=== PATIENT | male | born 1955 | race Two or more races ===

== ENCOUNTER 2020-04-09 21:04 | Emergency (ER) | payer MEDICARE, MEDICAID, SELFPAY ==
--- NOTE | 2020-04-09 | ECG_ITS ---
Test Reason : CHEST PAIN Blood Pressure : / mmHG Vent. Rate : 077 BPM Atrial Rate : 096 BPM P-R Int : 000 ms QRS Dur : 086 ms QT Int : 388 ms P-R-T Axes : 000 015 -10 degrees QTc Int : 439 ms Atrial fibrillation with occasional ventricular-paced complexes Abnormal ECG When compared with ECG of 27-NOV-2019 01:11, Vent. rate has decreased BY 4 BPM Referred By: Generic ED Physician Electronically Signed By:ANN DAUGHERTY MD
[2020-04-09 22:01] VITALS: BP 134/67; PULSE 80; RESP 24; TEMP 37.2; O2SAT 99; BMI 31.8
--- NOTE | 2020-04-09 22:09 | ED_ITS ---
HPI - Dizziness General Chief Complaint: Dizziness Stated Complaint: MULTIPLE COMPLAINTS Time Seen by Provider: 04/09/20 22:53 Source: patient Mode of arrival: ambulatory Limitations: no limitations History of Present Illness HPI Narrative: 64-year-old male presents after experiencing dizziness and palpitations earlier today. States that when he felt dizzy he took his cardiac medications, had some palpitations, and then the symptoms resolved. He states that he has chronic pain, does not have pain at this time, but feels like he needs pain management to prevent further pain. 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 he described to have Chronic chest, abdominal, and leg pain but not at this moment. Related Data Previous Rx's Medication Instructions Recorded atenolol 100 mg tablet 100 mg PO DAILY #30 tab 04/01/20 Allergies Allergy/AdvReac Type Severity Reaction Status Date / Time No Known Allergies Allergy Unverified 03/03/20 16:27 [No Known Allergies*] Review of Systems Review of Systems: Constitutional: No Weight loss, No Fever, No Chills, No Night Sweats, No Fatigue, No Malaise ENT/Mouth: No Hearing loss, No Ear Pain, No Nasal Congestion, No Sinus Pain, No Hoarseness, No sore throat, No Rhinorrhea, No Swallowing Difficulty Eyes: No Eye Pain, No Swelling, No Redness, No Foreign Body, No Discharge, No Vision Changes Cardiovascular: No Chest Pain, No SOB, No Dyspnea on Exertion, No Orthopnea, No Edema, No Palpitations Respiratory: No Cough, No Sputum, No Wheezing, No Smoke Exposure, No Dyspnea Gastrointestinal: No Nausea, No Vomiting, No Diarrhea, No Constipation, No abdominal Pain, No Hematochezia, No Melena Genitourinary: no irregular bleeding, No Dysuria, No Urinary Frequency, No Hematuria, No Urinary Incontinence, No Urgency, No Flank Pain, No Urinary Flow Changes, No Hesitancy Musculoskeletal: No joint pain, No Myalgias, No Joint Swelling Skin: No Skin Lesions, No rash Neuro: No Weakness, No Numbness, No Paresthesias, No Loss of Consciousness, No Dizziness, No Headache Psych: No Anxiety/Panic, No Depression, No SI/HI/AH/VH, No Social Issues Heme/Lymph: No Bruising, No Bleeding,No Lymphadenopathy Endocrine: No Polyuria, No Polydipsia, No Temperature Intolerance PMFSH Past Medical History Attestation statement: The following information was validated with the patient. Medical History Atrial fibrillation Social History Social History Alcohol intake: current Alcohol intake frequency: 0-2 drinks per day Smoking Status: Never smoker Use of substances other than those prescribed or required for medical reasons: No Advance Directives: No Advance Directives Information Provided: Yes Physical Exam Vital Signs: Vital Signs: Vital Signs Temp Pulse Resp BP Pulse Ox 04/10/20 00:18 60 16 161/89 H 100 04/09/20 22:01 98.9 F 80 24 H 134/67 99 Body Mass Index 31.8 Appearance: Alert. Oriented X3. No acute distress. Head: Normal external exam. Normocephalic. Atraumatic. No Benentt signs noted. No raccoon eyes noted Eyes: PERRLA. EOMI. Conjunctiva and sclera normal. Eyelids normal. ENT: TM's Normal. Pharynx normal. Uvula midline. Moist mucous membranes. No trismus noted. No drooling noted. No muffled voice noted. Neck: Normal inspection. Neck supple. No adenopathy. Thyroid Normal. No meningeal signs. No neck mass noted. CVS: Normal heart rate and rhythm. Heart sound normal. No murmurs noted. Pulses equal to all extremities. Respiratory: No respiratory distress. Painless inspiration. Breath sounds normal. No wheezes/rales/rhonchi noted. Chest nontender. No accessory muscle usage noted or decreased air movement noted. Abdomen: Soft and nontender. Bowel sounds normal in all 4 quadrants. No distention noted. No organomegaly noted. No visible injury noted. Back: No CVA tenderness. Full range of motion noted. Skin: Skin warm and dry. Normal skin color. Normal skin turgor. No rashes/lesions/lacerations noted. Extremities: No lower extremity edema. Extremities exhibit normal range of motion. Extremities nontender. Neuro: cranial nerves 2-12 intact, no focal neural deficits, strength 5/5 to all extremities, No motor deficit. No sensory deficit. Reflexes normal. Course Course Course Narrative: Plan is to rule out ACS, infection, electrolyte abnormalities. During interview patient stated that he does not have dizziness at this moment, that the dizziness went away after he took his cardiac med ications, is requesting something for pain although he does not have any pain now he says that he is going to have pain in the future and needs to be treated. Patient disappointed that he would not be receiving any medications for pain at this time. EKG shows AFib, 77 beats per minute, he is advised to continue to take his cardiac meds as ordered. Troponins are negative, CBC and Chem 7 are normal. Urinalysis is normal, shows hematuria which has been a chronic problem. patient discharged home in stable condition. Patient verbalized understanding of and agrees to plan of care. He is dissatisfied because we will not be prescribing pain medications for him. route service representative utilized for all correspondence. Google translate utilized for discharge instructions. patient dissatisfied that we will not be prescribing pain management. Another discussion utilizing telephone detective narcotics and vice regarding plan and appropriate use of emergency department. 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 This happened at 10:20 a.m. 11/04/2019 at 00:29 a.m. MDM - Dizziness Differential Diagnosis Differential diagnosis: Likely adverse reaction to drug, benign paroxysmal positional vertigo and orthostatic hypotension Medical Records Attestation: I reviewed the patient's medical records. Lab Data Attestation: I reviewed the patient's lab results. Result diagrams: 04/09/20 22:31 04/09/20 22:31 Labs: Lab Results 04/09/20 04/09/20 04/09/20 Range/Units 22:31 22:31 22:31 WBC 9.5 (4.8-10.8) X10*3/uL RBC 4.82 (4.60-5.80) X10*6/uL Hgb 13.9 L (14.0-18.0) g/dl Hct 42.2 (42-52) % MCV 87.6 (80-98) fL MCH 28.8 (27.0-33.0) pg MCHC 32.9 (31.0-36.0) g/dl RDW 12.8 (11.0-16.0) % Plt Count 288 (160-400) X10*3/uL MPV 10.0 (9.4-12.4) fL Immature Gran % (Auto) 0.2 (0.0-0.4) % Neut % (Auto) 53.5 (45-73) % Lymph % (Auto) 35.4 (20-40) % Cherry % (Auto) 9.4 (2-11) % Eos % (Auto) 1.0 (0-4) % Baso % (Auto) 0.5 (0-2) % Lymph # (Auto) 3.4 (1.2-4.9) X10*3/uL Cherry # (Auto) 0.9 (0.1-1.2) X10*3/uL Eos # (Auto) 0.1 (0.0-0.4) X10*3/uL Baso # (Auto) 0.1 (0.0-0.2) X10*3/uL Abs Immat Gran (auto) 0.02 (0.00-0.03) X10*3/uL Absolute Neuts (auto) 5.1 (2.0-8.3) X10*3/uL Absolute Nucleated RBC 0.000 (0.0-0.012) X10*3/uL Nucleated RBC % (auto) 0.0 (0.0-0.2) /100WBC Sodium 140 (135-145) mmol/L Potassium 4.6 (3.3-5.1) mmol/l Chloride 103 (96-108) mmol/L Carbon Dioxide 29 (22-29) mmol/L Anion Gap 13 (12-20) BUN 15 (9-16) mg/dL Creatinine 0.93 (0.5-1.4) mg/dL Estim Creat Clear Calc 76.8 Estimated GFR > 60 Random Glucose 84 (60-115) mg/dL Calcium 8.8 (8.4-10.2) mg/dL Magnesium 2.0 (1.6-2.6) mg/dL Troponin I High Sens 4.9 (<3.5-35.0) ng/L Urine Color Urine Appearance Urine pH (5.0-8.0) Ur Specific [place] (1.005-1.025) Urine Protein (NEG-TRACE) MG/DL Urine Glucose (UA) (NEG) MG/DL Urine Ketones (NEG) MG/DL Urine Blood (NEG) Urine Nitrite (NEG) Ur Leukocyte Esterase (NEG) Urine RBC (0) /HPF Urine WBC (0-4) /HPF Ur Squamous Epith Cells /LPF Urine Bacteria /LPF Urine Opiates Screen (Not Detect) Ur Barbiturates Screen (Not Detect) Ur Phencyclidine Scrn (Not Detect) Ur Amphetamines Screen (Not Detect) U Benzodiazepines Scrn (Not Detect) Urine Cocaine Screen (Not Detect) U Marijuana (THC) Screen (Not Detect) Ethyl Alcohol mg/dL 04/09/20 04/09/20 04/09/20 Range/Units 22:31 23:13 23:13 WBC (4.8-10.8) X10*3/uL RBC (4.60-5.80) X10*6/uL Hgb (14.0-18.0) g/dl Hct (42-52) % MCV (80-98) fL MCH (27.0-33.0) pg MCHC (31.0-36.0) g/dl RDW (11.0-16.0) % Plt Count (160-400) X10*3/uL MPV (9.4-12.4) fL Immature Gran % (Auto) (0.0-0.4) % Neut % (Auto) (45-73) % Lymph % (Auto) (20-40) % Cherry % (Auto) (2-11) % Eos % (Auto) (0-4) % Baso % (Auto) (0-2) % Lymph # (Auto) (1.2-4.9) X10*3/uL Cherry # (Auto) (0.1-1.2) X10*3/uL Eos # (Auto) (0.0-0.4) X10*3/uL Baso # (Auto) (0.0-0.2) X10*3/uL Abs Immat Gran (auto) (0.00-0.03) X10*3/uL Absolute Neuts (auto) (2.0-8.3) X10*3/uL Absolute Nucleated RBC (0.0-0.012) X10*3/uL Nucleated RBC % (auto) (0.0-0.2) /100WBC Sodium (135-145) mmol/L Potassium (3.3-5.1) mmol/l Chloride (96-108) mmol/L Carbon Dioxide (22-29) mmol/L Anion Gap (12-20) BUN (9-16) mg/dL Creatinine (0.5-1.4) mg/dL Estim Creat Clear Calc Estimated GFR Random Glucose (60-115) mg/dL Calcium (8.4-10.2) mg/dL Magnesium (1.6-2.6) mg/dL Troponin I High Sens (<3.5-35.0) ng/L Urine Color YELLOW Urine Appearance CLEAR Urine pH 6.0 (5.0-8.0) Ur Specific [place] 1.025 (1.005-1.025) Urine Protein NEG (NEG-TRACE) MG/DL Urine Glucose (UA) NEG (NEG) MG/DL Urine Ketones NEG (NEG) MG/DL Urine Blood TRACE (NEG) Urine Nitrite NEG (NEG) Ur Leukocyte Esterase NEG (NEG) Urine RBC 0-2 (0) /HPF Urine WBC 0-2 (0-4) /HPF Ur Squamous Epith Cells 1+ /LPF Urine Bacteria TRACE /LPF Urine Opiates Screen Not Detected (Not Detect) Ur Barbiturates Screen Not Detected (Not Detect) Ur Phencyclidine Scrn Not Detected (Not Detect) Ur Amphetamines Screen Not Detected (Not Detect) U Benzodiazepines Scrn Not Detected (Not Detect) Urine Cocaine Screen Not Detected (Not Detect) U Marijuana (THC) Screen Not Detected (Not Detect) Ethyl Alcohol < 10 mg/dL ECG Data Attestation: I personally reviewed and interpreted this ECG as follows: ECG interpretation date: 04/09/20 ECG interpretation time: 21:34 Prior ECG tracings: available for review Interpretation: Vent. rate 77 BPM GA interval * ms QRS duration 86 ms QT/QTc 388/439 ms P-R-T axes * 15 -10 Atrial fibrillation with occasional ventricular-paced complexes Abnormal ECG When compared with ECG of 27-NOV-2019 01:11, Vent. rate has decreased BY 4 BPM Discharge Plan Discharge Clinical Impression: Dizziness Atrial fibrillation Qualifiers: Atrial fibrillation type: longstanding persistent Qualified Code(s): I48.11 - Longstanding persistent atrial fibrillation Patient Disposition: Home, Self-Care Instructions: A-fib (Atrial Fibrillation) (ED), Dizziness (ED) Additional Instructions: se le evalu? si se hab?an mareado. Castañeda electrocardiograma muestra AFib a ellen velocidad de 77, lo cual es normal para usted. Por favor, contin?e tomando nava medicamentos y el seguimiento con cardiolog?a seg?n lo programado. Nava valores de laboratorio estaban dentro de los l?mites normales. Por favor, marshal un seguimiento con castañeda proveedor de atenci?n primaria para m?s ejercicio Episodios de mareos. Tony por elegir celena departamento de emergencias para la evaluaci?n. Por favor, marshal un seguimiento con el m?dico de atenci?n primaria seg?n sea necesario. Regrese al servicio de urgencias para cualquier s?ntoma nuevo, preocupante o que empeore. you were evaluated for dizziness. Your EKG shows AFib at a rate of 77, which is normal for you. Please continue to take your medications and follow-up with cardiology as scheduled. Your lab values were within normal limits. Please follow-up with your primary care provider to further workup Episodes of dizziness. Thank you for choosing this emergency department for evaluation. Please follow-up with primary care physician as needed. Return to the emergency department for any new, concerning, or worsening symptoms. Prescriptions: No Action atenolol 100 mg tablet 100 mg PO DAILY Qty: 30 RF: 5 Referrals: Everardo Rosado MD [Physician] - 2 days ( please call and make an appointment)
[2020-04-09 22:34] LABS: MANUAL DIFF FLAG NO
[2020-04-09 22:35] LABS: Basophils Absolute Auto 0.1 X10*3/uL (0.0-0.2); Basophils Percent Auto 0.5 % (0-2); Eosinophils Absolute Auto 0.1 X10*3/uL (0.0-0.4); Hematocrit 42.2 % (42-52); Hemoglobin 13.9 g/dl (14.0-18.0); Imm Gran Abs Auto 0.02 X10*3/uL (0.00-0.03); Imm Gran Pct Auto 0.2 % (0.0-0.4); Lymphocytes Absolute Auto 3.4 X10*3/uL (1.2-4.9); Lymphocytes Percent Auto 35.4 % (20-40); Mean Corpuscular HGB Conc 32.9 g/dl (31.0-36.0); Mean Corpuscular Hemoglobin 28.8 pg (27.0-33.0); Mean Corpuscular Volume 87.6 fL (80-98); Monocytes Absolute Auto 0.9 X10*3/uL (0.1-1.2); Monocytes Percent Auto 9.4 % (2-11); Neutrophils Absolute Auto 5.1 X10*3/uL (2.0-8.3); Neutrophils Percent Auto 53.5 % (45-73); Platelet Count 288 X10*3/uL (160-400); Red Blood Count 4.82 X10*6/uL (4.60-5.80); Red Cell Distribution Width 12.8 % (11.0-16.0); White Blood Count 9.5 X10*3/uL (4.8-10.8)
--- NOTE | 2020-04-09 22:43 | PC.NURSE ---
COMPLETED IN WAITING ROOM
[2020-04-09 23:02] LABS: Ethanol < 10 mg/dL
[2020-04-09 23:05] LABS: Anion Gap 13 (12-20); Blood Urea Nitrogen 15 mg/dL (9-16); Calcium 8.8 mg/dL (8.4-10.2); Carbon Dioxide 29 mmol/L (22-29); Chloride 103 mmol/L (96-108); Creatinine Clr Calc Pharmacy 76.8; Estimated Glomerular Filt Rate > 60; Glucose Random 84 mg/dL (60-115); Potassium 4.6 mmol/l (3.3-5.1); Sodium 140 mmol/L (135-145)
[2020-04-09 23:12] LABS: Troponin-I High Sensitivity 4.9 ng/L (<3.5-35.0)
[2020-04-09 23:22] LABS: Glucose Urine UA NEG (NEG); Leukocyte Esterase Urine NEG (NEG); Nitrite Urine NEG (NEG); Specific Gravity - Urine 1.025 (1.005-1.025); Urine Blood TRACE (NEG); Urine Ketones NEG (NEG); Urine Protein NEG (NEG-TRACE)
[2020-04-09 23:26] LABS: Appearance Urine CLEAR; Color Urine YELLOW
[2020-04-09 23:31] LABS: Bacteria Urine TRACE /LPF; RBC Urine 0-2 /HPF (0); Squamous Epithelial Cell Urine 1+ /LPF; WBC Urine 0-2 /HPF (0-4)
[2020-04-10 00:08] LABS: Amphetamine Screen Urine Not Detected (Not Detect); Barbiturates, Urine Not Detected (Not Detect); Benzodiazepines Screen Urine Not Detected (Not Detect); Cannabinoid Screen Urine Not Detected (Not Detect); Cocaine Screen Urine Not Detected (Not Detect); Opiate Screen Urine Not Detected (Not Detect); Phencyclidine Screen Urine Not Detected (Not Detect)
[2020-04-10 00:18] VITALS: BP 161/89; PULSE 60; RESP 16; O2SAT 100
--- NOTE | 2020-04-10 00:23 | PC.NURSE ---
PATIENT REPORTING THE PAIN IN HIS ABD STARTS AT NIGHT. USING PHONE COUNTY PROGRAM TECHNICIAN.
== END 2020-04-10 01:01 | disposition home or self-care (01) ==
PROVIDERS: Nurse Practitioner Family; Emergency Provider Emergency Medicine; PCP Internal Medicine
DX: I48.11 Longstanding persistent atrial fibrillation (principal); R42 Dizziness and giddiness; R00.2 Palpitations; Z79.899 Other long term (current) drug therapy
CPT/HCPCS: 36415; 80048; 80307; 80320; 81001; 83735; 84484; 85025; 93005; 99283; 99284

== ENCOUNTER 2020-04-18 11:02 | Outpatient (REF) | payer MEDICARE, MEDICAID, SELFPAY ==
--- NOTE | 2020-04-18 11:24 | XR_ITS ---
EXAMINATION: XR SHOULDER, LEFT CLINICAL INFORMATION: Pain COMPARISON: Previous x-ray October 2014 TECHNIQUE: Two views of the left shoulder. FINDINGS: The bones and soft tissues are normal. No fracture. Glenohumeral and acromioclavicular alignment is anatomic with normal joint space. No abnormal soft tissue calcifications. There is a left subclavian dual chamber pacemaker. XR/XR shoulder LT min 2V IMPRESSION: Normal left shoulder. Left subclavian dual chamber pacemaker.
[2020-04-18 12:40] LABS: Alanine Aminotransferase 16 U/L (0-40); Albumin Level 4.1 g/dL (3.5-5.0); Alkaline Phosphatase 86 U/L (39-117); Aspartate Amino Transferase 23 U/L (5-37); Bilirubin Direct 0.8 mg/dL (0.0-0.5); Bilirubin Total 2.1 mg/dL (0.0-1.0); C Reactive Protein 0.76 mg/dL (< or = 0.50); Lipase 37 U/L (8-78); Total Protein 7.9 g/dL (6.5-8.0)
== END 2020-04-18 11:03 | disposition home or self-care (01) ==
LOC: HO.LAB 11:02
PROVIDERS: PCP Internal Medicine; Visit Provider Internal Medicine
DX: M25.512 Pain in left shoulder (principal); I10 Essential (primary) hypertension; R10.9 Unspecified abdominal pain; G47.62 Sleep related leg cramps
CPT/HCPCS: 73030; 80076; 83690; 86140

== ENCOUNTER → 2020-04-20 09:09 | Outpatient (BNVA) | payer MEDICARE, MEDICAID, SELFPAY | PROVIDERS: PCP Internal Medicine; Visit Provider Internal Medicine | DX: I48.20 Chronic atrial fibrillation, unspecified (principal); Z51.81 Encounter for therapeutic drug level monitoring; Z79.01 Long term (current) use of anticoagulants | CPT/HCPCS: 85610; 99212 ==

== ENCOUNTER 2020-04-25 20:46 | Emergency (ER) | payer MEDICARE, MEDICAID, SELFPAY ==
[2020-04-25 20:47] VITALS: BP 155/88; PULSE 76; RESP 16; TEMP 36.6; O2SAT 96; BMI 31.8
--- NOTE | 2020-04-25 21:09 | PC.NURSE ---
at bedside for primary eval.
--- NOTE | 2020-04-25 21:12 | ED_ITS ---
HPI - Dizziness General Chief Complaint: Dizziness Stated Complaint: Headache Time Seen by Provider: 04/25/20 21:02 Source: patient Mode of arrival: ambulatory Limitations: no limitations History of Present Illness HPI Narrative: patient comes to emergency room complaining of dizziness and a bump on his head. Patient states he has not fallen, today in the afternoon he notes that he has a small bump on the scalp. . Patient states the dizziness is chronic, he is unable to describe felt dizziness feels for him, he states that he does not feel right but it has been chronic for him. He has been seen multiple times for the same reason according to the patient. Patient has history of atrial fibrillation, But states that he has not had any palpitations chest pain or shortness of breath. Patient states he is helpful to walk without falling, Feeling lightheaded, or losing balance MD elicited complaint: dizziness Related Data Previous Rx's Medication Instructions Recorded atenolol 100 mg tablet 100 mg PO DAILY #30 tab 04/01/20 warfarin 5 mg tablet 5 mg PO DAILY #90 tab 04/20/20 Allergies Allergy/AdvReac Type Severity Reaction Status Date / Time No Known Allergies Allergy Verified 04/20/20 09:53 [No Known Allergies*] Review of Systems Review of Systems: Constitutional : No Weight loss, No Fever, No Chills, No Night Sweats, No Fatigue, No Malaise ENT/Mouth : No Hearing loss, No Ear Pain, No Nasal Congestion, No Sinus Pain, No Hoarseness, No sore throat, No Rhinorrhea, No Swallowing Difficulty Eyes: No Eye Pain, No Swelling, No Redness, No Foreign Body, No Discharge, No V ision Changes Cardiovascular : No Chest Pain, No SOB, No Dyspnea on Exertion, No Orthopnea, No Edema, No Palpitations Respiratory : No Cough, No Sputum, No Wheezing, No Smoke Exposure, No Dyspnea Gastrointestinal : No Nausea, No Vomiting, No Diarrhea, No Constipation, No abdominal Pain, No Hematochezia, No Melena Genitourinary : no irregular bleeding, No Dysuria, No Urinary Frequency, No Hematuria, No Urinary Incontinence, No Urgency, No Flank Pain, No Urinary Flow Changes, No Hesitancy Musculoskeletal : No joint pain, No Myalgias, No Joint Swelling Skin : 1 cm bump in his scalp, not painful Neuro : No Weakness, No Numbness, No Paresthesias, No Loss of Consciousness, complaining of dizziness, no headache Psych : No Anxiety/Panic, No Depression, No SI/HI/AH/VH, No Social Issues, Heme/Lymph: No Bruising, No Bleeding,No Lymphadenopathy Endocrine : No Polyuria, No Polydipsia, No Temperature Intolerance [facility] Past Medical History Medical History Atrial fibrillation Social History Social History Alcohol intake: current Alcohol intake frequency: 0-2 drinks per day Smoking Status: Never smoker Advance Directives: No Physical Exam Vital Signs: Vital Signs: Last Vital Signs Temp 97.8 F 04/25/20 20:47 Pulse 76 04/25/20 20:47 Resp 16 04/25/20 20:47 BP 155/88 H 04/25/20 20:47 Pulse Ox 96 04/25/20 20:47 Body Mass Index 31.8 Appearance: Alert. Oriented X3. No acute distress. Eyes: Pupils equal, round and reactive to light. ENT: Pharynx normal. Neck: Normal inspection. Neck supple. No lymph nodes noted. No crepitus CVS: Normal heart rate and rhythm. Pulses normal. Normal S1 and S2 Respiratory: No respiratory distress. Breath sounds normal. No Wheezing. No rales Abdomen: Soft and nontender. No rigidity. No distention. good BS x4 Skin: Skin warm and dry. Normal skin color. 1 cm x 1 cm circular palpable p laque on his head, Barely noticeable, mildly tender to touch, movable, no abrasions or lacerations, no ecchymosis, no signs of cellulitis Extremities: No lower extremity edema. No lower extremity edema. No Lacerations. No Rash Neuro: Oriented X 3. No motor deficit. No sensory deficit. Moving all extermities. No slurred speech. Course Course Course Narrative: I discussed with the patient his labs, INR 2.1, EKG showing AFib with rate control. Patient requesting pain medication for the bumps on his head. I discussed with the patient that he can take Tylenol and ice the affected area.. MDM - Dizziness Lab Data Result diagrams: 04/25/20 21:32 04/25/20 21:32 Labs: Lab Results 04/25/20 04/25/20 04/25/20 Range/Units 21:32 21:32 21:32 WBC 9.2 (4.8-10.8) X10*3/uL RBC 4.93 (4.60-5.80) X10*6/uL Hgb 13.9 L (14.0-18.0) g/dl Hct 42.8 (42-52) % MCV 86.8 (80-98) fL MCH 28.2 (27.0-33.0) pg MCHC 32.5 (31.0-36.0) g/dl RDW 12.7 (11.0-16.0) % Plt Count 285 (160-400) X10*3/uL MPV 10.2 (9.4-12.4) fL Immature Gran % (Auto) 0.2 (0.0-0.4) % Neut % (Auto) 54.6 (45-73) % Lymph % (Auto) 36.5 (20-40) % O'Brien % (Auto) 7.2 (2-11) % Eos % (Auto) 1.0 (0-4) % Baso % (Auto) 0.5 (0-2) % Lymph # (Auto) 3.3 (1.2-4.9) X10*3/uL O'Brien # (Auto) 0.7 (0.1-1.2) X10*3/uL Eos # (Auto) 0.1 (0.0-0.4) X10*3/uL Baso # (Auto) 0.1 (0.0-0.2) X10*3/uL Abs Immat Gran (auto) 0.02 (0.00-0.03) X10*3/uL Absolute Neuts (auto) 5.0 (2.0-8.3) X10*3/uL Absolute Nucleated RBC 0.000 (0.0-0.012) X10*3/uL Nucleated RBC % (auto) 0.0 (0.0-0.2) /100WBC PT 24.8 H (10.8-13.0) SEC INR 2.1 H (0.9-1.1) Sodium 139 (135-145) mmol/L Potassium 3.8 (3.3-5.1) mmol/l Chloride 103 (96-108) mmol/L Carbon Dioxide 28 (22-29) mmol/L Anion Gap 12 (12-20) BUN 17 H (9-16) mg/dL Creatinine 0.95 (0.5-1.4) mg/dL Estim Creat Clear Calc 75.1 Estimated GFR > 60 Random Glucose 111 (60-115) mg/dL Calcium 8.4 (8.4-10.2) mg/dL Troponin I High Sens (<3.5-35.0) ng/L 04/25/20 Range/Units 21:32 WBC (4.8-10.8) X10*3/uL RBC (4.60-5.80) X10*6/uL Hgb (14.0-18.0) g/dl Hct (42-52) % MCV (80-98) fL MCH (27.0-33.0) pg MCHC (31.0-36.0) g/dl RDW (11.0-16.0) % Plt Count (160-400) X10*3/uL MPV (9.4-12.4) fL Immature Gran % (Auto) (0.0-0.4) % Neut % (Auto) (45-73) % Lymph % (Auto) (20-40) % O'Brien % (Auto) (2-11) % Eos % (Auto) (0-4) % Baso % (Auto) (0-2) % Lymph # (Auto) (1.2-4.9) X10*3/uL O'Brien # (Auto) (0.1-1.2) X10*3/uL Eos # (Auto) (0.0-0.4) X10*3/uL Baso # (Auto) (0.0-0.2) X10*3/uL Abs Immat Gran (auto) (0.00-0.03) X10*3/uL Absolute Neuts (auto) (2.0-8.3) X10*3/uL Absolute Nucleated RBC (0.0-0.012) X10*3/uL Nucleated RBC % (auto) (0.0-0.2) /100WBC PT (10.8-13.0) SEC INR (0.9-1.1) Sodium (135-145) mmol/L Potassium (3.3-5.1) mmol/l Chloride (96-108) mmol/L Carbon Dioxide (22-29) mmol/L Anion Gap (12-20) BUN (9-16) mg/dL Creatinine (0.5-1.4) mg/dL Estim Creat Clear Calc Estimated GFR Random Glucose (60-115) mg/dL Calcium (8.4-10.2) mg/dL Troponin I High Sens 7.2 (<3.5-35.0) ng/L ECG Data Attestation: I personally reviewed and interpreted this ECG as follows: ( atrial fibrillation, heart rate 94, irregular, no ST segment depressions or elevations, no T-wave inversions, occasional PVCs) Discharge Plan Discharge Clinical Impression: Dizziness, Lump of scalp Patient Disposition: Home, Self-Care Instructions: Dizziness (ED) Prescriptions: No Action atenolol 100 mg tablet 100 mg PO DAILY Qty: 30 RF: 5 warfarin 5 mg tablet 5 mg PO DAILY Qty: 90 RF: 0
--- NOTE | 2020-04-25 21:20 | ECG_ITS ---
Test Reason : CP Blood Pressure : / mmHG Vent. Rate : 094 BPM Atrial Rate : 105 BPM P-R Int : 000 ms QRS Dur : 084 ms QT Int : 380 ms P-R-T Axes : 000 011 -23 degrees QTc Int : 475 ms Atrial fibrillation with premature ventricular or aberrantly conducted complexes Nonspecific ST and T wave abnormality Prolonged QT Abnormal ECG When compared with ECG of 09-APR-2020 21:34, Electronic ventricular pacemaker is no longer evident Referred By: Vashti Thapa Electronically Signed By:ANN DAUGHERTY MD
--- NOTE | 2020-04-25 21:25 | PC.NURSE ---
emergency veterinary technician at bedside to obtain EKG.
--- NOTE | 2020-04-25 21:33 | PC.NURSE ---
Labs obtained and sent by this RN.
[2020-04-25 21:37] LABS: MANUAL DIFF FLAG NO
[2020-04-25 21:39] LABS: Basophils Absolute Auto 0.1 X10*3/uL (0.0-0.2); Basophils Percent Auto 0.5 % (0-2); Eosinophils Absolute Auto 0.1 X10*3/uL (0.0-0.4); Hematocrit 42.8 % (42-52); Hemoglobin 13.9 g/dl (14.0-18.0); Imm Gran Abs Auto 0.02 X10*3/uL (0.00-0.03); Imm Gran Pct Auto 0.2 % (0.0-0.4); Lymphocytes Absolute Auto 3.3 X10*3/uL (1.2-4.9); Lymphocytes Percent Auto 36.5 % (20-40); Mean Corpuscular HGB Conc 32.5 g/dl (31.0-36.0); Mean Corpuscular Hemoglobin 28.2 pg (27.0-33.0); Mean Corpuscular Volume 86.8 fL (80-98); Mean Platelet Volume 10.2 fL (9.4-12.4); Monocytes Absolute Auto 0.7 X10*3/uL (0.1-1.2); Monocytes Percent Auto 7.2 % (2-11); Neutrophils Percent Auto 54.6 % (45-73); Platelet Count 285 X10*3/uL (160-400); Red Blood Count 4.93 X10*6/uL (4.60-5.80); Red Cell Distribution Width 12.7 % (11.0-16.0); White Blood Count 9.2 X10*3/uL (4.8-10.8)
[2020-04-25 21:58] LABS: INTERNATIONAL NORM RATIO 2.1 (0.9-1.1); Prothrombin Time 24.8 SEC (10.8-13.0)
[2020-04-25 22:00] LABS: Anion Gap 12 (12-20); Blood Urea Nitrogen 17 mg/dL (9-16); Calcium 8.4 mg/dL (8.4-10.2); Carbon Dioxide 28 mmol/L (22-29); Chloride 103 mmol/L (96-108); Creatinine Clr Calc Pharmacy 75.1; Estimated Glomerular Filt Rate > 60; Glucose Random 111 mg/dL (60-115); Potassium 3.8 mmol/l (3.3-5.1); Sodium 139 mmol/L (135-145)
[2020-04-25 22:06] LABS: Troponin-I High Sensitivity 7.2 ng/L (<3.5-35.0)
== END 2020-04-25 22:50 | disposition home or self-care (01) ==
PROVIDERS: Emergency Provider Emergency Medicine; PCP Internal Medicine
DX: R22.0 Localized swelling, mass and lump, head (principal); R42 Dizziness and giddiness; Z79.899 Other long term (current) drug therapy
CPT/HCPCS: 36415; 80048; 84484; 85025; 85610; 93005; 99283

== ENCOUNTER → 2020-04-27 09:25 | Outpatient (BNVA) | payer MEDICARE, MEDICAID, SELFPAY | PROVIDERS: PCP Internal Medicine; Visit Provider Internal Medicine | DX: I48.20 Chronic atrial fibrillation, unspecified (principal); Z51.81 Encounter for therapeutic drug level monitoring; Z79.01 Long term (current) use of anticoagulants | CPT/HCPCS: 85610; 99211 ==

== ENCOUNTER → 2020-05-11 11:29 | Outpatient (BNVA) | payer MEDICARE, MEDICAID, SELFPAY | PROVIDERS: PCP Internal Medicine; Visit Provider Internal Medicine | DX: I48.20 Chronic atrial fibrillation, unspecified (principal); Z51.81 Encounter for therapeutic drug level monitoring; Z79.01 Long term (current) use of anticoagulants | CPT/HCPCS: 85610; 99211 ==

== ENCOUNTER → 2020-05-18 09:50 | Outpatient (BNVA) | payer MEDICARE, MEDICAID, SELFPAY | PROVIDERS: PCP Internal Medicine; Visit Provider Internal Medicine | DX: I48.20 Chronic atrial fibrillation, unspecified (principal); Z51.81 Encounter for therapeutic drug level monitoring; Z79.01 Long term (current) use of anticoagulants | CPT/HCPCS: 85610; 99211 ==

== ENCOUNTER → 2020-06-01 11:14 | Outpatient (BNVA) | payer MEDICARE, MEDICAID, SELFPAY | PROVIDERS: PCP Internal Medicine; Visit Provider Internal Medicine | DX: I48.20 Chronic atrial fibrillation, unspecified (principal); Z51.81 Encounter for therapeutic drug level monitoring; Z79.01 Long term (current) use of anticoagulants | CPT/HCPCS: 85610; 99211 ==

== ENCOUNTER → 2020-06-21 10:51 | Outpatient (BNVA) | payer MEDICARE, MEDICAID, SELFPAY | PROVIDERS: PCP Internal Medicine; Visit Provider Internal Medicine | DX: E66.9 Obesity, unspecified (principal); G47.33 Obstructive sleep apnea (adult) (pediatric); Z99.89 Dependence on other enabling machines and devices | CPT/HCPCS: 99212 ==

== ENCOUNTER → 2020-06-22 10:43 | Outpatient (BNVA) | payer MEDICARE, MEDICAID, SELFPAY | PROVIDERS: PCP Internal Medicine; Visit Provider Internal Medicine | DX: I48.20 Chronic atrial fibrillation, unspecified (principal); Z51.81 Encounter for therapeutic drug level monitoring; Z79.01 Long term (current) use of anticoagulants | CPT/HCPCS: 85610; 99211 ==

== ENCOUNTER 2020-06-27 10:54 | Outpatient (RCR) | payer MEDICARE, MEDICAID, SELFPAY | END 2021-02-21 08:39 | disposition home or self-care (01) | LOC: HO.PT 10:54 | PROVIDERS: Visit Provider Internal Medicine | DX: M54.5 Low back pain (principal); M25.50 Pain in unspecified joint ==

== ENCOUNTER → 2020-06-28 12:54 | Outpatient (BNVA) | payer MEDICARE, MEDICAID, SELFPAY | PROVIDERS: PCP Internal Medicine; Referring Provider Internal Medicine; Visit Provider Internal Medicine | DX: Z45.018 Encounter for adjustment and management of other part of cardiac pacemaker (principal); I48.19 Other persistent atrial fibrillation; I50.32 Chronic diastolic (congestive) heart failure; G47.33 Obstructive sleep apnea (adult) (pediatric); Z99.89 Dependence on other enabling machines and devices; Z79.01 Long term (current) use of anticoagulants | CPT/HCPCS: 93005; 99212 ==

== ENCOUNTER 2020-07-05 11:41 | Outpatient (REF) | payer MEDICARE, MEDICAID, SELFPAY ==
[2020-07-05 14:18] LABS: MANUAL DIFF FLAG NO
[2020-07-05 14:26] LABS: Basophils Percent Auto 0.4 % (0-2); Eosinophils Absolute Auto 0.1 X10*3/uL (0.0-0.4); Eosinophils Percent Auto 0.5 % (0-4); Hematocrit 42.9 % (42-52); Imm Gran Abs Auto 0.03 X10*3/uL (0.00-0.03); Imm Gran Pct Auto 0.3 % (0.0-0.4); Lymphocytes Absolute Auto 3.5 X10*3/uL (1.2-4.9); Lymphocytes Percent Auto 37.2 % (20-40); Mean Corpuscular HGB Conc 32.6 g/dl (31.0-36.0); Mean Corpuscular Hemoglobin 28.2 pg (27.0-33.0); Mean Corpuscular Volume 86.5 fL (80-98); Mean Platelet Volume 10.7 fL (9.4-12.4); Monocytes Absolute Auto 0.6 X10*3/uL (0.1-1.2); Monocytes Percent Auto 6.7 % (2-11); Neutrophils Absolute Auto 5.1 X10*3/uL (2.0-8.3); Neutrophils Percent Auto 54.9 % (45-73); Platelet Count 338 X10*3/uL (160-400); Red Blood Count 4.96 X10*6/uL (4.60-5.80); Red Cell Distribution Width 12.8 % (11.0-16.0); White Blood Count 9.3 X10*3/uL (4.8-10.8)
[2020-07-05 14:29] LABS: Glucose Urine UA NEG (NEG); Leukocyte Esterase Urine NEG (NEG); Nitrite Urine NEG (NEG); Specific Gravity - Urine 1.015 (1.005-1.025); Urine Blood TRACE (NEG); Urine Ketones NEG (NEG); Urine Protein NEG (NEG-TRACE)
[2020-07-05 14:32] LABS: Appearance Urine CLEAR; Color Urine YELLOW
[2020-07-05 14:50] LABS: INTERNATIONAL NORM RATIO 2.7 (0.9-1.1)
[2020-07-05 14:59] LABS: Alanine Aminotransferase 21 U/L (0-40); Alkaline Phosphatase 92 U/L (39-117); Anion Gap 14 (12-20); Aspartate Amino Transferase 22 U/L (5-37); Bilirubin Total 1.8 mg/dL (0.0-1.0); Blood Urea Nitrogen 11 mg/dL (9-16); C Reactive Protein 0.88 mg/dL (< or = 0.50); Calcium 8.9 mg/dL (8.4-10.2); Carbon Dioxide 28 mmol/L (22-29); Chloride 102 mmol/L (96-108); Estimated Glomerular Filt Rate > 60; Glucose Random 82 mg/dL (60-115); Potassium 4.2 mmol/l (3.3-5.1); Sodium 140 mmol/L (135-145); Total Protein 7.9 g/dL (6.5-8.0)
[2020-07-05 15:08] LABS: RBC Urine 0-2 /HPF (0); WBC Urine 0 /HPF (0-4)
== END 2020-07-05 11:42 | disposition home or self-care (01) ==
LOC: HO.10HDL 11:41
PROVIDERS: Visit Provider Internal Medicine
DX: R10.30 Lower abdominal pain, unspecified (principal); I48.91 Unspecified atrial fibrillation; I10 Essential (primary) hypertension; R30.0 Dysuria
CPT/HCPCS: 36415; 80053; 81001; 85025; 85610; 86140; 87086

== ENCOUNTER 2020-07-20 10:00 | Outpatient (RCR) | payer MEDICARE, MEDICAID, SELFPAY ==
--- NOTE | 2020-07-01 13:59 | MHC.PT.EP ---
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 He would benefit from a stretching and strengthening program to promote postural symmetry as well as an orthotic to correct leg length discrepancy. pt presents to physical therapy with pain, decreased range of motion, decreased strength, impaired functional mobility, impaired postural awareness, and gait deviations. pt is a fair candidate for skilled PT due to age, potential remediation of impairments, typical disease/condition progression and prognosis, comorbidities, and motivation. pt would benefit from tailored strengthening and stretching exercise program, functional training, gait training, postural re-training, neuromuscular re-education, modalities as needed for pain, equipment safety demonstration. Frequency and Duration: The patient will be seen 2x/wk for 5 wks Short Term Goals: pt will improve L hamstring length by 15 degrees to remediate gait impairments on even ground. pt will trial heel lift to accommodate leg length discrepancy to determine potential referral for podiatry. Receiving Specialist Goals: pt will report <1/10 low back pain w/ standing for >30 min to promote return to supervisor microbiology technologists. Treatment Plan: Modalities to reduce pain, spasms and effusion. Manual therapy to restore motion and function. Therapeutic exercise to improve strength and flexibility. Neuromuscular re-education for posture and balance. Therapeutic activities to return to functional activities of daily living. Electronically signed by: Nikky Doe PT, DPT Please sign and return to therapist. Thank you for your referral.
--- NOTE | 2020-07-20 11:22 | MHC.PT.DC ---
[facility] [place] [facility] [place] [facility] [place] [facility] [address] Finesse Lyons [address] [phone] F: [phone] F: [phone] F: [phone] F: [phone] Physical Therapy Discharge Report Diagnosis: low back pain Date of Surgery: N/A Date of Evaluation: 07/01/20 Date of Discharge: 07/20/20 Treatments to Date: 6 Cancellations to Date: 1 No Shows to Date: 0 Discharge Status: Patient Elected to Stop Recommend MD Follow-up Discharge Summary: Spoke with the patient regarding how his pain has seemed to increase, particularly he has been complaining of flank/stomach pain as well as chest pain. He does not wish to continue with PT. He has lost interest in PT and feels it is not helping him. He requires frequent cueing to slow down pace and to perform exercises with control. He often just lets his legs fall to the side or straighten out without control and tries to get through each ex as fast as he can despite cueing. He has been working on core and pelvic stability exercises and thoracolumbar active range of motion and stretching. He would benefit from a follow-up with his primary care to address his stomach and chest pain as it appears to be getting worse. The patient is discharged from this physical therapy plan of care at this time. Electronically signed by: Nikky Doe PT, DPT Please sign and return to therapist. Thank you for your referral.
== END 2020-07-20 11:24 | disposition other institution (70) ==
LOC: HO.PT 10:00
PROVIDERS: PCP Internal Medicine; Visit Provider Internal Medicine
DX: M54.5 Low back pain (principal)
CPT/HCPCS: 85610; 97110; 97162; 99211

== ENCOUNTER 2020-08-04 10:04 | Outpatient (REF) | payer MEDICARE, MEDICAID, SELFPAY ==
--- NOTE | ~2020-08-04 | XR_ITS ---
EXAMINATION: XR LUMBOSACRAL SPINE CLINICAL INFORMATION: M54.31 - Sciatica, right side COMPARISON: Radiographs lumbar spine 03/18/2017 TECHNIQUE: Three views of the lumbosacral spine. FINDINGS: There is normal lumbar segmentation with 5 nonrib-bearing lumbar vertebrae of normal height and normal lumbar lordosis. Vertebral bodies show no vertebral compression or interval spondylolisthesis, disc narrowing, or destructive process. There is some borderline anterior vertebral spurring L3 and L5. Interval bridging anterior osteophyte at L5-S1 is present without associated disc narrowing. The SI joints and visualized sacrum are unremarkable. XR/XR lumbar spine 2-3V IMPRESSION: 1. Bridging anterior osteophyte L5-S1. No disc narrowing. 2. Visualized SI joints unremarkable.
== END 2020-08-04 10:05 | disposition home or self-care (01) ==
LOC: HO.XRAY 10:04
PROVIDERS: PCP Internal Medicine; Referring Provider Internal Medicine; Visit Provider Internal Medicine
DX: M54.31 Sciatica, right side (principal); M54.32 Sciatica, left side; I48.20 Chronic atrial fibrillation, unspecified; Z51.81 Encounter for therapeutic drug level monitoring; Z79.01 Long term (current) use of anticoagulants
CPT/HCPCS: 72100; 85610; 99211

== ENCOUNTER 2020-08-08 10:42 | Outpatient (REF) | payer MEDICARE, MEDICAID, SELFPAY ==
[2020-08-08 11:27] LABS: MANUAL DIFF FLAG NO
[2020-08-08 11:33] LABS: Basophils Percent Auto 0.4 % (0-2); Eosinophils Absolute Auto 0.1 X10*3/uL (0.0-0.4); Eosinophils Percent Auto 0.7 % (0-4); Hematocrit 42.6 % (42-52); Imm Gran Abs Auto 0.02 X10*3/uL (0.00-0.03); Imm Gran Pct Auto 0.2 % (0.0-0.4); Lymphocytes Absolute Auto 3.3 X10*3/uL (1.2-4.9); Lymphocytes Percent Auto 40.4 % (20-40); Mean Corpuscular HGB Conc 32.9 g/dl (31.0-36.0); Mean Corpuscular Hemoglobin 28.4 pg (27.0-33.0); Mean Corpuscular Volume 86.4 fL (80-98); Mean Platelet Volume 10.4 fL (9.4-12.4); Monocytes Absolute Auto 0.6 X10*3/uL (0.1-1.2); Monocytes Percent Auto 7.4 % (2-11); Neutrophils Absolute Auto 4.1 X10*3/uL (2.0-8.3); Neutrophils Percent Auto 50.9 % (45-73); Platelet Count 314 X10*3/uL (160-400); Red Blood Count 4.93 X10*6/uL (4.60-5.80); Red Cell Distribution Width 12.6 % (11.0-16.0); White Blood Count 8.1 X10*3/uL (4.8-10.8)
[2020-08-08 12:23] LABS: B Type Natriuretic Peptide 125 pg/mL (<100)
[2020-08-08 12:29] LABS: Alanine Aminotransferase 20 U/L (0-40); Albumin Level 4.1 g/dL (3.5-5.0); Alkaline Phosphatase 98 U/L (39-117); Anion Gap 14 (12-20); Aspartate Amino Transferase 26 U/L (5-37); Bilirubin Total 1.7 mg/dL (0.0-1.0); Blood Urea Nitrogen 11 mg/dL (9-16); Calcium 8.9 mg/dL (8.4-10.2); Carbon Dioxide 29 mmol/L (22-29); Chloride 100 mmol/L (96-108); Cholesterol 159 mg/dL; Estimated Glomerular Filt Rate > 60; Glucose Fasting 95 mg/dL (60-99); HDL Cholesterol 56 mg/dL; LDL Cholesterol Calculated 87 mg/dl; Potassium 4.3 mmol/L (3.3-5.1); Sodium 139 mmol/L (135-145); Triglycerides 80 mg/dL
[2020-08-08 14:58] LABS: Digoxin < 0.3 ng/mL (0.8-2.0)
== END 2020-08-08 10:43 | disposition home or self-care (01) ==
LOC: HO.LAB 10:42
PROVIDERS: PCP Internal Medicine; Visit Provider Internal Medicine
DX: I50.32 Chronic diastolic (congestive) heart failure (principal); E78.5 Hyperlipidemia, unspecified; I48.19 Other persistent atrial fibrillation
CPT/HCPCS: 36415; 80053; 80061; 80162; 83880; 85025

== ENCOUNTER → 2020-09-02 10:08 | Outpatient (BNVA) | payer MEDICARE, MEDICAID, SELFPAY | PROVIDERS: PCP Internal Medicine; Visit Provider Internal Medicine | DX: I48.20 Chronic atrial fibrillation, unspecified (principal); Z51.81 Encounter for therapeutic drug level monitoring; Z79.01 Long term (current) use of anticoagulants | CPT/HCPCS: 85610; 99211 ==

== ENCOUNTER → 2020-09-30 10:28 | Outpatient (BNVA) | payer MEDICARE, MEDICAID, SELFPAY | PROVIDERS: Visit Provider Internal Medicine | DX: I48.20 Chronic atrial fibrillation, unspecified (principal); Z79.01 Long term (current) use of anticoagulants; Z51.81 Encounter for therapeutic drug level monitoring | CPT/HCPCS: 85610; 99211 ==

== ENCOUNTER → 2020-10-11 13:05 | Outpatient (BNVA) | payer MEDICARE, MEDICAID, SELFPAY | PROVIDERS: PCP Internal Medicine; Visit Provider Internal Medicine | DX: I48.20 Chronic atrial fibrillation, unspecified (principal); Z51.81 Encounter for therapeutic drug level monitoring; Z79.01 Long term (current) use of anticoagulants | CPT/HCPCS: 85610; 99211 ==

== ENCOUNTER → 2020-10-27 10:18 | Outpatient (BNVA) | payer MEDICARE, MEDICAID, SELFPAY | PROVIDERS: PCP Internal Medicine; Visit Provider Internal Medicine | DX: I48.20 Chronic atrial fibrillation, unspecified (principal); Z51.81 Encounter for therapeutic drug level monitoring; Z79.01 Long term (current) use of anticoagulants | CPT/HCPCS: 85610; 99211 ==

== ENCOUNTER → 2020-10-31 09:34 | Outpatient (BNVA) | payer MEDICARE, MEDICAID, SELFPAY | PROVIDERS: PCP Internal Medicine; Visit Provider Internal Medicine | DX: I48.20 Chronic atrial fibrillation, unspecified (principal); Z51.81 Encounter for therapeutic drug level monitoring; Z79.01 Long term (current) use of anticoagulants | CPT/HCPCS: 85610; 99211 ==

== ENCOUNTER 2020-11-10 09:24 | Outpatient (REF) | payer MEDICARE, MEDICAID, SELFPAY ==
--- NOTE | ~2020-11-10 | XR_ITS ---
EXAMINATION: XR HAND, RIGHT CLINICAL INFORMATION: Pain COMPARISON: None TECHNIQUE: PA, lateral, and oblique views of the right hand. FINDINGS: The bones and soft tissues are normal. No fracture. Alignment is anatomic. Mild interphalangeal joint space narrowing. Mild degenerative change at the first carpometacarpal joint.. No erosions or soft tissue calcifications. XR/XR hand RT min 3V IMPRESSION: Mild degenerative change in the interphalangeal joints.
--- NOTE | ~2020-11-10 | XR_ITS ---
EXAMINATION: XR HAND, LEFT CLINICAL INFORMATION: Pain COMPARISON: None TECHNIQUE: PA, lateral, and oblique views of the left hand. FINDINGS: The bones and soft tissues are normal. No fracture. Alignment is anatomic. Mild cartilage space narrowing throughout the interphalangeal joints and at the first carpal metacarpal joint.. No erosions or soft tissue calcifications. XR/XR hand LT min 3V IMPRESSION: Mild degenerative changes in the interphalangeal joints. No erosions.
--- NOTE | ~2020-11-10 | XR_ITS ---
EXAMINATION: XR CERVICAL SPINE CLINICAL INFORMATION: Pain COMPARISON: 09/13/2017 TECHNIQUE: 3 views of the cervical spine were obtained. FINDINGS: There are no prevertebral soft tissue or bony abnormalities demonstrated. No compression fractures or subluxations are identified. Alignment is maintained at the atlanto-axial articulation. Some disc space narrowing at C5-C6 and C6-C7 with bony spurring. The prevertebral soft tissues are normal. XR/XR cervical spine 2V IMPRESSION: Mild degenerative changes in the lower cervical spine.
[2020-11-10 11:44] LABS: MANUAL DIFF FLAG NO
[2020-11-10 11:52] LABS: Basophils Percent Auto 0.3 % (0-2); Eosinophils Absolute Auto 0.1 X10*3/uL (0.0-0.4); Eosinophils Percent Auto 0.9 % (0-4); Hematocrit 43.8 % (42-52); Hemoglobin 14.3 g/dl (14.0-18.0); Imm Gran Abs Auto 0.01 X10*3/uL (0.00-0.03); Imm Gran Pct Auto 0.1 % (0.0-0.4); Lymphocytes Absolute Auto 3.3 X10*3/uL (1.2-4.9); Mean Corpuscular HGB Conc 32.6 g/dl (31.0-36.0); Mean Corpuscular Hemoglobin 28.5 pg (27.0-33.0); Mean Corpuscular Volume 87.3 fL (80-98); Mean Platelet Volume 10.7 fL (9.4-12.4); Monocytes Absolute Auto 0.5 X10*3/uL (0.1-1.2); Monocytes Percent Auto 5.8 % (2-11); Neutrophils Absolute Auto 4.8 X10*3/uL (2.0-8.3); Neutrophils Percent Auto 54.9 % (45-73); Platelet Count 268 X10*3/uL (160-400); Red Blood Count 5.02 X10*6/uL (4.60-5.80); Red Cell Distribution Width 12.8 % (11.0-16.0); White Blood Count 8.8 X10*3/uL (4.8-10.8)
[2020-11-10 12:19] LABS: Alanine Aminotransferase 22 U/L (0-40); Albumin Level 4.2 g/dL (3.5-5.0); Alkaline Phosphatase 104 U/L (39-117); Anion Gap 12 (12-20); Aspartate Amino Transferase 25 U/L (5-37); Bilirubin Total 1.9 mg/dL (0.0-1.0); Blood Urea Nitrogen 13 mg/dL (9-16); C Reactive Protein 0.47 mg/dL (< or = 0.50); Calcium 9.2 mg/dL (8.4-10.2); Carbon Dioxide 27 mmol/L (22-29); Chloride 104 mmol/L (96-108); Cholesterol 156 mg/dL; Estimated Glomerular Filt Rate > 60; Glucose Fasting 94 mg/dL (60-99); HDL Cholesterol 55 mg/dL; LDL Cholesterol Calculated 81 mg/dl; Potassium 4.1 mmol/L (3.3-5.1); Rheumatoid Factor < 15.0 IU/mL (<15.0); Sodium 139 mmol/L (135-145); Triglycerides 101 mg/dL
[2020-11-10 12:23] LABS: Thyroid Stimulating Hormone 0.77 uIU/mL (0.32-4.0)
[2020-11-10 13:09] LABS: Erythrocyte Sedimentation Rate 7 MM/HR (0-15)
[2020-11-14 23:37] LABS: Cyclic Citrullinated Peptide <16 UNITS
[2020-11-15 06:22] LABS: Vitamin D 25-OH, D2 <4 ng/mL; Vitamin D 25-OH, D3 19 ng/mL; Vitamin D 25-OH, Total 19 ng/mL (30-100)
== END 2020-11-10 09:25 | disposition home or self-care (01) ==
LOC: HO.XRAY 09:24
PROVIDERS: PCP Internal Medicine; Visit Provider Student in an Organized Health Care Education/Training Program
DX: E78.5 Hyperlipidemia, unspecified (principal); M65.331 Trigger finger, right middle finger; M25.50 Pain in unspecified joint; D64.9 Anemia, unspecified; I48.19 Other persistent atrial fibrillation; Z79.899 Other long term (current) drug therapy; E55.9 Vitamin D deficiency, unspecified
CPT/HCPCS: 36415; 72040; 73130; 80053; 80061; 82306; 84443; 85025; 85652; 86140; 86200; 86431; 99202

== ENCOUNTER 2020-11-21 09:28 | Outpatient (RCR) | payer MEDICARE, MEDICAID, SELFPAY | END 2021-01-20 10:04 | disposition other institution (70) | LOC: HO.OT 09:28 | PROVIDERS: PCP Internal Medicine; Visit Provider Student in an Organized Health Care Education/Training Program | DX: M25.50 Pain in unspecified joint (principal) | CPT/HCPCS: 29130; 97166; 97760 ==

== ENCOUNTER → 2020-11-23 09:27 | Outpatient (BNVA) | payer MEDICARE, MEDICAID, SELFPAY | PROVIDERS: PCP Internal Medicine; Visit Provider Internal Medicine | DX: I48.20 Chronic atrial fibrillation, unspecified (principal); Z51.81 Encounter for therapeutic drug level monitoring; Z79.01 Long term (current) use of anticoagulants | CPT/HCPCS: 85610; 99211 ==

== ENCOUNTER 2020-12-06 10:58 | Emergency (ER) | payer MEDICARE, MEDICAID, SELFPAY ==
--- NOTE | ~2020-12-06 | CT_ITS ---
EXAMINATION: CT HEAD WITHOUT CONTRAST CLINICAL INFORMATION: Headache on Coumadin. Rule out bleed. COMPARISON: Previous head CT most recent August 2019 TECHNIQUE: Contiguous axial imaging was performed from the skull base to vertex without intravenous administration of contrast. This CT examination was performed using dose optimization techniques as appropriate, variously including the following: *Automated exposure control *Adjustment of mA and/or kV according to patient size (this includes techniques or standardized protocols for targeted exams where dose is matched to indication/reason for exam; i.e. extremities or head) *Use of iterative reconstruction technique DLP: 730 mGy-cm FINDINGS: There is no evidence of an extra-axial collection. There is no evidence of intra-axial or extra-axial hemorrhage. The ventricles and extra-axial CSF spaces are appropriate. There is nonspecific periventricular white matter disease. There is right frontal lobe encephalomalacia or old infarct that appears unchanged. No mass, mass effect or acute infarct is seen. Review of bone windows is normal. Visualized paranasal sinuses, mastoid air cells and middle ears are clear. CT/CT head/brain wo con IMPRESSION: No acute findings. 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
[2020-12-06 11:13] VITALS: BP 144/79; PULSE 78; RESP 16; TEMP 36.8; O2SAT 97; BMI 34.3
--- NOTE | 2020-12-06 12:09 | ED.HA ---
HPI - Headache General Chief Complaint: Headache Stated Complaint: neck & head pain Time Seen by Provider: 12/06/20 12:09 History of Present Illness HPI Narrative: Patient who takes Coumadin for atrial fibrillation complains of several weeks of right-sided headache which began gradually and has persisted, coming and going there is no photophobia no nausea no vomiting no fainting no balance issues no numbness or weakness no vision changes, he has had no injury no recent fever or illness he also complains of some mild pain or tightness in the muscles on the upper right side of his neck, there is no radiating pain no injury to the neck Related Data Home Medications Medication Instructions Recorded Confirmed lisinopril 40 mg tablet 40 mg PO DAILY tab 06/28/20 10/31/20 pantoprazole 40 mg tablet,delayed 40 mg PO DAILY tab 06/28/20 10/31/20 release CPAP #1 ea 08/04/20 10/31/20 pravastatin 20 mg tablet mg PO 08/04/20 10/31/20 atenolol 100 mg tablet mg PO 10/27/20 10/31/20 ibuprofen 800 mg tablet mg PO 10/27/20 10/31/20 ropinirole 2 mg tablet mg PO 10/27/20 10/31/20 Previous Rx's Medication Instructions Recorded warfarin 5 mg tablet 5 mg PO DAILY #90 tab 04/20/20 diltiazem HCl 360 mg 360 mg PO DAILY #30 cap 06/28/20 capsule,extended release 24 hr digoxin 125 mcg (0.125 mg) tablet 125 mcg PO DAILY #90 tab 08/25/20 furosemide 40 mg tablet 40 mg PO DAILY #90 tab 09/12/20 tramadol 50 mg tablet 50 mg PO DAILY PRN 30 Days #30 tab 11/01/20 acetaminophen 1,000 mg PO QID PRN #20 tab 12/06/20 Allergies Allergy/AdvReac Type Severity Reaction Status Date / Time No Known Allergies Allergy Verified 11/23/20 09:28 [No Known Allergies*] Review of Systems Review of Systems: Positive for headache Negatives are no fever no chills no dizziness no weakness no fainting no feeling faint no vision change no ear pain no neck pain no chest pain no shortness of breath no abdominal pain no nausea vomiting or diarrhea no skin rash no numbness weakness or tingling Yes all other systems are reviewed and are negative [facility] Past Medical History [facility] Narrative: Patient uses Coumadin for his atrial fibrillation Source: nursing notes reviewed Medical History Atrial fibrillation Bilateral sciatica Chronic heart failure with preserved ejection fraction (HFpEF) Obesity (BMI 30.0-34.9) MELANIE on CPAP Persistent atrial fibrillation Polyarthralgia Trigger finger Surgical History History of cholecystectomy History of ear surgery Family History Family History Father Myocardial infarction CVD (cardiovascular disease) Mother No problems noted. Sister Stomach cancer Son No problems noted. Son No problems noted. Daughter No problems noted. Daughter No problems noted. Brother No problems noted. Brother No problems noted. Social History Social History Household Members: Children Housing: House Alcohol intake: current Alcohol intake frequency: a few times a week Alcohol type: beer Patient Tobacco Use Status: Never used Tobacco Advance Directives: No Advance Directives Information Provided: No Physical Exam Vital Signs: Vital Signs: Last Vital Signs Temp 98.0 F 12/06/20 12:19 Pulse 67 12/06/20 12:19 Resp 18 12/06/20 12:19 BP 125/77 12/06/20 12:19 Pulse Ox 98 12/06/20 12:19 Body Mass Index 34.3 General appearance is no acute distress Head is normocephalic atraumatic The ears no hemotympanum, canals are patent and tympanic membranes are normal Eyes pupils equal round reactive to light, extraocular motions intact The neck is supple, there is some mild tenderness to the right lateral upper neck muscles, no midline tenderness he has some discomfort tilting his head to the right side of the neck The chest is clear to auscultation bilateral Heart no murmur Abdomen soft nontender Extremities full range of motion x4 Neuro communication both expression and understanding are normal, gait and balance are normal, motor is 5/5 x4, no facial asymmetry, sensation is intact and symmetrical bilateral Course Course Course Narrative: Head CT did not reveal any acute pathology, patient had no injury no fever no stroke symptoms and is discharged to follow with primary doctor MDM - Headache Lab Data Labs: Lab Results 12/06/20 Range/Units 12:53 PT 22.2 H D (10.8-13.0) SEC INR 1.9 H (0.9-1.1) Discharge Plan Discharge Clinical Impression: Headache Patient Disposition: Home, Self-Care Additional Instructions: Head CT did not reveal any bleed or tumor No emergent condition today Follow with primary doctor Return any time any worse condition or any concerns Prescriptions: New acetaminophen 500 mg tablet 1,000 mg PO QID PRN (Reason: pain) Qty: 20 RF: 0 No Action digoxin 125 mcg (0.125 mg) tablet 125 mcg PO DAILY Qty: 90 RF: 1 furosemide 40 mg tablet 40 mg PO DAILY Qty: 90 RF: 1 tramadol 50 mg tablet 50 mg PO DAILY PRN (Reason: pain) 30 Days Qty: 30 RF: 0 pravastatin 20 mg tablet PO RF: 0 (DME) CPAP Device See Rx Instructions .ROUTE .MEDSUPPLY Qty: 1 RF: 0 warfarin 5 mg tablet 5 mg PO DAILY Qty: 90 RF: 0 ibuprofen 800 mg tablet PO RF: 0 ropinirole 2 mg tablet PO RF: 0 atenolol 100 mg tablet PO RF: 0 lisinopril 40 mg tablet 40 mg PO DAILY RF: 0 pantoprazole 40 mg tablet,delayed release (DR/EC) 40 mg PO DAILY RF: 0 diltiazem HCl 360 mg capsule,extended release 24hr 360 mg PO DAILY Qty: 30 RF: 5
[2020-12-06 12:19] VITALS: BP 125/77; PULSE 67; RESP 18; TEMP 36.7; O2SAT 98
[2020-12-06 13:06] LABS: INTERNATIONAL NORM RATIO 1.9 (0.9-1.1); Prothrombin Time 22.2 SEC (10.8-13.0)
== END 2020-12-06 13:39 | disposition home or self-care (01) ==
PROVIDERS: Physician Assistant Medical; Emergency Provider Emergency Medicine Emergency Medical Services; PCP Internal Medicine
DX: R51.9 Headache, unspecified (principal); I48.19 Other persistent atrial fibrillation; Z79.01 Long term (current) use of anticoagulants
CPT/HCPCS: 36415; 70450; 85610; 99284

== ENCOUNTER 2020-12-08 09:03 | Outpatient (REF) | payer MEDICARE, MEDICAID, SELFPAY | END 2020-12-08 09:04 | disposition home or self-care (01) | LOC: HO.LAB 09:03 | PROVIDERS: PCP Internal Medicine; Visit Provider Internal Medicine | DX: Z20.822 Contact with and (suspected) exposure to COVID-19 (principal); I48.20 Chronic atrial fibrillation, unspecified; Z51.81 Encounter for therapeutic drug level monitoring; Z79.01 Long term (current) use of anticoagulants | CPT/HCPCS: 85610; 99212; C9803; U0003; U0005 ==

== ENCOUNTER 2020-12-08 09:53 | Emergency (ER) | payer MEDICARE, MEDICAID, SELFPAY ==
--- NOTE | ~2020-12-08 | CT_ITS ---
EXAMINATION: CT HEAD WITHOUT CONTRAST CLINICAL INFORMATION: Headache with nausea and vomiting getting worse COMPARISON: August 21, 2019 TECHNIQUE: Contiguous axial imaging was performed from the skull base to vertex without intravenous administration of contrast. This CT examination was performed using dose optimization techniques as appropriate, variously including the following: *Automated exposure control *Adjustment of mA and/or kV according to patient size (this includes techniques or standardized protocols for targeted exams where dose is matched to indication/reason for exam; i.e. extremities or head) *Use of iterative reconstruction technique DLP: 695 mGy-cm FINDINGS: There is no evidence of acute intracranial hemorrhage or territorial infarction. No abnormal mass effect or midline shift is seen. Huynh to white matter differentiation is well preserved. No extra-axial fluid collections are identified. There is periventricular white matter low density present consistent with microangiopathy. There is a stable region of right frontal encephalomalacia. There is a stable region of diminished density within the deep white matter of the left frontal lobe anterior to the lateral ventricle. The ventricles are normal in size. The osseous structures and soft tissues are normal. The mastoid air cells and visualized portions of the paranasal sinuses are well aerated. CT/CT head/brain wo con IMPRESSION: No acute intracranial pathology. Findings consistent with microangiopathy. Stable region of right frontal encephalomalacia as well as left frontal white matter low density which may be related to previous infarct.
[2020-12-08 10:06] VITALS: BP 142/76; PULSE 70; RESP 17; TEMP 37; O2SAT 99; BMI 31.3
--- NOTE | 2020-12-08 11:36 | ECG_ITS ---
Test Reason : HEADACHE Blood Pressure : / mmHG Vent. Rate : 065 BPM Atrial Rate : 050 BPM P-R Int : 000 ms QRS Dur : 088 ms QT Int : 438 ms P-R-T Axes : 000 007 -13 degrees QTc Int : 455 ms Atrial fibrillation with frequent ventricular-paced complexes Abnormal ECG When compared with ECG of 25-APR-2020 21:20, Electronic ventricular pacemaker has replaced Atrial fibrillation Referred By: Radha Domínguez Electronically Signed By:Potrillo Slater
[2020-12-08 11:43] VITALS: BP 139/80; PULSE 66; RESP 16; O2SAT 98
[2020-12-08 12:02] VITALS: BP 132/76; PULSE 68; RESP 16; O2SAT 98
[2020-12-08] MEDS: ondansetron HCL 4 MG/2 ML VIAL IVPUSH (12:07)
[2020-12-08] MEDS: 0.9 % Sodium Chloride 1,000 ML 999 ML IVCONT (12:09)
[2020-12-08 12:19] LABS: Glucose Urine UA NEG (NEG); Leukocyte Esterase Urine NEG (NEG); Nitrite Urine NEG (NEG); PH 5.5 (5.0-8.0); Specific Gravity - Urine 1.025 (1.005-1.025); Urine Blood 1+ (NEG); Urine Ketones NEG (NEG); Urine Protein NEG (NEG-TRACE)
[2020-12-08 12:20] LABS: MANUAL DIFF FLAG NO
[2020-12-08 12:21] LABS: Basophils Percent Auto 0.3 % (0-2); Eosinophils Percent Auto 0.3 % (0-4); Hematocrit 46.7 % (42-52); Hemoglobin 15.4 g/dl (14.0-18.0); Imm Gran Abs Auto 0.03 X10*3/uL (0.00-0.03); Imm Gran Pct Auto 0.3 % (0.0-0.4); Lymphocytes Absolute Auto 3.4 X10*3/uL (1.2-4.9); Lymphocytes Percent Auto 29.7 % (20-40); Mean Corpuscular Hemoglobin 28.9 pg (27.0-33.0); Mean Corpuscular Volume 87.6 fL (80-98); Mean Platelet Volume 10.2 fL (9.4-12.4); Monocytes Absolute Auto 0.6 X10*3/uL (0.1-1.2); Monocytes Percent Auto 5.3 % (2-11); Neutrophils Absolute Auto 7.4 X10*3/uL (2.0-8.3); Neutrophils Percent Auto 64.1 % (45-73); Platelet Count 315 X10*3/uL (160-400); Red Blood Count 5.33 X10*6/uL (4.60-5.80); White Blood Count 11.6 X10*3/uL (4.8-10.8)
[2020-12-08 12:25] LABS: Appearance Urine HAZY; Color Urine YELLOW
[2020-12-08 12:28] LABS: Squamous Epithelial Cell Urine TRACE /LPF; WBC Urine 0 /HPF (0-4)
[2020-12-08 12:55] LABS: B Type Natriuretic Peptide 228 pg/mL (<100)
[2020-12-08 12:56] LABS: Alanine Aminotransferase 18 U/L (0-40); Albumin Level 4.4 g/dL (3.5-5.0); Alkaline Phosphatase 103 U/L (39-117); Anion Gap 15 (12-20); Aspartate Amino Transferase 28 U/L (5-37); Bilirubin Total 2.4 mg/dL (0.0-1.0); Blood Urea Nitrogen 14 mg/dL (9-16); Calcium 9.6 mg/dL (8.4-10.2); Carbon Dioxide 28 mmol/L (22-29); Chloride 102 mmol/L (96-108); Creatinine Clr Calc Pharmacy 77.7; Estimated Glomerular Filt Rate > 60; Glucose Random 85 mg/dL (60-115); Potassium 4.3 mmol/L (3.3-5.1); Sodium 141 mmol/L (135-145); Total Protein 8.7 g/dL (6.5-8.0)
--- NOTE | 2020-12-08 14:19 | ED_ITS ---
HPI - Headache General Chief Complaint: General Medical Stated Complaint: headache, cough, nasuea, vomitting Time Seen by Provider: 12/08/20 10:59 Source: patient Mode of arrival: ambulatory Limitations: no limitations History of Present Illness HPI Narrative: 65 year old male with a past medical history of atrial f ibrillation currently on Coumadin, congestive heart failure presenting to the ED after he was [facility] draw. While [facility] was [facility] patient was complaining of a headache for the past 3 days with associated nausea/vomiting and nasal congestion. When at the [facility] they obtain a COVID swab and his PT INR and sent him here for further evaluation treatment. Patient reports he has had a right-sided headache that is pressure in sensation for the past 3 days with associated nausea/vomiting. He reports he has been unable to keep anything down since yesterday. He also reports nasal congestion. Denies any dizziness, neck pain/stiffness, chest pain, shortness of breath, abdominal pain, diarrhea or constipation, black or bloody stools, black or bloody emesis, dysuria, hematuria or any other symptoms complaints or concerns at this time. Denies recent travel or sick contacts. MD elicited complaint: headache Onset (ago): day(s) (Three days) Onset description: gradually Location: right Severity: moderate Quality & Timing: aching, constant, pressure and progressively worsening Exacerbating factors: none Relieving factors: nothing Context: other (Cannot recall) Associated symptoms: nausea, vomiting and other (Nasal congestion) Treatments prior to arrival: none Related Data Home Medications Medication Instructions Recorded Confirmed lisinopril 40 mg tablet 40 mg PO DAILY tab 06/28/20 10/31/20 pantoprazole 40 mg tablet,delayed 40 mg PO DAILY tab 06/28/20 10/31/20 release CPAP #1 ea 08/04/20 10/31/20 pravastatin 20 mg tablet mg PO 08/04/20 10/31/20 atenolol 100 mg tablet mg PO 10/27/20 10/31/20 ibuprofen 800 mg tablet mg PO 10/27/20 10/31/20 ropinirole 2 mg tablet mg PO 10/27/20 10/31/20 Previous Rx's Medication Instructions Recorded warfarin 5 mg tablet 5 mg PO DAILY #90 tab 04/20/20 diltiazem HCl 360 mg 360 mg PO DAILY #30 cap 06/28/20 capsule,extended release 24 hr digoxin 125 mcg (0.125 mg) tablet 125 mcg PO DAILY #90 tab 08/25/20 furosemide 40 mg tablet 40 mg PO DAILY #90 tab 09/12/20 tramadol 50 mg tablet 50 mg PO DAILY PRN 30 Days #30 tab 11/01/20 acetaminophen 1,000 mg PO QID PRN #20 tab 12/06/20 tramadol 50 mg PO Q8H PRN #10 tab 12/06/20 acetaminophen-codeine 1 tab PO Q8H PRN #10 tab 12/08/20 azithromycin See Rx Instructions .ROUTE 12/08/20 .COMPLEX #6 tab ondansetron HCl [Zofran] 4 mg PO Q8H PRN #14 tab 12/08/20 Allergies Allergy/AdvReac Type Severity Reaction Status Date / Time No Known Allergies Allergy Verified 12/08/20 10:06 [No Known Allergies*] Review of Systems Review of Systems: Constitutional : No changes in activity, No lethargy, No recent prior head injury, No agitation, No increased fussiness ENT/Mouth : Positive Runny nose/nasal congestion, No Ear Pain Eyes: No Eye Pain, No Swelling, No Redness, No Foreign Body, No Vision Changes Cardiovascular : No Chest Pain, No SOB Respiratory : No Cough Gastrointestinal : Positive nausea/vomiting, No abdominal Pain Genitourinary : No Dysuria, No Urinary Frequency, No Urinary Incontinence, No Urgency, No Flank Pain Musculoskeletal : No joint pain, No neck stiffness, No back pain/injury Skin : No lacerations Neuro : No unsteady gait, No Paresthesias, No Loss of Consciousness, No altered mental status, No dizziness, + Headache Denies past medical history of HIV, recent trauma, coagulopathy, recent spinal/ epidural procedure, new medication, URI symptoms, close contacts with similar symptoms, tick bite, or known CO2 exposure. Yes all other systems are reviewed and are negative [facility] Past Medical History Attestation statement: The following information was validated with the patient. Medical History Atrial fibrillation Bilateral sciatica Chronic heart failure with preserved ejection fraction (HFpEF) Obesity (BMI 30.0-34.9) MELANIE on CPAP Persistent atrial fibrillation Polyarthralgia Trigger finger Surgical History History of cholecystectomy History of ear surgery Family History Family History Father Myocardial infarction CVD (cardiovascular disease) Mother No problems noted. Sister Stomach cancer Son No problems noted. Son No problems noted. Daughter No problems noted. Daughter No problems noted. Brother No problems noted. Brother No problems noted. Social History Social History Household Members: Children Housing: House Alcohol intake: never Patient Tobacco Use Status: Never used Tobacco Use of substances other than those prescribed or required for medical reasons: No Advance Directives: No Advance Directives Information Provided: No Physical Exam Vital Signs: Vital Signs: Last Vital Signs Temp 98.6 F 12/08/20 10:06 Pulse 68 12/08/20 12:02 Resp 16 12/08/20 12:02 BP 132/76 12/08/20 12:02 Pulse Ox 98 12/08/20 12:02 Body Mass Index 31.3 Vital signs have been reviewed as normal and appeared to be correct. Blood pressure normal. Heart rate normal. Respiration rate normal. Temperature normal. Oxygen saturation normal. Appearance: Alert. Oriented X3. No acute distress. Head: Normal external exam. Normocephalic. Atraumatic. Able to rotate head bilaterally. Eyes: PERRLA. EOMI. No nystagmus noted. Conjunctiva and sclera normal. Eyelids normal. Corneal reflex normal. ENT: EAC normal. TM's Normal. Hearing normal. Pharynx normal. Uvula midline. tongue midline. Moist mucous membranes. No trismus noted. No drooling noted. No muffled voice noted. Neck: Normal inspection. Neck supple. FROM. No adenopathy. Thyroid Normal. No meningeal signs. No neck mass noted. CVS: Normal heart rate and rhythm. Heart sound normal. No murmurs noted. Pulses normal throughout. Respiratory: No respiratory distress. Painless inspiration. Breath sounds normal. No wheezes/rales/rhonchi noted. Chest nontender. No accessory muscle usage noted or decreased air movement noted. Back: Full range of motion noted. Skin: Skin warm and dry. Normal skin color. Normal skin turgor. No rashe s/lesions/lacerations noted. Extremities: Extremities exhibit normal range of motion. Extremities nontender. Able to shrug shoulders bilaterally and keep up against resistance. Neuro: Oriented X 3. No motor deficit. No sensory deficit. Reflexes normal. Moving all extremities. No focal motor deficits. Cranial nerves II-XI intact bilaterally. Facial strength normal. Normal cognition. Speech normal. Gait normal. Strength 5/5 throughout. No pronator drift. No tremor noted. No fasciculations noted. Muscle tone normal throughout. No asterixis noted. Qubfuq-ow-kozh test normal. Heel to ferrer test normal. Tandem gait normal. Does not sway with eyes open. Romberg test negative. Rapid alternating movement upper extremity normal. Rapid alternating movement lower extremity normal. Hand drop from overhead-Mrs. face. No rigidity noted. NIHSS score 0. Course Course Course Narrative: - Patient afebrile, resting comfortably in no distress. Non- toxic appearing. Patient denies any recent trauma/injury to head. Neurological exam shows no deficits. BP WNL. Denies any changes in vision. Patient ambulates without difficulty. Given the history, and physical - most likely diagnosis: Migraine GALINDO. Although due to patient reporting that this is longer than her usual headaches will obtain CT scan of brain to evaluate for any acute processes. Will treat pain, and nausea. Will d/c with migraine medicaiton and advised to follow - up with PCP. Patient demonstrated good understanding of signs and symptoms to return to ED for further testing should sx worsen. gradual onset GALINDO with nausea. SAH: unlikely given gradual onset and similar to previous episodes Intracranial bleed: unlikely given neg trauma although is on anticoagulation therefore CT scan of brain indicated Meningitis: unlikely given pt afebrile, neg stiff neck, no immune compromise. Exam without signs of meningismus Temporal arteritis: Unlikely given Neg jaw claudication, no temporal tenderness or nodularity on exam. Cerebral venous thrombosis: unlikely given no h/o hypercoaguable state, no chronic head/neck infection. Reevaluation(s) Reevaluation #1: - patient 1 elevated white blood cell count at 11,000. PT INR was done outpatient and it is 21.0/1.7. Patient's total bilirubin is 2.4 although this is chronic. BNP 228. Otherwise all other labs are within normal limits. UA within normal limits no evidence of UTI. COVID swab still pending and was outpatient. - CT scan of brain revealed chronic changes no acute processes were noted. - patient was offered oxycodone for his headache although he refused reported that it makes him throw up therefore I offered him nausea medication although he also refused that. Then I offered plain Tylenol along with tramadol and multiple other medications and patient was just refusing all other meds. Then I finally offered Tylenol with codeine and patient was agreeable to this. Therefore will DC home with Tylenol with codeine patient is tolerating p.o. and instructions to return if any new or worsening symptoms. Patient understands agrees with this plan. Time: 14:28 MDM - Headache Medical Records Attestation: I reviewed the patient's medical records. Lab Data Attestation: I reviewed the patient's lab results. Result diagrams: 12/08/20 12:00 12/08/20 12:00 Labs: Lab Results 12/08/20 12/08/20 12/08/20 Range/Units 12:00 12:00 12:00 WBC 11.6 H (4.8-10.8) X10*3/uL RBC 5.33 (4.60-5.80) X10*6/uL Hgb 15.4 (14.0-18.0) g/dl Hct 46.7 (42-52) % MCV 87.6 (80-98) fL MCH 28.9 (27.0-33.0) pg MCHC 33.0 (31.0-36.0) g/dl RDW 13.0 (11.0-16.0) % Plt Count 315 (160-400) X10*3/uL MPV 10.2 (9.4-12.4) fL Immature Gran % (Auto) 0.3 (0.0-0.4) % Neut % (Auto) 64.1 (45-73) % Lymph % (Auto) 29.7 (20-40) % [place] % (Auto) 5.3 (2-11) % Eos % (Auto) 0.3 (0-4) % Baso % (Auto) 0.3 (0-2) % Lymph # (Auto) 3.4 (1.2-4.9) X10*3/uL [place] # (Auto) 0.6 (0.1-1.2) X10*3/uL Eos # (Auto) 0.0 (0.0-0.4) X10*3/uL Baso # (Auto) 0.0 (0.0-0.2) X10*3/uL Abs Immat Gran (auto) 0.03 (0.00-0.03) X10*3/uL Absolute Neuts (auto) 7.4 (2.0-8.3) X10*3/uL Absolute Nucleated RBC 0.000 (0.0-0.012) X10*3/uL Nucleated RBC % (auto) 0.0 (0.0-0.2) /100WBC Hold Purple Top SEE NOTE Sodium 141 (135-145) mmol/L Potassium 4.3 (3.3-5.1) mmol/L Chloride 102 (96-108) mmol/L Carbon Dioxide 28 (22-29) mmol/L Anion Gap 15 (12-20) BUN 14 (9-16) mg/dL Creatinine 0.90 (0.5-1.4) mg/dL Estim Creat Clear Calc 77.7 Estimated GFR > 60 Random Glucose 85 (60-115) mg/dL Calcium 9.6 (8.4-10.2) mg/dL Magnesium 2.0 (1.6-2.6) mg/dL Total Bilirubin 2.4 H (0.0-1.0) mg/dL AST 28 (5-37) U/L ALT 18 (0-40) U/L Alkaline Phosphatase 103 (39-117) U/L B-Natriuretic Peptide (<100) pg/mL Total Protein 8.7 H (6.5-8.0) g/dL Albumin 4.4 (3.5-5.0) g/dL Urine Color Urine Appearance Urine pH (5.0-8.0) Ur Specific Ramer (1.005-1.025) Urine Protein (NEG-TRACE) MG/DL Urine Glucose (UA) (NEG) MG/DL Urine Ketones (NEG) MG/DL Urine Blood (NEG) Urine Nitrite (NEG) Ur Leukocyte Esterase (NEG) Urine RBC (0) /HPF Urine WBC (0-4) /HPF Ur Squamous Epith Cells /LPF Urine Bacteria /LPF 12/08/20 12/08/20 12/08/20 Range/Units 12:00 12:00 12:00 WBC (4.8-10.8) X10*3/uL RBC (4.60-5.80) X10*6/uL Hgb (14.0-18.0) g/dl Hct (42-52) % MCV (80-98) fL MCH (27.0-33.0) pg MCHC (31.0-36.0) g/dl RDW (11.0-16.0) % Plt Count (160-400) X10*3/uL MPV (9.4-12.4) fL Immature Gran % (Auto) (0.0-0.4) % Neut % (Auto) (45-73) % Lymph % (Auto) (20-40) % [place] % (Auto) (2-11) % Eos % (Auto) (0-4) % Baso % (Auto) (0-2) % Lymph # (Auto) (1.2-4.9) X10*3/uL [place] # (Auto) (0.1-1.2) X10*3/uL Eos # (Auto) (0.0-0.4) X10*3/uL Baso # (Auto) (0.0-0.2) X10*3/uL Abs Immat Gran (auto) (0.00-0.03) X10*3/uL Absolute Neuts (auto) (2.0-8.3) X10*3/uL Absolute Nucleated RBC (0.0-0.012) X10*3/uL Nucleated RBC % (auto) (0.0-0.2) /100WBC Hold Purple Top Sodium Cancelled (135-145) mmol/L Potassium Cancelled (3.3-5.1) mmol/L Chloride Cancelled (96-108) mmol/L Carbon Dioxide Cancelled (22-29) mmol/L Anion Gap Cancelled (12-20) BUN Cancelled (9-16) mg/dL Creatinine Cancelled (0.5-1.4) mg/dL Estim Creat Clear Calc Cancelled Estimated GFR Cancelled Random Glucose Cancelled (60-115) mg/dL Calcium Cancelled (8.4-10.2) mg/dL Magnesium (1.6-2.6) mg/dL Total Bilirubin Cancelled (0.0-1.0) mg/dL AST Cancelled (5-37) U/L ALT Cancelled (0-40) U/L Alkaline Phosphatase Cancelled (39-117) U/L B-Natriuretic Peptide 228 H (<100) pg/mL Total Protein Cancelled (6.5-8.0) g/dL Albumin Cancelled (3.5-5.0) g/dL Urine Color YELLOW Urine Appearance HAZY Urine pH 5.5 (5.0-8.0) Ur Specific Ramer 1.025 (1.005-1.025) Urine Protein NEG (NEG-TRACE) MG/DL Urine Glucose (UA) NEG (NEG) MG/DL Urine Ketones NEG (NEG) MG/DL Urine Blood 1+ H (NEG) Urine Nitrite NEG (NEG) Ur Leukocyte Esterase NEG (NEG) Urine RBC 5-9 H (0) /HPF Urine WBC 0 (0-4) /HPF Ur Squamous Epith Cells TRACE /LPF Urine Bacteria NONE /LPF Imaging Data CT scan - head: Attestation: I personally reviewed and interpreted this imaging study as follows: Radiologist's impression: FINDINGS: There is no evidence of acute intracranial hemorrhage or territorial infarction. No abnormal mass effect or midline shift is seen. Huynh to white matter differentiation is well preserved. No extra-axial fluid collections are identified. There is periventricular white matter low density present consistent with microangiopathy. There is a stable region of right frontal encephalomalacia. There is a stable region of diminished density within the deep white matter of the left frontal lobe anterior to the lateral ventricle. The ventricles are normal in size. The osseous structures and soft tissues are normal. The mastoid air cells and visualized portions of the paranasal sinuses are well aerated. CT/CT head/brain wo con IMPRESSION: No acute intracranial pathology. Findings consistent with microangiopathy. Stable region of right frontal encephalomalacia as well as left frontal white matter low density which may be related to previous infarct. Discharge Plan Discharge Clinical Impression: Headache, Acute viral syndrome, Nausea & vomiting Patient Disposition: Home, Self-Care Instructions: Acute Headache (ED), Viral Syndrome (ED) Prescriptions: New azithromycin 250 mg tablet See Rx Instructions .ROUTE .COMPLEX Qty: 6 RF: 0 ondansetron HCl [Zofran] 4 mg tablet 4 mg PO Q8H PRN (Reason: nausea and vomiting) Qty: 14 RF: 0 acetaminophen-codeine 300-30 mg tablet 1 tab PO Q8H PRN (Reason: pain) Qty: 10 RF: 0 No Action digoxin 125 mcg (0.125 mg) tablet 125 mcg PO DAILY Qty: 90 RF: 1 furosemide 40 mg tablet 40 mg PO DAILY Qty: 90 RF: 1 tramadol 50 mg tablet 50 mg PO DAILY PRN (Reason: pain) 30 Days Qty: 30 RF: 0 acetaminophen 500 mg tablet 1,000 mg PO QID PRN (Reason: pain) Qty: 20 RF: 0 tramadol 50 mg tablet 50 mg PO Q8H PRN (Reason: pain) Qty: 10 RF: 0 pravastatin 20 mg tablet PO RF: 0 (DME) CPAP Device See Rx Instructions .ROUTE .MEDSUPPLY Qty: 1 RF: 0 warfarin 5 mg tablet 5 mg PO DAILY Qty: 90 RF: 0 ibuprofen 800 mg tablet PO RF: 0 ropinirole 2 mg tablet PO RF: 0 atenolol 100 mg tablet PO RF: 0 lisinopril 40 mg tablet 40 mg PO DAILY RF: 0 pantoprazole 40 mg tablet,delayed release (DR/EC) 40 mg PO DAILY RF: 0 diltiazem HCl 360 mg capsule,extended release 24hr 360 mg PO DAILY Qty: 30 RF: 5 Referrals: Lydia Silver MD [Primary Care Provider] - 2 days Print Language: Panamanian
[2020-12-08 15:49] VITALS: BP 132/76; PULSE 68; RESP 16; O2SAT 98
--- NOTE | 2020-12-08 15:50 | PC.NURSE ---
pt given pain medication, asking if medication would cause nausea. Pt has been educated about possible side effects of medication and took the medication for pain. IV removed, pt readied for discharge.
== END 2020-12-08 15:52 | disposition home or self-care (01) ==
PROVIDERS: Physician Assistant Medical; Emergency Provider Emergency Medicine; PCP Internal Medicine
DX: R51.9 Headache, unspecified (principal); B34.9 Viral infection, unspecified; R11.2 Nausea with vomiting, unspecified; I50.32 Chronic diastolic (congestive) heart failure; I48.19 Other persistent atrial fibrillation; Z79.01 Long term (current) use of anticoagulants; Z79.899 Other long term (current) drug therapy
CPT/HCPCS: 36415; 70450; 80053; 81001; 83735; 83880; 85025; 93005; 96361; 96374; 99284; 99285; J2405

== ENCOUNTER → 2020-12-15 09:12 | Outpatient (BNVA) | payer MEDICARE, MEDICAID, SELFPAY | PROVIDERS: PCP Internal Medicine; Visit Provider Internal Medicine | DX: I48.20 Chronic atrial fibrillation, unspecified (principal); Z51.81 Encounter for therapeutic drug level monitoring; Z79.01 Long term (current) use of anticoagulants | CPT/HCPCS: 85610; 99211 ==

== ENCOUNTER → 2021-01-05 09:32 | Outpatient (BNVA) | payer MEDICARE, MEDICAID, SELFPAY | PROVIDERS: PCP Internal Medicine; Visit Provider Internal Medicine | DX: I48.20 Chronic atrial fibrillation, unspecified (principal); Z51.81 Encounter for therapeutic drug level monitoring; Z79.01 Long term (current) use of anticoagulants | CPT/HCPCS: 85610; 99211 ==

== ENCOUNTER 2021-01-17 13:32 | Outpatient (REF) | payer MEDICARE, MEDICAID, SELFPAY ==
--- NOTE | ~2021-01-17 | XR_ITS ---
EXAMINATION: XR CHEST CLINICAL INFORMATION: Chest pain, unspecified. COMPARISON: Chest radiographs 11/27/2019, 11/10/2019 TECHNIQUE: Two views of the chest were obtained. FINDINGS: There is a bipolar pacemaker with atrial and ventricular leads. The heart is normal in size. The vascularity is normal. There is no pneumothorax or pleural reaction or effusion. Subtle ground-glass opacity is suggested right infrahilar region on frontal view. No opacity appreciated on lateral view. There is no lobar or segmental airspace consolidation. The vascularity is normal. The hilar and mediastinal contours are unremarkable. XR/XR chest 2V IMPRESSION: Suspect subtle ground-glass opacity right infrahilar region on frontal view. Lungs otherwise clear. No effusion.
== END 2021-01-17 13:33 | disposition home or self-care (01) ==
LOC: HO.XRAY 13:32
PROVIDERS: PCP Internal Medicine; Visit Provider Internal Medicine
DX: R07.9 Chest pain, unspecified (principal); G47.33 Obstructive sleep apnea (adult) (pediatric); Z99.89 Dependence on other enabling machines and devices; Z79.899 Other long term (current) drug therapy
CPT/HCPCS: 71046; 99212

== ENCOUNTER → 2021-01-19 09:49 | Outpatient (BNVA) | payer MEDICARE, MEDICAID, SELFPAY | PROVIDERS: PCP Internal Medicine; Visit Provider Internal Medicine | DX: I48.20 Chronic atrial fibrillation, unspecified (principal); Z51.81 Encounter for therapeutic drug level monitoring; Z79.01 Long term (current) use of anticoagulants | CPT/HCPCS: 85610; 99211 ==

== ENCOUNTER → 2021-02-02 09:43 | Outpatient (BNVA) | payer MEDICARE, MEDICAID, SELFPAY | PROVIDERS: PCP Internal Medicine; Visit Provider Internal Medicine | DX: I48.20 Chronic atrial fibrillation, unspecified (principal); Z51.81 Encounter for therapeutic drug level monitoring; Z79.01 Long term (current) use of anticoagulants | CPT/HCPCS: 85610; 99211 ==

== ENCOUNTER 2021-02-24 10:01 | Outpatient (REF) | payer MEDICARE, MEDICAID, SELFPAY ==
--- NOTE | ~2021-02-24 | XR_ITS ---
EXAMINATION: XR SHOULDER, RIGHT CLINICAL INFORMATION: Pain in right shoulder COMPARISON: None TECHNIQUE: AP external rotation, Grashey, scapular Y, and axillary views of the right shoulder. FINDINGS: The bones and soft tissues are normal. No fracture. Glenohumeral and acromioclavicular alignment is anatomic with normal joint space. No abnormal soft tissue calcifications. XR/XR shoulder RT min 2V IMPRESSION: No acute osseous abnormality of the right shoulder.
== END 2021-02-24 10:02 | disposition home or self-care (01) ==
LOC: HO.XRAY 10:01
PROVIDERS: PCP Internal Medicine; Visit Provider Nurse Practitioner Family
DX: M25.511 Pain in right shoulder (principal)
CPT/HCPCS: 73030

== ENCOUNTER 2021-03-07 13:19 | Outpatient (REF) | payer MEDICARE, MEDICAID, SELFPAY ==
[2021-03-14 14:14] LABS: Desmethyltramadol, Ur NEGATIVE; Tramadol, Ur NEGATIVE
== END 2021-03-07 13:20 | disposition home or self-care (01) ==
LOC: HO.LNP 13:19
PROVIDERS: Internal Medicine; Visit Provider Nurse Practitioner Family
DX: M54.31 Sciatica, right side (principal); M54.32 Sciatica, left side; I48.0 Paroxysmal atrial fibrillation; M79.89 Other specified soft tissue disorders; E78.5 Hyperlipidemia, unspecified; E55.9 Vitamin D deficiency, unspecified; Z51.81 Encounter for therapeutic drug level monitoring; Z79.01 Long term (current) use of anticoagulants
CPT/HCPCS: 80364; 80365; 80373; 85610; 99211

== ENCOUNTER → 2021-03-08 13:29 | Outpatient (BNVA) | payer MEDICARE, MEDICAID, SELFPAY | PROVIDERS: Visit Provider Nurse Practitioner Family | DX: M25.50 Pain in unspecified joint (principal); M25.561 Pain in right knee | CPT/HCPCS: 99212 ==

== ENCOUNTER 2021-03-22 09:56 | Outpatient (RCR) | payer MEDICARE, MEDICAID, SELFPAY ==
--- NOTE | 2021-03-29 14:51 | MHC.PT.DC ---
[facility] [place] Office [place] Office [place] Office [address] Finesse Lyons 140 [facility] [phone] F: [phone] F: [phone] F: [phone] F: [phone] Physical Therapy Discharge Report Diagnosis: B/L sciatica pain Date of Surgery: N/A Date of Evaluation: 03/22/21 Date of Discharge: 03/29/21 Treatments to Date: 0 Cancellations to Date: 0 No Shows to Date: 0 Discharge Status: Recommend MD Follow-up Discharge Summary: This is the second time the patient has been referred to physical therapy when he truly needs a referral to a chart calculator. Here at [facility] we are unable to fabricate custom shoes or orthotics to give to patients. The patient has no interest in attending physical therapy at this time. He attended physical therapy earlier in the year with no improvement of his back pain. He gait pattern is significant for lateral leaning secondary to leg length discrepancy. His gait will only improve with a prescribed shoe that is able to accommodate for his leg length discrepancy. Electronically signed by: Nikky Doe PT, DPT Please sign and return to therapist. Thank you for your referral.
--- NOTE | 2021-03-29 14:51 | MHC.PT.DC ---
[facility] [place] Office [place] Office [place] Office [address] Finesse Lyons 140 [facility] [phone] F: [phone] F: [phone] F: [phone] F: [phone] Physical Therapy Discharge Report Diagnosis: B/L sciatica pain Date of Surgery: N/A Date of Evaluation: 03/22/21 Date of Discharge: 03/29/21 Treatments to Date: 0 Cancellations to Date: 0 No Shows to Date: 0 Discharge Status: Recommend MD Follow-up Discharge Summary: This is the second time the patient has been referred to physical therapy when he truly needs a referral to a concrete gun operator. Here at [facility] we are unable to fabricate custom shoes or orthotics to give to patients. The patient has no interest in attending physical therapy at this time. He attended physical therapy earlier in the year with no improvement of his back pain. He gait pattern is significant for lateral leaning secondary to leg length discrepancy. His gait will only improve with a prescribed shoe that is able to accommodate for his leg length discrepancy. Electronically signed by: Nikky Doe PT, DPT Please sign and return to therapist. Thank you for your referral.
== END 2021-03-29 14:52 | disposition home or self-care (01) ==
LOC: HO.PT 09:56
PROVIDERS: PCP Internal Medicine; Visit Provider Nurse Practitioner Family
DX: M54.31 Sciatica, right side (principal); M54.32 Sciatica, left side
CPT/HCPCS: 97161

== ENCOUNTER → 2021-03-22 10:35 | Outpatient (BNVA) | payer MEDICARE, MEDICAID, SELFPAY | PROVIDERS: PCP Internal Medicine; Visit Provider Internal Medicine | DX: I48.20 Chronic atrial fibrillation, unspecified (principal); Z51.81 Encounter for therapeutic drug level monitoring; Z79.01 Long term (current) use of anticoagulants | CPT/HCPCS: 85610; 99211 ==

== ENCOUNTER → 2021-04-12 12:39 | Outpatient (BNVA) | payer MEDICARE, MEDICAID, SELFPAY | PROVIDERS: PCP Internal Medicine; Referring Provider Internal Medicine; Visit Provider Nurse Practitioner Family | DX: Z45.018 Encounter for adjustment and management of other part of cardiac pacemaker (principal); I48.19 Other persistent atrial fibrillation; I50.32 Chronic diastolic (congestive) heart failure | CPT/HCPCS: 99212 ==

== ENCOUNTER → 2021-05-24 09:25 | Outpatient (REF) | payer MEDICARE, MEDICAID, SELFPAY ==
--- NOTE | 2021-05-24 09:30 | CA_ITS ---
Transthoracic Echocardiogram Patient (Last, First, Middle): Dwain Limon, Gender: Male Date of : 1955 Age: 66 Procedure Date: 05/24/2021 Procedure Type: Transthoracic Echocardiogram Location: OP Height: 160.02 cm Weight: 81.65 kg BSA: 1.85 m2 Heart Rate: bpm BP: 116 / 60 mmHg Fiber Picker: KARENA Referring MD: Savanah Lee COOKY MACHINE OPERATOR-[employer] Human Resources Professional: Anjum Morejon MD Symptoms: I50.32 - Chronic diastolic (congestive) heart failure Study Quality: Fair ECG Rhythm: Atrial Fibrillation Conclusions: - 1. Normal LV systolic function 2. Mildly dilated left atrium 3. Normal cardiac valvular Doppler 4. Normal RV systolic pressure 5. No gross pericardial effusion Findings Left Ventricle Normal left ventricular size, thickness, and systolic function. The visually estimated ejection fraction is between 55-60%. Diastolic function is indeterminate on the basis of available data. Wall Motion Rest Echo Findings The basal inferior segment is akinetic. All other scored wall segments showed normal motion. Right Ventricle Normal right ventricular cavity size and systolic function. There is a pacemaker wire seen in the right ventricle. Atria The left atrium is mildly dilated. There is no evidence of interatrial shunt. The right atrium is normal in size. Aortic Valve Normal aortic valve structure and function. There is no aortic valve stenosis. There is no aortic valve regurgitation. Mitral Valve Normal mitral valve structure and function. There is trace mitral valve regurgitation. There is no mitral valve stenosis. Pulmonic Valve The pulmonic valve was not well visualized. Tricuspid Valve Likely normal tricuspid valve structure and function. Great Vessels All visible segments of the aorta are normal in size. The pulmonary artery was not well visualized. Venous The inferior vena cava is normal in size and collapses greater than 50% with inspiration. Pericardium/Pleural There is no evidence of pericardial effusion. Prior Study Comparison Changes noted compared to prior study. Left atrium is mildly enlarged Measurements 2D Linear Measurements IVSd: 1.08 0.6-0.9/0.6-1.0 cm LVIDd: 4.04 3.9-5.3/4.2-5.9 cm LVIDd Index: 2.18 2.4-3.2/2.2-3.1 cm/m2 LVIDs: 2.79 2.0-3.6 cm LVPWd: 1.02 0.7-1.1 cm Ao Root: 3.00 2.1-3.5 cm LA Diam: 3.70 2.7-3.8/3.0-4.0 cm LAIDs Index: 2.00 1.5-2.3 cm/m2 LV Mass: 172.16 67-162/88-224 g LV Mass Index: 93.06 43-95/49-115 g/m2 LVOT Diam: 2.20 3.0+(-)1.3 cm 2D Systolic Function EF 4C: 56.60 >55% EF 2C: 51.20 >55% EF BiP: 55.40 >55% Mitral Valve MV Pk E: 0.88 MV Decel Time: 192.00 E'Lateral: 13.30 E'Medial: 9.90 E/E' Med: 8.90 E/E' Lat: 6.60 PHT: 56.00 MVA PHT: 3.93 Decel [place]: 4.57 Aortic Valve AoV Pk Berny: 1.38 AoV Mn Berny: 0.90 AoV VTI: 0.30 AoV Pk Grad: 8.00 Aov Mn Grad: 4.00 KINGA Cont.VTI: 2.81 LVOT LVOT Pk Berny: 0.99 LVOT Mn Berny: 0.68 LVOT VTI: 0.22 LVOT Pk Grad: 4.00 LVOT Mn Grad: 2.00 LVOT Diam: 2.20 LVOT Area: 3.80 Diastolic Function MV Pk E: 0.88 E'Medial: 9.90 E/E' Med: 8.90 E' Laterial: 13.30 E/E' Lat: 6.60 Tricuspid Valve TR Pk Berny: 2.38 TR Pk Grad: 23.00 RA Press: 3.00 RVSP: 26.00 Great Vessels Aorta Ao Root-2D: 3.00 2.0-3.7 cm Ao Asc: 3.10 2.1-3.4 cm Pulmonary Valve PV Pk Berny: 0.94 Peak PV Grad: 4.00 Updated in Other Vendor System with Status of Final Anjum Morejon MD electronically signed on 05/24/2021 2:23:43 PM with status of Final
== END ==
LOC: HO.CARD 09:25
PROVIDERS: PCP Internal Medicine; Visit Provider Nurse Practitioner Family
DX: I50.32 Chronic diastolic (congestive) heart failure (principal); I48.20 Chronic atrial fibrillation, unspecified; Z51.81 Encounter for therapeutic drug level monitoring; Z79.01 Long term (current) use of anticoagulants
CPT/HCPCS: 85610; 93306; 99211

== ENCOUNTER → 2021-06-06 13:27 | Outpatient (BNVA) | payer MEDICARE, MEDICAID, SELFPAY | PROVIDERS: PCP Internal Medicine; Referring Provider Internal Medicine; Visit Provider Nurse Practitioner Family | DX: I48.19 Other persistent atrial fibrillation (principal); I50.32 Chronic diastolic (congestive) heart failure; Z95.0 Presence of cardiac pacemaker | CPT/HCPCS: 93005; 99212 ==

== ENCOUNTER → 2021-06-07 10:44 | Outpatient (BNVA) | payer MEDICARE, MEDICAID, SELFPAY | PROVIDERS: PCP Internal Medicine; Visit Provider Internal Medicine | DX: I48.20 Chronic atrial fibrillation, unspecified (principal); Z51.81 Encounter for therapeutic drug level monitoring; Z79.01 Long term (current) use of anticoagulants | CPT/HCPCS: 85610; 99211 ==

== ENCOUNTER → 2021-06-14 09:09 | Outpatient (REF) | payer MEDICARE, MEDICAID, SELFPAY ==
--- NOTE | ~2021-06-14 | NM_ITS ---
Myocardial perfusion study Indication: Abnormal echo to evaluate for myocardial ischemia Technique: The patient was brought in for a Lexiscan perfusion study on 06/14/2021. Patient performed low-level exercise and was injected 0.4 mg of Lexiscan intravenously. Within a minute of injection, 30 mCi of sestamibi was given intravenously. Images were obtained using the SPECT gamma camera interlaced with the gating device. Images were obtained in supine position. Resting perfusion study was performed on 06/15/2021. Patient was administered 30 mCi of sestamibi intravenously at rest. Images were then obtained in supine position. Images obtained with and without CT attenuation. Total DLP 109 mGy-cm. Images were processed with the software and compared side to side in short axis, horizontal long axis and vertical long axis views. Findings: The stress perfusion study showed non attenuated images show normal uptake of radiotracer in all segments of LV myocardium. Attenuation corrected images show normal uptake of radiotracer in all segments of LV myocardium with minimally reduced uptake in the apex. The gated study shows normal LV systolic function with calculated LVEF of 70%. LV cavity is normal in size. The gated study shows normal systolic wall thickening and contraction of segments. Resting study shows no change in perfusion pattern compared to stress perfusion study. Gating at rest reveals normal systolic wall motion with ejection fraction at greater than 70 %. The findings are consistent with normal myocardial perfusion. NM/NM dwayne perf SPECT rest & str Impression: 1. Myocardial perfusion imaging study shows normal myocardial perfusion 2. Gated LVEF is 70% 3. Transient ischemic dilatation not present EKG is nondiagnostic for ischemia
--- NOTE | 2021-06-14 09:12 | CA_ITS ---
Acquisition Time: 2021-06-14 09:15:59 Total Exercise Time: 00:02:00 Test Indications: Abnormal ECG Medications: BACLOFEN DIGOXIN DILTIAZEM FUROSEMIDE LISINOPRIL METOPROLOL PANTOPRAZOLE PRAVASTATIN WARFARIN TRAMADOL Protocol: LEXISCAN Max HR: 110 BPM 70% of Pred: 155 BPM Max BP: 140/070 mmHG Max Work Load: 1.0 METS Pharmacological stress test with Lexiscan injection, while sitting and kicking his right leg, without anginal symptoms, without arrythmia, with normotensive response to injection, with nondiagnostic EKG for ischemia. Nuclear images pending. Test reviewed with Dr Slater. Referred By: Savanah Lee Overread By: SAVANAH LEE
== END ==
LOC: HO.CARD 09:09
PROVIDERS: Visit Provider Nurse Practitioner Family
DX: R93.1 Abnormal findings on diagnostic imaging of heart and coronary circulation (principal)
CPT/HCPCS: 78452; 93017; A9500; J0280; J2785

== ENCOUNTER → 2021-06-28 10:29 | Outpatient (BNVA) | payer MEDICARE, MEDICAID, SELFPAY | PROVIDERS: PCP Internal Medicine; Visit Provider Internal Medicine | DX: I48.20 Chronic atrial fibrillation, unspecified (principal); Z51.81 Encounter for therapeutic drug level monitoring; Z79.01 Long term (current) use of anticoagulants | CPT/HCPCS: 85610; 99211 ==

== ENCOUNTER → 2021-07-11 10:07 | Outpatient (BNVA) | payer MEDICARE, MEDICAID, SELFPAY | PROVIDERS: PCP Internal Medicine; Visit Provider Internal Medicine | DX: E66.9 Obesity, unspecified (principal); G47.33 Obstructive sleep apnea (adult) (pediatric); I48.20 Chronic atrial fibrillation, unspecified; I50.32 Chronic diastolic (congestive) heart failure; Z95.0 Presence of cardiac pacemaker; Z79.899 Other long term (current) drug therapy; Z51.81 Encounter for therapeutic drug level monitoring; Z79.01 Long term (current) use of anticoagulants | CPT/HCPCS: 85610; 99211; 99212 ==

== ENCOUNTER → 2021-07-27 13:11 | Outpatient (BNVA) | payer MEDICARE, MEDICAID, SELFPAY | PROVIDERS: PCP Internal Medicine; Visit Provider Internal Medicine | DX: G47.33 Obstructive sleep apnea (adult) (pediatric) (principal); Z99.89 Dependence on other enabling machines and devices | CPT/HCPCS: 99212 ==

== ENCOUNTER → 2021-08-15 08:47 | Outpatient (BNVA) | payer MEDICARE, MEDICAID, SELFPAY | PROVIDERS: PCP Internal Medicine; Visit Provider Internal Medicine | DX: I48.20 Chronic atrial fibrillation, unspecified (principal); Z51.81 Encounter for therapeutic drug level monitoring; Z79.01 Long term (current) use of anticoagulants | CPT/HCPCS: 85610; 99211 ==

== ENCOUNTER → 2021-08-22 08:23 | Outpatient (BNVA) | payer MEDICARE, MEDICAID, SELFPAY | PROVIDERS: PCP Internal Medicine; Visit Provider Internal Medicine | DX: I48.20 Chronic atrial fibrillation, unspecified (principal); Z51.81 Encounter for therapeutic drug level monitoring; Z79.01 Long term (current) use of anticoagulants | CPT/HCPCS: 85610; 99211 ==

== ENCOUNTER → 2021-09-05 09:10 | Outpatient (BNVA) | payer MEDICARE, MEDICAID, SELFPAY | PROVIDERS: PCP Internal Medicine; Visit Provider Internal Medicine | DX: I48.20 Chronic atrial fibrillation, unspecified (principal); Z51.81 Encounter for therapeutic drug level monitoring; Z79.01 Long term (current) use of anticoagulants | CPT/HCPCS: 85610; 99211 ==

== ENCOUNTER → 2021-09-06 12:04 | Outpatient (BNVA) | payer MEDICARE, MEDICAID, SELFPAY | PROVIDERS: PCP Internal Medicine; Visit Provider Nurse Practitioner Family | DX: M25.50 Pain in unspecified joint (principal); R10.9 Unspecified abdominal pain | CPT/HCPCS: 99212 ==

== ENCOUNTER → 2021-09-15 09:14 | Outpatient (BNVA) | payer MEDICARE, MEDICAID, SELFPAY | PROVIDERS: PCP Internal Medicine; Visit Provider Internal Medicine | DX: I48.20 Chronic atrial fibrillation, unspecified (principal); Z51.81 Encounter for therapeutic drug level monitoring; Z79.01 Long term (current) use of anticoagulants | CPT/HCPCS: 85610; 99211 ==

== ENCOUNTER → 2021-09-29 09:17 | Outpatient (BNVA) | payer MEDICARE, MEDICAID, SELFPAY | PROVIDERS: PCP Internal Medicine; Visit Provider Internal Medicine | DX: I48.20 Chronic atrial fibrillation, unspecified (principal); Z79.01 Long term (current) use of anticoagulants; Z51.81 Encounter for therapeutic drug level monitoring | CPT/HCPCS: 85610; 99211 ==

== ENCOUNTER → 2021-11-20 10:14 | Outpatient (BNVA) | payer MEDICARE, MEDICAID, SELFPAY | PROVIDERS: PCP Internal Medicine; Visit Provider Internal Medicine | DX: I48.20 Chronic atrial fibrillation, unspecified (principal); Z79.01 Long term (current) use of anticoagulants; Z51.81 Encounter for therapeutic drug level monitoring | CPT/HCPCS: 85610; 99211 ==

== ENCOUNTER → 2021-12-04 09:01 | Outpatient (BNVA) | payer MEDICARE, MEDICAID, SELFPAY | PROVIDERS: PCP Internal Medicine; Visit Provider Internal Medicine | DX: I48.20 Chronic atrial fibrillation, unspecified (principal); Z79.01 Long term (current) use of anticoagulants; Z51.81 Encounter for therapeutic drug level monitoring | CPT/HCPCS: 85610; 99211 ==

== ENCOUNTER → 2021-12-25 09:28 | Outpatient (BNVA) | payer MEDICARE, MEDICAID, SELFPAY | PROVIDERS: PCP Internal Medicine; Visit Provider Internal Medicine | DX: I48.20 Chronic atrial fibrillation, unspecified (principal); Z51.81 Encounter for therapeutic drug level monitoring; Z79.01 Long term (current) use of anticoagulants | CPT/HCPCS: 85610; 99211 ==

== ENCOUNTER 2022-01-03 08:28 | Outpatient (REF) | payer MEDICARE, MEDICAID, SELFPAY ==
--- NOTE | ~2022-01-03 | XR_ITS ---
EXAMINATION: XR HIP, LEFT CLINICAL INFORMATION: Pain COMPARISON: None TECHNIQUE: Two views of the left hip. One view of the pelvis. FINDINGS: No acute fracture or dislocation. Mild degenerative changes of the hips with marginal acetabular osteophytes. Hip joint spaces are maintained. Soft tissues are unremarkable. XR/XR hip LT w PEL1V IMPRESSION: Mild degenerative changes of the hips.
== END 2022-01-03 08:29 | disposition home or self-care (01) ==
LOC: HO.HOSX 08:28
PROVIDERS: Visit Provider Physician Assistant
DX: M25.552 Pain in left hip (principal); M21.70 Unequal limb length (acquired), unspecified site
CPT/HCPCS: 73502; 99202

== ENCOUNTER → 2022-03-02 13:18 | Outpatient (BNVA) | payer MEDICARE, MEDICAID, SELFPAY | PROVIDERS: PCP Internal Medicine; Visit Provider Nurse Practitioner Family | DX: M25.50 Pain in unspecified joint (principal); M21.70 Unequal limb length (acquired), unspecified site | CPT/HCPCS: 99212 ==

== ENCOUNTER → 2022-03-19 13:56 | Outpatient (BNVA) | payer MEDICARE, MEDICAID, SELFPAY | PROVIDERS: PCP Internal Medicine; Visit Provider Internal Medicine | DX: I48.19 Other persistent atrial fibrillation (principal); I50.32 Chronic diastolic (congestive) heart failure; G47.33 Obstructive sleep apnea (adult) (pediatric); Z79.01 Long term (current) use of anticoagulants; Z79.899 Other long term (current) drug therapy; Z99.89 Dependence on other enabling machines and devices | CPT/HCPCS: 99212 ==

== ENCOUNTER 2022-03-23 09:45 | Outpatient (REF) | payer MEDICARE, MEDICAID, SELFPAY ==
[2022-03-23 10:03] LABS: MANUAL DIFF FLAG NO
[2022-03-23 10:35] LABS: Basophils Percent Auto 0.5 % (0-2); Eosinophils Absolute Auto 0.1 X10*3/uL (0.0-0.4); Eosinophils Percent Auto 0.9 % (0-4); Hematocrit 43.2 % (42.0-52.0); Hemoglobin 14.1 g/dl (14.0-18.0); Imm Gran Abs Auto 0.02 X10*3/uL (0.00-0.03); Imm Gran Pct Auto 0.2 % (0.0-0.4); Lymphocytes Absolute Auto 3.6 X10*3/uL (1.2-4.9); Lymphocytes Percent Auto 40.5 % (20-40); Mean Corpuscular HGB Conc 32.6 g/dl (31.0-36.0); Mean Corpuscular Hemoglobin 28.7 pg (27.0-33.0); Mean Platelet Volume 10.1 fL (9.4-12.4); Monocytes Absolute Auto 0.6 X10*3/uL (0.1-1.2); Monocytes Percent Auto 6.5 % (2-11); Neutrophils Absolute Auto 4.6 x10*3/uL (2.0-8.3); Neutrophils Percent Auto 51.4 % (45-73); Platelet Count 349 X10*3/uL (160-400); Red Blood Count 4.91 X10*6/uL (4.60-5.80); Red Cell Distribution Width 12.8 % (11.0-16.0); White Blood Count 8.9 X10*3/uL (4.8-10.8)
[2022-03-23 11:02] LABS: Alanine Aminotransferase 25 U/L (0-40); Albumin Level 4.2 g/dL (3.5-5.0); Alkaline Phosphatase 103 U/L (39-117); Anion Gap 14 (12-20); Aspartate Amino Transferase 28 U/L (5-37); Blood Urea Nitrogen 16 mg/dL (9-16); Calcium 9.2 mg/dL (8.4-10.2); Carbon Dioxide 28 mmol/L (22-29); Chloride 103 mmol/L (96-108); Cholesterol 152 mg/dL; Estimated Glomerular Filt Rate > 60; Glucose Fasting 111 mg/dL (60-99); HDL Cholesterol 49 mg/dL; LDL Cholesterol Calculated 88 mg/dl; Potassium 4.6 mmol/L (3.3-5.1); Sodium 140 mmol/L (135-145); Total Protein 8.3 g/dL (6.5-8.0); Triglycerides 78 mg/dL
[2022-03-23 11:12] LABS: Digoxin 0.4 ng/mL (0.8-2.0)
[2022-03-26 11:46] LABS: NT-proBNP 267 pg/mL
== END 2022-03-23 09:46 | disposition home or self-care (01) ==
LOC: HO.LAB 09:45
PROVIDERS: Absent Provider Internal Medicine; PCP Internal Medicine; Visit Provider Internal Medicine
DX: I50.32 Chronic diastolic (congestive) heart failure (principal); E78.5 Hyperlipidemia, unspecified; I48.20 Chronic atrial fibrillation, unspecified; Z51.81 Encounter for therapeutic drug level monitoring; Z79.01 Long term (current) use of anticoagulants
CPT/HCPCS: 36415; 80053; 80061; 80162; 83880; 85025; 85610; 99211

== ENCOUNTER → 2022-06-06 09:18 | Outpatient (BNVA) | payer MEDICARE, MEDICAID, SELFPAY | PROVIDERS: PCP Internal Medicine; Visit Provider Internal Medicine | DX: I48.20 Chronic atrial fibrillation, unspecified (principal); Z79.01 Long term (current) use of anticoagulants; Z51.81 Encounter for therapeutic drug level monitoring | CPT/HCPCS: 85610; 99211 ==

== ENCOUNTER → 2022-06-26 13:07 | Outpatient (BNVA) | payer MEDICARE, MEDICAID, SELFPAY | PROVIDERS: PCP Internal Medicine; Referring Provider Internal Medicine; Visit Provider Nurse Practitioner Family | DX: I48.19 Other persistent atrial fibrillation (principal); I50.32 Chronic diastolic (congestive) heart failure; G47.33 Obstructive sleep apnea (adult) (pediatric); R07.9 Chest pain, unspecified; L98.9 Disorder of the skin and subcutaneous tissue, unspecified; M79.606 Pain in leg, unspecified; Z99.89 Dependence on other enabling machines and devices; Z95.0 Presence of cardiac pacemaker; I48.20 Chronic atrial fibrillation, unspecified; Z79.01 Long term (current) use of anticoagulants; Z51.81 Encounter for therapeutic drug level monitoring | CPT/HCPCS: 85610; 99211; 99212 ==

== ENCOUNTER → 2022-07-03 09:29 | Outpatient (REF) | payer MEDICARE, MEDICAID, SELFPAY ==
--- NOTE | 2022-07-03 09:41 | CA_ITS ---
Transthoracic Echocardiogram Patient (Last, First, Middle): Dwain Limon, Gender: Male Date of : 1955 Age: 67 Procedure Date: 07/03/2022 Procedure Type: Transthoracic Echocardiogram Location: OP Height: 160.02 cm Weight: 81.65 kg BSA: 1.85 m2 Heart Rate: bpm BP: 120 / 70 mmHg Qa Lead: TO Referring MD: Savanah Lee NP-Kelly Driver Trainer: Anjum Morejon MD Symptoms: R06.00 - Dyspnea, unspecified Study Quality: Fair ECG Rhythm: Ventriculary paced rhythm Conclusions: - 1. Normal LV systolic function with normal diastolic filling pattern 2. Normal cardiac valvular Doppler 3. Normal RV systolic pressure 4. No gross pericardial effusion Findings Left Ventricle Normal left ventricular size, thickness, and systolic function. The visually estimated ejection fraction is between 60-65%. There is paradoxical septal motion consistent with a right ventricular pacemaker. Spectral Doppler is indicative of a normal filling pattern. Right Ventricle Mildly increased right ventricular cavity size. There is normal right ventricular systolic function. There is a pacemaker wire seen in the right ventricle. Atria The left atrium is normal in size. Interatrial shunt cannot be excluded. The right atrium is normal in size. A pacemaker wire is identified in the right atrium. Aortic Valve Normal aortic valve structure and function. There is no aortic valve stenosis. There is no aortic valve regurgitation. Mitral Valve Normal mitral valve structure and function. There is trace mitral valve regurgitation. There is no mitral valve stenosis. Pulmonic Valve The pulmonic valve was not well visualized. Tricuspid Valve Likely normal tricuspid valve structure and function. There is trace tricuspid valve regurgitation. The right ventricular systolic pressure is normal. The right ventricular systolic pressure is 32 mmHg. Normal right atrial pressure. There is no evidence of pulmonary hypertension. Great Vessels All visible segments of the aorta are normal in size. The pulmonary artery was not well visualized. Venous The inferior vena cava is normal in size and collapses greater than 50% with inspiration. Pericardium/Pleural There is no evidence of pericardial effusion. Prior Study Comparison No significant change compared to prior study dated: 05/24/2021. Measurements 2D Linear Measurements IVSd: 1.14 0.6-0.9/0.6-1.0 cm LVIDd: 4.28 3.9-5.3/4.2-5.9 cm LVIDd Index: 2.31 2.4-3.2/2.2-3.1 cm/m2 LVIDs: 2.62 2.0-3.6 cm LVPWd: 0.88 0.7-1.1 cm LA Diam: 3.50 2.7-3.8/3.0-4.0 cm LAIDs Index: 1.89 1.5-2.3 cm/m2 LV Mass: 178.63 67-162/88-224 g LV Mass Index: 96.56 43-95/49-115 g/m2 LVOT Diam: 2.00 3.0+(-)1.3 cm 2D Systolic Function EF 4C: 63.30 >55% EF 2C: 58.20 >55% EF BiP: 61.30 >55% Mitral Valve E'Lateral: 9.57 E'Medial: 8.05 Aortic Valve AoV Pk Berny: 1.22 AoV Mn Berny: 0.89 AoV VTI: 0.27 AoV Pk Grad: 6.00 Aov Mn Grad: 3.00 KIGNA Cont.VTI: 2.36 LVOT LVOT Pk Berny: 0.89 LVOT Mn Berny: 0.60 LVOT VTI: 0.20 LVOT Pk Grad: 3.00 LVOT Mn Grad: 2.00 LVOT Diam: 2.00 LVOT Area: 3.14 Diastolic Function E'Medial: 8.05 E' Laterial: 9.57 Right Ventricle TAPSE (mm): 24.00 TVS' Berny: 12.40 Tricuspid Valve TR Pk Berny: 2.45 TR Pk Grad: 24.00 RA Press: 8.00 RVSP: 32.00 Great Vessels Aorta Sinus of Valsalva: 3.31 2.0-3.[address] [place]: 2.98 1.7-3.4 cm Ao Asc: 3.20 2.1-3.4 cm Updated in Other Vendor System with Status of Final Anjum Morejon MD electronically signed on 07/03/2022 4:40:39 PM with status of Final
== END ==
LOC: HO.CARD 09:29
PROVIDERS: PCP Internal Medicine; Visit Provider Internal Medicine Cardiovascular Disease
DX: I50.32 Chronic diastolic (congestive) heart failure (principal); I48.19 Other persistent atrial fibrillation; R06.00 Dyspnea, unspecified
CPT/HCPCS: 93306

== ENCOUNTER → 2022-07-06 10:19 | Outpatient (BNVA) | payer MEDICARE, MEDICAID, SELFPAY | PROVIDERS: PCP Internal Medicine; Visit Provider Internal Medicine | DX: I48.20 Chronic atrial fibrillation, unspecified (principal); Z79.01 Long term (current) use of anticoagulants; Z51.81 Encounter for therapeutic drug level monitoring | CPT/HCPCS: 85610; 99211 ==

== ENCOUNTER → 2022-07-10 12:57 | Outpatient (BNVA) | payer MEDICARE, MEDICAID, SELFPAY | PROVIDERS: PCP Internal Medicine; Visit Provider Internal Medicine | DX: I48.20 Chronic atrial fibrillation, unspecified (principal); Z79.01 Long term (current) use of anticoagulants; Z51.81 Encounter for therapeutic drug level monitoring | CPT/HCPCS: 85610; 99211 ==

== ENCOUNTER 2022-07-24 12:27 | Outpatient (REF) | payer MEDICARE, MEDICAID, SELFPAY ==
--- NOTE | ~2022-07-24 | US_ITS ---
EXAMINATION: US LOWER EXTREMITY VENOUS (REFLUX EXAM), BILATERAL CLINICAL INDICATION: Chronic venous insufficiency with lower extremity varicose veins. History of bilateral radiofrequency ablation COMPARISON: 10/27/2019 TECHNIQUE: Color flow triplex imaging and compression Doppler was performed to evaluate both the deep and the superficial systems bilaterally. To evaluate the superficial system, the examination was performed in the upright position. Color-flow Doppler ultrasound and compression ultrasound were utilized. In addition, maneuvers were utilized to demonstrate reflux. FINDINGS: 1. DEEP VENOUS ULTRASOUND OF THE RIGHT LOWER EXTREMITY: Common Femoral Vein: Compressible, normal respiratory variation and augmented flow. Femoral Vein: Compressible, normal color flow and augmentation. Popliteal Vein: Compressible, normal augmentation. Deep Reflux: There is no evidence of reflux in the deep system in either the common femoral vein or the popliteal vein. There is no evidence of a Han's cyst. 2. SUPERFICIAL ULTRASOUND WITH DOPPLER OF RIGHT LOWER EXTREMITY: GREAT SAPHENOUS VEIN: Saphenofemoral Junction: 0.6 cm; Reflux: 0 ms Proximal Thigh: 0.4 cm; Reflux: 0 ms Mid Thigh: Not visualized Above Knee: Not visualized At Knee: Not visualized Below Knee: Not visualized Mid Calf: Not visualized Ankle: Not visualized DUPLICATED MEDIAL GREAT SAPHENOUS VEIN: Diameter: None Imaged Reflux: NA DUPLICATED LATERAL GREAT SAPHENOUS VEIN: Diameter: 0.2 cm Reflux: None SMALL SAPHENOUS VEIN: Proximal: Not visualized Mid: Not visualized Distal: 0.2 cm; Reflux: 0 ms VEIN OF GIACOMINI: None Imaged. PERFORATORS: Location: Proximal and mid calf Size: 0.2 to 0.3 cm Reflux: 1784 ms VARICOSITIES: Location: Mid thigh extending to the distal calf Size: 0.4 cm Reflux: 2404 ms 3. DEEP VENOUS ULTRASOUND OF THE LEFT LOWER EXTREMITY: Common Femoral Vein: Compressible, normal respiratory variation and augmented flow. Femoral Vein: Compressible, normal color flow and augmentation. Popliteal Vein: Compressible, normal augmentation. Deep Reflux: There is no evidence of reflux in the deep system in either the common femoral vein or the popliteal vein. There is no evidence of a Han's cyst. 4. SUPERFICIAL ULTRASOUND WITH DOPPLER OF LEFT LOWER EXTREMITY: GREAT SAPHENOUS VEIN: Saphenofemoral Junction: 0.5 cm; Reflux: 0 ms Proximal Thigh: 0.4 cm; Reflux: 0 ms Mid Thigh: Not visualized Above Knee: Not visualized At Knee: Not visualized Below Knee: Not visualized Mid Calf: Not visualized Ankle: Not visualized DUPLICATED MEDIAL GREAT SAPHENOUS VEIN: Diameter: None Imaged Reflux: NA DUPLICATED LATERAL GREAT SAPHENOUS VEIN: Diameter: 0.2 cm Reflux: None SMALL SAPHENOUS VEIN: Proximal: 0.3 cm; Reflux: 0 ms Distal: 0.2 cm; Reflux: 0 ms VEIN OF GIACOMINI: None Imaged. PERFORATORS: Location: None significant Size: NA Reflux: NA VARICOSITIES: Location: Distal thigh extending into the distal calf Size: 0.3 cm Reflux: Ranging from 1684 ms to 3064 ms US/US venous duplex LE BI IMPRESSION: Right: Great saphenous vein and small saphenous vein are not visualized consistent with prior ablation. Residual or recurrent varicose vein is is seen from the thigh to the calf as described above Left: Great saphenous vein is not visualized consistent with prior ablation. No significant reflux in the small saphenous vein. Residual or recurrent varicose vein is seen from the thigh to the calf as described above
== END 2022-07-24 12:28 | disposition home or self-care (01) ==
LOC: HO.US 12:27
PROVIDERS: Visit Provider Nurse Practitioner Family
DX: I83.93 Asymptomatic varicose veins of bilateral lower extremities (principal); L98.9 Disorder of the skin and subcutaneous tissue, unspecified; M79.606 Pain in leg, unspecified; M79.89 Other specified soft tissue disorders
CPT/HCPCS: 93970

== ENCOUNTER → 2022-07-31 09:20 | Outpatient (BNVA) | payer MEDICARE, MEDICAID, SELFPAY | PROVIDERS: PCP Internal Medicine; Visit Provider Internal Medicine | DX: G47.33 Obstructive sleep apnea (adult) (pediatric) (principal); R07.9 Chest pain, unspecified; Z99.89 Dependence on other enabling machines and devices; I48.20 Chronic atrial fibrillation, unspecified; Z51.81 Encounter for therapeutic drug level monitoring; Z79.01 Long term (current) use of anticoagulants | CPT/HCPCS: 85610; 99211; 99212 ==

== ENCOUNTER → 2022-08-08 09:05 | Outpatient (BNVA) | payer MEDICARE, MEDICAID, SELFPAY | PROVIDERS: PCP Internal Medicine; Visit Provider Internal Medicine | DX: I48.20 Chronic atrial fibrillation, unspecified (principal); Z79.01 Long term (current) use of anticoagulants; Z51.81 Encounter for therapeutic drug level monitoring | CPT/HCPCS: 85610; 99211 ==

== ENCOUNTER → 2022-08-22 09:59 | Outpatient (BNVA) | payer MEDICARE, MEDICAID, SELFPAY | PROVIDERS: PCP Internal Medicine; Visit Provider Internal Medicine | DX: I48.20 Chronic atrial fibrillation, unspecified (principal); Z79.01 Long term (current) use of anticoagulants; Z51.81 Encounter for therapeutic drug level monitoring | CPT/HCPCS: 85610; 99211 ==

== ENCOUNTER → 2022-08-23 11:07 | Outpatient (BNVA) | payer MEDICARE, MEDICAID, SELFPAY | PROVIDERS: PCP Internal Medicine; Visit Provider Surgery Vascular Surgery | DX: I73.9 Peripheral vascular disease, unspecified (principal); M79.606 Pain in leg, unspecified | CPT/HCPCS: 99202 ==

== ENCOUNTER → 2022-09-13 09:50 | Outpatient (BNVA) | payer MEDICARE, MEDICAID, SELFPAY | PROVIDERS: PCP Internal Medicine; Visit Provider Internal Medicine | DX: I48.20 Chronic atrial fibrillation, unspecified (principal); Z79.01 Long term (current) use of anticoagulants; Z51.81 Encounter for therapeutic drug level monitoring | CPT/HCPCS: 85610; 99211 ==

== ENCOUNTER → 2022-09-17 12:45 | Outpatient (BNVA) | payer MEDICARE, MEDICAID, SELFPAY | PROVIDERS: PCP Internal Medicine; Referring Provider Internal Medicine; Visit Provider Internal Medicine | DX: Z45.018 Encounter for adjustment and management of other part of cardiac pacemaker (principal); I48.19 Other persistent atrial fibrillation; I50.32 Chronic diastolic (congestive) heart failure; G47.33 Obstructive sleep apnea (adult) (pediatric); Z99.89 Dependence on other enabling machines and devices | CPT/HCPCS: 93005; 93280; 99212 ==

== ENCOUNTER → 2022-10-04 08:47 | Outpatient (BNVA) | payer MEDICARE, MEDICAID, SELFPAY | PROVIDERS: PCP Internal Medicine; Visit Provider Internal Medicine | DX: I48.20 Chronic atrial fibrillation, unspecified (principal); Z79.01 Long term (current) use of anticoagulants; Z51.81 Encounter for therapeutic drug level monitoring | CPT/HCPCS: 85610; 99211 ==

== ENCOUNTER 2022-10-08 10:21 | Emergency (ER) | payer MEDICARE, MEDICAID, SELFPAY ==
--- NOTE | ~2022-10-08 | XR_ITS ---
EXAMINATION: XR ABDOMEN KUB CLINICAL INDICATION: Difficult bowel movement. COMPARISON: None available. TECHNIQUE: AP view of the abdomen. FINDINGS: Surgical clips right upper quadrant of abdomen. The bowel gas pattern is normal with no evidence of ileus or obstruction. Small moderate volume of scattered stool throughout the colon. No unusual soft tissue calcifications are noted. The bones are unremarkable. XR/XR KUB IMPRESSION: Nonobstructive bowel pattern. Small to moderate volume of stool in colon.
[2022-10-08 10:26] VITALS: BP 141/67; PULSE 75; RESP 18; TEMP 36.1; O2SAT 100; BMI 31.8
[2022-10-08 11:33] LABS: MANUAL DIFF FLAG NO
[2022-10-08 11:41] LABS: Basophils Percent Auto 0.4 % (0-2); Eosinophils Absolute Auto 0.1 X10*3/uL (0.0-0.4); Eosinophils Percent Auto 0.9 % (0-4); Hematocrit 43.8 % (42.0-52.0); Hemoglobin 14.5 g/dl (14.0-18.0); Imm Gran Abs Auto 0.02 X10*3/uL (0.00-0.03); Imm Gran Pct Auto 0.2 % (0.0-0.4); Lymphocytes Absolute Auto 3.3 X10*3/uL (1.2-4.9); Lymphocytes Percent Auto 35.2 % (20-40); Mean Corpuscular HGB Conc 33.1 g/dl (31.0-36.0); Mean Corpuscular Volume 87.6 fL (80.0-98.0); Mean Platelet Volume 10.1 fL (9.4-12.4); Monocytes Absolute Auto 0.7 X10*3/uL (0.1-1.2); Neutrophils Absolute Auto 5.2 x10*3/uL (2.0-8.3); Neutrophils Percent Auto 56.3 % (45-73); Platelet Count 298 X10*3/uL (160-400); White Blood Count 9.3 X10*3/uL (4.8-10.8)
[2022-10-08 12:30] LABS: Alanine Aminotransferase 20 U/L (0-40); Albumin Level 4.2 g/dL (3.5-5.0); Alkaline Phosphatase 104 U/L (39-117); Anion Gap 12 (12-20); Aspartate Amino Transferase 23 U/L (5-37); Bilirubin Direct 0.4 mg/dL (0.0-0.5); Bilirubin Total 1.4 mg/dL (0.0-1.0); Blood Urea Nitrogen 16 mg/dL (9-16); Calcium 9.3 mg/dL (8.4-10.2); Carbon Dioxide 31 mmol/L (22-29); Chloride 105 mmol/L (96-108); Creatinine Clr Calc Pharmacy 67.9; Estimated Glomerular Filt Rate > 60; Glucose Random 96 mg/dL (60-115); Lipase 27 U/L (8-78); Potassium 4.6 mmol/L (3.3-5.1); Sodium 143 mmol/L (135-145); Total Protein 8.3 g/dL (6.5-8.0)
--- NOTE | 2022-10-08 14:36 | ECG_ITS ---
Test Reason : ATRIAL FIBRILATION Blood Pressure : / mmHG Vent. Rate : 059 BPM Atrial Rate : 000 BPM P-R Int : 000 ms QRS Dur : 078 ms QT Int : 428 ms P-R-T Axes : 000 018 -03 degrees QTc Int : 423 ms Atrial fibrillation with slow ventricular response with PVCs and ventricular paced beats Abnormal ECG When compared with ECG of 08-DEC-2020 12:30, No significant changes seen Referred By: Nena Salgado Electronically Signed By:Portillo Slater
[2022-10-08 14:38] VITALS: BP 126/74; PULSE 58; RESP 16; TEMP 36.5; O2SAT 99
--- NOTE | 2022-10-08 15:43 | ED.ABDPAIN ---
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 He otherwise denies any urinary complaints. At this time he denies any shortness of breath or chest pain/palpitations. Patient is status post cholecystectomy and states he never had problems with constipation till he had his gallbladder removed. Related Data Home Medications Medication Instructions Recorded Confirmed CPAP #1 ea 08/04/20 09/17/22 pravastatin 20 mg tablet 20 mg PO 04/12/21 09/17/22 ropinirole 2 mg tablet 2 mg PO BEDTIME 07/27/21 09/17/22 Previous Rx's Medication Instructions Recorded acetaminophen 500 mg tablet 1,000 mg PO QID PRN pain #20 tabs 12/06/20 Shower Chair #1 ea 03/06/21 miscellaneous medical supply 1 ea miscellaneous DAILY #1 ea 03/06/21 digoxin 125 mcg (0.125 mg) tablet 125 mcg PO DAILY #90 tabs 11/16/21 shoe lift #1 ea 03/30/22 diltiazem HCl 360 mg 360 mg PO DAILY #90 caps 04/16/22 capsule,extended release 24 hr metoprolol succinate 50 mg 75 mg PO DAILY 90 days #135 tabs 06/27/22 tablet,extended release 24 hr furosemide 40 mg tablet 40 mg PO DAILY #90 tabs 09/25/22 lisinopril 40 mg tablet 40 mg PO DAILY 90 days #90 tabs 09/25/22 pantoprazole 40 mg tablet,delayed 40 mg PO DAILY 90 days #90 tabs 09/25/22 release tramadol 50 mg tablet 50 mg PO Q8H PRN pain 30 days #90 09/25/22 tabs warfarin 5 mg tablet 5 mg PO DAILY #90 tabs 10/04/22 Allergies Allergy/AdvReac Type Severity Reaction Status Date / Time No Known Allergies Allergy Verified 10/08/22 10:28 [No Known Allergies*] Review of Systems Review of Systems Pertinent positives and negatives as stated in HPI FOR[facility] Past Medical History Source: nursing notes reviewed Medical History Abnormal finding of foot Bilateral sciatica Chest pain Chronic heart failure with preserved ejection fraction (HFpEF) Leg length discrepancy Obesity (BMI 30.0-34.9) MELANIE on CPAP MELANIE on CPAP Pacemaker Persistent atrial fibrillation Polyarthralgia Right shoulder pain Trigger finger Surgical History History of cholecystectomy History of ear surgery Family History Family History Father Myocardial infarction CVD (cardiovascular disease) Mother No problems noted. Sister Stomach cancer Son No problems noted. Son No problems noted. Daughter No problems noted. Daughter No problems noted. Brother No problems noted. Brother No problems noted. Social History Social History Household Members: Children Housing: House Alcohol intake: current Alcohol intake frequency: holidays/special occasions only Alcohol type: beer Patient Tobacco Use Status: Never used Tobacco Smoked in Last 30 Days: No e-Cigarette/Vaping Use: Never Used Second Hand Smoke Exposure: No Use of substances other than those prescribed or required for medical reasons: No Advance Directives: No Advance Directives Information Provided: Yes service: No Current occupational status: disabled Cognitive needs: Yes Hearing needs: No Vision needs: Yes Physical Exam ED Vital Signs: Vital Signs - 24 hr 10/08/22 10:26 10/08/22 14:38 10/08/22 16:05 Temperature 97.0 F 97.7 F 98.0 F Pulse Rate 75 58 60 Respiratory Rate 18 16 14 Blood Pressure 141/67 H 126/74 132/77 Pulse Oximetry 100 99 99 Oxygen Delivery Method Room Air Room Air Room Air 10/08/22 17:45 Temperature 97.5 F Pulse Rate 61 Respiratory Rate 14 Blood Pressure 146/73 H Pulse Oximetry 98 Oxygen Delivery Method Room Air BMI result Body Mass Index 31.8 VITAL SIGNS: Reviewed. GENERAL: Well developed, well nourished, in no acute distress. HEAD: Normocephalic/atraumatic EYES: PERRLA, EOMI EARS: Ext canals without abnormality NOSE: Nares patent bilateral OROPHARYNX: no oral lesions noted, posterior pharynx clear NECK: Supple, no adenopathy LUNGS: Normal breath sounds. No adventitious sounds or accessory muscle use. SpO2<99> CARDIOVASCULAR: Regular rate and rhythm without noted murmurs, no JVD or lower extremity edema. ABDOMEN: Soft, mildly tender diffuse without rebound, non-distended with bowel sounds. MUSCULOSKELETAL: No tenderness, deformities, or effusions noted on gross inspection. EXTREMITIES: No cyanosis, clubbing or edema. SKIN: Inspection of the skin reveals no rashes NEUROLOGIC: Alert and oriented x 4. Strength and sensation to light touch were grossly intact x 4. Medical Decision Making Medical Decision Making MDM Narrative: 67-year-old male with history and clinical presentation suggestive of possible constipation, there is no evidence to suggest SBO, diverticulitis and patient denies any unexplained weight loss as he is continued to eat and drink without difficulty. Patient denies any traumatic injuries and has been seen for this discomfort by his primary care doctor I reviewed all investigations and that taken in the context of patient's history and clinical presentation no significant findings to better explain patient's presentation other than likely a combination of known chronic back discomfort with some associated musculoskeletal pain. I have no clinical suspicion for intra-abdominal obstruction, infection, renal colic,. Patient is otherwise advised to follow-up with his primary care provider for for re-evaluation further outpatient management Differential Diagnosis Please see the discussion above Lab Data Please see the discussion above 10/08/22 11:07 10/08/22 11:07 Labs: Lab Results 10/08/22 10/08/22 10/08/22 Range/Units 11:07 11:07 17:01 WBC 9.3 (4.8-10.8) X10*3/uL RBC 5.00 (4.60-5.80) X10*6/uL Hgb 14.5 (14.0-18.0) g/dl Hct 43.8 (42.0-52.0) % MCV 87.6 (80.0-98.0) fL MCH 29.0 (27.0-33.0) pg MCHC 33.1 (31.0-36.0) g/dl RDW 13.0 (11.0-16.0) % Plt Count 298 (160-400) X10*3/uL MPV 10.1 (9.4-12.4) fL Immature Gran % (Auto) 0.2 (0.0-0.4) % Neut % (Auto) 56.3 (45-73) % Lymph % (Auto) 35.2 (20-40) % [place] % (Auto) 7.0 (2-11) % Eos % (Auto) 0.9 (0-4) % Baso % (Auto) 0.4 (0-2) % Lymph # (Auto) 3.3 (1.2-4.9) X10*3/uL [place] # (Auto) 0.7 (0.1-1.2) X10*3/uL Eos # (Auto) 0.1 (0.0-0.4) X10*3/uL Baso # (Auto) 0.0 (0.0-0.2) X10*3/uL Abs Immat Gran (auto) 0.02 (0.00-0.03) X10*3/uL Absolute Neuts (auto) 5.2 (2.0-8.3) x10*3/uL Absolute Nucleated RBC 0.000 (0.0-0.012) X10*3/uL Nucleated RBC % (auto) 0.0 (0.0-0.2) /100WBC Sodium 143 (135-145) mmol/L Potassium 4.6 (3.3-5.1) mmol/L Chloride 105 (96-108) mmol/L Carbon Dioxide 31 H (22-29) mmol/L Anion Gap 12 (12-20) BUN 16 (9-16) mg/dL Creatinine 1.01 (0.5-1.4) mg/dL Estim Creat Clear Calc 67.9 Estimated GFR > 60 Random Glucose 96 (60-115) mg/dL Calcium 9.3 (8.4-10.2) mg/dL Total Bilirubin 1.4 H (0.0-1.0) mg/dL Direct Bilirubin 0.4 (0.0-0.5) mg/dL AST 23 (5-37) U/L ALT 20 (0-40) U/L Alkaline Phosphatase 104 (39-117) U/L Troponin I High Sens < 2.7 (<3.5-35.0) ng/L B-Natriuretic Peptide (<100) pg/mL Total Protein 8.3 H (6.5-8.0) g/dL Albumin 4.2 (3.5-5.0) g/dL Lipase 27 (8-78) U/L Urine Color Urine Appearance Urine pH (5.0-9.0) Ur Specific [place] (1.005-1.025) Urine Protein (Neg-Trace) mg/dL Urine Glucose (UA) (Negative) mg/dL Urine Ketones (Negative) mg/dL Urine Blood (Negative) Urine Nitrite (Negative) Ur Leukocyte Esterase (Negative) 10/08/22 10/08/22 Range/Units 17:01 17:01 WBC (4.8-10.8) X10*3/uL RBC (4.60-5.80) X10*6/uL Hgb (14.0-18.0) g/dl Hct (42.0-52.0) % MCV (80.0-98.0) fL MCH (27.0-33.0) pg MCHC (31.0-36.0) g/dl RDW (11.0-16.0) % Plt Count (160-400) X10*3/uL MPV (9.4-12.4) fL Immature Gran % (Auto) (0.0-0.4) % Neut % (Auto) (45-73) % Lymph % (Auto) (20-40) % [place] % (Auto) (2-11) % Eos % (Auto) (0-4) % Baso % (Auto) (0-2) % Lymph # (Auto) (1.2-4.9) X10*3/uL [place] # (Auto) (0.1-1.2) X10*3/uL Eos # (Auto) (0.0-0.4) X10*3/uL Baso # (Auto) (0.0-0.2) X10*3/uL Abs Immat Gran (auto) (0.00-0.03) X10*3/uL Absolute Neuts (auto) (2.0-8.3) x10*3/uL Absolute Nucleated RBC (0.0-0.012) X10*3/uL Nucleated RBC % (auto) (0.0-0.2) /100WBC Sodium (135-145) mmol/L Potassium (3.3-5.1) mmol/L Chloride (96-108) mmol/L Carbon Dioxide (22-29) mmol/L Anion Gap (12-20) BUN (9-16) mg/dL Creatinine (0.5-1.4) mg/dL Estim Creat Clear Calc Estimated GFR Random Glucose (60-115) mg/dL Calcium (8.4-10.2) mg/dL Total Bilirubin (0.0-1.0) mg/dL Direct Bilirubin (0.0-0.5) mg/dL AST (5-37) U/L ALT (0-40) U/L Alkaline Phosphatase (39-117) U/L Troponin I High Sens (<3.5-35.0) ng/L B-Natriuretic Peptide 231 H (<100) pg/mL Total Protein (6.5-8.0) g/dL Albumin (3.5-5.0) g/dL Lipase (8-78) U/L Urine Color Yellow Urine Appearance Clear Urine pH 7.0 (5.0-9.0) Ur Specific [place] 1.015 (1.005-1.025) Urine Protein Negative (Neg-Trace) mg/dL Urine Glucose (UA) Negative (Negative) mg/dL Urine Ketones Negative (Negative) mg/dL Urine Blood Negative (Negative) Urine Nitrite Negative (Negative) Ur Leukocyte Esterase Negative (Negative) Independent Interpretation I performed an independent interpretation of an: EKG Interpretation: In fibrillation, HR-59, no STEMI, QRS/QTC are within limits. Radiology Impression Radiologist Impression: My interpretation is in agreement with radiology's impression of the imaging studies. External Record Review External record reviewed: Outpatient record and Prior outpatient labs Chronic Conditions Patient?s care impacted by: Hypertension Discharge Plan Discharge Clinical Impression: Arthritis, Chronic back pain Patient Disposition: Home, Self-Care Instructions: Osteoarthritis (ED), Back Pain (ED) Additional Instructions: 1. Reanudar todos los medicamentos caseros seg?n lo prescrito. Recomiende MiraLax de venta gabriela para las preocupaciones relacionadas con el estre?imiento. 2. Recomiende Tylenol de venta gabriela seg?n sea necesario para controlar el dolor y puede agregar un parche de lidoca?na para un alivio adicional de los s?ntomas. 3. Jean un seguimiento con okeefe proveedor de atenci?n primaria para ellen reevaluaci?n y un manejo ambulatorio adicional. Regrese a la magen de emergencias si los s?ntomas empeoran. 1. Resume all home medications as prescribed. Recommend [id number] MiraLax for concerns regarding constipation. 2. Recommend [id number] Tylenol as needed for pain control and you may add a lidocaine patch for additional symptom relief. 3. Please follow-up with your primary care provider for re-evaluation and further outpatient management. Return to the ER for any worsening symptoms. Prescriptions: No Action miscellaneous medical supply Misc 1 ea miscellaneous DAILY Qty: 1 0RF Rx Instructions: Raised Toilet seat (DME) Shower Chair Misc See Rx Instructions .Route Qty: 1 0RF Rx Instructions: As directed digoxin 125 mcg (0.125 mg) tablet 125 mcg PO DAILY Qty: 90 3RF (DME) shoe lift See Rx Instructions .Route .MEDSUPPLY Qty: 1 0RF Rx Instructions: Lt 1/2 inch heel lift diltiazem HCl 360 mg capsule,extended release 24hr 360 mg PO DAILY Qty: 90 3RF tramadol 50 mg tablet 50 mg PO Q8H PRN (Reason: pain) 30 Days Qty: 90 0RF furosemide 40 mg tablet 40 mg PO DAILY Qty: 90 3RF lisinopril 40 mg tablet 40 mg PO DAILY 90 Days Qty: 90 1RF pantoprazole 40 mg tablet,delayed release (DR/EC) 40 mg PO DAILY 90 Days Qty: 90 1RF warfarin 5 mg tablet 5 mg PO DAILY Qty: 90 0RF Protocol: Dose Management Condition: Saturday (Week One) Dose/Route: 0 mg Instruction: 0 tablets Condition: Saturday Dose/Route: 0 mg Instruction: 0 tablets Condition: Saturday Dose/Route: 0 mg Instruction: 0 tablets Condition: Saturday Dose/Route: 0 mg Instruction: 0 tablets Condition: Dose/Route: 7.5 mg Instruction: 1.5 x 5 mg tablets Condition: Saturday Dose/Route: 7.5 mg Instruction: 1.5 x 5 mg tablets Condition: Saturday Dose/Route: 2.5 mg Instruction: 0.5 x 5 mg tablets Condition: Saturday (Week Two) Dose/Route: 5 mg Instruction: 1 x 5 mg tablet Condition: Saturday Dose/Route: 5 mg Instruction: 1 x 5 mg tablet Condition: Saturday Dose/Route: 2.5 mg Instruction: 0.5 x 5 mg tablets Condition: Saturday Dose/Route: 5 mg Instruction: 1 x 5 mg tablet Condition: Dose/Route: 2.5 mg Instruction: 0.5 x 5 mg tablets Condition: Saturday Dose/Route: 5 mg Instruction: 1 x 5 mg tablet Condition: Saturday Dose/Route: 2.5 mg Instruction: 0.5 x 5 mg tablets Protocol Text: Adjustment Start Date: 10/04/22 INR Value: 1.1 INR Date: 10/04/22 Recheck Date: 10/09/22 Additional Instructions: TAKE 7.5MG TODAY AND TOMM THEN CONT REG DOSING no greens for 2-3 days, eat reds to raise inr Rx Instructions: 5MG X 4, 2.5MG X3 acetaminophen 500 mg tablet 1,000 mg PO QID PRN (Reason: pain) Qty: 20 0RF (DME) CPAP Device See Rx Instructions .ROUTE .MEDSUPPLY Qty: 1 Rx Instructions: As directed pravastatin 20 mg tablet 20 mg PO ropinirole 2 mg tablet 2 mg PO BEDTIME metoprolol succinate 50 mg tablet extended release 24 hr 75 mg PO DAILY 90 Days Qty: 135 1RF Rx Instructions: Heart rate control Take 1.5 tablets daily Referrals: Lydia Silver MD [Primary Care Provider] - Print Language: Polish
[2022-10-08 16:05] VITALS: BP 132/77; PULSE 60; RESP 14; TEMP 36.7; O2SAT 99
[2022-10-08 17:10] LABS: Appearance Urine Clear; Color Urine Yellow; Glucose Urine UA Negative (Negative); Leukocyte Esterase Urine Negative (Negative); Nitrite Urine Negative (Negative); Specific Gravity - Urine 1.015 (1.005-1.025); Urine Blood Negative (Negative); Urine Ketones Negative (Negative); Urine Protein Negative (Neg-Trace)
[2022-10-08 17:39] LABS: Troponin-I High Sensitivity < 2.7 ng/L (<3.5-35.0)
[2022-10-08 17:43] LABS: B Type Natriuretic Peptide 231 pg/mL (<100)
[2022-10-08 17:45] VITALS: BP 146/73; PULSE 61; RESP 14; TEMP 36.4; O2SAT 98
[2022-10-08 18:05] VITALS: BP 137/70; PULSE 61; RESP 16; TEMP 36.6; O2SAT 98
[2022-10-08] MEDS: Acetaminophen 325 MG TABLET 975 MG PO (18:08)
[2022-10-08] MEDS: Furosemide 20 MG TABLET PO (18:09)
[2022-10-08] MEDS: Lidocaine 4 % Patch ADH..PATCH 1 PATCH TRANSDERMA (18:10)
== END 2022-10-08 18:26 | disposition home or self-care (01) ==
PROVIDERS: Emergency Provider Student in an Organized Health Care Education/Training Program; PCP Internal Medicine
DX: G89.29 Other chronic pain (principal); M54.9 Dorsalgia, unspecified; M47.9 Spondylosis, unspecified
CPT/HCPCS: 36415; 74018; 80048; 80076; 81003; 83690; 83880; 84484; 85025; 93005; 99283; 99285

== ENCOUNTER → 2022-10-09 10:10 | Outpatient (BNVA) | payer MEDICARE, MEDICAID, SELFPAY | PROVIDERS: PCP Internal Medicine; Visit Provider Internal Medicine | DX: I48.20 Chronic atrial fibrillation, unspecified (principal); Z79.01 Long term (current) use of anticoagulants; Z51.81 Encounter for therapeutic drug level monitoring | CPT/HCPCS: 85610; 99211 ==

== ENCOUNTER → 2022-10-15 10:15 | Outpatient (BNVA) | payer MEDICARE, MEDICAID, SELFPAY | PROVIDERS: PCP Internal Medicine; Visit Provider Internal Medicine | DX: I48.20 Chronic atrial fibrillation, unspecified (principal); Z79.01 Long term (current) use of anticoagulants; Z51.81 Encounter for therapeutic drug level monitoring | CPT/HCPCS: 85610; 99211 ==

== ENCOUNTER → 2022-10-22 10:21 | Outpatient (BNVA) | payer MEDICARE, MEDICAID, SELFPAY | PROVIDERS: PCP Internal Medicine; Visit Provider Internal Medicine | DX: I48.20 Chronic atrial fibrillation, unspecified (principal); Z79.01 Long term (current) use of anticoagulants; Z51.81 Encounter for therapeutic drug level monitoring | CPT/HCPCS: 85610; 99211 ==

== ENCOUNTER → 2022-11-01 10:50 | Outpatient (BNVA) | payer MEDICARE, MEDICAID, SELFPAY | PROVIDERS: PCP Internal Medicine; Visit Provider Internal Medicine | DX: I48.20 Chronic atrial fibrillation, unspecified (principal); Z79.01 Long term (current) use of anticoagulants; Z51.81 Encounter for therapeutic drug level monitoring | CPT/HCPCS: 85610; 99211 ==

== ENCOUNTER → 2022-11-15 10:30 | Outpatient (BNVA) | payer MEDICARE, MEDICAID, SELFPAY | PROVIDERS: PCP Internal Medicine; Visit Provider Internal Medicine | DX: I48.20 Chronic atrial fibrillation, unspecified (principal); Z79.01 Long term (current) use of anticoagulants; Z51.81 Encounter for therapeutic drug level monitoring | CPT/HCPCS: 85610; 99211 ==

== ENCOUNTER 2022-11-24 14:58 | Emergency (ER) | payer MEDICARE, MEDICAID, SELFPAY ==
--- NOTE | ~2022-11-24 | XR_ITS ---
EXAMINATION: XR FOOT, RIGHT CLINICAL INFORMATION: Right foot pain and swelling and laceration of the second, third and fourth digits. COMPARISON: None available. TECHNIQUE: AP, lateral, and oblique views of the right foot. FINDINGS: There is no acute fracture or dislocation. The joint spaces are unremarkable. The tarsal bones are normally aligned. Incidental type I accessory navicular bone. Very small plantar calcaneal spur. The soft tissues are unremarkable. No radiopaque foreign body. XR/XR foot RT min 3V IMPRESSION: No acute abnormality or significant degenerative changes. No radiopaque foreign body. Very small plantar calcaneal spur.
--- NOTE | 2022-11-24 15:37 | ED.LOWEXIN ---
HPI - Extremity Injury (Lower) General Chief Complaint: Extremity Injury, Lower Stated Complaint: r foot inj Time Seen by Provider: 11/24/22 15:50 Source: patient Mode of arrival: wheelchair Limitations: no limitations History of Present Illness HPI Narrative: 67 yo [place] speaking male with history of MELANIE, PAD, HLD, afib on Coumadin who presents to the ER for evaluation of an injury to his right foot. He states he dropped a drill onto his right foot and he had immediate bleeding come from a laceration on his 3rd toe. He was unable to stop the bleeding so he came to the ER for futher evaluation. No other injuries. He is able to bear weight on the foot but arrives with a towel wrapped around the foot. MD complaint: foot injury Onset (ago): hour(s) Injury: Left: foot and toes Type of Injury: blunt Place: home Severity: mild Severity scale (1-10): 2 Relieving factors: immobilization Exacerbating factors: movement and palpation Context: direct blow Associated symptoms: ambulatory and other (bleeding) Other symptoms: none Treatments prior to arrival: bandage Related Data Home Medications Medication Instructions Recorded Confirmed CPAP #1 ea 08/04/20 11/01/22 pravastatin 20 mg tablet 20 mg PO 04/12/21 11/01/22 ropinirole 2 mg tablet 2 mg PO BEDTIME 07/27/21 11/01/22 Previous Rx's Medication Instructions Recorded acetaminophen 500 mg tablet 1,000 mg PO QID PRN pain #20 tabs 12/06/20 Shower Chair #1 ea 03/06/21 miscellaneous medical supply 1 ea miscellaneous DAILY #1 ea 03/06/21 digoxin 125 mcg (0.125 mg) tablet 125 mcg PO DAILY #90 tabs 11/16/21 shoe lift #1 ea 03/30/22 diltiazem HCl 360 mg 360 mg PO DAILY #90 caps 04/16/22 capsule,extended release 24 hr metoprolol succinate 50 mg 75 mg PO DAILY 90 days #135 tabs 06/27/22 tablet,extended release 24 hr furosemide 40 mg tablet 40 mg PO DAILY #90 tabs 09/25/22 lisinopril 40 mg tablet 40 mg PO DAILY 90 days #90 tabs 09/25/22 pantoprazole 40 mg tablet,delayed 40 mg PO DAILY 90 days #90 tabs 09/25/22 release tramadol 50 mg tablet 50 mg PO Q8H PRN pain 30 days #90 09/25/22 tabs warfarin 5 mg tablet 5 mg PO DAILY #90 tabs 10/04/22 Allergies Allergy/AdvReac Type Severity Reaction Status Date / Time No Known Allergies Allergy Verified 11/01/22 10:50 [No Known Allergies*] Review of Systems Review of Systems: Yes all other systems are reviewed and are negative [facility] Past Medical History Medical History Abnormal finding of foot Bilateral sciatica Chest pain Chronic heart failure with preserved ejection fraction (HFpEF) Leg length discrepancy Obesity (BMI 30.0-34.9) MELANIE on CPAP MELANIE on CPAP Pacemaker Persistent atrial fibrillation Polyarthralgia Right shoulder pain Trigger finger Surgical History History of cholecystectomy History of ear surgery Family History Family History Father Myocardial infarction CVD (cardiovascular disease) Mother No problems noted. Sister Stomach cancer Son No problems noted. Son No problems noted. Daughter No problems noted. Daughter No problems noted. Brother No problems noted. Brother No problems noted. Social History Social History Household Members: Children Housing: House Alcohol intake: current Alcohol intake frequency: holidays/special occasions only Alcohol type: beer Patient Tobacco Use Status: Never used Tobacco e-Cigarette/Vaping Use: Never Used Second Hand Smoke Exposure: No service: No Current occupational status: disabled Cognitive needs: Yes Hearing needs: No Vision needs: Yes Physical Exam Vital Signs: Vital Signs: Last Vital Signs Temp 98.3 F 11/24/22 15:38 Pulse 70 11/24/22 15:38 Resp 18 11/24/22 15:38 BP 123/70 11/24/22 15:38 Pulse Ox 100 11/24/22 15:38 O2 Del Method Room Air 11/24/22 15:38 BMI result Body Mass Index 31.9 Appearance: Alert. Oriented X3. No acute distress. HEENT: normal inspection CVS: Normal heart rate and rhythm. Pulses normal. Respiratory: No respiratory distress. Skin: Skin warm and dry. Normal skin color. Normal skin turgor. No rashes. Extremities: right foot with dried blood on toes 2-4 and the medial aspect of the foot, small <0.5cm irregular superficial laceration over the joint of the 3rd digit, no active bleeding. nontender metatarsals. Neuro: Oriented X 3. grossly normal Medical Decision Making Medical Decision Making MDM Narrative: 67 yo [place] speaking male with history of MELANIE, PAD, HLD, afib on Coumadin who presents to the ER for evaluation of an injury to his right foot after dropping a drill on it earlier today leading to a laceration and bleeding. No bleeding on arrival to the ER, he has a superficial lac to the 3rd toe. XR negative. skin glue and steristrips were used to keep the wound closed. not diabetic. stable for d/c home. wound care discussed Differential Diagnosis Differential Diagnoses: The differential diagnosis associated with the presentation includes bleeding varicose vein, superficial laceration, abrasion, broken toe, broken foot Independent Interpretation I performed an independent interpretation of an: Plain X-Ray Interpretation: no apparent toe or foot fractures, agree w/ radiology read Radiology Impression Discussion of test interpretation with radiology: I have reviewed the radiologist's reading. Radiologist Impression: XR/XR foot RT min 3V IMPRESSION: No acute abnormality or significant degenerative changes. No radiopaque foreign body. ? Very small plantar calcaneal spur. External Record Review External record reviewed: Outpatient record, Prior outpatient labs and Prior outpatient radiology Tests considered The following testing was considered but not selected: INR considered but bleeding controlled. Procedures Laceration Laceration 1: Site: lower extremity Side (If applicable): right Size (cm): 0.5 Description: irregular Depth: simple, single layer Pre-repair: irrigated extensively Skin layer closed with: other (exofin skin glue and 2 steri-strips) Critical Care Time Critical Care Time Critical Care Time: No Discharge Plan Discharge Clinical Impression: Laceration of toe Patient Disposition: Home, Self-Care Instructions: Laceration (DC) Additional Instructions: Your x-ray today was normal. Skin glue and steri-strips were used to close the wound. Do not get wet for 24 hours. After this you can briefly get wet then pat dry. The glue and steri strips should come off on their own, usually in a 1 week. Do not peel them off If bleeding recurs, apply direct pressure for 10-15 minutes. Tu radiograf?a de hoy fue normal. Se utiliz? pegamento para la piel y steri-strips para cerrar la herida. No mojarse le 24 horas. Despu?s de esto, puede mojarse brevemente y luego secarse. El pegamento y las tiras est?cindi deber?an desprenderse por s? solas, generalmente en 1 semana. no los despegues Si vuelve a sangrar, aplique presi?n directa le 10-15 minutos. Prescriptions: No Action miscellaneous medical supply Misc 1 ea miscellaneous DAILY Qty: 1 0RF Rx Instructions: Raised Toilet seat (DME) Shower Chair Misc See Rx Instructions .Route Qty: 1 0RF Rx Instructions: As directed digoxin 125 mcg (0.125 mg) tablet 125 mcg PO DAILY Qty: 90 3RF (DME) shoe lift See Rx Instructions .Route .MEDSUPPLY Qty: 1 0RF Rx Instructions: Lt 1/2 inch heel lift diltiazem HCl 360 mg capsule,extended release 24hr 360 mg PO DAILY Qty: 90 3RF tramadol 50 mg tablet 50 mg PO Q8H PRN (Reason: pain) 30 Days Qty: 90 0RF furosemide 40 mg tablet 40 mg PO DAILY Qty: 90 3RF lisinopril 40 mg tablet 40 mg PO DAILY 90 Days Qty: 90 1RF pantoprazole 40 mg tablet,delayed release (DR/EC) 40 mg PO DAILY 90 Days Qty: 90 1RF warfarin 5 mg tablet 5 mg PO DAILY Qty: 90 0RF Protocol: Dose Management Condition: Saturday (Week One) Dose/Route: 5 mg Instruction: 1 x 5 mg tablet Condition: Saturday Dose/Route: 5 mg Instruction: 1 x 5 mg tablet Condition: Saturday Dose/Route: 2.5 mg Instruction: 0.5 x 5 mg tablets Condition: Saturday Dose/Route: 5 mg Instruction: 1 x 5 mg tablet Condition: Dose/Route: 2.5 mg Instruction: 0.5 x 5 mg tablets Condition: Saturday Dose/Route: 5 mg Instruction: 1 x 5 mg tablet Condition: Saturday Dose/Route: 2.5 mg Instruction: 0.5 x 5 mg tablets Condition: Saturday (Week Two) Dose/Route: 5 mg Instruction: 1 x 5 mg tablet Condition: Saturday Dose/Route: 5 mg Instruction: 1 x 5 mg tablet Condition: Saturday Dose/Route: 2.5 mg Instruction: 0.5 x 5 mg tablets Condition: Saturday Dose/Route: 5 mg Instruction: 1 x 5 mg tablet Condition: Dose/Route: 2.5 mg Instruction: 0.5 x 5 mg tablets Condition: Saturday Dose/Route: 5 mg Instruction: 1 x 5 mg tablet Condition: Saturday Dose/Route: 2.5 mg Instruction: 0.5 x 5 mg tablets Protocol Text: Adjustment Start Date: 11/15/22 INR Value: 2.2 INR Date: 11/15/22 Recheck Date: 12/06/22 Additional Instructions: EAT A MIX OF FRUITS AND VEGETABLES Rx Instructions: 5MG X 4, 2.5MG X3 acetaminophen 500 mg tablet 1,000 mg PO QID PRN (Reason: pain) Qty: 20 0RF (DME) CPAP Device See Rx Instructions .ROUTE .MEDSUPPLY Qty: 1 Rx Instructions: As directed pravastatin 20 mg tablet 20 mg PO ropinirole 2 mg tablet 2 mg PO BEDTIME metoprolol succinate 50 mg tablet extended release 24 hr 75 mg PO DAILY 90 Days Qty: 135 1RF Rx Instructions: Heart rate control Take 1.5 tablets daily
[2022-11-24 15:38] VITALS: BP 123/70; PULSE 70; RESP 18; TEMP 36.8; O2SAT 100; BMI 31.9
== END 2022-11-24 16:10 | disposition home or self-care (01) ==
LOC: HO.ED 16:08
PROVIDERS: Emergency Provider Emergency Medicine; PCP Internal Medicine
DX: S91.114A Laceration without foreign body of right lesser toe(s) without damage to nail, initial encounter (principal); W20.8XXA Other cause of strike by thrown, projected or falling object, initial encounter; E78.5 Hyperlipidemia, unspecified; I48.19 Other persistent atrial fibrillation; Z95.0 Presence of cardiac pacemaker; Z79.01 Long term (current) use of anticoagulants; Z79.899 Other long term (current) drug therapy; Y93.9 Activity, unspecified; Y92.019 Unspecified place in single-family (private) house as the place of occurrence of the external cause; Y99.9 Unspecified external cause status
CPT/HCPCS: 12001; 73630; 99282; 99283

== ENCOUNTER → 2022-12-06 10:08 | Outpatient (BNVA) | payer MEDICARE, MEDICAID, SELFPAY | PROVIDERS: PCP Internal Medicine; Visit Provider Internal Medicine | DX: I48.20 Chronic atrial fibrillation, unspecified (principal); Z79.01 Long term (current) use of anticoagulants; Z51.81 Encounter for therapeutic drug level monitoring | CPT/HCPCS: 85610; 99211 ==

== ENCOUNTER 2022-12-25 10:18 | Outpatient (REF) | payer MEDICARE, MEDICAID, SELFPAY ==
[2022-12-25 10:47] LABS: MANUAL DIFF FLAG NO
[2022-12-25 12:30] LABS: Basophils Absolute Auto 0.1 X10*3/uL (0.0-0.2); Basophils Percent Auto 0.6 % (0-2); Eosinophils Absolute Auto 0.2 X10*3/uL (0.0-0.4); Eosinophils Percent Auto 1.7 % (0-4); Hematocrit 40.6 % (42.0-52.0); Hemoglobin 13.3 g/dl (14.0-18.0); Imm Gran Abs Auto 0.03 X10*3/uL (0.00-0.03); Imm Gran Pct Auto 0.3 % (0.0-0.4); Lymphocytes Absolute Auto 3.4 X10*3/uL (1.2-4.9); Lymphocytes Percent Auto 38.8 % (20-40); Mean Corpuscular HGB Conc 32.8 g/dl (31.0-36.0); Mean Corpuscular Hemoglobin 28.6 pg (27.0-33.0); Mean Corpuscular Volume 87.3 fL (80.0-98.0); Mean Platelet Volume 10.6 fL (9.4-12.4); Monocytes Absolute Auto 0.6 X10*3/uL (0.1-1.2); Monocytes Percent Auto 6.6 % (2-11); Neutrophils Absolute Auto 4.5 x10*3/uL (2.0-8.3); Platelet Count 297 X10*3/uL (160-400); Red Blood Count 4.65 X10*6/uL (4.60-5.80); Red Cell Distribution Width 12.6 % (11.0-16.0); White Blood Count 8.7 X10*3/uL (4.8-10.8)
[2022-12-25 13:06] LABS: Alanine Aminotransferase 19 U/L (0-40); Albumin Level 3.8 g/dL (3.5-5.0); Alkaline Phosphatase 93 U/L (39-117); Anion Gap 14 (12-20); Aspartate Amino Transferase 25 U/L (5-37); Bilirubin Total 1.5 mg/dL (0.0-1.0); Blood Urea Nitrogen 12 mg/dL (9-16); Calcium 9.4 mg/dL (8.4-10.2); Carbon Dioxide 26 mmol/L (22-29); Chloride 104 mmol/L (96-108); Cholesterol 173 mg/dL; Estimated Glomerular Filt Rate > 60; Glucose Fasting 99 mg/dL (60-99); HDL Cholesterol 47 mg/dL; LDL Cholesterol Calculated 107 mg/dl; Potassium 3.5 mmol/L (3.3-5.1); Sodium 140 mmol/L (135-145); Total Protein 7.7 g/dL (6.5-8.0); Triglycerides 97 mg/dL
[2022-12-25 13:23] LABS: Vitamin D 25-OH Total 23.2 ng/mL (>30)
[2022-12-30 15:44] LABS: NT-proBNP 603 pg/mL (<125)
== END 2022-12-25 10:19 | disposition home or self-care (01) ==
LOC: HO.LAB 10:18
PROVIDERS: PCP Internal Medicine; Visit Provider Internal Medicine
DX: E55.9 Vitamin D deficiency, unspecified (principal); D64.9 Anemia, unspecified; K21.9 Gastro-esophageal reflux disease without esophagitis; E78.5 Hyperlipidemia, unspecified; I50.32 Chronic diastolic (congestive) heart failure
CPT/HCPCS: 36415; 80053; 80061; 82306; 83880; 85025

== ENCOUNTER 2022-12-31 10:57 | Outpatient (AMB) | payer MEDICARE, MEDICAID, SELFPAY ==
[2022-12-31 11:02] LABS: Prothrombin Time Whole Bld POC 35.9 sec (11.1-13.5)
--- NOTE | 2022-12-31 11:05 | MHC.OFFVISCO ---
Intake Intake Visit Reasons: Anticoagulation Allergies No Known Allergies [No Known Allergies*] Allergy (Verified 12/31/22 10:57) Medication List - Last Reconciled 12/31/22 by Angela Hernadez RN acetaminophen 1,000 mg (2 x 500 mg) PO QID PRN acetaminophen ER (Tylenol 8 Hour) 650 mg PO Q8H PRN CPAP As directed digoxin 125 mcg PO DAILY diltiazem HCl 360 mg PO DAILY furosemide 40 mg PO DAILY lisinopril 40 mg PO DAILY 90 days metoprolol succinate ER 75 mg (1.5 x 50 mg) PO DAILY 90 days miscellaneous medical supply 1 ea miscellaneous DAILY pantoprazole 40 mg PO DAILY 90 days pravastatin 20 mg PO ropinirole 2 mg PO BEDTIME [shoe lift Lt 1/2 inch heel lift] Shower Chair As directed tramadol 50 mg PO Q8H PRN 30 days warfarin 5 mg See Protocol PO DAILY Nursing Note INR: 3.0- in therapeutic range Medications and supplements reviewed No changes in health, diet, medications, or supplements, Denies any signs and symptoms of bleeding or bruising or clotting. 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
== END 2022-12-31 11:07 | disposition home or self-care (01) ==
LOC: HO.ACS 10:57
PROVIDERS: PCP Internal Medicine; Visit Provider Internal Medicine
DX: Z79.01 Long term (current) use of anticoagulants (principal)

== ENCOUNTER → 2022-12-31 10:57 | Outpatient (BNVA) | payer MEDICARE, MEDICAID, SELFPAY | PROVIDERS: PCP Internal Medicine; Visit Provider Internal Medicine | DX: I48.20 Chronic atrial fibrillation, unspecified (principal); Z79.01 Long term (current) use of anticoagulants; Z51.81 Encounter for therapeutic drug level monitoring | CPT/HCPCS: 85610; 99211 ==

== ENCOUNTER → 2023-01-05 23:59 | Outpatient (BNV) | payer MEDICARE, MEDICAID, SELFPAY ==
--- NOTE | 2023-01-17 21:20 | A.OFFVIS_ITS ---
Intake Intake Visit Reasons: Remote Device Check- [place] Allergies No Known Allergies [No Known Allergies*] Allergy (Verified 01/09/23 11:29) [facility] Medical History (Updated 01/09/23 @ 12:30 by Reji Meyers MD) Abnormal finding of foot Bilateral sciatica Chest pain Chronic heart failure with preserved ejection fraction (HFpEF) Leg length discrepancy Obesity (BMI 30-39.9) Obesity (BMI 30.0-34.9) MELANIE on CPAP Pacemaker Persistent atrial fibrillation Polyarthralgia Pure hypercholesterolemia Right shoulder pain Trigger finger Vitamin D deficiency Surgical History History of cholecystectomy History of ear surgery Family History Father Myocardial infarction CVD (cardiovascular disease) Mother No problems noted. Sister Stomach cancer Son No problems noted. Son No problems noted. Daughter No problems noted. Daughter No problems noted. Brother No problems noted. Brother No problems noted. Social History Household Members: Children Housing: House Alcohol intake: current Alcohol intake frequency: holidays/special occasions only Alcohol type: beer Patient Tobacco Use Status: Never used Tobacco e-Cigarette/Vaping Use: Never Used Second Hand Smoke Exposure: No service: No Current occupational status: disabled Cognitive needs: Yes Hearing needs: No Vision needs: Yes Office Procedures Cardiac Device Check Cardiac Device Check Details: Date of service- 01/05/2023 ; Battery life >6 years; normal lead parameters; [employer] 34%; some atrial fibrillation with rapid rates, but not prologned. Overall normal function. [id number] Cardiac Device Interrogation, pacemaker Procedure code (CPT) selection complete Assessment & Plan Assessment & Plan (1) Chronic heart failure with preserved ejection fraction (HFpEF): Code(s): I50.32 - Chronic diastolic (congestive) heart failure Coding Level of Care Code Procedure Only Diagnoses Chronic heart failure with preserved ejection fraction (HFpEF) I50.32 CPT Codes Cardiac Device Check - Cardiac Device 12: [id number] Cardiac Device Interrogation, pacemaker ([id number])
== END ==
PROVIDERS: PCP Internal Medicine; Visit Provider Internal Medicine
DX: I48.19 Other persistent atrial fibrillation (principal); Z95.0 Presence of cardiac pacemaker
CPT/HCPCS: 93294

== ENCOUNTER 2023-01-09 10:15 | Outpatient (AMB) | payer MEDICARE, MEDICAID, SELFPAY ==
--- NOTE | 2023-01-09 10:26 | MHC.PC.OV ---
Vital Signs 01/09/23 10:27 Height 5 ft 3 in Weight 185 lb BMI 32.8 BP 136/72 Blood Pressure Location Lt brachial Position Sitting Pulse 77 Pulse Source Pulse Oximeter Pulse Oximetry (%) 97 Oxygen Delivery Method Room Air Intake Visit Reasons: Est care, Annual PE Allergies No Known Allergies [No Known Allergies*] Allergy (Verified 06/12/23 16:05) Medication List - Last Reconciled 01/09/23 by Reji Meyers MD acetaminophen 1,000 mg (2 x 500 mg) PO QID PRN acetaminophen ER (Tylenol 8 Hour) 650 mg PO Q8H PRN cholecalciferol (vitamin D3) 50 mcg PO DAILY 90 days CPAP As directed digoxin 125 mcg PO DAILY diltiazem HCl 360 mg PO DAILY furosemide 40 mg PO DAILY lisinopril 40 mg PO DAILY 90 days metoprolol succinate ER 75 mg (1.5 x 50 mg) PO DAILY 90 days miscellaneous medical supply 1 ea miscellaneous DAILY pantoprazole 40 mg PO DAILY 90 days pravastatin 20 mg PO ropinirole 2 mg PO BEDTIME [shoe lift Lt 1/2 inch heel lift] Shower Chair As directed tramadol 50 mg PO Q8H PRN 30 days warfarin 5 mg See Protocol PO DAILY Tobacco use date assessed: 08/08/22 Fall risk assessment: No Falls in past year Last assessed Fall Risk: 01/09/23 Dental Screening Dental Screen Date: 01/09/23 Did you have a dental visit in the last 12 months?: Yes Did you have a dental problem in the last 6 months where you did not have access to dental care?: No Was dental information given to patient?: Patient has dentist HPI Est care, Annual PE HPI Details Patient comes in today for his annual physical examination States that he often wakes up in the morning with abdominal pain, which would be relieved when he eats and drinks something Relates (+) constipation often - has to take Miralax and stool softeners frequently States that he feels okay otherwise He denies any headaches or dizziness Denies any chest pains, no SOB No nausea/vomiting noted, even when his abdominal pains act up Denies any acute urinary symptoms Needs a couple of his Rx refilled Has his follow up labs done a couple of weeks ago - to discuss his results He was referred by Dr. Darden for a screening colonoscopy last year but he was either never scheduled or he did not keep his appt and has never had colonoscopy done in the past [facility] Medical History Restless leg syndrome Chronic constipation Chronic GERD History of pacemaker Obesity (BMI 30-39.9) Vitamin D deficiency Pure hypercholesterolemia Leg length discrepancy Pacemaker Abnormal finding of foot Right shoulder pain MELANIE on CPAP Chest pain Trigger finger Bilateral sciatica Polyarthralgia Chronic heart failure with preserved ejection fraction (HFpEF) Persistent atrial fibrillation Obesity (BMI 30.0-34.9) Surgical History Hx of colonoscopy History of ear surgery History of cholecystectomy Family History Father Myocardial infarction CVD (cardiovascular disease) Mother No problems noted. Sister Stomach cancer Son No problems noted. Son No problems noted. Daughter No problems noted. Daughter No problems noted. Brother No problems noted. Brother No problems noted. Social History Household Members: Children Housing: House Alcohol intake: current Alcohol intake frequency: holidays/special occasions only Alcohol type: beer Patient Tobacco Use Status: Never used Tobacco Smoked in Last 30 Days: No e-Cigarette/Vaping Use: Never Used Second Hand Smoke Exposure: No Use of substances other than those prescribed or required for medical reasons: No Advance Directives: No Advance Directives Information Provided: No service: No Current occupational status: disabled Cognitive needs: Yes (cane) Hearing needs: No Vision needs: Yes (glasses) Questionnaire PHQ-9 Over the last 2 weeks, how often have you been bothered by any of the following problems? 1. Little interest or pleasure in doing things: not at all 2. Feeling down, depressed, or hopeless: several days 3. Trouble falling or staying asleep, or sleeping too much: not at all 4. Feeling tired or having little energy: not at all 5. Poor appetite or overeating: not at all 6. Feeling bad about yourself - or that you are a failure or have let yourself or your family down: not at all 7. Trouble concentrating on things, such as reading the newspaper or watching television: not at all 8. Moving or speaking so slowly that other people could have noticed. Or the opposite - being so fidgety or restless that you have been moving around a lot more than usual: not at all 9. Thoughts that you would be better off or of hurting yourself in some way: not at all Total score: 1 Depression Screening Interpretation: Negative 16644 - PHQ-9 Billing: Yes Source: Developed by Drs. Srinivasa Arauz, Denis Glynn and colleagues, with an educational lorenza from [employer]. Thrive Questionnaire Date Thrive assessed: 08/08/22 AUDIT C Alcohol Use Questionnaire (AUDIT-C) 1. How often do you have a drink containing alcohol?: Monthly or less 2. How many drinks containing alcohol do you have on a typical day when you are drinking?: 1 or 2 3. How often do you have six or more drinks on one occasion?: Never Total Score: 1 Score Reviewed/Action Taken: Yes THERESA-7 AMB Questionnaire THERESA-7 Date THERESA - 7 assessed: 08/08/22 Source: Developed by Drs. Srinivasa Arauz, Sol Duron, Denis Hernandez and colleagues, with an educational lorenza from [employer]. Review of Systems Const Denies chills, Reports fatigue, Denies fever(s), Denies headache(s), Denies malaise and Denies weakness Eyes Denies blurry vision, Denies change in vision, Denies irritation and Denies itchy eyes ENT Denies dysphagia, Denies dizziness, Denies otalgia, Denies headache(s), Denies nasal congestion, Denies neck pain, Denies odynophagia and Denies sore throat Card Denies chest pain, Denies rapid heart rate, Denies irregular heart rhythm, Denies palpitations and Denies dyspnea Resp Denies chest congestion, Denies cough, Denies dyspnea and Denies wheezing GI Reports abdominal pain (recurrent), Denies bloating, Reports constipation (frequent), Denies dysphagia, Denies heartburn, Denies diarrhea, Denies nausea, Denies odynophagia and Denies vomiting Denies hematuria, Denies difficulty urinating, Denies dysuria, Denies urinary frequency and Denies urinary urgency Musc Reports back pain (over the lower back - chronic), Denies arthralgias, Denies joint swelling, Denies muscle weakness and Denies neck pain Skin/Breast Denies change in pigmentation, Denies lesions, Denies rash and Denies unusual bruising Neuro Denies dizziness, Denies headache(s), Denies paresthesias and Denies weakness Endo Reports fatigue and Denies palpitations Aller/Immun Denies itchy eyes and Denies wheezing Physical exam (Primary Care) Vital Signs: Last Vital Signs Pulse 77 01/09/23 10:27 BP 136/72 01/09/23 10:27 Pulse Ox 97 01/09/23 10:27 Oxygen Delivery Method Room Air 01/09/23 10:27 BMI result Body Mass Index 32.8 Tobacco/Smoking Status: Tobacco use Status Tobacco use date assessed 08/08/22 01/09/23 10:30 Patient Tobacco Use Status Never used Tobacco 01/09/23 10:30 e-Cigarette/Vaping Use Never Used 01/09/23 10:30 PHQ-9: PHQ-9 Score PHQ-9: Total score 1 01/09/23 11:25 Depression Screening Interpretation: Negative Thrive Assessment: Date of Thrive Assessment Date Thrive assessed 08/08/22 01/09/23 10:30 Const General: no acute distress, alert and awake Orientation/consciousness: patient oriented x3 HENMT Head: Yes normocephalic and Yes atraumatic Ears: external ears normal, TM's normal bilaterally and EAC's normal General nose exam: No nasal discharge present Face and sinus: Yes normal facial exam and Yes sinuses nontender Teeth and gingiva: dentition normal Throat: Yes posterior oropharynx normal and Yes tonsils normal (no TP congestion) Eyes Eyelids: Yes eyelids normal Conjunctivae: conjunctivae normal Pupils: Equal, round and reactive pupils present EOM: EOMs intact bilaterally Neck Neck: Yes no lymphadenopathy and Yes supple Thyroid: Thyroid normal Resp Auscultation: clear to auscultation bilaterally, no rales and no wheezes Cardio Rate: regular rate Rhythm: abnormal rhythm irregularly irregular Heart sounds: no murmurs GI Palpation (GI): Soft to palpation, Tenderness to palpation present (GI) (mild) in the epigastrum, no guarding, not rigid, No hepatosplenomegaly present and No Rebound tenderness present Auscultation: normal bowel sounds General: Yes no CVA tenderness Back/Spine/Pelvis Back: no CVA tenderness Cervical Spine: Cervical spine tenderness (mild) Thoracic/Lumbar Spine: straight leg raise negative bilaterally and lumbar spinal tenderness (mild) at L4 and at L5 Skin Lesions: no lesions Rashes: no rashes Neuro General: patient oriented x3, moves all extremities, no focal motor deficits and CN's II-XI intact bilaterally Cranial nerves: Yes Equal, round and reactive pupils present Cognition (Neuro): normal cognition Gait exam (Neuro): Normal gait present (although he has a tendency to lean towards his left side when walking) Extrem General: Yes no clubbing, cyanosis or edema Left lower extremity: foot ((+) some atrophy noted) Results Reviewed Results Reviewed: Laboratory Tests 12/25/22 12/25/22 12/25/22 10:45 10:45 10:45 WBC 8.7 Hgb 13.3 L Hct 40.6 L Plt Count 297 Sodium 140 Potassium 3.5 D Creatinine 0.86 Estimated GFR > 60 Fasting Glucose 99 Calcium 9.4 Total Bilirubin 1.5 H AST 25 ALT 19 NT-Pro-B Natriuret Pep 603 H Triglycerides 97 Cholesterol 173 LDL Cholesterol, Calc 107 HDL Cholesterol 47 25-OH Vitamin D Total 23.2 Assessment and Plan Assessment & Plan (1) Annual physical exam: Code(s): Z00.00 - Encounter for general adult medical examination without abnormal findings Plan: Results of his labs done a couple of weeks ago reviewed and discussed with patient He has never had a screening colonoscopy done in the past (2) Abdominal pain: Code(s): R10.9 - Unspecified abdominal pain Qualifiers: Abdominal location: unspecified location Qualified Code(s): R10.9 - Unspecified abdominal pain Plan: (+) Hx of chronic GERD for which he takes Pantoprazole 40 mg QD Relates that he often wakes up in the morning with abdominal (appears to be mostly epigastric) pain which would be relieved when he eats and drinks something Also reports that he does not normally move his bowels regularly so constipation may also be a contributing factor to his recurrent abdominal symptoms Will send him for abdominal US for now for further evaluation and will also refer him to GI for further evaluation and management and consideration for EGD (3) Chronic heart failure with preserved ejection fraction (HFpEF): Code(s): I50.32 - Chronic diastolic (congestive) heart failure Plan: Most recent echocardiogram done on 07/03/2022 revealed normal LV systolic function with normal diastolic filling pattern, normal cardiac valvular doppler, normal RV systolic pressure and no gross pericardial effusion. There is paradoxical septal motion that is consistent with the presence of a right ventricular pacemaker Reinforced fluid restriction - his BNP was elevated on his labs done a couple of weeks ago Continue Furosemide 40 mg QD and Lisinopril 40 mg QD Follow up with cardiology as scheduled (4) Persistent atrial fibrillation: Code(s): I48.19 - Other persistent atrial fibrillation Plan: Is currently rate-controlled on Metoprolol ER 50 mg 1.5 tablets QD, Diltiazem 360 mg QD and Digoxin 125 mcg QD Patient has failed rhythm control with various antiarrhythmics in the past, including Sotalol, Multaq and Amiodarone Has also been referred for EP studies for possible ablation but for unclear reasons, he was never seen or evaluated and cardiology has decided to continue with rate control as patient appears to be doing well on this so far Continue Coumadin 5 mg QD for thromboembolism prophylaxis; patient follows up with the Coumadin clinic for PT/INR monitoring and dose adjustment as needed Follow up with cardiology as scheduled (5) Pure hypercholesterolemia: Code(s): E78.00 - Pure hypercholesterolemia, unspecified Plan: Reinforced low cholesterol diet Continue Pravastatin 20 mg QD Will recheck his labs and fasting lipids in 3 months for follow up (6) MELANIE on CPAP: Comment: THIS PATIENT HAS KNOWN DIAGNOSIS OF OBSTRUCTIVE SLEEP APNEA, BEING TREATED WITH CPAP AND HE REMAINS VERY COMPLIANT. NO ISSUES RELATED TO THE MASK OR CPAP DEVICE. Code(s): G47.33 - Obstructive sleep apnea (adult) (pediatric); Z99.89 - Dependence on other enabling machines and devices Plan: Patient appears to be compliant with the use of his CPAP device every night when sleeping and states that he is doing well on this Follow up with Dr. Swift as scheduled (7) Low back pain: Code(s): M54.50 - Low back pain, unspecified Qualifiers: Back pain laterality: midline Chronicity: chronic Sciatica presence: unspecified whether sciatica present Qualified Code(s): M54.50 - Low back pain, unspecified; G89.29 - Other chronic pain Plan: Reinforced activity and weight-lifting restrictions Lumbar spine x-rays done a couple of years ago in 07/2020 revealed (+) bridging anterior osteophytes at L5-S1 with no dics narrowing; the rest of his lumbar spine appear normal and SI joints were also unremarkable Patient is aware that his frequent low back pain and right leg pain are mostly due to the discrepancy in the length of his legs (left leg is shorter) - ? patient had polio as a child and has chronic atrophy of his left leg and limited range of motion in the left foot He was evaluated by Orthopedics in December 2021 for the left leg discrepancy and was recommended to use a shoe lift to compensate for this Continue Tylenol 650 mg Q 8 hours PRN and Tramadol 50 mg TID PRN - Rx refilled per request (8) Leg length discrepancy: Comment: reportedly had polio as a child and has atrophy of the left leg, with limited range of motion in the left foot Code(s): M21.70 - Unequal limb length (acquired), unspecified site Plan: Patient was evaluated by Orthopedics in December 2021 for the left leg discrepancy and was recommended to use a shoe lift for his left leg to compensate for the difference in length of his lower extremities Follow up with orthopedics as scheduled (9) Vitamin D deficiency: Code(s): E55.9 - Vitamin D deficiency, unspecified Plan: Patient is advised that his Vitamin D level remained low on his recent labs Will start him on Vitamin D3 2000 units QD (10) Polyarthralgia: Code(s): M25.50 - Pain in unspecified joint Plan: Was seen by rheumatology last year (2021) and advised that his multiple joint pains (shoulders, hips, hands) are mostly due to OA Recommended to continue taking Tylenol 650 mg Q 8 hours PRN for pain and to just follow up with rheumatology on an as needed basis (11) Obesity (BMI 30-39.9): Comment: HE IS ONLY MODERATELY ,OBESE WEIGHT HAS REMAINED STABL.E Code(s): E66.9 - Obesity, unspecified Plan: Reniforced diet/lose weight; exercise is likely unrealistic given patient's physical issues although he is encouraged to stay active as much as he can (12) Colon cancer screening: Code(s): Z12.11 - Encounter for screening for malignant neoplasm of colon Plan: He was referred by Dr. Darden for screening colonoscopy last year but he was either never scheduled or he did not keep his appt Advised that with his ongoing stomach issues, he should see GI and have a colonoscopy (and possibly also an EGD) done for further evaluation and that based on current cancer screening recommendations, he is already 20 to 21 yrs behind schedule with his colon cancer screening Referral to GI done Plan Follow up in 3 months Orders: Orders UA CC w/rflx Micro + Cult 3 Months R30.0 - Dysuria Digoxin 3 Months I50.20 - Unspecified systolic (congestive) heart failure Prostate Specific Antigen 3 Months N40.0 - Benign prostatic hyperplasia without lower urinary tract symptoms, Z00.00 - Encounter for general adult medical examination without abnormal findings US abdomen complete 07/23 R10.9 - Unspecified abdominal pain Complete Blood Count Auto Diff 3 Months I10 - Essential (primary) hypertension Comprehensive [place]. Panel Fast 3 Months E78.00 - Pure hypercholesterolemia, unspecified Lipid Panel 3 Months E78.00 - Pure hypercholesterolemia, unspecified TSH reflex Free T4 3 Months E78.00 - Pure hypercholesterolemia, unspecified Vitamin D 25-OH Total 3 Months E55.9 - Vitamin D deficiency, unspecified B Type Natriuretic Peptide 3 Months I50.9 - Heart failure, unspecified Referrals Gastroenterology Referral R10.9 - Unspecified abdominal pain, K21.9 - Gastro-esophageal reflux disease without esophagitis, Z12.11 - Encounter for screening for malignant neoplasm of colon Medications: New cholecalciferol (vitamin D3) 50 mcg PO DAILY 90 caps 3RF 90 days E55.9 - Vitamin D deficiency, unspecified Refilled warfarin 5MG X 4, 2.5MG X3 5 mg See Protocol PO DAILY 90 tabs 0RF tramadol 50 mg PO Q8H PRN 90 tabs 0RF pain 30 days Coding Level of Care Code Est Pt Prev Care >65y(63465) Diagnoses Annual physical exam Z00.00 Abdominal pain, unspecified abdominal location R10.9 Abdominal location: unspecified location Chronic heart failure with preserved ejection fraction (HFpEF) I50.32 Persistent atrial fibrillation I48.19 Pure hypercholesterolemia E78.00 MELANIE on CPAP G47.33; Z99.89 Chronic midline low back pain, unspecified whether sciatica present M54.50; G89.29 Back pain laterality: midline Chronicity: chronic Sciatica presence: unspecified whether sciatica present Leg length discrepancy M21.70 Vitamin D deficiency E55.9 Polyarthralgia M25.50 Obesity (BMI 30-39.9) E66.9 Colon cancer screening Z12.11
[2023-01-09 10:27] VITALS: BP 136/72; PULSE 77; O2SAT 97; BMI 32.8
== END 2023-01-09 11:27 | disposition home or self-care (01) ==
PROVIDERS: PCP Internal Medicine; Visit Provider Internal Medicine
DX: Z00.00 Encounter for general adult medical examination without abnormal findings (principal); R10.9 Unspecified abdominal pain; I50.32 Chronic diastolic (congestive) heart failure; I48.19 Other persistent atrial fibrillation; E78.00 Pure hypercholesterolemia, unspecified; G47.33 Obstructive sleep apnea (adult) (pediatric); Z99.89 Dependence on other enabling machines and devices; M54.50 Low back pain, unspecified; G89.29 Other chronic pain; M21.70 Unequal limb length (acquired), unspecified site; E55.9 Vitamin D deficiency, unspecified
CPT/HCPCS: 99397

== ENCOUNTER 2023-01-25 10:44 | Outpatient (AMB) | payer MEDICARE, MEDICAID, SELFPAY ==
[2023-01-25 11:01] LABS: Prothrombin Time Whole Bld POC 41.2 sec (11.1-13.5); ~PT, ~INR - Anti Coag Clinic 3.4 (0.9-1.1)
--- NOTE | 2023-01-25 11:17 | MHC.OFFVISCO ---
Intake Intake Visit Reasons: Anticoagulation Allergies No Known Allergies [No Known Allergies*] Allergy (Verified 01/09/23 11:29) Medication List - Last Reconciled 01/25/23 by Shanice Skaggs RN acetaminophen 1,000 mg (2 x 500 mg) PO QID PRN acetaminophen ER (Tylenol 8 Hour) 650 mg PO Q8H PRN cholecalciferol (vitamin D3) 50 mcg PO DAILY 90 days CPAP As directed digoxin 125 mcg PO DAILY diltiazem HCl 360 mg PO DAILY furosemide 40 mg PO DAILY lisinopril 40 mg PO DAILY 90 days metoprolol succinate ER 100 mg PO DAILY miscellaneous medical supply 1 ea miscellaneous DAILY pantoprazole 40 mg PO DAILY 90 days pravastatin 20 mg PO ropinirole 2 mg PO BEDTIME [shoe lift Lt 1/2 inch heel lift] Shower Chair As directed tramadol 50 mg PO Q8H PRN 30 days warfarin 5 mg See Protocol PO DAILY Nursing Note [place] interprter with pt visit today - discussed eliquis with him, 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 Bleeding, bruising, clotting discussed Nutritional guidance given - eat greens weekly Dose: already took today's dose/ hold tomorrow 2.5mg because he plans to have a few beers tonight F/U INR: 2 weeks Patient verbalizes understanding of instructions given Anti-Coag Initial Assessment Social Hx Patient Tobacco Use Status: Never used Tobacco alcohol intake: current Alcohol intake frequency: holidays/special occasions only Coding Level of Care Code Est Patient Level 1 Diagnoses Current use of anticoagulant therapy Z79.01 Assessment & Plan Assessment & Plan (1) Current use of anticoagulant therapy: Code(s): Z79.01 - retirement (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
== END 2023-01-25 11:46 | disposition home or self-care (01) ==
LOC: HO.ACS 10:44
PROVIDERS: PCP Internal Medicine; Visit Provider Internal Medicine
DX: Z79.01 Long term (current) use of anticoagulants (principal)

== ENCOUNTER → 2023-01-25 10:44 | Outpatient (BNVA) | payer MEDICARE, MEDICAID, SELFPAY | PROVIDERS: PCP Internal Medicine; Visit Provider Internal Medicine | DX: I48.20 Chronic atrial fibrillation, unspecified (principal); Z79.01 Long term (current) use of anticoagulants; Z51.81 Encounter for therapeutic drug level monitoring | CPT/HCPCS: 85610; 99211 ==

== ENCOUNTER 2023-01-30 10:36 | Outpatient (AMB) | payer MEDICARE, MEDICAID, SELFPAY ==
[2023-01-30 10:41] VITALS: BP 110/64; PULSE 71; O2SAT 98; BMI 32.8
--- NOTE | 2023-01-30 10:41 | A.OFFVIS_ITS ---
Intake Vital Signs 01/30/23 10:41 Height 5 ft 3 in Weight 185 lb BMI 32.8 BP 110/64 Blood Pressure Location Lt brachial Position Sitting Pulse 71 Pulse Source Pulse Oximeter Pulse Oximetry (%) 98 Oxygen Delivery Method Room Air Intake Visit Reasons: Obstructive sleep apnea Intake Note: pt is here for follow up and states he is regular and having pain on the side that is radiating up front, and he is barely sleeping due to this pain, and this has been happening for a while. told it was arthitis but is is travleing into his belly Hand Candle Molder Required: Yes Hand Candle Molder Name: [id number] Allergies No Known Allergies [No Known Allergies*] Allergy (Verified 01/30/23 10:54) Medication List - Last Reconciled 01/30/23 by Kelley Swift MD acetaminophen 1,000 mg (2 x 500 mg) PO QID PRN acetaminophen ER (Tylenol 8 Hour) 650 mg PO Q8H PRN cholecalciferol (vitamin D3) 50 mcg PO DAILY 90 days CPAP As directed digoxin 125 mcg PO DAILY diltiazem HCl 360 mg PO DAILY furosemide 40 mg PO DAILY lisinopril 40 mg PO DAILY 90 days metoprolol succinate ER 100 mg PO DAILY miscellaneous medical supply 1 ea miscellaneous DAILY pantoprazole 40 mg PO DAILY 90 days pravastatin 20 mg PO ropinirole 2 mg PO BEDTIME [shoe lift Lt 1/2 inch heel lift] Shower Chair As directed tramadol 50 mg PO Q8H PRN 30 days warfarin 5 mg See Protocol PO DAILY Do you need a note to return to daycare/school/sports/work: No HPI Obstructive sleep apnea HPI Details 67 years old gentleman, [place]-speaking, comes after 6 months for follow-up for his sleep apnea. He claims that he uses CPAP every night at least for 5-6 hours and sleeps well. He has no issue with the CPAP mask or the CPAP device. Weight has remained unchanged. He denies any shortness of breath wheezing or cough. His main complaint is about the nonspecific abdominal pain, which is chronic and it has been worked up by his primary care physician . [facility] Medical History Abnormal finding of foot Bilateral sciatica Chest pain Chronic heart failure with preserved ejection fraction (HFpEF) Leg length discrepancy Obesity (BMI 30-39.9) Obesity (BMI 30.0-34.9) MELANIE on CPAP Pacemaker Persistent atrial fibrillation Polyarthralgia Pure hypercholesterolemia Right shoulder pain Trigger finger Vitamin D deficiency Surgical History History of cholecystectomy History of ear surgery Family History Father Myocardial infarction CVD (cardiovascular disease) Mother No problems noted. Sister Stomach cancer Son No problems noted. Son No problems noted. Daughter No problems noted. Daughter No problems noted. Brother No problems noted. Brother No problems noted. Social History Household Members: Children Housing: House Alcohol intake: current Alcohol intake frequency: holidays/special occasions only Alcohol type: beer Patient Tobacco Use Status: Never used Tobacco e-Cigarette/Vaping Use: Never Used Second Hand Smoke Exposure: No service: No Current occupational status: disabled Cognitive needs: Yes Hearing needs: No Vision needs: Yes Review of Systems Const All systems reviewed & are unremarkable except as noted in HPI and below Reports snoring Eyes Reports no additional complaints ENT Reports no additional complaints Card Denies chest pain, Reports irregular heart rhythm (ATRIAL FIB) and Denies leg edema Resp Denies cough, Reports snoring, Denies wheezing and Reports other (Nonspecific discomfort/pain over right thoraco lumbar area.) GI Reports heartburn (GERD SYMPTOMS CONTROLLED WITH MEDICINE) Musc Reports back pain and Reports arthralgias Skin/Breast Reports system reviewed and no additional complaints, except as documented Neuro Reports no additional complaints Psych Reports no additional complaints Aller/Immun Denies wheezing Physical Exam Vital Signs: Last Vital Signs Pulse 71 01/30/23 10:41 BP 110/64 01/30/23 10:41 Pulse Ox 98 01/30/23 10:41 Oxygen Delivery Method Room Air 01/30/23 10:41 BMI result Body Mass Index 32.8 Const General: healthy appearing, comfortable, no acute distress, alert and awake Orientation/consciousness: patient oriented x3 HEENT Head: Yes normal to inspection General nose exam: No nasal polyps present and No nasal discharge present Face and sinus: Yes sinuses nontender Mouth: oropharynx normal Throat: Yes posterior oropharynx normal Eyes General: appearance normal, both eyes and all related structures Neck Neck: Yes normal visual inspection, Yes no lymphadenopathy, Yes trachea midline and Yes no JVD Thyroid: Thyroid normal Chest Chest palpation & inspection: normal inspection of the chest, normal palpation of entire chest wall and no tenderness Resp Other: PERCUSSION NOTE RESONANT, BREATH SOUNDS ARE EQUAL ON BOTH SIDES, NO WHEEZES RHONCHI OR CREPITATIONS ARE HEARD Cardio Palpation: normal PMI Rate: regular rate Rhythm: regular rhythm Heart sounds: no gallops and no murmurs GI Palpation (GI): Soft to palpation, nontender, No hepatosplenomegaly present and no masses Auscultation: normal bowel sounds Back/Spine/Pelvis Thoracic/Lumbar Spine: thoracic and lumbar spine normal to inspection and thoraco-lumbar ROM limited Skin General skin exam: no rashes or lesions noted Neuro General: patient oriented x3 and no focal motor deficits Cranial nerves: Yes CN's II-XII intact bilaterally Extrem General: Yes normal to inspection, Yes no clubbing, cyanosis or edema and Yes no calf tenderness Psych Appearance: grossly normal and well kempt Speech and movement: Normal speech and movement present Results Reviewed Results Reviewed: COMPLIANCE REPORT IS REVIEWED AND HE HAS USED 30/30 NIGHTS, 100%, AVERAGE USE PER NIGHT 6 HOURS 42 MINUTES. 95TH PERCENTILE PRESSURE 13.9 CM. THERE IS A MILD. LEAK ISS UE RESIDUAL AHI 3.7 Assessment & Plan Assessment & Plan (1) Obesity (BMI 30-39.9): Comment: HE IS ONLY MODERATELY ,OBESE WEIGHT HAS REMAINED STABL.E Code(s): E66.9 - Obesity, unspecified (2) MELANIE on CPAP: Comment: THIS PATIENT HAS KNOWN DIAGNOSIS OF OBSTRUCTIVE SLEEP APNEA, BEING TREATED WITH CPAP AND HE REMAINS VERY COMPLIANT. NO ISSUES RELATED TO THE MASK OR CPAP DEVICE. Code(s): G47.33 - Obstructive sleep apnea (adult) (pediatric); Z99.89 - Dependence on other enabling machines and devices Coding Level of Care Code Est Pt Level 3 (72406) Diagnoses Obesity (BMI 30-39.9) E66.9 MELANIE on CPAP G47.33; Z99.89
== END 2023-01-30 10:54 | disposition home or self-care (01) ==
PROVIDERS: PCP Internal Medicine; Visit Provider Internal Medicine
DX: E66.9 Obesity, unspecified (principal); G47.33 Obstructive sleep apnea (adult) (pediatric); Z99.89 Dependence on other enabling machines and devices
CPT/HCPCS: 99213

== ENCOUNTER → 2023-01-30 10:36 | Outpatient (BNVA) | payer MEDICARE, MEDICAID, SELFPAY | PROVIDERS: PCP Internal Medicine; Visit Provider Internal Medicine | DX: G47.33 Obstructive sleep apnea (adult) (pediatric) (principal); E66.9 Obesity, unspecified; Z68.32 Body mass index [BMI] 32.0-32.9, adult; Z99.89 Dependence on other enabling machines and devices | CPT/HCPCS: 99212 ==

== ENCOUNTER 2023-02-08 09:58 | Outpatient (AMB) | payer MEDICARE, MEDICAID, SELFPAY ==
[2023-02-08 10:10] LABS: Prothrombin Time Whole Bld POC 26.4 sec (11.1-13.5); ~PT, ~INR - Anti Coag Clinic 2.2 (0.9-1.1)
--- NOTE | 2023-02-08 10:12 | MHC.OFFVISCO ---
Intake Intake Visit Reasons: Anticoagulation Allergies No Known Allergies [No Known Allergies*] Allergy (Verified 02/08/23 10:05) Medication List - Last Reconciled 02/08/23 by Nell Gill RN acetaminophen 1,000 mg (2 x 500 mg) PO QID PRN acetaminophen ER (Tylenol 8 Hour) 650 mg PO Q8H PRN cholecalciferol (vitamin D3) 50 mcg PO DAILY 90 days CPAP As directed digoxin 125 mcg PO DAILY diltiazem HCl 360 mg PO DAILY furosemide 40 mg PO DAILY lisinopril 40 mg PO DAILY 90 days metoprolol succinate ER 100 mg PO DAILY miscellaneous medical supply 1 ea miscellaneous DAILY pantoprazole 40 mg PO DAILY 90 days pravastatin 20 mg PO ropinirole 2 mg PO BEDTIME [shoe lift Lt 1/2 inch heel lift] Shower Chair As directed tramadol 50 mg PO Q8H PRN 30 days warfarin 5 mg See Protocol PO DAILY Nursing Note Amb to [facility] feeling well, accomp by family member Medications and supplements reviewed, last visit info on Eloquis given do doesn't want to pay No changes in health, diet, medications, or supplements Denies any unusual signs and symptoms of bruising, bleeding Denies any new Chest pain, SOB, or clotting INR: 2.2 in therapeutic range Nutritional guidance given: balance greens and reds in diet Dose: continue usual dosing; 2.5mg x 3 days and 5mg x 4 days F/U INR: 2 weeks Patient verbalizes understanding of instructions given with accurate read back/ teach back of dosing Anti-Coag Initial Assessment Social Hx Patient Tobacco Use Status: Never used Tobacco alcohol intake: current Alcohol intake frequency: holidays/special occasions only Coding Level of Care Code Est Patient Level 1 Diagnoses Current use of anticoagulant therapy Z79.01 Time Spent (min) 15 Results AMB INR Fingerstick AMB INR Fingerstick 2.2 Last Edit by Nell Gill RN on 02/08/23 10:11 interface failure Assessment & Plan Assessment & Plan (1) Current use of anticoagulant therapy: Code(s): Z79.01 - 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
== END 2023-02-08 10:17 | disposition home or self-care (01) ==
LOC: HO.ACS 09:58
PROVIDERS: PCP Internal Medicine; Visit Provider Internal Medicine
DX: Z79.01 Long term (current) use of anticoagulants (principal)

== ENCOUNTER → 2023-02-08 09:58 | Outpatient (BNVA) | payer MEDICARE, MEDICAID, SELFPAY | PROVIDERS: PCP Internal Medicine; Visit Provider Internal Medicine | DX: I48.20 Chronic atrial fibrillation, unspecified (principal); Z79.01 Long term (current) use of anticoagulants; Z51.81 Encounter for therapeutic drug level monitoring | CPT/HCPCS: 85610; 99211 ==

== ENCOUNTER 2023-02-25 09:32 | Outpatient (AMB) | payer MEDICARE, MEDICAID, SELFPAY ==
--- NOTE | 2023-02-25 09:52 | MHC.OFFVISCO ---
Intake Intake Visit Reasons: Anticoagulation Allergies No Known Allergies [No Known Allergies*] Allergy (Verified 02/25/23 09:47) Medication List - Last Reconciled 02/25/23 by Shanice Skaggs RN acetaminophen 1,000 mg (2 x 500 mg) PO QID PRN acetaminophen ER (Tylenol 8 Hour) 650 mg PO Q8H PRN cholecalciferol (vitamin D3) 50 mcg PO DAILY 90 days CPAP As directed digoxin 125 mcg PO DAILY diltiazem HCl 360 mg PO DAILY furosemide 40 mg PO DAILY lisinopril 40 mg PO DAILY 90 days metoprolol succinate ER 100 mg PO DAILY miscellaneous medical supply 1 ea miscellaneous DAILY pantoprazole 40 mg PO DAILY 90 days pravastatin 20 mg PO ropinirole 2 mg PO BEDTIME [shoe lift Lt 1/2 inch heel lift] Shower Chair As directed tramadol 50 mg PO Q8H PRN 30 days warfarin 5 mg See Protocol PO DAILY Nursing Note INR 4.5? out of therapeutic range Medications and supplements reviewed Patient status: HAD GI UPSET X 1 DAY, Medications or supplements: STATES NO CHANGE Diet: HAD BASIL RECENTLY, Denies any signs and symptoms of bleeding or clotting or unusual bruising Bleeding, bruising, clotting discussed Nutritional guidance given: GREENS THAT YOU LIKE - kiwi and oranges Dose: HOLD tomorrow dose already took today's dose THEN RESUME 2.5MG X 3 DAYS/ 5MG X 4 DAYS F/U INR Date : 1 WEEK ?? Patient verbalizing understanding of instructions given. 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
[2023-02-25 10:03] LABS: Prothrombin Time Whole Bld POC 53.9 sec (11.1-13.5); ~PT, ~INR - Anti Coag Clinic 4.5 (0.9-1.1)
== END 2023-02-25 10:07 | disposition home or self-care (01) ==
LOC: HO.ACS 09:32
PROVIDERS: PCP Internal Medicine; Visit Provider Internal Medicine
DX: Z79.01 Long term (current) use of anticoagulants (principal)

== ENCOUNTER → 2023-02-25 09:32 | Outpatient (BNVA) | payer MEDICARE, MEDICAID, SELFPAY | PROVIDERS: PCP Internal Medicine; Visit Provider Internal Medicine | DX: I48.20 Chronic atrial fibrillation, unspecified (principal); Z79.01 Long term (current) use of anticoagulants; Z51.81 Encounter for therapeutic drug level monitoring | CPT/HCPCS: 85610; 99211 ==

== ENCOUNTER 2023-03-04 09:29 | Outpatient (AMB) | payer MEDICARE, MEDICAID, SELFPAY ==
[2023-03-04 09:59] LABS: Prothrombin Time Whole Bld POC 23.1 sec (11.1-13.5); ~PT, ~INR - Anti Coag Clinic 1.9 (0.9-1.1)
--- NOTE | 2023-03-04 10:02 | MHC.OFFVISCO ---
Intake Intake Visit Reasons: Anticoagulation Allergies No Known Allergies [No Known Allergies*] Allergy (Verified 03/04/23 09:50) Medication List - Last Reconciled 03/04/23 by Shanice Skaggs RN acetaminophen 1,000 mg (2 x 500 mg) PO QID PRN acetaminophen ER (Tylenol 8 Hour) 650 mg PO Q8H PRN cholecalciferol (vitamin D3) 50 mcg PO DAILY 90 days CPAP As directed digoxin 125 mcg PO DAILY diltiazem HCl 360 mg PO DAILY furosemide 40 mg PO DAILY lisinopril 40 mg PO DAILY 90 days metoprolol succinate ER 100 mg PO DAILY miscellaneous medical supply 1 ea miscellaneous DAILY pantoprazole 40 mg PO DAILY 90 days pravastatin 20 mg PO ropinirole 2 mg PO BEDTIME [shoe lift Lt 1/2 inch heel lift] Shower Chair As directed tramadol 50 mg PO Q8H PRN 30 days warfarin 5 mg See Protocol PO DAILY Nursing Note INR: 1.9 ALMOST in therapeutic range Medications and supplements reviewed No changes in health, diet, medications, or supplements, Denies any signs and symptoms of bleeding or bruising or clotting. Bleeding, bruising, clotting discussed Nutritional guidance given PROTEINA CARNE Y FRIJOLES, FRUITAS Y VEGETALES Dose: 2.5MG X 3 DAYS, 5MG X 4 DAYS F/U INR: 2 WEEKS Patient verbalizes understanding of instructions given Anti-Coag Initial Assessment Social Hx Patient Tobacco Use Status: Never used Tobacco alcohol intake: current Alcohol intake frequency: holidays/special occasions only Coding Level of Care Code Est Patient Level 1 Diagnoses Current use of anticoagulant therapy Z79.01 Results AMB INR Fingerstick AMB INR Fingerstick 1.9 Last Edit by Shanice Skaggs RN on 03/04/23 09:57 MANUAL ENTRY NO INTERFACING Assessment & Plan Assessment & Plan (1) Current use of anticoagulant therapy: Code(s): Z79.01 - longterm (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
== END 2023-03-04 10:04 | disposition home or self-care (01) ==
LOC: HO.ACS 09:29
PROVIDERS: PCP Internal Medicine; Visit Provider Internal Medicine
DX: Z79.01 Long term (current) use of anticoagulants (principal)

== ENCOUNTER → 2023-03-04 09:29 | Outpatient (BNVA) | payer MEDICARE, MEDICAID, SELFPAY | PROVIDERS: PCP Internal Medicine; Visit Provider Internal Medicine | DX: I48.20 Chronic atrial fibrillation, unspecified (principal); Z79.01 Long term (current) use of anticoagulants; Z51.81 Encounter for therapeutic drug level monitoring | CPT/HCPCS: 85610; 99211 ==

== ENCOUNTER 2023-03-06 08:40 | Outpatient (AMB) | payer MEDICARE, MEDICAID, SELFPAY ==
--- NOTE | 2023-03-06 08:42 | A.OFFVIS_ITS ---
Intake Vital Signs 03/06/23 08:43 Height 5 ft 3 in Weight 185 lb 10.067 oz BMI 32.9 BP 141/73 H Blood Pressure Location Lt brachial Position Sitting Pulse 58 Intake Visit Reasons: GERD/colonoscopy screening/abd pain Intake Note: Patient presents to in office visit today as a new patient for colonoscopy screening. CC: Patient reports RUQ abdominal pain, and constipation. Denies other GI concerns today. Research Librarian Required: Yes Research Librarian Name: Zaynab Accompanied by: Self / Same As Patient Allergies No Known Allergies [No Known Allergies*] Allergy (Verified 03/06/23 08:46) HPI GERD/colonoscopy screening/abd pain HPI Details 67 years old male with past medical hist ory of cholesterolemia, peripheral artery disease, pacemaker, MELANIE on CPAP, sciatica, polyarthralgia, Congestive heart failure, AFib is here for initial consultation. Patient was sent by his PCP for colonoscopy and upper endoscopy. Patient had colonoscopy in 2017 that show diverticulosis, hemorrhoids and no polyps. Patient had cholecystectomy in 2017. Denies having any acid reflux. Reports postprandial abdominal bloating and patient reports right upper quadrant discomfort at night time. Patient does not have abdominal discomfort, dyspepsia, dysphagia or odynophagia related to food. Patient does move his bowels, however not every day and he feels like he is constipated. Patient eats mostly [place] food that contains rice and beans, meat no vegetables or fruits. Patient is on fluid restrictions due to Congestive heart failure. Takes Lasix. Patient denies melena, hematochezia, unintentional weight loss or ribbon like stools. [facility] Medical History (Updated 03/06/23 @ 09:[address] [facility]) Chronic GERD Obesity (BMI 30-39.9) Vitamin D deficiency Pure hypercholesterolemia Leg length discrepancy Pacemaker Abnormal finding of foot Right shoulder pain MELANIE on CPAP Chest pain Trigger finger Bilateral sciatica Polyarthralgia Chronic heart failure with preserved ejection fraction (HFpEF) Persistent atrial fibrillation Obesity (BMI 30.0-34.9) Surgical History History of ear surgery History of cholecystectomy Family History Father Myocardial infarction CVD (cardiovascular disease) Mother No problems noted. Sister Stomach cancer Son No problems noted. Son No problems noted. Daughter No problems noted. Daughter No problems noted. Brother No problems noted. Brother No problems noted. Social History Household Members: Children Housing: House Alcohol intake: current Alcohol intake frequency: holidays/special occasions only Alcohol type: beer Patient Tobacco Use Status: Never used Tobacco e-Cigarette/Vaping Use: Never Used Second Hand Smoke Exposure: No service: No Current occupational status: disabled Cognitive needs: Yes Hearing needs: No Vision needs: Yes Review of Systems Const Denies weight gain and Denies weight loss ENT Reports no additional complaints, Denies dysphagia and Denies odynophagia Card Reports no additional complaints Resp Reports no additional complaints GI Reports abdominal pain (RUQ), Denies belching, Denies melena, Reports bloating, Reports constipation, Denies dysphagia, Denies excessive flatus, Denies dyspepsia, Denies heartburn, Denies diarrhea, Denies loose stools, Denies nausea, Denies odynophagia and Denies vomiting Reports no additional complaints Musc Reports no additional complaints Neuro Reports no additional complaints Psych Reports no additional complaints Endo Reports no additional complaints Physical Exam Vital Signs: BMI result Body Mass Index 32.9 Const General: healthy appearing, no acute distress and well developed Nutritional Appearance: obese Orientation/consciousness: patient oriented x3 HEENT Head: Yes normal to inspection, Yes normocephalic and Yes atraumatic Face and sinus: Yes normal facial exam Mouth: Normal oral and palatal mucosa present Throat: Yes posterior oropharynx normal, Yes tonsils normal and Yes uvula midline Eyes General: appearance normal, both eyes and all related structures Neck Neck: Yes normal visual inspection, Yes full ROM and Yes trachea midline Thyroid: Thyroid normal Resp Effort & Inspection: normal respiratory effort, able to speak in complete sentences, no tracheal deviation and symmetric chest movement Auscultation: clear to auscultation bilaterally Cardio Rate: regular rate Heart sounds: S1 normal heart sound present and S2 normal heart sound present GI Inspection: Yes normal to inspection, No distended and Yes obesity Palpation (GI): Soft to palpation, not firm, nontender and No hepatosplenomegaly present Auscultation: normal bowel sounds General: Yes no CVA tenderness Back/Spine/Pelvis Back: no CVA tenderness Skin General skin exam: elasticity normal, turgor normal and dry skin Neuro General: patient oriented x3 Psych Appearance: grossly normal Mental Status: mental status grossly normal Speech and movement: Normal speech and movement present Assessment & Plan Assessment & Plan (1) Postprandial abdominal bloating: Code(s): R14.0 - Abdominal distension (gaseous) Plan: Postprandial abdominal bloating. Discussed with patient all FODMAP diet. Patient will stay away from eating beans. Will eat smaller portions. Patient's pain is in the right upper quadrant, no epigastric pain. (2) RUQ abdominal pain: Code(s): R10.11 - Right upper quadrant pain Plan: Right upper quadrant pain most likely related to constipation. Patient had cholecystectomy in 2017. Pain is not related to food. Usually happens at night time. Patient is not emptying his bowels. He is constipated. Will place him on bowel regimen and hopefully he will feel better. (3) Constipation: Code(s): K59.00 - Constipation, unspecified Qualifiers: Constipation type: slow transit constipation Qualified Code(s): K59.01 - Slow transit constipation Plan: Patient will start MiraLax every morning and Senokot 2 tablets in the evening. If patient continues to have abdominal pain he will call the office. Will order liver profile and lipase. If patient will continue having the pain we will order HIDA scan without contrast to evaluate for CBD obstruction. I will see patient in 5 weeks, sooner on as needed basis. Patient is agreeable to this plan and verbalizes understanding of instructions. He was given the opportunity to ask questions and all questions answered. Orders: Orders Lipase Today R10.9 - Unspecified abdominal pain Liver Panel Today R10.9 - Unspecified abdominal pain Hemoglobin A1c Today E11.9 - Type 2 diabetes mellitus without complications Medications: New polyethylene glycol 3350 (Miralax) 17 grams PO DAILY 510 grams 2RF sennosides (Natural Senna Laxative) 17.2 mg (2 x 8.6 mg) PO BEDTIME 60 tabs 3RF constipation K59.00 - Constipation, unspecified Coding Level of Care Code New Pt Level 3 (38897) Diagnoses Postprandial abdominal bloating R14.0 RUQ abdominal pain R10.11 Slow transit constipation K59.01 Constipation type: slow transit constipation Time Spent (min) 40 Comment 30 minutes spent with patient and additional 10 minutes spent reviewing her records
[2023-03-06 08:43] VITALS: BP 141/73; PULSE 58; BMI 32.9
== END 2023-03-06 09:09 | disposition home or self-care (01) ==
PROVIDERS: PCP Internal Medicine; Visit Provider Nurse Practitioner Family
DX: R14.0 Abdominal distension (gaseous) (principal); R10.11 Right upper quadrant pain; K59.01 Slow transit constipation
CPT/HCPCS: 99203; 99213

== ENCOUNTER 2023-03-06 08:40 | Outpatient (REF) | payer MEDICARE, MEDICAID, SELFPAY ==
[2023-03-06 10:54] LABS: Alanine Aminotransferase 20 U/L (0-40); Albumin Level 3.8 g/dL (3.5-5.0); Alkaline Phosphatase 100 U/L (39-117); Aspartate Amino Transferase 23 U/L (5-37); Bilirubin Direct 0.3 mg/dL (0.0-0.5); Bilirubin Total 0.7 mg/dL (0.0-1.0); Lipase 22 U/L (8-78); Total Protein 7.9 g/dL (6.5-8.0)
[2023-03-06 12:22] LABS: Estimated Average Glucose 105 mg/dL; Hemoglobin A1c % 5.3 % (<6.0)
== END 2023-03-06 08:41 | disposition home or self-care (01) ==
LOC: HO.LAB 08:40
PROVIDERS: PCP Internal Medicine; Visit Provider Nurse Practitioner Family
DX: R14.0 Abdominal distension (gaseous) (principal); R10.11 Right upper quadrant pain; K59.01 Slow transit constipation; E11.9 Type 2 diabetes mellitus without complications
CPT/HCPCS: 36415; 80076; 83036; 83690

== ENCOUNTER 2023-03-20 09:40 | Outpatient (AMB) | payer MEDICARE, MEDICAID, SELFPAY ==
[2023-03-20 09:48] LABS: Prothrombin Time Whole Bld POC 33.3 sec (11.1-13.5); ~PT, ~INR - Anti Coag Clinic 2.8 (0.9-1.1)
--- NOTE | 2023-03-20 09:49 | MHC.OFFVISCO ---
Intake Intake Visit Reasons: Anticoagulation Allergies No Known Allergies [No Known Allergies*] Allergy (Verified 03/20/23 09:42) Medication List - Last Reconciled 03/20/23 by Angela Hernadez RN acetaminophen 1,000 mg (2 x 500 mg) PO QID PRN acetaminophen ER (Tylenol 8 Hour) 650 mg PO Q8H PRN cholecalciferol (vitamin D3) 50 mcg PO DAILY 90 days CPAP As directed digoxin 125 mcg PO DAILY diltiazem HCl 360 mg PO DAILY furosemide 40 mg PO DAILY lisinopril 40 mg PO DAILY 90 days metoprolol succinate ER 100 mg PO DAILY miscellaneous medical supply 1 ea miscellaneous DAILY pantoprazole 40 mg PO DAILY 90 days polyethylene glycol 3350 (Miralax) 17 grams PO DAILY pravastatin 20 mg PO ropinirole 2 mg PO BEDTIME sennosides (Natural Senna Laxative) 17.2 mg (2 x 8.6 mg) PO BEDTIME [shoe lift Lt 1/2 inch heel lift] Shower Chair As directed tramadol 50 mg PO Q8H PRN 30 days warfarin 5 mg See Protocol PO DAILY Nursing Note INR: 2.8- in therapeutic range Medications and supplements reviewed- no changes No changes in health, diet, medications, or supplements, Denies any signs and symptoms of bleeding or bruising or clotting. Bleeding, bruising, clotting discussed Nutritional guidance given Dose: 2.5mg x 3, 5mg x 4 F/U INR: 2 weeks Patient verbalizes understanding of instructions given Anti-Coag Initial Assessment Social Hx Patient Tobacco Use Status: Never used Tobacco alcohol intake: current Alcohol intake frequency: holidays/special occasions only Coding Level of Care Code Est Patient Level 1 Diagnoses Current use of anticoagulant therapy Z79.01 Assessment & Plan Assessment & Plan (1) Current use of anticoagulant therapy: Code(s): Z79.01 - penitentiary (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
== END 2023-03-20 09:56 | disposition home or self-care (01) ==
LOC: HO.ACS 09:40
PROVIDERS: PCP Internal Medicine; Visit Provider Internal Medicine
DX: Z79.01 Long term (current) use of anticoagulants (principal)

== ENCOUNTER → 2023-03-20 09:40 | Outpatient (BNVA) | payer MEDICARE, MEDICAID, SELFPAY | PROVIDERS: PCP Internal Medicine; Visit Provider Internal Medicine | DX: I48.20 Chronic atrial fibrillation, unspecified (principal); Z51.81 Encounter for therapeutic drug level monitoring; Z79.01 Long term (current) use of anticoagulants | CPT/HCPCS: 85610; 99211 ==

== ENCOUNTER 2023-04-03 09:40 | Outpatient (AMB) | payer MEDICARE, MEDICAID, SELFPAY ==
[2023-04-03 09:49] LABS: Prothrombin Time Whole Bld POC 26.2 sec (11.1-13.5); ~PT, ~INR - Anti Coag Clinic 2.2 (0.9-1.1)
--- NOTE | 2023-04-03 09:50 | MHC.OFFVISCO ---
Intake Intake Visit Reasons: Anticoagulation Allergies No Known Allergies [No Known Allergies*] Allergy (Verified 04/03/23 09:43) Medication List - Last Reconciled 04/03/23 by Shanice Skaggs RN acetaminophen 1,000 mg (2 x 500 mg) PO QID PRN acetaminophen ER (Tylenol 8 Hour) 650 mg PO Q8H PRN cholecalciferol (vitamin D3) 50 mcg PO DAILY 90 days CPAP As directed digoxin 125 mcg PO DAILY diltiazem HCl 360 mg PO DAILY furosemide 40 mg PO DAILY lisinopril 40 mg PO DAILY 90 days metoprolol succinate ER 100 mg PO DAILY miscellaneous medical supply 1 ea miscellaneous DAILY pantoprazole 40 mg PO DAILY 90 days polyethylene glycol 3350 (Miralax) 17 grams PO DAILY pravastatin 20 mg PO ropinirole 2 mg PO BEDTIME sennosides (Natural Senna Laxative) 17.2 mg (2 x 8.6 mg) PO BEDTIME [shoe lift Lt 1/2 inch heel lift] Shower Chair As directed tramadol 50 mg PO Q8H PRN 30 days warfarin 5 mg See Protocol PO DAILY Nursing Note INR: 2.2 in therapeutic range Medications and supplements reviewed No changes in health, diet, medications, or supplements, Denies any signs and symptoms of bleeding or bruising or clotting. Bleeding, bruising, clotting discussed Nutritional guidance given - KEEP EATING A LITTLE EXTRA PROTEIN TO KEEP INR STABLE Dose: 2.5MG X 3 DAYS/ 5MG X 4 DAYS F/U INR: 3 WEEKS Patient verbalizes understanding of instructions given Anti-Coag Initial Assessment Social Hx Patient Tobacco Use Status: Never used Tobacco alcohol intake: current Alcohol intake frequency: holidays/special occasions only Coding Level of Care Code Est Patient Level 1 Diagnoses Current use of anticoagulant therapy Z79.01 Assessment & Plan Assessment & Plan (1) Current use of anticoagulant therapy: Code(s): Z79.01 - long-term (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
== END 2023-04-03 09:54 | disposition home or self-care (01) ==
LOC: HO.ACS 09:40
PROVIDERS: PCP Internal Medicine; Visit Provider Internal Medicine
DX: Z79.01 Long term (current) use of anticoagulants (principal)

== ENCOUNTER → 2023-04-03 09:40 | Outpatient (BNVA) | payer MEDICARE, MEDICAID, SELFPAY | PROVIDERS: PCP Internal Medicine; Visit Provider Internal Medicine | DX: I48.20 Chronic atrial fibrillation, unspecified (principal); Z79.01 Long term (current) use of anticoagulants; Z51.81 Encounter for therapeutic drug level monitoring | CPT/HCPCS: 85610; 99211 ==

== ENCOUNTER → 2023-04-07 23:59 | Outpatient (BNV) | payer MEDICARE, MEDICAID, SELFPAY ==
--- NOTE | 2023-04-15 11:55 | A.OFFVIS_ITS ---
Intake Intake Visit Reasons: Remote Device Check- [facility] [place] Allergies No Known Allergies [No Known Allergies*] Allergy (Verified 04/03/23 09:43) REPLACED BY [facility] Medical History (Updated 03/06/23 @ 09:04 by Tia Shearer [facility]) Chronic GERD Obesity (BMI 30-39.9) Vitamin D deficiency Pure hypercholesterolemia Leg length discrepancy Pacemaker Abnormal finding of foot Right shoulder pain MELANIE on CPAP Chest pain Trigger finger Bilateral sciatica Polyarthralgia Chronic heart failure with preserved ejection fraction (HFpEF) Persistent atrial fibrillation Obesity (BMI 30.0-34.9) Surgical History History of ear surgery History of cholecystectomy Family History Father Myocardial infarction CVD (cardiovascular disease) Mother No problems noted. Sister Stomach cancer Son No problems noted. Son No problems noted. Daughter No problems noted. Daughter No problems noted. Brother No problems noted. Brother No problems noted. 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 Overall normal device function. [id number] Cardiac Device Interrogation, pacemaker Procedure code (CPT) selection complete Assessment & Plan Assessment & Plan (1) Persistent atrial fibrillation: Code(s): I48.19 - Other persistent atrial fibrillation Coding Level of Care Code Procedure Only Diagnoses Persistent atrial fibrillation I48.19 CPT Codes Cardiac Device Check - Cardiac Device 12: [id number] Cardiac Device Interrogation, pacemaker ([id number])
== END ==
PROVIDERS: PCP Internal Medicine; Visit Provider Internal Medicine
DX: I48.19 Other persistent atrial fibrillation (principal); Z95.0 Presence of cardiac pacemaker
CPT/HCPCS: 93294

== ENCOUNTER 2023-04-24 09:35 | Outpatient (AMB) | payer MEDICARE, MEDICAID, SELFPAY ==
--- NOTE | 2023-04-24 09:45 | MHC.OFFVISCO ---
Intake Intake Visit Reasons: Anticoagulation Allergies No Known Allergies [No Known Allergies*] Allergy (Verified 04/24/23 09:41) Medication List - Last Reconciled 04/24/23 by Angela Hernadez RN acetaminophen 1,000 mg (2 x 500 mg) PO QID PRN acetaminophen ER (Tylenol 8 Hour) 650 mg PO Q8H PRN cholecalciferol (vitamin D3) 50 mcg PO DAILY 90 days CPAP As directed digoxin 125 mcg PO DAILY diltiazem HCl 360 mg PO DAILY furosemide 40 mg PO DAILY lisinopril 40 mg PO DAILY 90 days metoprolol succinate ER 100 mg PO DAILY miscellaneous medical supply 1 ea miscellaneous DAILY pantoprazole 40 mg PO DAILY 90 days polyethylene glycol 3350 (Miralax) 17 grams PO DAILY pravastatin 20 mg PO ropinirole 2 mg PO BEDTIME sennosides (Natural Senna Laxative) 17.2 mg (2 x 8.6 mg) PO BEDTIME [shoe lift Lt 1/2 inch heel lift] Shower Chair As directed tramadol 50 mg PO Q8H PRN 30 days warfarin 5 mg See Protocol PO DAILY Nursing Note INR: 2.0- in therapeutic range of 2-3 Medications and supplements reviewed- no changes No changes in health, diet, medications, or supplements, Denies any signs and symptoms of bleeding or bruising or clotting. Bleeding, bruising, clotting discussed Nutritional guidance given - no greens for 2 days, eat a red today Dose: 2.5mg x 3, 5mg x 4 F/U INR: 2 weeks; Patient verbalizes understanding of instructions given percher juanita used for visit Anti-Coag Initial Assessment Social Hx Patient Tobacco Use Status: Never used Tobacco alcohol intake: current Alcohol intake frequency: holidays/special occasions only Coding Level of Care Code Est Patient Level 1 Diagnoses Current use of anticoagulant therapy Z79.01 Assessment & Plan Assessment & Plan (1) Current use of anticoagulant therapy: Code(s): Z79.01 - buttermaker continuous churn (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
== END 2023-04-24 09:58 | disposition home or self-care (01) ==
LOC: HO.ACS 09:35
PROVIDERS: PCP Internal Medicine; Visit Provider Internal Medicine
DX: Z79.01 Long term (current) use of anticoagulants (principal)

== ENCOUNTER → 2023-04-24 09:35 | Outpatient (BNVA) | payer MEDICARE, MEDICAID, SELFPAY | PROVIDERS: PCP Internal Medicine; Visit Provider Internal Medicine | DX: I48.20 Chronic atrial fibrillation, unspecified (principal); Z79.01 Long term (current) use of anticoagulants; Z51.81 Encounter for therapeutic drug level monitoring | CPT/HCPCS: 85610; 99211 ==

== ENCOUNTER 2023-05-08 09:45 | Outpatient (AMB) | payer MEDICARE, MEDICAID, SELFPAY ==
[2023-05-08 09:57] LABS: Prothrombin Time Whole Bld POC 37.7 sec (11.1-13.5); ~PT, ~INR - Anti Coag Clinic 3.1 (0.9-1.1)
--- NOTE | 2023-05-08 10:01 | MHC.OFFVISCO ---
Intake Intake Visit Reasons: Anticoagulation Allergies No Known Allergies [No Known Allergies*] Allergy (Verified 05/08/23 09:52) Medication List - Last Reconciled 05/08/23 by Nena Wu RN acetaminophen 1,000 mg (2 x 500 mg) PO QID PRN acetaminophen ER (Tylenol 8 Hour) 650 mg PO Q8H PRN cholecalciferol (vitamin D3) 50 mcg PO DAILY 90 days CPAP As directed digoxin 125 mcg PO DAILY diltiazem HCl 360 mg PO DAILY furosemide 40 mg PO DAILY lisinopril 40 mg PO DAILY 90 days metoprolol succinate ER 100 mg PO DAILY miscellaneous medical supply 1 ea miscellaneous DAILY pantoprazole 40 mg PO DAILY 90 days polyethylene glycol 3350 (Miralax) 17 grams PO DAILY pravastatin 20 mg PO ropinirole 2 mg PO BEDTIME sennosides (Natural Senna Laxative) 17.2 mg (2 x 8.6 mg) PO BEDTIME [shoe lift Lt 1/2 inch heel lift] Shower Chair As directed tramadol 50 mg PO Q8H PRN 30 days warfarin 5 mg See Protocol PO DAILY Nursing Note NO CP,SOB,DIET/MED CHANGES,FALLS OR SX OF BLEEDING. CONTINUE PRESENT DOSE AND FOLLOW-UP IN 3 WEEKS. WILL BE SURE TO HAVE GREENS TODAY AND TOMORROW AND 2-3X WEEKLY. GOOD UNDERSTANDING OF DOSING INSTR., Anti-Coag Initial Assessment Social Hx Patient Tobacco Use Status: Never used Tobacco alcohol intake: current Alcohol intake frequency: holidays/special occasions only Coding Level of Care Code Est Patient Level 1
== END 2023-05-08 10:03 | disposition home or self-care (01) ==
LOC: HO.ACS 09:45
PROVIDERS: PCP Internal Medicine; Visit Provider Internal Medicine
DX: Z79.01 Long term (current) use of anticoagulants (principal)

== ENCOUNTER → 2023-05-08 09:45 | Outpatient (BNVA) | payer MEDICARE, MEDICAID, SELFPAY | PROVIDERS: PCP Internal Medicine; Visit Provider Internal Medicine | DX: I48.20 Chronic atrial fibrillation, unspecified (principal); Z79.01 Long term (current) use of anticoagulants; Z51.81 Encounter for therapeutic drug level monitoring | CPT/HCPCS: 85610; 99211 ==

== ENCOUNTER 2023-05-15 09:29 | Outpatient (AMB) | payer MEDICARE, MEDICAID, SELFPAY ==
--- NOTE | 2023-05-15 09:31 | MHC.OFFVIS ---
Intake Vital Signs 05/15/23 09:34 Height 5 ft 3 in Weight 187 lb 6.287 oz BMI 33.2 Intake Visit Reasons: 5 Weeks follow up, Constipation Intake Note: Dwain presents in the office as a 5 week follow up follow up constipation. CC: Attempted to go through medications but he is not sure what the names are but he knows what they are for. He states that he is still having constipation and he is having pains in the stomach that goes into his back. 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 Discussed with patient all FODMAP diet. Patient will stay away from eating beans. Will eat smaller portions. Patient's pain is in the right upper quadrant, no epigastric pain. RUQ abdominal pain Right upper quadrant pain most likely related to constipation. Patient had cholecystectomy in 2017. Pain is not related to food. Usually happens at night time. Patient is not emptying his bowels. He is constipated. Will place him on bowel regimen and hopefully he will feel better. Constipation Patient will start MiraLax every morning and Senokot 2 tablets in the evening. If patient continues to have abdominal pain he will call the office. Will order liver profile and lipase. If patient will continue having the pain we will order HIDA scan without contrast to evaluate for CBD obstruction. I will see patient in 5 weeks, sooner on as needed basis. Patient is agreeable to this plan and verbalizes understanding of instructions. He was given the opportunity to ask questions and all questions answered. Plan Orders Orders Lipase Today R10.9 Liver Panel Today R10.9 Hemoglobin A1c Today E11.9 Medications New polyethylene glycol 3350 (Miralax) 17 grams PO DAILY 510 grams 2RF sennosides (Natural Senna Laxative) 17.2 mg (2 x 8.6 mg) PO BEDTIME 60 tabs 3RF constipation K59.00 TODAY'S VISIT Patient is here today for follow-up and to discuss lab results. Patient reports that he has been doing better. Using MiraLax every morning. Not using any Senokot. Patient states that he was using stool softeners in the past. His pain in his abdomen is better. He does report that his pain radiates to his mid back. Denies any nausea or vomiting. Denies any dyspepsia, dysphagia or odynophagia. Denies any melena, hematochezia, unintentional weight loss or ribbon like stools. Patient had normal blood work, A1c was 5.3% normal liver enzymes, normal lipase. [facility] Medical History Chronic GERD Obesity (BMI 30-39.9) Vitamin D deficiency Pure hypercholesterolemia Leg length discrepancy Pacemaker Abnormal finding of foot Right shoulder pain MELANIE on CPAP Chest pain Trigger finger Bilateral sciatica Polyarthralgia Chronic heart failure with preserved ejection fraction (HFpEF) Persistent atrial fibrillation Obesity (BMI 30.0-34.9) Surgical History (Updated 05/15/23 @ 09:35 by ALICE Castillo) Hx of colonoscopy History of ear surgery History of cholecystectomy Family History Father Myocardial infarction CVD (cardiovascular disease) Mother No problems noted. Sister Stomach cancer Son No problems noted. Son No problems noted. Daughter No problems noted. Daughter No problems noted. Brother No problems noted. Brother No problems noted. Social History Household Members: Children Housing: House Alcohol intake: current Alcohol intake frequency: holidays/special occasions only Alcohol type: beer Patient Tobacco Use Status: Never used Tobacco e-Cigarette/Vaping Use: Never Used Second Hand Smoke Exposure: No service: No Current occupational status: disabled Cognitive needs: Yes Hearing needs: No Vision needs: Yes Review of Systems Const Denies weight gain and Denies weight loss ENT Reports no additional complaints, Denies dysphagia and Denies odynophagia Card Reports no additional complaints Resp Reports no additional complaints GI Denies abdominal pain, Denies belching, Denies melena, Denies bloating, Reports constipation, Denies dysphagia, Denies excessive flatus, Denies dyspepsia, Denies heartburn, Denies diarrhea, Denies loose stools, Denies nausea, Denies odynophagia and Denies vomiting Reports no additional complaints Musc Reports no additional complaints Neuro Reports no additional complaints Psych Reports no additional complaints Endo Reports no additional complaints Physical Exam Vital Signs: BMI result Body Mass Index 33.2 Const General: healthy appearing, no acute distress and well developed Nutritional Appearance: obese Orientation/consciousness: patient oriented x3 HEENT Head: Yes normal to inspection, Yes normocephalic and Yes atraumatic Face and sinus: Yes normal facial exam Mouth: Normal oral and palatal mucosa present Throat: Yes posterior oropharynx normal, Yes tonsils normal and Yes uvula midline Eyes General: appearance normal, both eyes and all related structures Neck Neck: Yes normal visual inspection, Yes full ROM and Yes trachea midline Thyroid: Thyroid normal Resp Effort & Inspection: normal respiratory effort, able to speak in complete sentences, no tracheal deviation and symmetric chest movement Auscultation: clear to auscultation bilaterally Cardio Rate: regular rate GI Inspection: Yes normal to inspection, No distended and Yes obesity Palpation (GI): Soft to palpation, not firm, nontender and No hepatosplenomegaly present Auscultation: normal bowel sounds General: Yes no CVA tenderness Back/Spine/Pelvis Back: no CVA tenderness Skin General skin exam: elasticity normal, turgor normal and dry skin Neuro General: patient oriented x3 Psych Appearance: grossly normal Mental Status: mental status grossly normal Results Reviewed Results Reviewed: Laboratory Tests 03/06/23 09:32 Total Bilirubin 0.7 Direct Bilirubin 0.3 AST 23 Alkaline Phosphatase 100 Lipase 22 Assessment & Plan Assessment & Plan (1) Postprandial abdominal bloating: Code(s): R14.0 - Abdominal distension (gaseous) (2) RUQ abdominal pain: Code(s): R10.11 - Right upper quadrant pain (3) Constipation: Code(s): K59.00 - Constipation, unspecified Qualifiers: Constipation type: chronic idiopathic constipation Qualified Code(s): K59.04 - Chronic idiopathic constipation Plan Continue MiraLax. Patient can take Colace 2 tablets daily. Patient was encouraged to increase activity to promote better bowel motility. Patient will return in the office in 4 months, sooner on as needed basis. Patient is agreeable to this plan and verbalizes understanding of instructions. He was given the opportunity to ask questions and all questions answered. Thank you for allowing me to participate in his care Medications: New docusate sodium 200 mg (2 x 100 mg) PO BEDTIME 180 caps 3RF K59.00 - Constipation, unspecified Discontinued sennosides Discontinued Reason: Doctor's Order 17.2 mg (2 x 8.6 mg) PO BEDTIME 60 tabs 3RF constipation K59.00 - Constipation, unspecified Coding Level of Care Code Est Pt Level 3 (94260) Diagnoses Postprandial abdominal bloating R14.0 RUQ abdominal pain R10.11 Chronic idiopathic constipation K59.04 Constipation type: chronic idiopathic constipation Time Spent (min) 30 Comment 20 minutes spent with patient and additional 10 minutes spent reviewing his records
[2023-05-15 09:34] VITALS: BMI 33.2
== END 2023-05-15 09:54 | disposition home or self-care (01) ==
PROVIDERS: PCP Internal Medicine; Visit Provider Nurse Practitioner Family
DX: R14.0 Abdominal distension (gaseous) (principal); R10.11 Right upper quadrant pain; K59.04 Chronic idiopathic constipation
CPT/HCPCS: 99213

== ENCOUNTER → 2023-05-15 09:29 | Outpatient (BNVA) | payer MEDICARE, MEDICAID, SELFPAY | PROVIDERS: PCP Internal Medicine; Visit Provider Nurse Practitioner Family | DX: K59.04 Chronic idiopathic constipation (principal); R14.0 Abdominal distension (gaseous); R10.11 Right upper quadrant pain | CPT/HCPCS: 99212 ==

== ENCOUNTER 2023-05-29 11:14 | Outpatient (AMB) | payer MEDICARE, MEDICAID, SELFPAY ==
[2023-05-29 11:23] LABS: Prothrombin Time Whole Bld POC 29.2 sec (11.1-13.5); ~PT, ~INR - Anti Coag Clinic 2.4 (0.9-1.1)
--- NOTE | 2023-05-29 11:27 | MHC.OFFVISCO ---
Intake Intake Visit Reasons: Anticoagulation Allergies No Known Allergies [No Known Allergies*] Allergy (Verified 05/29/23 11:19) Medication List - Last Reconciled 05/29/23 by Nena Wu RN acetaminophen 1,000 mg (2 x 500 mg) PO QID PRN acetaminophen ER (Tylenol 8 Hour) 650 mg PO Q8H PRN CPAP As directed digoxin 125 mcg PO DAILY diltiazem HCl 360 mg PO DAILY docusate sodium 200 mg (2 x 100 mg) PO BEDTIME furosemide 40 mg PO DAILY lisinopril 40 mg PO DAILY 90 days metoprolol succinate ER 100 mg PO DAILY miscellaneous medical supply 1 ea miscellaneous DAILY pantoprazole 40 mg PO DAILY 90 days polyethylene glycol 3350 (Miralax) 17 grams PO DAILY pravastatin 20 mg PO ropinirole 2 mg PO BEDTIME [shoe lift Lt 1/2 inch heel lift] Shower Chair As directed tramadol 50 mg PO Q8H PRN 30 days warfarin 5 mg See Protocol PO DAILY Nursing Note NO CP,SOB,DIET/MED CHANGES,FALLS OR SX OF BLEEDING. CONTIONUE PRESENT DOSE AND FOLLOW-UP IN 4 WEEKS. GOOD UNDERSTANDING OF DOSING INSTR. Anti-Coag Initial Assessment Social Hx Patient Tobacco Use Status: Never used Tobacco alcohol intake: current Alcohol intake frequency: holidays/special occasions only Coding Level of Care Code Est Patient Level 1 Diagnoses Current use of anticoagulant therapy Z79.01 Assessment & Plan Assessment & Plan (1) Current use of anticoagulant therapy: Code(s): Z79.01 - senior living (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
== END 2023-05-29 11:28 | disposition home or self-care (01) ==
LOC: HO.ACS 11:14
PROVIDERS: PCP Internal Medicine; Visit Provider Internal Medicine
DX: Z79.01 Long term (current) use of anticoagulants (principal)

== ENCOUNTER → 2023-05-29 11:14 | Outpatient (BNVA) | payer MEDICARE, MEDICAID, SELFPAY | PROVIDERS: PCP Internal Medicine; Visit Provider Internal Medicine | DX: I48.20 Chronic atrial fibrillation, unspecified (principal); Z79.01 Long term (current) use of anticoagulants; Z51.81 Encounter for therapeutic drug level monitoring | CPT/HCPCS: 85610; 99211 ==

== ENCOUNTER 2023-06-12 14:53 | Outpatient (AMB) | payer MEDICARE, MEDICAID, SELFPAY ==
--- NOTE | 2023-06-12 15:20 | A.OFFPC_ITS ---
Vital Signs 06/12/23 15:21 06/12/23 15:37 Height 5 ft 3 in Weight 192 lb BMI 34.0 BP 132/90 H 120/70 Blood Pressure Location Lt brachial Lt brachial Position Sitting Sitting Pulse 73 Pulse Source Pulse Oximeter Pulse Oximetry (%) 97 Oxygen Delivery Method Room Air Intake Visit Reasons: f/u transferring care from Intake Note: Patient is here today for transfer of care from Dr Darden. Water Resource Engineer Required: Yes Water Resource Engineer Language: Commission Specialist Name: Evi (Fish Cleaner Machine Tender) Information Interpreted: non-clinical & clinical Home Teaching Grades 9 Thru 12 Teacher: Present Accompanied by: primary care coordinator Allergies No Known Allergies [No Known Allergies*] Allergy (Verified 06/12/23 16:05) Medication List - Last Reconciled 06/12/23 by Reji Meyers MD CPAP As directed digoxin 125 mcg PO DAILY diltiazem HCl 360 mg PO DAILY docusate sodium 100 mg PO BEDTIME furosemide 40 mg PO DAILY lisinopril 40 mg PO DAILY 90 days metoprolol succinate ER 100 mg PO DAILY miscellaneous medical supply 1 ea miscellaneous DAILY pantoprazole 40 mg PO DAILY 90 days polyethylene glycol 3350 (Miralax) 17 grams PO DAILY pravastatin 20 mg PO BEDTIME ropinirole 2 mg PO BEDTIME [shoe lift Lt 1/2 inch heel lift] Shower Chair As directed tramadol 50 mg PO Q8H PRN 30 days warfarin 5 mg See Protocol PO DAILY Tobacco use date assessed: 06/12/23 Fall risk assessment: No Falls in past year Last assessed Fall Risk: 06/12/23 Dental Screening Dental Screen Date: 06/12/23 Did you have a dental visit in the last 12 months?: Yes Did you have a dental problem in the last 6 months where you did not have access to dental care?: No Was dental information given to patient?: Patient has dentist HPI f/u transferring care from HPI Details Patient comes in today for his follow up visit States that he continues to experience on and off diffuse abdominal pain, discomfort and bloating Has chronic constipation and has been advised by GI to take his Miralax in AM and Senna or Docusate at bedtime daily for them to be effective in helping with his constipation but patient continues to struggle with compliance States that he feels okay otherwise He denies any headaches or dizziness Denies any chest pains, no shortness of breath Has not had any nausea /vomiting inspite of his abdominal symptoms Needs several of his Rx refilled Was not able to get his follow up labs done recently [facility] Medical History Restless leg syndrome Chronic constipation Chronic GERD History of pacemaker Obesity (BMI 30-39.9) Vitamin D deficiency Pure hypercholesterolemia Leg length discrepancy Pacemaker Abnormal finding of foot Right shoulder pain MELANIE on CPAP Chest pain Trigger finger Bilateral sciatica Polyarthralgia Chronic heart failure with preserved ejection fraction (HFpEF) Persistent atrial fibrillation Obesity (BMI 30.0-34.9) Surgical History Hx of colonoscopy History of ear surgery History of cholecystectomy Family History Father Myocardial infarction CVD (cardiovascular disease) Mother No problems noted. Sister Stomach cancer Son No problems noted. Son No problems noted. Daughter No problems noted. Daughter No problems noted. Brother No problems noted. Brother No problems noted. Social History Household Members: Children Housing: House Alcohol intake: current Alcohol intake frequency: holidays/special occasions only Alcohol type: beer Patient Tobacco Use Status: Never used Tobacco e-Cigarette/Vaping Use: Never Used Second Hand Smoke Exposure: No service: No Current occupational status: disabled Cognitive needs: Yes (cane) Hearing needs: No Vision needs: Yes (glasses) Questionnaire Thrive Questionnaire Date Thrive assessed: 08/08/22 THERESA-7 AMB Questionnaire THERESA-7 Date THERESA - 7 assessed: 08/08/22 Source: Developed by Drs. Srinivasa Arauz, Sol Duron, Denis Hernandez and colleagues, with an educational lorenza from [employer]. Review of Systems Const Denies chills, Denies fatigue, Denies fever(s) and Denies headache(s) ENT Denies dysphagia, Denies dizziness, Denies otalgia, Denies headache(s), Denies neck pain, Denies odynophagia and Denies sore throat Card Denies chest pain, Denies palpitations and Denies dyspnea Resp Denies cough and Denies dyspnea GI Reports abdominal pain (on and off), Reports bloating, Reports constipation (frequent), Denies dysphagia, Denies heartburn, Denies diarrhea, Denies nausea, Denies odynophagia and Denies vomiting Denies dysuria, Denies nocturia and Denies urinary frequency Musc Reports back pain (over the lower back), Reports arthralgias (involving multiple joints) and Denies neck pain Skin/Breast Denies rash Neuro Denies dizziness and Denies headache(s) Endo Denies fatigue and Denies palpitations Physical exam (Primary Care) Vital Signs: Last Vital Signs Pulse 73 06/12/23 15:21 BP 120/70 06/12/23 15:37 Pulse Ox 97 06/12/23 15:21 Oxygen Delivery Method Room Air 06/12/23 15:21 BMI result Body Mass Index 34.0 Tobacco/Smoking Status: Tobacco use Status Tobacco use date assessed 06/12/23 06/12/23 15:37 Patient Tobacco Use Status Never used Tobacco 06/12/23 15:37 e-Cigarette/Vaping Use Never Used 06/12/23 15:37 Thrive Assessment: Date of Thrive Assessment Date Thrive assessed 08/08/22 06/12/23 15:37 Const General: no acute distress and alert HENMT Ears: TM's normal bilaterally and EAC's normal Throat: Yes posterior oropharynx normal and Yes tonsils normal (no TP congestion) Neck Neck: Yes no lymphadenopathy and Yes supple Resp Auscultation: clear to auscultation bilaterally, no rales and no wheezes Cardio Rate: regular rate Rhythm: abnormal rhythm irregularly irregular Heart sounds: no murmurs GI Palpation (GI): Soft to palpation, nontender and No hepatosplenomegaly present Skin General skin exam: no rashes or lesions noted Extrem General: Yes no clubbing, cyanosis or edema Assessment and Plan Assessment & Plan (1) Chronic heart failure with preserved ejection fraction (HFpEF): Code(s): I50.32 - Chronic diastolic (congestive) heart failure Plan: Echoardiogram done in June 2022 revealed normal LV systolic function with normal diastolic filling pattern, normal cardiac valvular Doppler, normal RV systolic pressure and no gross pericardial effusion Continue Furosemide 40 mg QD, Lisinopril 40 mg QD and Metoprolol ER 100 mg QD Follow up with cardiology as scheduled (2) Persistent atrial fibrillation: Code(s): I48.19 - Other persistent atrial fibrillation Plan: Continue Coumadin 5 mg daily for lifelong anticoagulation, Metoprolol ER 100 mg QD, Diltiazem 360 mg QD and Digoxin 0.125 mg QD (3) Pure hypercholesterolemia: Code(s): E78.00 - Pure hypercholesterolemia, unspecified Plan: Was not able to get his follow up labs done prior to his visit today - states that he will try to get these done DAYAN Reinforced low cholesterol diet Continue Pravastatin 20 mg QD Will recheck his labs and fasting lipids in 4 months for follow up (4) MELANIE on CPAP: Comment: THIS PATIENT HAS KNOWN DIAGNOSIS OF OBSTRUCTIVE SLEEP APNEA, BEING TREATED WITH CPAP AND HE REMAINS VERY COMPLIANT. NO ISSUES RELATED TO THE MASK OR CPAP DEVICE. Code(s): G47.33 - Obstructive sleep apnea (adult) (pediatric); Z99.89 - Dependence on other enabling machines and devices Plan: Continue using his CPAP device when sleeping at night daily Follow up with Sleep Medicine as scheduled (5) Vitamin D deficiency: Code(s): E55.9 - Vitamin D deficiency, unspecified Plan: Will recheck his Vitamin D level in 4 months for follow up (6) Polyarthralgia: Code(s): M25.50 - Pain in unspecified joint Plan: Continue Tramadol 50 mg TID PRN for pain Follow up with rheumatology and orthopedics as scheduled (7) Chronic GERD: Code(s): K21.9 - Gastro-esophageal reflux disease without esophagitis Plan: Dietary restrictions reinforced Continue Pantoprazole 40 mg QD (8) Chronic constipation: Code(s): K59.09 - Other constipation Plan: Reinforced increased oral fluids and dietary fiber Continue Miralax 17 gm QD and Docusate 100 mg 2 tablets Q HS PRN Follow up with GI as scheduled (9) Restless leg syndrome: Code(s): G25.81 - Restless legs syndrome Plan: Continue Ropinirole 2 mg Q HS (10) Obesity (BMI 30-39.9): Comment: HE IS ONLY MODERATELY ,OBESE WEIGHT HAS REMAINED STABL.E Code(s): E66.9 - Obesity, unspecified Plan: Reinforced diet/exercise as tolerated/lose weight Plan Follow up in 4 months Orders: Orders TSH reflex Free T4 4 Months E78.00 - Pure hypercholesterolemia, unspecified Digoxin 4 Months I50.20 - Unspecified systolic (congestive) heart failure UA CC w/rflx Micro + Cult 4 Months R30.0 - Dysuria Vitamin D 25-OH Total 4 Months E55.9 - Vitamin D deficiency, unspecified Erythrocyte Sedimentation Rate 4 Months M25.50 - Pain in unspecified joint Comprehensive [place]. Panel Fast 4 Months E78.00 - Pure hypercholesterolemia, unspecified Lipid Panel 4 Months E78.00 - Pure hypercholesterolemia, unspecified B Type Natriuretic Peptide 4 Months I50.9 - Heart failure, unspecified Medications: Changed From ropinirole 2 mg PO BEDTIME To ropinirole 2 mg PO BEDTIME 90 tabs 1RF 90 days From docusate sodium 100 mg PO BEDTIME K59.00 - Constipation, unspecified To docusate sodium 200 mg (2 x 100 mg) PO BEDTIME PRN 60 caps 5RF constipation K59.00 - Constipation, unspecified From digoxin 125 mcg PO DAILY To digoxin 125 mcg PO DAILY 90 tabs 1RF 90 days From pravastatin 20 mg PO BEDTIME To pravastatin 20 mg PO BEDTIME 90 tabs 1RF 90 days Refilled pantoprazole 40 mg PO DAILY 90 tabs 1RF 90 days furosemide 40 mg PO DAILY 90 tabs 3RF metoprolol succinate ER 100 mg PO DAILY 90 tabs 1RF polyethylene glycol 3350 (Miralax) 17 grams PO DAILY 510 grams 2RF diltiazem HCl 360 mg PO DAILY 90 caps 3RF Coding Level of Care Code Est Pt Level 4 (76835) Diagnoses Chronic heart failure with preserved ejection fraction (HFpEF) I50.32 Persistent atrial fibrillation I48.19 Pure hypercholesterolemia E78.00 MELANIE on CPAP G47.33; Z99.89 Vitamin D deficiency E55.9 Polyarthralgia M25.50 Chronic GERD K21.9 Chronic constipation K59.09 Restless leg syndrome G25.81 Obesity (BMI 30-39.9) E66.9
[2023-06-12 15:21] VITALS: BP 132/90; PULSE 73; O2SAT 97; BMI 34.0
[2023-06-12 15:37] VITALS: BP 120/70
== END 2023-06-12 16:08 | disposition home or self-care (01) ==
PROVIDERS: PCP Internal Medicine; Visit Provider Internal Medicine
DX: I50.32 Chronic diastolic (congestive) heart failure (principal); I48.19 Other persistent atrial fibrillation; Z68.34 Body mass index [BMI] 34.0-34.9, adult; E66.9 Obesity, unspecified; E78.00 Pure hypercholesterolemia, unspecified; G47.33 Obstructive sleep apnea (adult) (pediatric); Z99.89 Dependence on other enabling machines and devices; E55.9 Vitamin D deficiency, unspecified; M25.50 Pain in unspecified joint; K21.9 Gastro-esophageal reflux disease without esophagitis; K59.09 Other constipation; G25.81 Restless legs syndrome
CPT/HCPCS: 99214

== ENCOUNTER 2023-06-13 09:21 | Outpatient (REF) | payer MEDICARE, MEDICAID, SELFPAY ==
[2023-06-13 09:39] LABS: MANUAL DIFF FLAG NO
[2023-06-13 10:09] LABS: Basophils Absolute Auto 0.1 X10*3/uL (0.0-0.2); Basophils Percent Auto 0.7 % (0-2); Eosinophils Absolute Auto 0.2 X10*3/uL (0.0-0.4); Eosinophils Percent Auto 2.5 % (0-4); Hematocrit 42.4 % (42.0-52.0); Hemoglobin 13.7 g/dl (14.0-18.0); Imm Gran Abs Auto 0.02 X10*3/uL (0.00-0.03); Imm Gran Pct Auto 0.2 % (0.0-0.4); Lymphocytes Absolute Auto 3.2 X10*3/uL (1.2-4.9); Lymphocytes Percent Auto 39.2 % (20-40); Mean Corpuscular HGB Conc 32.3 g/dl (31.0-36.0); Mean Corpuscular Hemoglobin 28.7 pg (27.0-33.0); Mean Corpuscular Volume 88.7 fL (80.0-98.0); Mean Platelet Volume 10.4 fL (9.4-12.4); Monocytes Absolute Auto 0.5 X10*3/uL (0.1-1.2); Monocytes Percent Auto 6.5 % (2-11); Neutrophils Absolute Auto 4.2 x10*3/uL (2.0-8.3); Neutrophils Percent Auto 50.9 % (45-73); Platelet Count 283 X10*3/uL (160-400); Red Blood Count 4.78 X10*6/uL (4.60-5.80); Red Cell Distribution Width 12.8 % (11.0-16.0); White Blood Count 8.2 X10*3/uL (4.8-10.8)
[2023-06-13 10:17] LABS: Appearance Urine Clear; Color Urine Yellow; Glucose Urine UA Negative (Negative); Leukocyte Esterase Urine Negative (Negative); Nitrite Urine Negative (Negative); PH 6.5 (5.0-9.0); Specific Gravity - Urine 1.015 (1.005-1.025); UMIC TRIGGER UACC YES; Urine Blood Trace (Negative); Urine Ketones Negative (Negative); Urine Protein Negative (Neg-Trace)
[2023-06-13 10:25] LABS: Bacteria Urine None Seen (None Seen); Hyaline Casts Urine 0-2 /LPF (0-2); Squamous Epithelial Cell Urine 0-2 /HPF (0-2); WBC Urine 0-5 /HPF (0-5)
[2023-06-13 10:41] LABS: B Type Natriuretic Peptide 229 pg/mL (<100)
[2023-06-13 10:52] LABS: Digoxin 0.4 ng/mL (0.8-2.0)
[2023-06-13 11:04] LABS: Alanine Aminotransferase 22 U/L (0-40); Alkaline Phosphatase 105 U/L (39-117); Anion Gap 14 (12-20); Aspartate Amino Transferase 26 U/L (5-37); Bilirubin Total 1.1 mg/dL (0.0-1.0); Blood Urea Nitrogen 14 mg/dL (9-16); Calcium 9.1 mg/dL (8.4-10.2); Carbon Dioxide 27 mmol/L (22-29); Chloride 105 mmol/L (96-108); Cholesterol 164 mg/dL (<200); Estimated Glomerular Filt Rate > 60; Glucose Fasting 105 mg/dL (60-99); HDL Cholesterol 53 mg/dL (>40); LDL Cholesterol Calculated 95 mg/dL (<100); Potassium 4.2 mmol/L (3.3-5.1); Sodium 142 mmol/L (135-145); Total Protein 8.5 g/dL (6.5-8.0); Triglycerides 83 mg/dL (<150)
[2023-06-13 11:17] LABS: Prostate Specific Antigen 2.06 ng/mL (<0.05-4.0)
[2023-06-13 11:24] LABS: TSH reflex Free T4 2.23 uIU/mL (0.32-4.0); Vitamin D 25-OH Total 15.4 ng/mL (>30)
== END 2023-06-13 09:22 | disposition home or self-care (01) ==
LOC: HO.LAB 09:21
PROVIDERS: PCP Internal Medicine; Visit Provider Internal Medicine
DX: Z00.00 Encounter for general adult medical examination without abnormal findings (principal); R30.0 Dysuria; E55.9 Vitamin D deficiency, unspecified; E78.00 Pure hypercholesterolemia, unspecified; I11.0 Hypertensive heart disease with heart failure; I50.20 Unspecified systolic (congestive) heart failure; Z12.5 Encounter for screening for malignant neoplasm of prostate
CPT/HCPCS: 36415; 80053; 80061; 80162; 81001; 82306; 83880; 84153; 84443; 85025

== ENCOUNTER 2023-06-18 10:37 | Emergency (ER) | payer OTHER, MEDICARE, MEDICAID, SELFPAY ==
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
[2023-06-18 11:52] VITALS: PULSE 63; RESP 18; TEMP 36.6; O2SAT 97; BMI 32.8
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
[2023-06-18 17:18] VITALS: BP 131/72; PULSE 60; RESP 16; O2SAT 99
[2023-06-18] MEDS: Acetaminophen 325 MG TABLET 975 MG PO (17:19)
[2023-06-18] MEDS: Lidocaine 4 % Patch ADH..PATCH 1 PATCH TRANSDERMA (17:20)
--- NOTE | 2023-06-18 17:23 | PC.NURSE ---
medication administered per provider order.
--- NOTE | 2023-06-18 17:29 | PC.NURSE ---
medication administered per provider order.
== END 2023-06-18 18:28 | disposition home or self-care (01) ==
PROVIDERS: Emergency Provider Emergency Medicine; PCP Internal Medicine
DX: S06.0X0A Concussion without loss of consciousness, initial encounter (principal); S16.1XXA Strain of muscle, fascia and tendon at neck level, initial encounter; V43.52XA Car driver injured in collision with other type car in traffic accident, initial encounter; Y93.89 Activity, other specified; Y92.410 Unspecified street and highway as the place of occurrence of the external cause; Y99.9 Unspecified external cause status; M54.50 Low back pain, unspecified
CPT/HCPCS: 70450; 71045; 72100; 72125; 99212; 99284

== ENCOUNTER 2023-06-18 13:37 | Outpatient (AMB) | payer MEDICARE, MEDICAID, SELFPAY ==
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
[2023-06-18 14:10] VITALS: BP 110/70; PULSE 63
== END 2023-06-18 14:39 | disposition home or self-care (01) ==
PROVIDERS: PCP Internal Medicine; Visit Provider Nurse Practitioner Family
DX: I48.19 Other persistent atrial fibrillation (principal); I50.32 Chronic diastolic (congestive) heart failure; G47.33 Obstructive sleep apnea (adult) (pediatric); Z99.89 Dependence on other enabling machines and devices; Z95.0 Presence of cardiac pacemaker
CPT/HCPCS: 93279; 99214

== ENCOUNTER 2023-06-26 11:14 | Outpatient (AMB) | payer MEDICARE, MEDICAID, SELFPAY ==
[2023-06-26 11:26] LABS: Prothrombin Time Whole Bld POC 28.9 sec (11.1-13.5); ~PT, ~INR - Anti Coag Clinic 2.4 (0.9-1.1)
--- NOTE | 2023-06-26 11:26 | MHC.OFFVISCO ---
Intake Intake Visit Reasons: Anticoagulation Allergies No Known Allergies [No Known Allergies*] Allergy (Verified 06/26/23 11:22) Medication List - Last Reconciled 06/26/23 by Angela Hernadez RN acetaminophen (Tylenol) 325 mg PO Q4H PRN CPAP As directed digoxin 125 mcg PO DAILY 90 days diltiazem HCl 360 mg PO DAILY docusate sodium 200 mg (2 x 100 mg) PO BEDTIME PRN furosemide 40 mg PO DAILY lidocaine 5% 1 patch topical DAILY PRN lisinopril 40 mg PO DAILY 90 days metoprolol succinate ER 100 mg PO DAILY miscellaneous medical supply 1 ea miscellaneous DAILY pantoprazole 40 mg PO DAILY 90 days polyethylene glycol 3350 (Miralax) 17 grams PO DAILY pravastatin 20 mg PO BEDTIME 90 days ropinirole 2 mg PO BEDTIME 90 days [shoe lift Lt 1/2 inch heel lift] Shower Chair As directed tramadol 50 mg PO Q8H PRN 30 days warfarin 5 mg See Protocol PO DAILY Nursing Note INR: 2.4- in therapeutic range of 2-3 Medications and supplements reviewed- no changes No changes in health, diet, medications, or supplements, Denies any signs and symptoms of bleeding or bruising or clotting. 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
== END 2023-06-26 11:35 | disposition home or self-care (01) ==
LOC: HO.ACS 11:14
PROVIDERS: PCP Internal Medicine; Visit Provider Internal Medicine
DX: Z79.01 Long term (current) use of anticoagulants (principal)

== ENCOUNTER → 2023-06-26 11:14 | Outpatient (BNVA) | payer MEDICARE, MEDICAID, SELFPAY | PROVIDERS: PCP Internal Medicine; Visit Provider Internal Medicine | DX: I48.20 Chronic atrial fibrillation, unspecified (principal); Z79.01 Long term (current) use of anticoagulants; Z51.81 Encounter for therapeutic drug level monitoring | CPT/HCPCS: 85610; 99211 ==

== ENCOUNTER → 2023-07-06 23:59 | Outpatient (BNV) | payer MEDICARE, MEDICAID, SELFPAY ==
--- NOTE | 2023-07-09 12:17 | A.OFFVIS_ITS ---
Intake Intake Visit Reasons: Remote Device Check- [facility] [place] Allergies No Known Allergies [No Known Allergies*] Allergy (Verified 06/26/23 11:22) FORMERLY [facility] Medical History Restless leg syndrome Chronic constipation Chronic GERD History of pacemaker Obesity (BMI 30-39.9) Vitamin D deficiency Pure hypercholesterolemia Leg length discrepancy Pacemaker Abnormal finding of foot Right shoulder pain MELANIE on CPAP Chest pain Trigger finger Bilateral sciatica Polyarthralgia Chronic heart failure with preserved ejection fraction (HFpEF) Persistent atrial fibrillation Obesity (BMI 30.0-34.9) Surgical History Hx of colonoscopy History of ear surgery History of cholecystectomy Family History Father Myocardial infarction CVD (cardiovascular disease) Mother No problems noted. Sister Stomach cancer Son No problems noted. Son No problems noted. Daughter No problems noted. Daughter No problems noted. Brother No problems noted. Brother No problems noted. 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 Overall normal device function. [id number] Cardiac Device Interrogation, pacemaker Procedure code (CPT) selection complete Assessment & Plan Assessment & Plan (1) Persistent atrial fibrillation: Code(s): I48.19 - Other persistent atrial fibrillation Plan x Coding Level of Care Code Procedure Only Diagnoses Persistent atrial fibrillation I48.19 CPT Codes Cardiac Device Check - Cardiac Device 12: [id number] Cardiac Device Interrogation, pacemaker ([id number])
== END ==
PROVIDERS: PCP Internal Medicine; Visit Provider Internal Medicine
DX: I48.19 Other persistent atrial fibrillation (principal); Z95.0 Presence of cardiac pacemaker
CPT/HCPCS: 93294

== ENCOUNTER 2023-07-24 10:34 | Outpatient (AMB) | payer MEDICARE, MEDICAID, SELFPAY ==
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
[2023-07-24 11:17] LABS: Prothrombin Time Whole Bld POC 26.5 sec (11.1-13.5); ~PT, ~INR - Anti Coag Clinic 2.2 (0.9-1.1)
== END 2023-07-24 11:06 | disposition home or self-care (01) ==
LOC: HO.ACS 10:34
PROVIDERS: PCP Internal Medicine; Visit Provider Internal Medicine
DX: Z79.01 Long term (current) use of anticoagulants (principal)

== ENCOUNTER → 2023-07-24 10:34 | Outpatient (BNVA) | payer MEDICARE, MEDICAID, SELFPAY | PROVIDERS: PCP Internal Medicine; Visit Provider Internal Medicine | DX: I48.20 Chronic atrial fibrillation, unspecified (principal); Z79.01 Long term (current) use of anticoagulants; Z51.81 Encounter for therapeutic drug level monitoring | CPT/HCPCS: 85610; 99211 ==

== ENCOUNTER 2023-07-25 10:22 | Outpatient (AMB) | payer MEDICARE, MEDICAID, SELFPAY ==
--- NOTE | 2023-07-25 10:32 | A.OFFVIS_ITS ---
Intake Vital Signs 07/25/23 10:33 Height 5 ft 3 in Weight 188 lb BMI 33.3 BP 124/70 Blood Pressure Location Lt brachial Position Sitting Pulse 60 Pulse Source Pulse Oximeter Pulse Oximetry (%) 98 Oxygen Delivery Method Room Air Intake Visit Reasons: melanie Intake Note: pt is here for follow up and states he is feeling little short of breath, walking in from parking lot he was very short of breath and is happening a lot. Transplant Rn Required: Yes Transplant Rn Name: nalini/Zaynab Allergies No Known Allergies [No Known Allergies*] Allergy (Verified 07/25/23 11:00) Medication List - Last Reconciled 07/25/23 by Kelley Swift MD acetaminophen (Tylenol) 325 mg PO Q4H PRN CPAP As directed digoxin 125 mcg PO DAILY 90 days diltiazem HCl 360 mg PO DAILY docusate sodium 200 mg (2 x 100 mg) PO BEDTIME PRN furosemide 40 mg PO DAILY lidocaine 5% 1 patch topical DAILY PRN lisinopril 40 mg PO DAILY 90 days metoprolol succinate ER 100 mg PO DAILY miscellaneous medical supply 1 ea miscellaneous DAILY pantoprazole 40 mg PO DAILY 90 days polyethylene glycol 3350 (Miralax) 17 grams PO DAILY pravastatin 20 mg PO BEDTIME 90 days ropinirole 2 mg PO BEDTIME 90 days [shoe lift Lt 1/2 inch heel lift] Shower Chair As directed tramadol 50 mg PO Q8H PRN 30 days warfarin 5 mg See Protocol PO DAILY Do you need a note to return to daycare/school/sports/work: No HPI emlanie HPI Details This 68 years old Uzbek-speaking gentleman is here for follow-up after 6 months. He is a case of obstructive sleep apnea and has been using CPAP very regularly. He has some tight feeling due to straps, no other issues with the mask. He claims to be sleeping well and denies. Any daytime sleepiness He complains of getting short of breath when he walks from the parking lot to our office, this is without any cough or wheezing and also denies any chest pain. He is being treated for chronic congestive heart failure. No shortness of breath at rest. No recent pulmonary function test has been done. FORMERLY [facility], [facility]–1983 Medical History Restless leg syndrome Chronic constipation Chronic GERD History of pacemaker Obesity (BMI 30-39.9) Vitamin D deficiency Pure hypercholesterolemia Leg length discrepancy Pacemaker Abnormal finding of foot Right shoulder pain MELANIE on CPAP Chest pain Trigger finger Bilateral sciatica Polyarthralgia Chronic heart failure with preserved ejection fraction (HFpEF) Persistent atrial fibrillation Obesity (BMI 30.0-34.9) Surgical History Hx of colonoscopy History of ear surgery History of cholecystectomy Family History Father Myocardial infarction CVD (cardiovascular disease) Mother No problems noted. Sister Stomach cancer Son No problems noted. Son No problems noted. Daughter No problems noted. Daughter No problems noted. Brother No problems noted. Brother No problems noted. Social History Household Members: Children Housing: House Alcohol intake: current Alcohol intake frequency: holidays/special occasions only Alcohol type: beer Patient Tobacco Use Status: Never used Tobacco e-Cigarette/Vaping Use: Never Used Second Hand Smoke Exposure: No service: No Current occupational status: disabled Cognitive needs: Yes (cane) Hearing needs: No Vision needs: Yes (glasses) Review of Systems Const All systems reviewed & are unremarkable except as noted in HPI and below Reports snoring Eyes Reports no additional complaints ENT Reports no additional complaints Card Denies chest pain, Reports irregular heart rhythm (ATRIAL FIB) and Denies leg edema Resp Denies cough, Reports snoring, Denies wheezing and Reports other (Nonspecific discomfort/pain over right thoraco lumbar area.) GI Reports heartburn (GERD SYMPTOMS CONTROLLED WITH MEDICINE) Musc Reports back pain and Reports arthralgias Skin/Breast Reports system reviewed and no additional complaints, except as documented Neuro Reports no additional complaints Psych Reports no additional complaints Aller/Immun Denies wheezing Physical Exam Vital Signs: Last Vital Signs Pulse 60 07/25/23 10:33 BP 124/70 07/25/23 10:33 Pulse Ox 98 07/25/23 10:33 Oxygen Delivery Method Room Air 07/25/23 10:33 BMI result Body Mass Index 33.3 Const General: healthy appearing, comfortable, no acute distress, alert and awake Orientation/consciousness: patient oriented x3 HEENT Head: Yes normal to inspection General nose exam: No nasal polyps present and No nasal discharge present Face and sinus: Yes sinuses nontender Mouth: oropharynx normal Throat: Yes posterior oropharynx normal Eyes General: appearance normal, both eyes and all related structures Neck Neck: Yes normal visual inspection, Yes no lymphadenopathy, Yes trachea midline and Yes no JVD Thyroid: Thyroid normal Chest Chest palpation & inspection: normal inspection of the chest, normal palpation of entire chest wall and no tenderness Resp Other: PERCUSSION NOTE RESONANT, BREATH SOUNDS ARE EQUAL ON BOTH SIDES, NO WHEEZES RHONCHI OR CREPITATIONS ARE HEARD Cardio Palpation: normal PMI Rate: regular rate Rhythm: regular rhythm Heart sounds: no gallops and no murmurs GI Palpation (GI): Soft to palpation, nontender, No hepatosplenomegaly present and no masses Auscultation: normal bowel sounds Back/Spine/Pelvis Thoracic/Lumbar Spine: thoracic and lumbar spine normal to inspection and thoraco-lumbar ROM limited Skin General skin exam: no rashes or lesions noted Neuro General: patient oriented x3 and no focal motor deficits Cranial nerves: Yes CN's II-XII intact bilaterally Extrem General: Yes normal to inspection, Yes no clubbing, cyanosis or edema and Yes no calf tenderness Psych Appearance: grossly normal and well kempt Speech and movement: Normal speech and movement present Results Reviewed Results Reviewed: Compliance report for the last 30 nights is reviewed. He has used 30/30 nights,. 100% Average use per night 7 hours 50 minutes which is excellent. Pressure used is about 13 cm. There is evidence of mild to moderate degree of air leak. Residual AHI only 2.1 Assessment & Plan Assessment & Plan (1) Obesity (BMI 30.0-34.9): Comment: Weight is up a little bit BMI 33.3 , Code(s): E66.9 - Obesity, unspecified Plan: Advised to watch his diet and make sure that he does not put on any more weight. (2) MELANIE on CPAP: Comment: THIS PATIENT HAS KNOWN DIAGNOSIS OF OBSTRUCTIVE SLEEP APNEA, BEING TREATED WITH CPAP AND HE REMAINS VERY COMPLIANT. NO ISSUES RELATED TO THE MASK OR CPAP DEVICE EXCEPT FOR SOME TIGHT FEELING AND DID THE STRAPS. THERE IS EVIDENCE OF SOME AIR LEAK.. Code(s): G47.33 - Obstructive sleep apnea (adult) (pediatric); Z99.89 - Dependence on other enabling machines and devices Plan: PATIENT WAS EDUCATED. HE NEEDS TO USE THE CPAP EVERY NIGHT. HE SHOULD TIGHTEN THE STRAPS TO AVOID ANY AIR LEAK. (3) Dyspnea: Comment: PATIENT COMPLAINS OF GETTING SHORT OF BREATH ON WALKING, . WITHOUT ANY WHEEZING OR CHEST PAIN IT IS MOST LIKELY DUE TO COMBINATION OF HIS CONGESTIVE HEART FAILURE , CHRONIC RENAL DISEASE AND GENERAL DECONDITIONING. DOES NOT SEEM TO HAVE ANY OBSTRUCTIVE AIRWAY DISORDER. HOWEVER A PULMONARY FUNCTION TEST HAS NOT BEEN DONE IN THE LAST MANY YEARS. Code(s): R06.00 - Dyspnea, unspecified Plan: SCHEDULED FOR PFT AND WILL BE RE-EVALUATED AFTER THAT Coding Level of Care Code Est Pt Level 3 (80720) Diagnoses Obesity (BMI 30.0-34.9) E66.9 MELANIE on CPAP G47.33; Z99.89 Dyspnea R06.00
[2023-07-25 10:33] VITALS: BP 124/70; PULSE 60; O2SAT 98; BMI 33.3
== END 2023-07-25 11:02 | disposition home or self-care (01) ==
PROVIDERS: PCP Internal Medicine; Visit Provider Internal Medicine
DX: E66.9 Obesity, unspecified (principal); G47.33 Obstructive sleep apnea (adult) (pediatric); Z99.89 Dependence on other enabling machines and devices; R06.00 Dyspnea, unspecified
CPT/HCPCS: 99213

== ENCOUNTER → 2023-07-25 10:22 | Outpatient (BNVA) | payer MEDICARE, MEDICAID, SELFPAY | PROVIDERS: PCP Internal Medicine; Visit Provider Internal Medicine | DX: G47.33 Obstructive sleep apnea (adult) (pediatric) (principal); R06.00 Dyspnea, unspecified; E66.9 Obesity, unspecified; Z99.89 Dependence on other enabling machines and devices; Z68.33 Body mass index [BMI] 33.0-33.9, adult | CPT/HCPCS: 99212 ==

== ENCOUNTER 2023-08-21 10:31 | Outpatient (AMB) | payer MEDICARE, MEDICAID, SELFPAY ==
--- NOTE | 2023-08-21 10:39 | MHC.OFFVISCO ---
Intake Intake Visit Reasons: Anticoagulation Allergies No Known Allergies [No Known Allergies*] Allergy (Verified 08/21/23 10:34) Medication List - Last Reconciled 08/21/23 by Angela Hernadez RN acetaminophen (Tylenol) 325 mg PO Q4H PRN CPAP As directed digoxin 125 mcg PO DAILY 90 days diltiazem HCl 360 mg PO DAILY docusate sodium 200 mg (2 x 100 mg) PO BEDTIME PRN furosemide 40 mg PO DAILY lidocaine 5% 1 patch topical DAILY PRN lisinopril 40 mg PO DAILY 90 days metoprolol succinate ER 100 mg PO DAILY miscellaneous medical supply 1 ea miscellaneous DAILY pantoprazole 40 mg PO DAILY 90 days polyethylene glycol 3350 (Miralax) 17 grams PO DAILY pravastatin 20 mg PO BEDTIME 90 days ropinirole 2 mg PO BEDTIME 90 days [shoe lift Lt 1/2 inch heel lift] Shower Chair As directed tramadol 50 mg PO Q8H PRN 30 days warfarin 5 mg See Protocol PO DAILY Nursing Note INR: 2.6- in therapeutic range of 2-3 Medications and supplements reviewed- no changes No changes in health, diet, medications, or supplements, Denies any signs and symptoms of bleeding or bruising or clotting. Bleeding, bruising, clotting discussed Nutritional guidance given Dose: 2.5mg x 3, 5mg x 4 F/U INR: 4 weeks Patient verbalizes understanding of instructions given survey chief present for this acs visit Anti-Coag Initial Assessment Social Hx Patient Tobacco Use Status: Never used Tobacco alcohol intake: current Alcohol intake frequency: holidays/special occasions only Coding Level of Care Code Est Patient Level 1 Diagnoses Current use of anticoagulant therapy Z79.01 Results AMB INR Fingerstick AMB INR Fingerstick 2.6 Last Edit by Angela Hernadez RN on 08/21/23 10:41 Assessment & Plan Assessment & Plan (1) Current use of anticoagulant therapy: Code(s): Z79.01 - [facility] (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
[2023-08-21 10:41] LABS: Prothrombin Time Whole Bld POC 30.6 sec (11.1-13.5); ~PT, ~INR - Anti Coag Clinic 2.6 (0.9-1.1)
== END 2023-08-21 10:45 | disposition home or self-care (01) ==
LOC: HO.ACS 10:31
PROVIDERS: PCP Internal Medicine; Visit Provider Internal Medicine
DX: Z79.01 Long term (current) use of anticoagulants (principal)

== ENCOUNTER → 2023-08-21 10:31 | Outpatient (BNVA) | payer MEDICARE, MEDICAID, SELFPAY | PROVIDERS: PCP Internal Medicine; Visit Provider Internal Medicine | DX: I48.20 Chronic atrial fibrillation, unspecified (principal); Z79.01 Long term (current) use of anticoagulants; Z51.81 Encounter for therapeutic drug level monitoring | CPT/HCPCS: 85610; 99211 ==

== ENCOUNTER 2023-09-13 09:09 | Outpatient (AMB) | payer MEDICARE, MEDICAID, SELFPAY ==
--- NOTE | 2023-09-13 09:14 | MHC.OFFVIS ---
Intake Vital Signs 09/13/23 09:16 Height 5 ft 3 in Weight 180 lb BMI 31.9 BP 157/75 H Blood Pressure Location Lt brachial Position Sitting Pulse 88 Intake Visit Reasons: 4 month follow up Intake Note: Patient follow for constipation Patient cc: abdominal pain and bloating on and off, constipation and denies any other GI issues. Bioinformatics Associate Required: Yes Bioinformatics Associate [place] [facility] [place] Accompanied by: Self / Same As Patient Allergies No Known Allergies [No Known Allergies*] Allergy (Verified 09/13/23 09:14) HPI 4 month follow up HPI Details LAST VISIT Postprandial abdominal bloating RUQ abdominal pain Constipation Plan Continue MiraLax. Patient can take Colace 2 tablets daily. Patient was encouraged to increase activity to promote better bowel motility. Patient will return in the office in 4 months, sooner on as needed basis. Patient is agreeable to this plan and verbalizes understanding of instructions. He was given the opportunity to ask questions and all questions answered. ? Thank you for allowing me to participate in his care Medications New docusate sodium 200 mg (2 x 100 mg) PO BEDTIME 180 caps 3RF K59.00 Discontinued sennosides Discontinued Reason: Doctor's Order 17.2 mg (2 x 8.6 mg) PO BEDTIME 60 tabs 3RF constipation K59.00 TODAY'S VISIT: Patient is here today for follow-up. Patient reports that he is taking MiraLax in the morning Colace and Senokot in the evening and he continues to have constipation. Patient states that when he does have a bowel movement he does not feel like he empties. States that his stool is hard and he has to push. Patient is not drinking fluids as he is on fluid restrictions and is taking Lasix daily. Patient's diet mostly consists of [place] food which is rice and beans. Patient reports to have frequent bloating and left lower quadrant pain. Patient denies any nausea or vomiting. Reports that his symptoms of acid reflux are suppressed at this time. Patient is not sure if he is taking pantoprazole. Patient does not know any names of his medications except for furosemide that he calls it water pill . He knows medication that I have prescribed for him by describing the color. Patient denies any melena, hematochezia, unintentional weight loss or ribbon like stools. Denies any dyspepsia, dysphagia or odynophagia. Patient had normal colonoscopy in 2017. Diverticulosis in sigmoid colon and hemorrhoids found. [facility] Medical History Restless leg syndrome Chronic constipation Chronic GERD History of pacemaker Obesity (BMI 30-39.9) Vitamin D deficiency Pure hypercholesterolemia Leg length discrepancy Pacemaker Abnormal finding of foot Right shoulder pain MELANIE on CPAP Chest pain Trigger finger Bilateral sciatica Polyarthralgia Chronic heart failure with preserved ejection fraction (HFpEF) Persistent atrial fibrillation Obesity (BMI 30.0-34.9) Surgical History Hx of colonoscopy History of ear surgery History of cholecystectomy Family History Father Myocardial infarction CVD (cardiovascular disease) Mother No problems noted. Sister Stomach cancer Son No problems noted. Son No problems noted. Daughter No problems noted. Daughter No problems noted. Brother No problems noted. Brother No problems noted. Social History Household Members: Children Housing: House Alcohol intake: current Alcohol intake frequency: holidays/special occasions only Alcohol type: beer Patient Tobacco Use Status: Never used Tobacco e-Cigarette/Vaping Use: Never Used Second Hand Smoke Exposure: No service: No Current occupational status: disabled Cognitive needs: Yes (cane) Hearing needs: No Vision needs: Yes (glasses) Review of Systems Const Denies weight gain and Denies weight loss ENT Reports no additional complaints, Denies dysphagia and Denies odynophagia Card Reports no additional complaints Resp Reports no additional complaints GI Denies abdominal pain, Denies belching, Denies melena, Denies bloating, Denies change in bowel habits, Reports constipation, Denies dysphagia, Denies excessive flatus, Denies dyspepsia, Reports heartburn (Occasional), Denies diarrhea, Denies loose stools, Denies nausea, Denies odynophagia and Denies vomiting Reports no additional complaints Musc Reports no additional complaints Neuro Reports no additional complaints Psych Reports no additional complaints Endo Reports no additional complaints Physical Exam Vital Signs: Last Vital Signs Pulse 88 09/13/23 09:16 BP 157/75 H 09/13/23 09:16 BMI result Body Mass Index 31.9 Const General: healthy appearing and no acute distress Nutritional Appearance: obese Orientation/consciousness: patient oriented x3 Resp Effort & Inspection: normal respiratory effort, able to speak in complete sentences, no tracheal deviation and symmetric chest movement Auscultation: clear to auscultation bilaterally Cardio Rate: regular rate GI Inspection: Yes normal to inspection, No distended and Yes obesity Palpation (GI): Soft to palpation, not firm, nontender and No hepatosplenomegaly present Auscultation: normal bowel sounds General: Yes no CVA tenderness Back/Spine/Pelvis Back: no CVA tenderness Skin General skin exam: elasticity normal, turgor normal and dry skin Neuro General: patient oriented x3 Psych Appearance: grossly normal Mental Status: mental status grossly normal Assessment & Plan Assessment & Plan (1) Chronic GERD: Code(s): K21.9 - Gastro-esophageal reflux disease without esophagitis (2) Chronic constipation: Code(s): K59.09 - Other constipation (3) Abdominal pain: Code(s): R10.9 - Unspecified abdominal pain Qualifiers: Abdominal location: unspecified location Qualified Code(s): R10.9 - Unspecified abdominal pain Plan Left lower quadrant pain most likely related to gas trapping and constipation. Patient does have a day diverticulosis in sigmoid colon found on colonoscopy in 2017. Patient denies any melena, hematochezia, unintentional weight loss or ribbon like stools. Patient can start taking Linzess every morning. He will call the office if he will continue to have the pain. Patient was encouraged to avoid food like rice and beans that makes him even more constipated. He will return to the office in 5-6 weeks and bring all of his medications so we can go over what he takes. Continue pantoprazole every morning half an hour before breakfast. Patient is agreeable to this plan and verbalizes understanding of instructions. He was given the opportunity to ask questions and all questions answered. [facility] [place] radiology used during the visit Thank you for allowing me to participate in his care Medications: New linaclotide (Linzess) 145 mcg PO DAILY 30 caps 2RF Coding Level of Care Code Est Pt Level 4 (46727) Diagnoses Chronic GERD K21.9 Chronic constipation K59.09 Abdominal pain, unspecified abdominal location R10.9 Abdominal location: unspecified location Time Spent (min) 35 Comment 20 minutes spent with patient and additional 15 minutes spent reviewing his records
[2023-09-13 09:16] VITALS: BP 157/75; PULSE 88; BMI 31.9
== END 2023-09-13 09:38 | disposition home or self-care (01) ==
PROVIDERS: PCP Internal Medicine; Visit Provider Nurse Practitioner Family
DX: K21.9 Gastro-esophageal reflux disease without esophagitis (principal); K59.09 Other constipation; R10.9 Unspecified abdominal pain
CPT/HCPCS: 99214

== ENCOUNTER → 2023-09-13 09:09 | Outpatient (BNVA) | payer MEDICARE, MEDICAID, SELFPAY | PROVIDERS: PCP Internal Medicine; Visit Provider Nurse Practitioner Family | DX: K59.09 Other constipation (principal); R10.9 Unspecified abdominal pain; R14.0 Abdominal distension (gaseous); K21.9 Gastro-esophageal reflux disease without esophagitis | CPT/HCPCS: 99212 ==

== ENCOUNTER 2023-09-18 10:01 | Outpatient (AMB) | payer MEDICARE, MEDICAID, SELFPAY ==
--- NOTE | 2023-09-18 10:26 | MHC.OFFVISCO ---
Intake Intake Visit Reasons: Anticoagulation Allergies No Known Allergies [No Known Allergies*] Allergy (Verified 09/18/23 10:20) Medication List - Last Reconciled 09/18/23 by Angela Hernadez RN acetaminophen (Tylenol) 325 mg PO Q4H PRN CPAP As directed digoxin 125 mcg PO DAILY 90 days diltiazem HCl 360 mg PO DAILY docusate sodium 200 mg (2 x 100 mg) PO BEDTIME PRN furosemide 40 mg PO DAILY lidocaine 5% 1 patch topical DAILY PRN linaclotide (Linzess) 145 mcg PO DAILY lisinopril 40 mg PO DAILY 90 days metoprolol succinate ER 100 mg PO DAILY miscellaneous medical supply 1 ea miscellaneous DAILY pantoprazole 40 mg PO DAILY 90 days polyethylene glycol 3350 (Miralax) 17 grams PO DAILY pravastatin 20 mg PO BEDTIME 90 days ropinirole 2 mg PO BEDTIME 90 days [shoe lift Lt 1/2 inch heel lift] Shower Chair As directed tramadol 50 mg PO Q8H PRN 30 days warfarin 5 mg See Protocol PO DAILY Nursing Note INR: 2.0- in therapeutic range of 2-3 Medications and supplements reviewed- new med linzess- no interaction per micromedex No changes in health, diet, medications, or supplements, Denies any signs and symptoms of bleeding or bruising or clotting. Bleeding, bruising, clotting discussed Nutritional guidance given - no greens for 2 days, eat reds to raise Dose: 2.5mg x 3, 5mg x 4 F/U INR: 3 weeks Patient verbalizes understanding of instructions given resident program specialist present for visit Anti-Coag Initial Assessment Social Hx Patient Tobacco Use Status: Never used Tobacco alcohol intake: current Alcohol intake frequency: holidays/special occasions only Coding Level of Care Code Est Patient Level 1 Diagnoses Current use of anticoagulant therapy Z79.01 Assessment & Plan Assessment & Plan (1) Current use of anticoagulant therapy: Code(s): 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
[2023-09-18 10:27] LABS: Prothrombin Time Whole Bld POC 24.4 sec (11.1-13.5)
== END 2023-09-18 10:31 | disposition home or self-care (01) ==
LOC: HO.ACS 10:01
PROVIDERS: PCP Internal Medicine; Visit Provider Internal Medicine
DX: Z79.01 Long term (current) use of anticoagulants (principal)

== ENCOUNTER → 2023-09-18 10:01 | Outpatient (BNVA) | payer MEDICARE, MEDICAID, SELFPAY | PROVIDERS: PCP Internal Medicine; Visit Provider Internal Medicine | DX: I48.20 Chronic atrial fibrillation, unspecified (principal); Z51.81 Encounter for therapeutic drug level monitoring; Z79.01 Long term (current) use of anticoagulants | CPT/HCPCS: 85610; 99211 ==

== ENCOUNTER → 2023-10-06 23:59 | Outpatient (BNV) | payer OTHER, MEDICAID, SELFPAY ==
--- NOTE | 2023-10-22 13:55 | A.OFFVIS_ITS ---
Intake Visit Reasons: Remote device check- [place] Allergies No Known Allergies [No Known Allergies*] Allergy (Verified 10/18/23 11:42) PFSH Medical History Restless leg syndrome Chronic constipation Chronic GERD History of pacemaker Obesity (BMI 30-39.9) Vitamin D deficiency Pure hypercholesterolemia Leg length discrepancy Pacemaker Abnormal finding of foot Right shoulder pain MELANIE on CPAP Chest pain Trigger finger Bilateral sciatica Polyarthralgia Chronic heart failure with preserved ejection fraction (HFpEF) Persistent atrial fibrillation Obesity (BMI 30.0-34.9) Surgical History Hx of colonoscopy History of ear surgery History of cholecystectomy Family History Father Myocardial infarction CVD (cardiovascular disease) Mother No problems noted. Sister Stomach cancer Son No problems noted. Son No problems noted. Daughter No problems noted. Daughter No problems noted. Brother No problems noted. Brother No problems noted. 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 Overall normal device function. [id number] Cardiac Device Interrogation, pacemaker Procedure code (CPT) selection complete Assessment & Plan Assessment & Plan (1) Persistent atrial fibrillation: Code(s): I48.19 - Other persistent atrial fibrillation Category: Medical Plan x Coding Level of Care Code Procedure Only Diagnoses Persistent atrial fibrillation I48.19 CPT Codes Cardiac Device Check - Cardiac Device 12: [id number] Cardiac Device Interro gation, pacemaker ([id number])
== END ==
PROVIDERS: PCP Internal Medicine; Visit Provider Internal Medicine
DX: I48.19 Other persistent atrial fibrillation (principal); Z95.0 Presence of cardiac pacemaker
CPT/HCPCS: 93294

== ENCOUNTER 2023-10-09 10:27 | Outpatient (AMB) | payer MEDICARE, MEDICAID, SELFPAY ==
--- NOTE | 2023-10-09 10:59 | MHC.OFFVISCO ---
Intake Intake Visit Reasons: Anticoagulation Allergies No Known Allergies [No Known Allergies*] Allergy (Verified 10/09/23 10:55) Medication List - Last Reconciled 10/09/23 by Angela Hernadez RN acetaminophen (Tylenol) 325 mg PO Q4H PRN CPAP As directed digoxin 125 mcg PO DAILY 90 days diltiazem HCl CD 360 mg PO DAILY docusate sodium 200 mg (2 x 100 mg) PO BEDTIME PRN furosemide 40 mg PO DAILY lidocaine 5% 1 patch topical DAILY PRN linaclotide (Linzess) 145 mcg PO DAILY lisinopril 40 mg PO DAILY 90 days metoprolol succinate ER 100 mg PO DAILY miscellaneous medical supply 1 ea miscellaneous DAILY pantoprazole 40 mg PO DAILY 90 days polyethylene glycol 3350 (Miralax) 17 grams PO DAILY pravastatin 20 mg PO BEDTIME 90 days ropinirole 2 mg PO BEDTIME 90 days [shoe lift Lt 1/2 inch heel lift] Shower Chair As directed tramadol 50 mg PO Q8H PRN 30 days warfarin 5 mg See Protocol PO DAILY Nursing Note INR: 2.9-in therapeutic range of 2-3 Medications and supplements reviewed No changes in health, diet, medications, or supplements, Denies any signs and symptoms of bleeding or bruising or clotting. Bleeding, bruising, clotting discussed Nutritional guidance given Dose: 2.5mg x 3, 5mg x 4 F/U INR: 4 weeks Patient verbalizes understanding of instructions given Anti-Coag Initial Assessment Social Hx Patient Tobacco Use Status: Never used Tobacco alcohol intake: current Alcohol intake frequency: holidays/special occasions only Coding Level of Care Code Est Patient Level 1 Diagnoses Current use of anticoagulant therapy Z79.01 Results AMB INR Fingerstick AMB INR Fingerstick 2.9 Last Edit by Angela Hernadez RN on 10/09/23 11:00 Assessment & Plan Assessment & Plan (1) Current use of anticoagulant therapy: Code(s): 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
[2023-10-09 11:00] LABS: Prothrombin Time Whole Bld POC 35.4 sec (11.1-13.5); ~PT, ~INR - Anti Coag Clinic 2.9 (0.9-1.1)
== END 2023-10-09 11:04 | disposition home or self-care (01) ==
LOC: HO.ACS 10:27
PROVIDERS: PCP Internal Medicine; Visit Provider Internal Medicine
DX: Z79.01 Long term (current) use of anticoagulants (principal)

== ENCOUNTER → 2023-10-09 10:27 | Outpatient (BNVA) | payer MEDICARE, MEDICAID, SELFPAY | PROVIDERS: PCP Internal Medicine; Visit Provider Internal Medicine | DX: I48.20 Chronic atrial fibrillation, unspecified (principal); Z51.81 Encounter for therapeutic drug level monitoring; Z79.01 Long term (current) use of anticoagulants | CPT/HCPCS: 85610; 99211 ==

== ENCOUNTER 2023-10-14 14:25 | Outpatient (AMB) | payer MEDICARE, MEDICAID, SELFPAY ==
--- NOTE | 2023-10-14 14:29 | MHC.PC.OV ---
Vital Signs 10/14/23 14:31 Height 5 ft 3 in Weight 184 lb 8 oz BMI 32.7 BP 110/68 Blood Pressure Location Lt brachial Position Sitting Pulse 60 Pulse Source Pulse Oximeter Pulse Oximetry (%) 98 Oxygen Delivery Method Room Air Intake Visit Reasons: 4 MONTH F/U Intake Note: Patient is here to follow up on CHF, PAfib, Polyarthralgia, Dyslipidemia. Publication Specialist Required: Yes Publication Specialist Language: Paper Bag Maker Name: Azar ([id number]) Information Interpreted: non-clinical & clinical Coat Room Attendant: Not Required per policy Accompanied by: Self / Same As Patient Allergies No Known Allergies [No Known Allergies*] Allergy (Verified 10/14/23 15:04) Medication List - Last Reconciled 10/14/23 by Reji Meyers MD acetaminophen (Tylenol) 325 mg PO Q4H PRN CPAP As directed digoxin 125 mcg PO DAILY 90 days diltiazem HCl CD 360 mg PO DAILY docusate sodium 200 mg (2 x 100 mg) PO BEDTIME PRN furosemide 40 mg PO DAILY lidocaine 5% 1 patch topical DAILY PRN linaclotide (Linzess) 145 mcg PO DAILY lisinopril 40 mg PO DAILY 90 days metoprolol succinate ER 100 mg PO DAILY miscellaneous medical supply 1 ea miscellaneous DAILY pantoprazole 40 mg PO DAILY 90 days polyethylene glycol 3350 (Miralax) 17 grams PO DAILY pravastatin 20 mg PO BEDTIME 90 days ropinirole 2 mg PO BEDTIME 90 days [shoe lift Lt 1/2 inch heel lift] Shower Chair As directed tramadol 50 mg PO Q8H PRN 30 days warfarin 5 mg See Protocol PO DAILY Tobacco use date assessed: 10/14/23 Fall risk assessment: No Falls in past year Last assessed Fall Risk: 10/14/23 Dental Screening Dental Screen Date: 10/14/23 Did you have a dental visit in the last 12 months?: Yes Did you have a dental problem in the last 6 months where you did not have access to dental care?: No Was dental information given to patient?: Patient has dentist HPI 4 MONTH F/U HPI Details Patient comes in today for his follow up visit States that he feels okay He denies any headaches or dizziness Denies any chest pains, no shortness of breath Has not had any nausea /vomiting, no abdominal pain lately - symptoms appear to have improved a lot when he was started on Linzess by GI and his bowel movements started getting more regular He was not able to get his follow up labs done prior to coming in today - states that he will try to get them done early tomorrow morning [facility] Medical History Restless leg syndrome Chronic constipation Chronic GERD History of pacemaker Obesity (BMI 30-39.9) Vitamin D deficiency Pure hypercholesterolemia Leg length discrepancy Pacemaker Abnormal finding of foot Right shoulder pain MELANIE on CPAP Chest pain Trigger finger Bilateral sciatica Polyarthralgia Chronic heart failure with preserved ejection fraction (HFpEF) Persistent atrial fibrillation Obesity (BMI 30.0-34.9) Surgical History Hx of colonoscopy History of ear surgery History of cholecystectomy Family History Father Myocardial infarction CVD (cardiovascular disease) Mother No problems noted. Sister Stomach cancer Son No problems noted. Son No problems noted. Daughter No problems noted. Daughter No problems noted. Brother No problems noted. Brother No problems noted. Social History Household Members: Children Housing: House Alcohol intake: current Alcohol intake frequency: holidays/special occasions only Alcohol type: beer Patient Tobacco Use Status: Never used Tobacco e-Cigarette/Vaping Use: Never Used Second Hand Smoke Exposure: No service: No Current occupational status: disabled Cognitive needs: Yes (cane) Hearing needs: No Vision needs: Yes (glasses) Questionnaire PHQ-9 Over the last 2 weeks, how often have you been bothered by any of the following problems? 1. Little interest or pleasure in doing things: not at all 2. Feeling down, depressed, or hopeless: not at all 3. Trouble falling or staying asleep, or sleeping too much: not at all 4. Feeling tired or having little energy: not at all 5. Poor appetite or overeating: not at all 6. Feeling bad about yourself - or that you are a failure or have let yourself or your family down: not at all 7. Trouble concentrating on things, such as reading the newspaper or watching television: not at all 8. Moving or speaking so slowly that other people could have noticed. Or the opposite - being so fidgety or restless that you have been moving around a lot more than usual: not at all 9. Thoughts that you would be better off or of hurting yourself in some way: not at all Total score: 0 Depression Screening Interpretation: Negative Depression Screening Done: Yes 02451 - PHQ-9 Billing: Yes Source: Developed by Drs. Srinivasa Arauz, Sol Duron, Denis Hernandez and colleagues, with an educational lorenza from [employer]. Thrive Questionnaire Date Thrive assessed: 10/14/23 I am a: Patient What is your living situation today?: I have a steady place to live Within the past 12 months, did the food you bought not last and you didn't have the money to get more?: Never true Within the past 12 months, did you worry whether your food would run out before you got money to buy more?: Never true Do you have trouble paying for medicines?: No Do you have trouble getting transportation to medical appointments?: No Do you have trouble paying your heating and electricity bill?: No Do you have trouble taking care of your child, family member or friend?: No Do you have trouble with day-to-day activities such as bathing, preparing meals, shopping, managing finances, etc.?: No Are you currently unemployed and looking for a job?: No Are you interested in more education?: No Currently or been in a relationship where the following occur: no concerns reported THRIVE Score: 0 AUDIT C Alcohol Use Questionnaire (AUDIT-C) 1. How often do you have a drink containing alcohol?: Monthly or less 2. How many drinks containing alcohol do you have on a typical day when you are drinking?: 1 or 2 3. How often do you have six or more drinks on one occasion?: Never Total Score: 1 Score Reviewed/Action Taken: Yes THERESA-7 AMB Questionnaire THERESA-7 Date THERESA - 7 assessed: 10/14/23 Feeling nervous, anxious, or on edge: 0 = Not at all Not being able to stop or control worryin = Not at all Worrying too much about different things: 0 = Not at all Trouble relaxin = Not at all Being so restless that it is hard to sit still: 0 = Not at all Becoming easily annoyed or irritable: 0 = Not at all Feeling afraid as if something awful might happen: 0 = Not at all Total THERESA-7 score (0-4 normal; 5-9 mild; 10-14 moderate; 15-21 severe): 0 Source: Developed by Drs. Srinivasa Arauz, Sol Duron, Denis Hernandez and colleagues, with an educational lorenza from [employer]. Review of Systems Const Denies chills, Denies fatigue, Denies fever(s) and Denies headache(s) ENT Denies dysphagia, Denies dizziness, Denies otalgia, Denies headache(s), Denies neck pain, Denies odynophagia and Denies sore throat Card Denies chest pain, Denies palpitations and Denies dyspnea Resp Denies cough and Denies dyspnea GI Denies abdominal pain, Reports constipation (better with Rx), Denies dysphagia, Denies heartburn, Denies diarrhea, Denies nausea, Denies odynophagia and Denies vomiting Denies dysuria, Denies nocturia and Denies urinary frequency Musc Reports back pain (over the lower back), Reports arthralgias (involving multiple joints) and Denies neck pain Skin/Breast Denies rash Neuro Denies dizziness and Denies headache(s) Endo Denies fatigue and Denies palpitations Physical exam (Primary Care) Vital Signs: Last Vital Signs Pulse 60 10/14/23 14:31 BP 110/68 10/14/23 14:31 Pulse Ox 98 10/14/23 14:31 Oxygen Delivery Method Room Air 10/14/23 14:31 BMI result Body Mass Index 32.7 Tobacco/Smoking Status: Tobacco use Status Tobacco use date assessed 10/14/23 10/14/23 14:39 Patient Tobacco Use Status Never used Tobacco 10/14/23 14:39 e-Cigarette/Vaping Use Never Used 10/14/23 14:39 PHQ-9: PHQ-9 Score PHQ-9: Total score 0 10/14/23 15:12 Depression Screening Interpretation: Negative Thrive Assessment: Date of Thrive Assessment Date Thrive assessed 10/14/23 10/14/23 14:39 Currently or been in a relationship where the following occur: no concerns reported Const General: no acute distress and alert HENMT Ears: TM's normal bilaterally and EAC's normal Throat: Yes posterior oropharynx normal and Yes tonsils normal (no TP congestion) Neck Neck: Yes no lymphadenopathy and Yes supple Thyroid: Thyroid normal Resp Auscultation: clear to auscultation bilaterally, no rales and no wheezes Cardio Rate: regular rate Rhythm: abnormal rhythm irregularly irregular Heart sounds: no murmurs GI Palpation (GI): Soft to palpation and nontender Auscultation: normal bowel sounds General: Yes no CVA tenderness Back/Spine/Pelvis Back: no CVA tenderness Thoracic/Lumbar Spine: lumbar spinal tenderness (chronic) Skin Rashes: no rashes Extrem General: Yes no clubbing, cyanosis or edema Assessment and Plan Assessment & Plan (1) Chronic heart failure with preserved ejection fraction (HFpEF): Code(s): I50.32 - Chronic diastolic (congestive) heart failure Plan: Echoardiogram done in June 2022 revealed normal LV systolic function with normal diastolic filling pattern, normal cardiac valvular doppler, normal RV systolic pressure and no gross pericardial effusion Continue Furosemide 40 mg QD, Lisinopril 40 mg QD and Metoprolol ER 100 mg QD Follow up with cardiology as scheduled (2) Persistent atrial fibrillation: Code(s): I48.19 - Other persistent atrial fibrillation Plan: Continue Coumadin 5 mg daily for lifelong anticoagulation Continue Metoprolol ER 100 mg QD, Diltiazem 360 mg QD and Digoxin 0.125 mg QD (3) Pure hypercholesterolemia: Code(s): E78.00 - Pure hypercholesterolemia, unspecified Plan: He was not able to get his follow up labs done prior to his visit today - states that he will try to get these done DAYAN Reinforced low cholesterol diet Continue Pravastatin 20 mg QD Will recheck his labs and fasting lipids in 4 months for follow up (4) MELANIE on CPAP: Comment: THIS PATIENT HAS KNOWN DIAGNOSIS OF OBSTRUCTIVE SLEEP APNEA, BEING TREATED WITH CPAP AND HE REMAINS VERY COMPLIANT. NO ISSUES RELATED TO THE MASK OR CPAP DEVICE EXCEPT FOR SOME TIGHT FEELING AND DID THE STRAPS. THERE IS EVIDENCE OF SOME AIR LEAK.. Code(s): G47.33 - Obstructive sleep apnea (adult) (pediatric); Z99.89 - Dependence on other enabling machines and devices Plan: Continue using his CPAP device when sleeping at night daily Follow up with Sleep Medicine as scheduled (5) Vitamin D deficiency: Code(s): E55.9 - Vitamin D deficiency, unspecified Plan: Will recheck his Vitamin D level DAYAN for follow up (6) Polyarthralgia: Code(s): M25.50 - Pain in unspecified joint Plan: Continue Tramadol 50 mg TID PRN for pain Follow up with rheumatology and orthopedics as scheduled (7) Chronic GERD: Code(s): K21.9 - Gastro-esophageal reflux disease without esophagitis Plan: Dietary restrictions reinforced Continue Pantoprazole 40 mg QD (8) Chronic constipation: Code(s): K59.09 - Other constipation Plan: Discussed that this is likely the reason for his previous and recurrent abdominal pain and bloating Reinforced increased oral fluids and dietary fiber States that his symptoms have improved a lot since he was started on Linzess 145 mcg QD by GI Continue Miralax 17 gm QD and Docusate 100 mg 2 tablets Q HS PRN Follow up with GI as scheduled (9) Restless leg syndrome: Code(s): G25.81 - Restless legs syndrome Plan: Continue Ropinirole 2 mg Q HS (10) Obesity (BMI 30-39.9): Comment: HE IS ONLY MODERATELY ,OBESE WEIGHT HAS REMAINED STABL.E Code(s): E66.9 - Obesity, unspecified Plan: Reinforced diet/exercise as tolerated/lose weight Plan Follow up in 4 months Orders: Orders Complete Blood Count Auto Diff 4 Months D64.9 - Anemia, unspecified Comprehensive [place]. Panel Fast 4 Months E78.00 - Pure hypercholesterolemia, unspecified TSH reflex Free T4 4 Months E78.00 - Pure hypercholesterolemia, unspecified UA CC w/rflx Micro + Cult 4 Months R30.0 - Dysuria Lipid Panel 4 Months E78.00 - Pure hypercholesterolemia, unspecified Digoxin 4 Months I50.20 - Unspecified systolic (congestive) heart failure Vitamin D 25-OH Total 4 Months E55.9 - Vitamin D deficiency, unspecified Coding Level of Care Code Est Pt Level 4 (74410) Diagnoses Chronic heart failure with preserved ejection fraction (HFpEF) I50.32 Persistent atrial fibrillation I48.19 Pure hypercholesterolemia E78.00 MELANIE on CPAP G47.33; Z99.89 Vitamin D deficiency E55.9 Polyarthralgia M25.50 Chronic GERD K21.9 Chronic constipation K59.09 Restless leg syndrome G25.81 Obesity (BMI 30-39.9) E66.9
[2023-10-14 14:31] VITALS: BP 110/68; PULSE 60; O2SAT 98; BMI 32.7
== END 2023-10-14 15:09 | disposition home or self-care (01) ==
PROVIDERS: PCP Internal Medicine; Visit Provider Internal Medicine
DX: I50.32 Chronic diastolic (congestive) heart failure (principal); I48.19 Other persistent atrial fibrillation; E66.9 Obesity, unspecified; Z68.32 Body mass index [BMI] 32.0-32.9, adult; E78.00 Pure hypercholesterolemia, unspecified; G47.33 Obstructive sleep apnea (adult) (pediatric); Z99.89 Dependence on other enabling machines and devices; E55.9 Vitamin D deficiency, unspecified; M25.50 Pain in unspecified joint; K21.9 Gastro-esophageal reflux disease without esophagitis; K59.09 Other constipation; G25.81 Restless legs syndrome
CPT/HCPCS: 99214

== ENCOUNTER 2023-10-15 09:49 | Outpatient (REF) | payer MEDICARE, MEDICAID, SELFPAY ==
[2023-10-15 11:36] LABS: Alanine Aminotransferase 18 U/L (0-40); Albumin Level 3.7 g/dL (3.5-5.0); Alkaline Phosphatase 99 U/L (39-117); Anion Gap 13 (12-20); Aspartate Amino Transferase 22 U/L (5-37); Bilirubin Total 1.3 mg/dL (0.0-1.0); Blood Urea Nitrogen 13 mg/dL (9-16); Carbon Dioxide 27 mmol/L (22-29); Chloride 103 mmol/L (96-108); Cholesterol 170 mg/dL (<200); Estimated Glomerular Filt Rate > 60; Glucose Fasting 111 mg/dL (60-99); HDL Cholesterol 49 mg/dL (>40); LDL Cholesterol Calculated 99 mg/dL (<100); Sodium 139 mmol/L (135-145); Total Protein 8.4 g/dL (6.5-8.0); Triglycerides 111 mg/dL (<150)
== END 2023-10-15 09:50 | disposition home or self-care (01) ==
LOC: HO.LAB 09:49
PROVIDERS: PCP Internal Medicine; Visit Provider Internal Medicine
DX: E78.00 Pure hypercholesterolemia, unspecified (principal)
CPT/HCPCS: 36415; 80053; 80061

== ENCOUNTER 2023-10-18 11:29 | Outpatient (AMB) | payer OTHER, MEDICAID, SELFPAY ==
[2023-10-18 11:38] VITALS: BP 129/65; PULSE 71; BMI 32.8
--- NOTE | 2023-10-18 11:38 | MHC.OFFVIS ---
Vital Signs 10/18/23 11:38 Height 5 ft 3 in Weight 185 lb BMI 32.8 BP 129/65 Blood Pressure Location Lt brachial Position Sitting Pulse 71 Intake Visit Reasons: 5 week follow up Intake Note: Pt here for 5 wk follow up Lavatory Attendant Required: No Accompanied by: CARE NAVIGATOR Allergies No Known Allergies [No Known Allergies*] Allergy (Verified 10/18/23 11:42) HPI HPI 5 week follow up: Details: LAST VISIT Chronic GERD Chronic constipation Abdominal pain Plan Left lower quadrant pain most likely related to gas trapping and constipation. Patient does have diverticulosis in sigmoid colon found on colonoscopy in 2017. Patient denies any melena, hematochezia, unintentional weight loss or ribbon like stools. Patient can start taking Linzess every morning. He will call the office if he will continue to have the pain. Patient was encouraged to avoid food like rice and beans that makes him even more constipated. He will return to the office in 5-6 weeks and bring all of his medications so we can go over what he takes. Continue pantoprazole every morning half an hour before breakfast. Patient is agreeable to this plan and verbalizes understanding of instructions. He was given the opportunity to ask questions and all questions answered. [facility] medical dosimetrist used during the visit ? Thank you for allowing me to participate in his care Medications New linaclotide (Linzess) 145 mcg PO DAILY 30 caps 2RF TODAY'S VISIT Patient is here today for follow-up. Patient reports that he has been feeling well since the last time I have seen him. Patient states that he is taking Linzess every morning and is able to move his bowels daily, occasional constipation but for the most part states that Linzess has been working for him. Patient also takes his pantoprazole every morning and his symptoms of acid reflux are suppressed for the most part. Patient is trying to stay away from food that is spicy, greasy or fried. Denies dyspepsia, dysphagia or odynophagia. Denies any melena, hematochezia, unintentional weight loss or ribbon like stools. [facility] Medical History Restless leg syndrome Chronic constipation Chronic GERD History of pacemaker Obesity (BMI 30-39.9) Vitamin D deficiency Pure hypercholesterolemia Leg length discrepancy Pacemaker Abnormal finding of foot Right shoulder pain MELANIE on CPAP Chest pain Trigger finger Bilateral sciatica Polyarthralgia Chronic heart failure with preserved ejection fraction (HFpEF) Persistent atrial fibrillation Obesity (BMI 30.0-34.9) Surgical History Hx of colonoscopy History of ear surgery History of cholecystectomy Family History Father Myocardial infarction CVD (cardiovascular disease) Mother No problems noted. Sister Stomach cancer Son No problems noted. Son No problems noted. Daughter No problems noted. Daughter No problems noted. Brother No problems noted. Brother No problems noted. Social History Household Members: Children Housing: House Alcohol intake: current Alcohol intake frequency: holidays/special occasions only Alcohol type: beer Patient Tobacco Use Status: Never used Tobacco e-Cigarette/Vaping Use: Never Used Second Hand Smoke Exposure: No service: No Current occupational status: disabled Cognitive needs: Yes (cane) Hearing needs: No Vision needs: Yes (glasses) Review of Systems Const Denies weight gain and Denies weight loss ENT Reports no additional complaints, Denies dysphagia and Denies odynophagia Card Reports no additional complaints Resp Reports no additional complaints GI Denies abdominal pain, Denies belching, Denies melena, Denies bloating, Denies change in bowel habits, Reports constipation (improved), Denies dysphagia, Denies excessive flatus, Denies dyspepsia, Denies heartburn, Denies diarrhea, Denies loose stools, Denies nausea, Denies odynophagia and Denies vomiting Reports no additional complaints Musc Reports no additional complaints Neuro Reports no additional complaints Psych Reports no additional complaints Endo Reports no additional complaints Physical Exam Vital Signs: Last Vital Signs Pulse 71 10/18/23 11:38 BP 129/65 10/18/23 11:38 BMI result Body Mass Index 32.8 Const General: healthy appearing and no acute distress Nutritional Appearance: obese Orientation/consciousness: patient oriented x3 Resp Effort & Inspection: normal respiratory effort, able to speak in complete sentences, no tracheal deviation and symmetric chest movement Auscultation: clear to auscultation bilaterally Cardio Rate: regular rate GI Inspection: Yes normal to inspection, No distended and Yes obesity Palpation (GI): Soft to palpation, not firm, nontender and No hepatosplenomegaly present Auscultation: normal bowel sounds General: Yes no CVA tenderness Back/Spine/Pelvis Back: no CVA tenderness Skin General skin exam: elasticity normal, turgor normal and dry skin Neuro General: patient oriented x3 Psych Appearance: grossly normal Mental Status: mental status grossly normal Assessment & Plan Assessment & Plan (1) Chronic GERD: Code(s): K21.9 - Gastro-esophageal reflux disease without esophagitis Category: Medical (2) Chronic constipation: Code(s): K59.09 - Other constipation Category: Medical (3) Abdominal pain: Code(s): R10.9 - Unspecified abdominal pain Category: Medical Qualifiers: Abdominal location: unspecified location Qualified Code(s): R10.9 - Unspecified abdominal pain Plan Patient will continue taking Linzess daily. Patient was encouraged to increase fluid intake and activity to promote better bowel motility. Patient was encouraged to take pantoprazole every morning half an hour before breakfast. Avoid dietary triggers and late night snacking. Staying upright for minimum 3 hours after meals discussed with patient. Patient will return in 6 months to discuss going for colonoscopy and upper endoscopy. He is agreeable to this plan and verbalizes understanding of instructions. He was given the opportunity to ask questions and all questions answered. Thank you for allowing me to participate in his care Medications: Refilled linaclotide (Linzess) 145 mcg PO DAILY 90 caps 2RF Coding Level of Care Code Est Pt Level 3 (40765) Diagnoses Chronic GERD K21.9 Chronic constipation K59.09 Abdominal pain, unspecified abdominal location R10.9 Abdominal location: unspecified location Time Spent (min) 30 Comment 20 minutes spent with patient and additional 10 minutes spent reviewing his records
== END 2023-10-18 13:25 | disposition home or self-care (01) ==
PROVIDERS: PCP Internal Medicine; Visit Provider Nurse Practitioner Family
DX: K21.9 Gastro-esophageal reflux disease without esophagitis (principal); K59.09 Other constipation; R10.9 Unspecified abdominal pain
CPT/HCPCS: 99213

== ENCOUNTER → 2023-10-18 11:29 | Outpatient (BNVA) | payer OTHER, SELFPAY | PROVIDERS: PCP Internal Medicine; Visit Provider Nurse Practitioner Family | DX: K21.9 Gastro-esophageal reflux disease without esophagitis (principal); K59.09 Other constipation; R10.9 Unspecified abdominal pain; Z79.899 Other long term (current) drug therapy | CPT/HCPCS: 99212 ==

== ENCOUNTER 2023-11-06 10:38 | Outpatient (AMB) | payer MEDICARE, MEDICAID, SELFPAY ==
[2023-11-06 10:44] LABS: Prothrombin Time Whole Bld POC 39.5 sec (11.1-13.5); ~PT, ~INR - Anti Coag Clinic 3.3 (0.9-1.1)
--- NOTE | 2023-11-06 10:48 | MHC.OFFVISCO ---
Intake Intake Visit Reasons: Anticoagulation Allergies No Known Allergies [No Known Allergies*] Allergy (Verified 11/06/23 10:39) Medication List - Last Reconciled 11/06/23 by Nena Wu RN acetaminophen (Tylenol) 325 mg PO Q4H PRN CPAP As directed digoxin 125 mcg PO DAILY 90 days diltiazem HCl CD 360 mg PO DAILY docusate sodium 200 mg (2 x 100 mg) PO BEDTIME PRN furosemide 40 mg PO DAILY lidocaine 5% 1 patch topical DAILY PRN linaclotide (Linzess) 145 mcg PO DAILY lisinopril 40 mg PO DAILY 90 days metoprolol succinate ER 100 mg PO DAILY miscellaneous medical supply 1 ea miscellaneous DAILY pantoprazole 40 mg PO DAILY 90 days polyethylene glycol 3350 (Miralax) 17 grams PO DAILY pravastatin 20 mg PO BEDTIME 90 days ropinirole 2 mg PO BEDTIME 90 days [shoe lift Lt 1/2 inch heel lift] Shower Chair As directed tramadol 50 mg PO Q8H PRN 30 days warfarin 5 mg See Protocol PO DAILY Nursing Note NO CP,SOB,DIET/MED CHANGES,FALLS OR SX OF BLEEDING. DECREASE DOSE SLIGHTLY TODAY ONLY THEN RESUME USUAL DOSING AND FOLLOW-UP IN 4 WEEKS. GOOD UNDERSTANDING OF DOSING INSTR. 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
== END 2023-11-06 10:50 | disposition home or self-care (01) ==
LOC: HO.ACS 10:38
PROVIDERS: PCP Internal Medicine; Visit Provider Internal Medicine
DX: Z79.01 Long term (current) use of anticoagulants (principal)

== ENCOUNTER → 2023-11-06 10:38 | Outpatient (BNVA) | payer OTHER, SELFPAY | PROVIDERS: PCP Internal Medicine; Visit Provider Internal Medicine | DX: I48.20 Chronic atrial fibrillation, unspecified (principal); Z79.01 Long term (current) use of anticoagulants; Z51.81 Encounter for therapeutic drug level monitoring | CPT/HCPCS: 85610; 99211 ==

== ENCOUNTER 2023-11-26 10:28 | Outpatient (AMB) | payer OTHER, SELFPAY ==
[2023-11-26 10:44] LABS: Prothrombin Time Whole Bld POC 29.5 sec (11.1-13.5); ~PT, ~INR - Anti Coag Clinic 2.5 (0.9-1.1)
--- NOTE | 2023-11-26 10:47 | MHC.OFFVISCO ---
Intake Intake Visit Reasons: Anticoagulation Allergies No Known Allergies [No Known Allergies*] Allergy (Verified 11/26/23 10:37) Medication List - Last Reconciled 11/26/23 by Nell Smith RN acetaminophen (Tylenol) 325 mg PO Q4H PRN CPAP As directed digoxin 125 mcg PO DAILY 90 days diltiazem HCl CD 360 mg PO DAILY docusate sodium 200 mg (2 x 100 mg) PO BEDTIME PRN furosemide 40 mg PO DAILY lidocaine 5% 1 patch topical DAILY PRN linaclotide (Linzess) 145 mcg PO DAILY lisinopril 40 mg PO DAILY 90 days metoprolol succinate ER 100 mg PO DAILY miscellaneous medical supply 1 ea miscellaneous DAILY pantoprazole 40 mg PO DAILY 90 days polyethylene glycol 3350 (Miralax) 17 grams PO DAILY pravastatin 20 mg PO BEDTIME 90 days ropinirole 2 mg PO BEDTIME 90 days [shoe lift Lt 1/2 inch heel lift] Shower Chair As directed tramadol 50 mg PO Q8H PRN 30 days warfarin 5 mg See Protocol PO DAILY Nursing Note INR: 2.5 in therapeutic range of 2-3 Medications and supplements reviewed No changes in health, diet, medications, or supplements, Denies any signs and symptoms of bleeding or bruising or clotting. Bleeding, bruising, clotting discussed Nutritional guidance given -to cont to balance reds and greens Dose: 2.5mg X 3 days and 5mg X 5 days F/U INR: 4 weeks Patient verbalizes understanding of instructions given Anti-Coag Initial Assessment Social Hx Patient Tobacco Use Status: Never used Tobacco alcohol intake: current Alcohol intake frequency: holidays/special occasions only Coding Level of Care Code Est Patient Level 1 Diagnoses Current use of anticoagulant therapy Z79.01 Assessment & Plan Assessment & Plan (1) Current use of anticoagulant therapy: Code(s): Z79.01 - watermaster (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
== END 2023-11-26 10:50 | disposition home or self-care (01) ==
LOC: HO.ACS 10:28
PROVIDERS: PCP Internal Medicine; Visit Provider Internal Medicine
DX: Z79.01 Long term (current) use of anticoagulants (principal)

== ENCOUNTER → 2023-11-26 10:28 | Outpatient (BNVA) | payer OTHER, SELFPAY | PROVIDERS: PCP Internal Medicine; Visit Provider Internal Medicine | DX: I48.20 Chronic atrial fibrillation, unspecified (principal); Z79.01 Long term (current) use of anticoagulants; Z51.81 Encounter for therapeutic drug level monitoring | CPT/HCPCS: 85610; 99211 ==

== ENCOUNTER 2023-12-24 10:35 | Outpatient (AMB) | payer OTHER, SELFPAY ==
--- NOTE | 2023-12-24 10:59 | MHC.OFFVISCO ---
Intake Intake Visit Reasons: Anticoagulation Allergies No Known Allergies [No Known Allergies*] Allergy (Verified 12/24/23 10:44) Medication List - Last Reconciled 12/24/23 by Shanice Skaggs RN acetaminophen (Tylenol) 325 mg PO Q4H PRN CPAP As directed digoxin 125 mcg PO DAILY 90 days diltiazem HCl CD 360 mg PO DAILY docusate sodium 200 mg (2 x 100 mg) PO BEDTIME PRN furosemide 40 mg PO DAILY lidocaine 5% 1 patch topical DAILY PRN linaclotide (Linzess) 145 mcg PO DAILY lisinopril 40 mg PO DAILY 90 days metoprolol succinate ER 100 mg PO DAILY miscellaneous medical supply 1 ea miscellaneous DAILY pantoprazole 40 mg PO DAILY 90 days polyethylene glycol 3350 (Miralax) 17 grams PO DAILY pravastatin 20 mg PO BEDTIME 90 days ropinirole 2 mg PO BEDTIME 90 days [shoe lift Lt 1/2 inch heel lift] Shower Chair As directed tramadol 50 mg PO Q8H PRN 30 days warfarin 5 mg See Protocol PO DAILY Nursing Note INR 3.6 out of therapeutic range Medications and supplements reviewed Patient status: Pt had beer over December 18, he also had melon and ifeoma Medications or supplements: no changes Diet: good mostly eat meat and rice and beans Denies any signs and symptoms of bleeding or clotting or unusual bruising Bleeding, bruising, clotting discussed Nutritional guidance given: eat oatmeal, kiwii and blueberries when having more foods that raise the INR Dose: hold today's dose then resume usual dose 2.5mg x 2 days/ 5mg x 5 days F/U INR Date: 3 weeks ?? Patient verbalizing understanding of instructions given. 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
[2023-12-24 11:11] LABS: Prothrombin Time Whole Bld POC 43.3 sec (11.1-13.5); ~PT, ~INR - Anti Coag Clinic 3.6 (0.9-1.1)
== END 2023-12-24 10:59 | disposition home or self-care (01) ==
LOC: HO.ACS 10:35
PROVIDERS: PCP Internal Medicine; Visit Provider Internal Medicine
DX: Z79.01 Long term (current) use of anticoagulants (principal)

== ENCOUNTER → 2023-12-24 10:35 | Outpatient (BNVA) | payer OTHER, SELFPAY | PROVIDERS: PCP Internal Medicine; Visit Provider Internal Medicine | DX: I48.20 Chronic atrial fibrillation, unspecified (principal); Z79.01 Long term (current) use of anticoagulants; Z51.81 Encounter for therapeutic drug level monitoring | CPT/HCPCS: 85610; 99211 ==

== ENCOUNTER → 2024-01-01 13:02 | Outpatient (REF) | payer OTHER, SELFPAY ==
--- NOTE | 2024-01-01 13:05 | CA_ITS ---
Transthoracic Echocardiogram Amended Patient (Last, First, Middle): Dwain Limon, Gender: Male Date of : 1955 Age: 68 Procedure Date: 01/01/2024 Procedure Type: Transthoracic Echocardiogram Location: OP Height: 160.02 cm Weight: 84.37 kg BSA: 1.88 m2 Heart Rate: bpm BP: 120 / 72 mmHg Form Tamping Machine Operator: TO Referring MD: Savanah Lee WELL SERVICE DERRICK WORKER-C Group Program Manager: Anjum Morejon MD Symptoms: I50.32 - Chronic diastolic (congestive) heart failure Study Quality: Adequate with contrast ECG Rhythm: Ventriculary paced rhythm with atrial fibrillation Conclusions: - 1. Normal LV ejection fraction 55-60% 2. Mildly dilated left atrium 3. Normal cardiac valvular Doppler 4. Normal RV systolic pressure with mildly elevated right atrial pressures 5. No gross pericardial effusion Findings Procedure Information Contrast agent, definity, is being given per protocol without apparent complications. Left Ventricle Normal left ventricular size, thickness, and systolic function. The visually estimated ejection fraction is between 55-60%. There is paradoxical septal motion consistent with a right ventricular pacemaker. Diastolic function is indeterminate on the basis of available data. Right Ventricle Normal right ventricular cavity size and systolic function. There is a pacemaker wire seen in the right ventricle. Atria The left atrium is mildly dilated. There is no evidence of interatrial shunt. The right atrium is likely dilated. A pacemaker wire is identified in the right atrium. Aortic Valve Normal aortic valve structure and function. There is no aortic valve stenosis. There is no aortic valve regurgitation. Mitral Valve There is mild anterior and posterior mitral leaflet thickening. There is trace mitral valve regurgitation. There is no mitral valve stenosis. Pulmonic Valve The pulmonic valve is likely normal. There is trace pulmonic valve regurgitation. Tricuspid Valve Normal tricuspid valve structure. There is mild tricuspid valve regurgitation. The right ventricular systolic pressure is normal. Mildly elevated right atrial pressure. There is no evidence of pulmonary hypertension. Great Vessels The pulmonary artery was not well visualized. There is no dilatation of the ascending aorta measuring 3.20 cm. Venous The inferior vena cava is mildly dilated and collapses greater than 50% with inspiration. Pericardium/Pleural There is no evidence of pericardial effusion. Prior Study Comparison Changes noted compared to prior study dated: 07/03/2022. patient noted to be in atrial fibrillation. Right atrial pressures are mildly elevated Measurements 2D Linear Measurements IVSd: 1.07 0.6-0.9/0.6-1.0 cm LVIDd: 4.46 3.9-5.3/4.2-5.9 cm LVIDd Index: 2.37 2.4-3.2/2.2-3.1 cm/m2 LVIDs: 2.70 2.0-3.6 cm LVPWd: 0.77 0.7-1.1 cm LA Diam: 3.50 2.7-3.8/3.0-4.0 cm LAIDs Index: 1.86 1.5-2.3 cm/m2 LV Mass: 167.91 67-162/88-224 g LV Mass Index: 89.31 43-95/49-115 g/m2 LVOT Diam: 2.00 3.0+(-)1.3 cm 2D Volumes LA Vol: 40.10 2D Systolic Function EF 4C: 56.30 >55% EF 2C: 61.40 >55% EF BiP: 58.20 >55% Mitral Valve MV Pk E: 0.88 MV Decel Time: 199.00 E'Lateral: 8.59 E'Medial: 5.84 E/E' Med: 15.10 E/E' Lat: 10.20 PHT: 58.00 MVA PHT: 3.79 Decel [place]: 4.60 Aortic Valve AoV Pk Berny: 1.17 AoV Pk Grad: 5.00 LVOT LVOT Pk Berny: 1.01 LVOT Mn Berny: 0.68 LVOT VTI: 0.20 LVOT Pk Grad: 4.00 LVOT Mn Grad: 2.00 LVOT Diam: 2.00 LVOT Area: 3.14 Diastolic Function MV Pk E: 0.88 E'Medial: 5.84 E/E' Med: 15.10 E' Laterial: 8.59 E/E' Lat: 10.20 Right Ventricle TAPSE (mm): 19.40 TVS' Berny: 12.20 Tricuspid Valve TR Pk Berny: 2.35 TR Pk Grad: 22.00 RA Press: 8.00 RVSP: 30.00 Great Vessels Aorta Sinus of Valsalva: 3.14 2.0-3.5 cm Ao Asc: 3.20 2.1-3.4 cm Updated in Other Vendor System with Status of Final Anjum Morejon MD electronically signed on 01/02/2024 5:08:50 PM with status of Final
== END ==
LOC: HO.CARD 13:02
PROVIDERS: Visit Provider Nurse Practitioner Family
DX: I50.32 Chronic diastolic (congestive) heart failure (principal)
CPT/HCPCS: 93306; Q9957

== ENCOUNTER → 2024-01-01 13:05 | Outpatient (BNV) | payer OTHER, SELFPAY | PROVIDERS: Visit Provider Internal Medicine Cardiovascular Disease | DX: I36.1 Nonrheumatic tricuspid (valve) insufficiency (principal); Z95.0 Presence of cardiac pacemaker | CPT/HCPCS: 93306 ==

== ENCOUNTER → 2024-01-05 23:59 | Outpatient (BNV) | payer OTHER, SELFPAY ==
--- NOTE | 2024-01-08 20:48 | A.OFFVIS_ITS ---
Intake Visit Reasons: Remote device check- [place] Allergies No Known Allergies [No Known Allergies*] Allergy (Verified 12/24/23 10:44) PFS Medical History Restless leg syndrome Chronic constipation Chronic GERD History of pacemaker Obesity (BMI 30-39.9) Vitamin D deficiency Pure hypercholesterolemia Leg length discrepancy Pacemaker Abnormal finding of foot Right shoulder pain MELANIE on CPAP Chest pain Trigger finger Bilateral sciatica Polyarthralgia Chronic heart failure with preserved ejection fraction (HFpEF) Persistent atrial fibrillation Obesity (BMI 30.0-34.9) Surgical History Hx of colonoscopy History of ear surgery History of cholecystectomy Family History Father Myocardial infarction CVD (cardiovascular disease) Mother No problems noted. Sister Stomach cancer Son No problems noted. Son No problems noted. Daughter No problems noted. Daughter No problems noted. Brother No problems noted. Brother No problems noted. 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 Overall normal device function. [id number] Cardiac Device Interrogation, pacemaker Procedure code (CPT) selection complete Assessment & Plan Assessment & Plan (1) Persistent atrial fibrillation: Code(s): I48.19 - Other persistent atrial fibrillation Category: Medical Plan x Coding Level of Care Code Procedure Only Diagnoses Persistent atrial fibrillation I48.19 CPT Codes Cardiac Device Check - Cardiac Device 12: [id number] Cardiac Device Interrogation, pacemaker ([id number])
== END ==
PROVIDERS: Visit Provider Internal Medicine
DX: I48.19 Other persistent atrial fibrillation (principal); Z95.0 Presence of cardiac pacemaker
CPT/HCPCS: 93294

== ENCOUNTER 2024-01-09 13:51 | Outpatient (AMB) | payer OTHER, SELFPAY ==
[2024-01-09 14:09] VITALS: BP 122/72; PULSE 64; BMI 33.3
--- NOTE | 2024-01-09 14:09 | A.OFFVIS_ITS ---
Vital Signs 01/09/24 14:09 Height 5 ft 3 in Weight 187 lb 13.341 oz BMI 33.3 BP 122/72 Blood Pressure Location Lt brachial Position Sitting Pulse 64 Intake Visit Reasons: Follow up- Stress Test Solar Installation Supervisor Services: Solar Installation Supervisor Present Solar Installation Supervisor Name: Patricia Accompanied by: Other Relationship Allergies No Known Allergies [No Known Allergies*] Allergy (Verified 12/24/23 10:44) Medication List - Last Reconciled 01/09/24 by Homer Finch MD acetaminophen (Tylenol) 325 mg PO Q4H PRN CPAP As directed digoxin 125 mcg PO DAILY 90 days diltiazem HCl CD 360 mg PO DAILY docusate sodium 200 mg (2 x 100 mg) PO BEDTIME PRN furosemide 40 mg PO DAILY lidocaine 5% 1 patch topical DAILY PRN linaclotide (Linzess) 145 mcg PO DAILY lisinopril 40 mg PO DAILY 90 days metoprolol succinate ER 100 mg PO DAILY miscellaneous medical supply 1 ea miscellaneous DAILY pantoprazole 40 mg PO DAILY 90 days polyethylene glycol 3350 (Miralax) 17 grams PO DAILY pravastatin 20 mg PO BEDTIME 90 days ropinirole 2 mg PO BEDTIME 90 days [shoe lift Lt 1/2 inch heel lift] Shower Chair As directed tramadol 50 mg PO Q8H PRN 30 days warfarin 5 mg See Protocol PO DAILY HPI Comments Details: Dwain returns for follow-up regarding atrial fibrillation. Various antiarrhythmics have been tried different times including sotalol, Multaq, amiodarone. He was also sent to EP for possible ablation but that did not materialize either. Hence he is mainly controlled by rate control medications. Overall, he is generally doing well. Rare palpitations but otherwise no specific cardiac concerns. BUSINESS INFORMATION CONSULTANT states he is doing okay. [facility] Medical History Restless leg syndrome Chronic constipation Chronic GERD History of pacemaker Obesity (BMI 30-39.9) Vitamin D deficiency Pure hypercholesterolemia Leg length discrepancy Pacemaker Abnormal finding of foot Right shoulder pain MELANIE on CPAP Chest pain Trigger finger Bilateral sciatica Polyarthralgia Chronic heart failure with preserved ejection fraction (HFpEF) Persistent atrial fibrillation Obesity (BMI 30.0-34.9) Surgical History Hx of colonoscopy History of ear surgery History of cholecystectomy Family History Father Myocardial infarction CVD (cardiovascular disease) Mother No problems noted. Sister Stomach cancer Son No problems noted. Son No problems noted. Daughter No problems noted. Daughter No problems noted. Brother No problems noted. Brother No problems noted. Social History Household Members: Children Housing: House Alcohol intake: current Alcohol intake frequency: holidays/special occasions only Alcohol type: beer Patient Tobacco Use Status: Never used Tobacco e-Cigarette/Vaping Use: Never Used Second Hand Smoke Exposure: No service: No Current occupational status: disabled Cognitive needs: Yes (cane) Hearing needs: No Vision needs: Yes (glasses) Review of Systems Const Denies chills, Denies fatigue, Denies fever(s), Denies weight gain and Denies weight loss ENT Denies dizziness Card Denies chest pain, Denies leg edema, Denies lightheadedness, Denies palpitations, Denies dyspnea on exertion, Denies orthopnea and Denies other Resp Denies cough and Denies dyspnea on exertion GI Denies hematochezia and Denies change in stool character Musc Denies abnormal gait, Denies muscle weakness, Denies numbness, Denies radiating pain into limb and Denies tingling Neuro Denies abnormal gait, Denies dizziness, Denies numbness and Denies tingling Endo Denies fatigue and Denies palpitations Physical Exam Vital Signs: Last Vital Signs Pulse 64 01/09/24 14:09 BP 122/72 01/09/24 14:09 BMI result Body Mass Index 33.3 Const General: comfortable and no acute distress Orientation/consciousness: patient oriented x3 HEENT Other: Unremarkable Head: Yes normal to inspection Neck Neck: Yes normal visual inspection Chest Chest palpation & inspection: normal inspection of the chest Resp Auscultation: clear to auscultation bilaterally Cardio Palpation: normal PMI Heart sounds: S1 normal heart sound present, S2 normal heart sound present, no gallops, no murmurs and no rubs GI Palpation (GI): Soft to palpation Back/Spine/Pelvis Other: unremarkable Skin General skin exam: no rashes or lesions noted Neuro General: patient oriented x3 Extrem General: Yes normal to inspection Psych Mental Status: mental status grossly normal Office Procedures EKG Details: EKG with atrial fibrillation at a rate of 64/Min; paced complexes; nonspecific ST-T changes. [id number], Complete Assessment & Plan Assessment & Plan (1) Persistent atrial fibrillation: Code(s): I48.19 - Other persistent atrial fibrillation Category: Medical Plan: He has tried various antiarrhythmics and has also been seen by EP in the past. Currently on rate control meds including metoprolol, diltiazem, digoxin. Well- controlled rates. He already has labs for digoxin pending. Continue anticoagulation without changes. (2) Chronic heart failure with preserved ejection fraction (HFpEF): Code(s): I50.32 - Chronic diastolic (congestive) heart failure Category: Medical Plan: Stable. Continue diuretics. Echocardiogram-12/2023-LVEF 55-60%; no significant valvular issues. Mild increase in right atrial pressure. Myocardial perfusion imaging study from 2021 with normal perfusion. Gated LVEF 70%. (3) MELANIE on CPAP: Code(s): G47.33 - Obstructive sleep apnea (adult) (pediatric); Z99.89 - Dependence on other enabling machines and devices Category: Medical Plan: Continue CPAP. (4) Pacemaker: Code(s): Z95.0 - Presence of cardiac pacemaker Category: Medical Plan: Being followed remotely. Normal function. Plan Discussed with BUSINESS INFORMATION CONSULTANT who also acted as the testing director. Appropriate form was signed. Coding Level of Care Code Est Pt Level 4 (43547) Diagnoses Persistent atrial fibrillation I48.19 Chronic heart failure with preserved ejection fraction (HFpEF) I50.32 MELANIE on CPAP G47.33; Z99.89 Pacemaker Z95.0 CPT Codes EKG - CPT: 77765-[id number], Complete ([id number])
== END 2024-01-09 14:30 | disposition home or self-care (01) ==
LOC: HO.HCS 13:51
PROVIDERS: PCP Internal Medicine; Visit Provider Internal Medicine
DX: I48.19 Other persistent atrial fibrillation (principal); I50.32 Chronic diastolic (congestive) heart failure; G47.33 Obstructive sleep apnea (adult) (pediatric); Z99.89 Dependence on other enabling machines and devices; Z95.0 Presence of cardiac pacemaker
CPT/HCPCS: 93010; 99214

== ENCOUNTER → 2024-01-09 13:51 | Outpatient (BNVA) | payer OTHER, SELFPAY | PROVIDERS: PCP Internal Medicine; Visit Provider Internal Medicine | DX: I48.19 Other persistent atrial fibrillation (principal); I50.32 Chronic diastolic (congestive) heart failure; G47.33 Obstructive sleep apnea (adult) (pediatric); Z99.89 Dependence on other enabling machines and devices; Z95.0 Presence of cardiac pacemaker | CPT/HCPCS: 93005; 99212 ==

== ENCOUNTER 2024-01-21 11:16 | Outpatient (AMB) | payer OTHER, SELFPAY ==
--- NOTE | 2024-01-21 11:21 | MHC.OFFVISCO ---
Intake Intake Visit Reasons: Anticoagulation Allergies No Known Allergies [No Known Allergies*] Allergy (Verified 01/21/24 11:17) Medication List - Last Reconciled 01/21/24 by Angela Hernadez RN acetaminophen (Tylenol) 325 mg PO Q4H PRN CPAP As directed digoxin 125 mcg PO DAILY 90 days diltiazem HCl CD 360 mg PO DAILY docusate sodium 200 mg (2 x 100 mg) PO BEDTIME PRN furosemide 40 mg PO DAILY lidocaine 5% 1 patch topical DAILY PRN linaclotide (Linzess) 145 mcg PO DAILY lisinopril 40 mg PO DAILY 90 days metoprolol succinate ER 100 mg PO DAILY miscellaneous medical supply 1 ea miscellaneous DAILY pantoprazole 40 mg PO DAILY 90 days polyethylene glycol 3350 (Miralax) 17 grams PO DAILY pravastatin 20 mg PO BEDTIME 90 days ropinirole 2 mg PO BEDTIME 90 days [shoe lift Lt 1/2 inch heel lift] Shower Chair As directed tramadol 50 mg PO Q8H PRN 30 days warfarin 5 mg See Protocol PO DAILY Nursing Note INR 3.6?? out of therapeutic range of 2-3 Medications and supplements reviewed Patient status: pt missed prev acs appt and came today with assistant hairstylist Medications or supplements: no changes Diet: same, does not eat many greens Denies any signs and symptoms of bleeding or clotting or unusual bruising Bleeding, bruising, clotting discussed Nutritional guidance given: eat greens if able, no reds for 2-3 days Dose: already took warfarin today- reduce dose tomm and reduce weekly dosing- 2.5mg x 4, 5mg x 3 F/U INR Date : 2 weeks Patient verbalizing understanding of instructions given. Anti-Coag Initial Assessment Social Hx Patient Tobacco Use Status: Never used Tobacco alcohol intake: current Alcohol intake frequency: holidays/special occasions only Coding Level of Care Code Est Patient Level 1 Diagnoses Current use of anticoagulant therapy Z79.01 Assessment & Plan Assessment & Plan (1) Current use of anticoagulant therapy: Code(s): Z79.01 - terminal clerk (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
[2024-01-21 11:22] LABS: Prothrombin Time Whole Bld POC 43.2 sec (11.1-13.5); ~PT, ~INR - Anti Coag Clinic 3.6 (0.9-1.1)
== END 2024-01-21 11:30 | disposition home or self-care (01) ==
LOC: HO.ACS 11:16
PROVIDERS: PCP Internal Medicine; Visit Provider Internal Medicine
DX: Z79.01 Long term (current) use of anticoagulants (principal)

== ENCOUNTER → 2024-01-21 11:16 | Outpatient (BNVA) | payer OTHER, SELFPAY | PROVIDERS: PCP Internal Medicine; Visit Provider Internal Medicine | DX: I48.20 Chronic atrial fibrillation, unspecified (principal); Z79.01 Long term (current) use of anticoagulants; Z51.81 Encounter for therapeutic drug level monitoring | CPT/HCPCS: 85610; 99211 ==

== ENCOUNTER 2024-02-04 10:28 | Outpatient (AMB) | payer OTHER, SELFPAY ==
--- NOTE | 2024-02-04 10:41 | MHC.OFFVISCO ---
Intake Intake Visit Reasons: Anticoagulation Allergies No Known Allergies [No Known Allergies*] Allergy (Verified 02/04/24 10:37) Medication List - Last Reconciled 02/04/24 by Angela Hernadez RN acetaminophen (Tylenol) 325 mg PO Q4H PRN CPAP As directed digoxin 125 mcg PO DAILY 90 days diltiazem HCl CD 360 mg PO DAILY docusate sodium 200 mg (2 x 100 mg) PO BEDTIME PRN furosemide 40 mg PO DAILY lidocaine 5% 1 patch topical DAILY PRN linaclotide (Linzess) 145 mcg PO DAILY lisinopril 40 mg PO DAILY 90 days metoprolol succinate ER 100 mg PO DAILY miscellaneous medical supply 1 ea miscellaneous DAILY pantoprazole 40 mg PO DAILY 90 days polyethylene glycol 3350 (Miralax) 17 grams PO DAILY pravastatin 20 mg PO BEDTIME 90 days ropinirole 2 mg PO BEDTIME 90 days [shoe lift Lt 1/2 inch heel lift] Shower Chair As directed tramadol 50 mg PO Q8H PRN 30 days warfarin 5 mg See Protocol PO DAILY Nursing Note INR 3.1? out of therapeutic range of 2-3 Medications and supplements reviewed Patient status: no c.o Medications or supplements: no changes Diet: same Denies any signs and symptoms of bleeding or clotting or unusual bruising Bleeding, bruising, clotting discussed Nutritional guidance given: eat a green today Dose: cont same 2.5mg x 4, 5mg x 3 F/U INR Date : 2 weeks? Patient verbalizing understanding of instructions given. 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
[2024-02-04 10:42] LABS: Prothrombin Time Whole Bld POC 37.2 sec (11.1-13.5); ~PT, ~INR - Anti Coag Clinic 3.1 (0.9-1.1)
== END 2024-02-04 10:47 | disposition home or self-care (01) ==
LOC: HO.ACS 10:28
PROVIDERS: PCP Internal Medicine; Visit Provider Internal Medicine
DX: Z79.01 Long term (current) use of anticoagulants (principal)

== ENCOUNTER → 2024-02-04 10:28 | Outpatient (BNVA) | payer OTHER, SELFPAY | PROVIDERS: PCP Internal Medicine; Visit Provider Internal Medicine | DX: I48.20 Chronic atrial fibrillation, unspecified (principal); Z79.01 Long term (current) use of anticoagulants; Z51.81 Encounter for therapeutic drug level monitoring | CPT/HCPCS: 85610; 99211 ==

== ENCOUNTER 2024-02-18 11:19 | Outpatient (AMB) | payer OTHER, SELFPAY ==
--- NOTE | 2024-02-18 11:27 | MHC.OFFVISCO ---
Intake Intake Visit Reasons: Anticoagulation Allergies No Known Allergies [No Known Allergies*] Allergy (Verified 02/18/24 11:23) Medication List - Last Reconciled 02/18/24 by Angela Hernadez RN acetaminophen (Tylenol) 325 mg PO Q4H PRN CPAP As directed digoxin 125 mcg PO DAILY 90 days diltiazem HCl CD 360 mg PO DAILY docusate sodium 200 mg (2 x 100 mg) PO BEDTIME PRN furosemide 40 mg PO DAILY lidocaine 5% 1 patch topical DAILY PRN linaclotide (Linzess) 145 mcg PO DAILY lisinopril 40 mg PO DAILY 90 days metoprolol succinate ER 100 mg PO DAILY miscellaneous medical supply 1 ea miscellaneous DAILY pantoprazole 40 mg PO DAILY 90 days polyethylene glycol 3350 (Miralax) 17 grams PO DAILY pravastatin 20 mg PO BEDTIME 90 days ropinirole 2 mg PO BEDTIME 90 days [shoe lift Lt 1/2 inch heel lift] Shower Chair As directed tramadol 50 mg PO Q8H PRN 30 days warfarin 5 mg See Protocol PO DAILY Nursing Note INR 3.6-?? out of therapeutic range of 2-3 Medications and supplements reviewed Patient status: no c.o Medications or supplements: no changes Diet: appetite good, had etoh over the weekend per senior architectural designer Denies any signs and symptoms of bleeding or clotting or unusual bruising Bleeding, bruising, clotting discussed Nutritional guidance given: does not eat greens Dose: already took warfarin today- reduce tomm to 2.5mg then cont prev lower dosing F/U INR Date : 1 week Patient verbalizing understanding of instructions given. pt acompanied by senior architectural designer Anti-Coag Initial Assessment Social Hx Patient Tobacco Use Status: Never used Tobacco alcohol intake: current Alcohol intake frequency: holidays/special occasions only Coding Level of Care Code Est Patient Level 1 Diagnoses Current use of anticoagulant therapy Z79.01 Assessment & Plan Assessment & Plan (1) Current use of anticoagulant therapy: Code(s): Z79.01 - keno terminal operator (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
[2024-02-18 11:28] LABS: Prothrombin Time Whole Bld POC 42.8 sec (11.1-13.5); ~PT, ~INR - Anti Coag Clinic 3.6 (0.9-1.1)
== END 2024-02-18 11:35 | disposition home or self-care (01) ==
LOC: HO.ACS 11:19
PROVIDERS: PCP Internal Medicine; Visit Provider Internal Medicine
DX: Z79.01 Long term (current) use of anticoagulants (principal)

== ENCOUNTER → 2024-02-18 11:19 | Outpatient (BNVA) | payer OTHER, SELFPAY | PROVIDERS: PCP Internal Medicine; Visit Provider Internal Medicine | DX: I48.20 Chronic atrial fibrillation, unspecified (principal); Z79.01 Long term (current) use of anticoagulants; Z51.81 Encounter for therapeutic drug level monitoring | CPT/HCPCS: 85610; 99211 ==

== ENCOUNTER 2024-02-25 10:03 | Outpatient (AMB) | payer OTHER, SELFPAY ==
[2024-02-25 10:16] LABS: Prothrombin Time Whole Bld POC 32.5 sec (11.1-13.5); ~PT, ~INR - Anti Coag Clinic 2.7 (0.9-1.1)
--- NOTE | 2024-02-25 10:22 | MHC.OFFVISCO ---
Intake Intake Visit Reasons: Anticoagulation Allergies No Known Allergies [No Known Allergies*] Allergy (Verified 02/25/24 10:10) Medication List - Last Reconciled 02/25/24 by Nell Smith RN acetaminophen (Tylenol) 325 mg PO Q4H PRN CPAP As directed digoxin 125 mcg PO DAILY 90 days diltiazem HCl CD 360 mg PO DAILY docusate sodium 200 mg (2 x 100 mg) PO BEDTIME PRN furosemide 40 mg PO DAILY lidocaine 5% 1 patch topical DAILY PRN linaclotide (Linzess) 145 mcg PO DAILY lisinopril 40 mg PO DAILY 90 days metoprolol succinate ER 100 mg PO DAILY miscellaneous medical supply 1 ea miscellaneous DAILY pantoprazole 40 mg PO DAILY 90 days polyethylene glycol 3350 (Miralax) 17 grams PO DAILY pravastatin 20 mg PO BEDTIME 90 days ropinirole 2 mg PO BEDTIME 90 days [shoe lift Lt 1/2 inch heel lift] Shower Chair As directed tramadol 50 mg PO Q8H PRN 30 days warfarin 5 mg See Protocol PO DAILY Nursing Note INR: 2.7 in therapeutic range of 2-3 Medications and supplements reviewed No changes in health, diet, medications, or supplements, Denies any signs and symptoms of bleeding or bruising or clotting. Bleeding, bruising, clotting discussed Nutritional guidance given Dose: 2.5mg X 4 days and 5mg X 3 days F/U INR: 3 weeeks Patient verbalizes understanding of instructions given via auto apprentice mechanic. Anti-Coag Initial Assessment Social Hx Patient Tobacco Use Status: Never used Tobacco alcohol intake: current Alcohol intake frequency: holidays/special occasions only Coding Level of Care Code Est Patient Level 1 Diagnoses Current use of anticoagulant therapy Z79.01 Results AMB INR Fingerstick AMB INR Fingerstick 2.7 Last Edit by Nell Smith RN on 02/25/24 10:16 interface delay Assessment & Plan Assessment & Plan (1) Current use of anticoagulant therapy: Code(s): Z79.01 - [facility] (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
== END 2024-02-25 10:24 | disposition home or self-care (01) ==
LOC: HO.ACS 10:03
PROVIDERS: PCP Internal Medicine; Visit Provider Internal Medicine
DX: Z79.01 Long term (current) use of anticoagulants (principal)

== ENCOUNTER → 2024-02-25 10:03 | Outpatient (BNVA) | payer OTHER, SELFPAY | PROVIDERS: PCP Internal Medicine; Visit Provider Internal Medicine | DX: I48.20 Chronic atrial fibrillation, unspecified (principal); Z79.01 Long term (current) use of anticoagulants; Z51.81 Encounter for therapeutic drug level monitoring | CPT/HCPCS: 85610; 99211 ==

== ENCOUNTER 2024-03-12 12:06 | Outpatient (REF) | payer OTHER, SELFPAY ==
--- NOTE | ~2024-03-12 | XR_ITS ---
EXAMINATION: XR SHOULDER, RIGHT CLINICAL INFORMATION: Right shoulder pain. COMPARISON: Right shoulder radiographs dated 02/24/2021. TECHNIQUE: AP external rotation, Grashey, scapular Y, and axillary views of the right shoulder. FINDINGS: No acute fracture or dislocation. Mild acromioclavicular joint space narrowing with small marginal osteophytes. No osseous erosion. No abnormal soft tissue calcification. XR/XR shoulder RT min 2V IMPRESSION: Mild acromioclavicular osteoarthritis. Electronically signed by: Mario Jiménez MD 05/09/2024 08:35 PM EST
--- NOTE | ~2024-03-12 | XR_ITS ---
EXAMINATION: XR CERVICAL SPINE CLINICAL INFORMATION: Cervicalgia. COMPARISON: Cervical spine CT dated 06/18/2023. TECHNIQUE: AP, lateral, swimmer's, and open-mouth views of the cervical spine were obtained. FINDINGS: Normal vertebral body alignment. Normal atlantoaxial alignment. No loss of vertebral body height. Loss of intervertebral disc height with endplate osteophytes at C5-C6 and C6-C7, unchanged. No concerning lytic or blastic osseous lesion. Unremarkable prevertebral soft tissues. XR/XR cervical spine 3V IMPRESSION: Moderate degenerative disc disease at C5-C6 and C6-C7, unchanged. Electronically signed by: Mario Jiménez MD 05/09/2024 08:37 PM EST
== END 2024-03-12 12:07 | disposition home or self-care (01) ==
LOC: HO.XRAY 12:06
PROVIDERS: PCP Internal Medicine; Visit Provider Internal Medicine
DX: M25.511 Pain in right shoulder (principal); M54.2 Cervicalgia; I50.32 Chronic diastolic (congestive) heart failure; I48.19 Other persistent atrial fibrillation; E78.00 Pure hypercholesterolemia, unspecified; E55.9 Vitamin D deficiency, unspecified; M25.50 Pain in unspecified joint
CPT/HCPCS: 72040; 73030; 99212

== ENCOUNTER 2024-03-12 12:06 | Outpatient (AMB) | payer OTHER, SELFPAY ==
[2024-03-12 12:08] VITALS: BP 120/70; BMI 33.8
--- NOTE | 2024-03-12 12:08 | MHC.PC.OV ---
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 Accompanied by: FULL STACK WEB DEVELOPER Allergies No Known Allergies [No Known Allergies*] Allergy (Verified 03/13/24 09:40) Medication List - Last Reconciled 03/13/24 by Reji Meyers MD acetaminophen (Tylenol) 325 mg PO Q4H PRN CPAP As directed digoxin 125 mcg PO DAILY 90 days diltiazem HCl CD 360 mg PO DAILY docusate sodium 200 mg (2 x 100 mg) PO BEDTIME PRN furosemide 40 mg PO DAILY lidocaine 5% 1 patch topical DAILY PRN linaclotide (Linzess) 145 mcg PO DAILY lisinopril 40 mg PO DAILY 90 days metoprolol succinate ER 100 mg PO DAILY miscellaneous medical supply 1 ea miscellaneous DAILY pantoprazole 40 mg PO DAILY 90 days polyethylene glycol 3350 (Miralax) 17 grams PO DAILY pravastatin 20 mg PO BEDTIME 90 days ropinirole 2 mg PO BEDTIME 90 days [shoe lift Lt 1/2 inch heel lift] Shower Chair As directed tramadol 50 mg PO Q8H PRN 30 days warfarin 5 mg See Protocol PO DAILY Tobacco use date assessed: 10/14/23 Fall risk assessment: No Falls in past year Last assessed Fall Risk: 03/12/24 Dental Screening Dental Screen Date: 10/14/23 HPI 4mof\u HPI Details Patient comes in today for his follow up visit - is accompanied today by his FULL STACK WEB DEVELOPER, who acts as his plate glass polisher Patient states that he feels okay except for increasing pain over his neck and right shoulder lately Denies any recent injury or trauma to his neck or to his right shoulder He denies any headaches or dizziness Denies any chest pains and reports no sensations of palpitations lately; denies any increased SOB No nausea/vomiting, but still has on and off pain over his epigastric area at times No change in bowel habits noted He has not yet gotten his previously ordered follow up labs done yet [facility] Medical History Restless leg syndrome Chronic constipation Chronic GERD History of pacemaker Obesity (BMI 30-39.9) Vitamin D deficiency Pure hypercholesterolemia Leg length discrepancy Pacemaker Abnormal finding of foot Right shoulder pain MELANIE on CPAP Chest pain Trigger finger Bilateral sciatica Polyarthralgia Chronic heart failure with preserved ejection fraction (HFpEF) Persistent atrial fibrillation Obesity (BMI 30.0-34.9) Surgical History Hx of colonoscopy History of ear surgery History of cholecystectomy Family History Father Myocardial infarction CVD (cardiovascular disease) Mother No problems noted. Sister Stomach cancer Son No problems noted. Son No problems noted. Daughter No problems noted. Daughter No problems noted. Brother No problems noted. Brother No problems noted. Social History Household Members: Children Housing: House Alcohol intake: current Alcohol intake frequency: holidays/special occasions only Alcohol type: beer Patient Tobacco Use Status: Never used Tobacco e-Cigarette/Vaping Use: Never Used Second Hand Smoke Exposure: No service: No Current occupational status: disabled Cognitive needs: Yes (cane) Hearing needs: No Vision needs: Yes (glasses) Questionnaire Thrive Questionnaire Date Thrive assessed: 10/14/23 THERESA-7 AMB Questionnaire THERESA-7 Date THERESA - 7 assessed: 10/14/23 Source: Developed by Drs. Srinivasa Arauz, Sol Duron, Denis Hernandez and colleagues, with an educational lorenza from [employer]. Review of Systems Const Denies chills, Denies fatigue, Denies fever(s) and Denies headache(s) ENT Denies dysphagia, Denies dizziness, Denies otalgia, Denies headache(s), Reports neck pain, Denies odynophagia and Denies sore throat Card Denies chest pain, Denies palpitations and Denies dyspnea Resp Denies cough and Denies dyspnea GI Reports abdominal pain (on and off, mostly over the epigastric area), Reports constipation (better with Rx), Denies dysphagia, Denies heartburn, Denies diarrhea, Denies nausea, Denies odynophagia and Denies vomiting Denies dysuria, Denies nocturia and Denies urinary frequency Musc Reports back pain (over the lower back), Reports arthralgias (involving multiple joints, especially in the right shoulder recently), Reports neck pain and Reports radiating pain into limb (into the right arm and hand at times) Skin/Breast Denies rash Neuro Denies dizziness and Denies headache(s) Endo Denies fatigue and Denies palpitations Physical exam (Primary Care) Vital Signs: Last Vital Signs BP 120/70 03/12/24 12:08 BMI result Body Mass Index 33.8 Tobacco/Smoking Status: Tobacco use Status Tobacco use date assessed 10/14/23 03/12/24 12:15 Patient Tobacco Use Status Never used Tobacco 03/12/24 12:15 e-Cigarette/Vaping Use Never Used 03/12/24 12:15 Thrive Assessment: Date of Thrive Assessment Date Thrive assessed 10/14/23 03/12/24 12:15 Const General: no acute distress and alert HENMT Ears: TM's normal bilaterally and EAC's normal Throat: Yes posterior oropharynx normal and Yes tonsils normal (no TP congestion) Neck Neck: Yes no lymphadenopathy and Yes tender Thyroid: Thyroid normal Resp Auscultation: clear to auscultation bilaterally, no rales and no wheezes Cardio Rate: regular rate Rhythm: abnormal rhythm irregularly irregular Heart sounds: no murmurs GI Palpation (GI): Soft to palpation, Tenderness to palpation present (GI) in the epigastrum, no guarding, not rigid and No Rebound tenderness present Auscultation: normal bowel sounds General: Yes no CVA tenderness Back/Spine/Pelvis Back: no CVA tenderness Cervical Spine: Cervical spine tenderness (mild) Thoracic/Lumbar Spine: lumbar spinal tenderness (chronic) Skin Rashes: no rashes Extrem General: Yes no clubbing, cyanosis or edema Right upper extremity: shoulder/upper arm Details: tenderness Location: of the A-C joint and normal ROM; no swelling Assessment and Plan Assessment & Plan (1) Chronic heart failure with preserved ejection fraction (HFpEF): Code(s): I50.32 - Chronic diastolic (congestive) heart failure Plan: Echoardiogram done in June 2022 revealed normal LV systolic function with normal diastolic filling pattern, normal cardiac valvular doppler, normal RV systolic pressure and no gross pericardial effusion Repeat echocardiogram done a couple of months ago in December 2023 showed normal LV ejection fraction 55-60%, mildly dilated left atrium, normal cardiac valvular doppler, normal RV systolic pressure with mildly elevated right atrial pressures and no gross pericardial effusion Continue Furosemide 40 mg QD, Lisinopril 40 mg QD and Metoprolol ER 100 mg QD Follow up with cardiology as scheduled (2) Persistent atrial fibrillation: Code(s): I48.19 - Other persistent atrial fibrillation Plan: Continue Coumadin 5 mg daily for lifelong anticoagulation Patient has tried and failed several antiarrhythmics in the past, including Sotalol, Multaq and Amiodarone He has also been sent to EP consultation for possible ablation but for unclear reasons, nothing came out of this He has since been just maintained on rate control of his atrial fibrillation and he appears to be doing well on this regimen so far Continue Metoprolol ER 100 mg QD, Diltiazem 360 mg QD and Digoxin 0.125 mg QD Follow up with cardiology as scheduled (3) Pure hypercholesterolemia: Code(s): E78.00 - Pure hypercholesterolemia, unspecified Plan: He was again not able to get his follow up labs done prior to his visit today - states that he will try to get these done DAYAN Reinforced low cholesterol diet Continue Pravastatin 20 mg QD Will recheck his labs and fasting lipids in 4 months for follow up (4) MELANIE on CPAP: Comment: THIS PATIENT HAS KNOWN DIAGNOSIS OF OBSTRUCTIVE SLEEP APNEA, BEING TREATED WITH CPAP AND HE REMAINS VERY COMPLIANT. NO ISSUES RELATED TO THE MASK OR CPAP DEVICE EXCEPT FOR SOME TIGHT FEELING AND DID THE STRAPS. THERE IS EVIDENCE OF SOME AIR LEAK.. Code(s): G47.33 - Obstructive sleep apnea (adult) (pediatric); Z99.89 - Dependence on other enabling machines and devices Plan: Continue using his CPAP device when sleeping at night daily Follow up with Sleep Medicine as scheduled (5) Vitamin D deficiency: Code(s): E55.9 - Vitamin D deficiency, unspecified Plan: Will recheck his Vitamin D level DAYAN for follow up (6) Polyarthralgia: Code(s): M25.50 - Pain in unspecified joint Plan: Continue Tramadol 50 mg TID PRN for pain Follow up with rheumatology and orthopedics as scheduled (7) Neck pain: Code(s): M54.2 - Cervicalgia Plan: Will send him for x-rays of the cervical spine for further evaluation (8) Right shoulder pain: Code(s): M25.511 - Pain in right shoulder Qualifiers: Chronicity: unspecified Qualified Code(s): M25.511 - Pain in right shoulder Plan: Will send him for right shoulder x-rays for further evaluation (9) Chronic GERD: Code(s): K21.9 - Gastro-esophageal reflux disease without esophagitis Plan: Dietary restrictions reinforced Continue Pantoprazole 40 mg QD (10) Chronic constipation: Code(s): K59.09 - Other constipation Plan: Reinforced increased oral fluids and dietary fiber States that his symptoms have improved a lot since he was started on Linzess 145 mcg QD by GI Continue Miralax 17 gm QD and Docusate 100 mg 2 tablets Q HS PRN Follow up with GI as scheduled (11) Abdominal pain: Code(s): R10.9 - Unspecified abdominal pain Qualifiers: Abdominal location: unspecified location Qualified Code(s): R10.9 - Unspecified abdominal pain Plan: Discussed that his may be due to gastritis or similar issues Per request, will send him for abdominal US for further evaluation Have advised him to follow up with GI as scheduled (12) Restless leg syndrome: Code(s): G25.81 - Restless legs syndrome Plan: Continue Ropinirole 2 mg Q HS (13) Obesity (BMI 30-39.9): Comment: HE IS ONLY MODERATELY ,OBESE WEIGHT HAS REMAINED STABL.E Code(s): E66.9 - Obesity, unspecified Plan: Reinforced diet/exercise as tolerated/lose weight Plan Follow up in 4 months Orders: Orders XR shoulder RT min 2V 03/12/24 M25.511 - Pain in right shoulder B Type Natriuretic Peptide 4 Months I50.9 - Heart failure, unspecified UA CC w/rflx Micro + Cult 4 Months R30.0 - Dysuria XR cervical spine 3V 03/12/24 M54.2 - Cervicalgia US abdomen complete 03/12/24 R10.9 - Unspecified abdominal pain Complete Blood Count Auto Diff 4 Months D64.9 - Anemia, unspecified Comprehensive [place]. Panel Fast 4 Months E78.00 - Pure hypercholesterolemia, unspecified Lipid Panel 4 Months E78.00 - Pure hypercholesterolemia, unspecified TSH reflex Free T4 4 Months E78.00 - Pure hypercholesterolemia, unspecified Vitamin D 25-OH Total 4 Months E55.9 - Vitamin D deficiency, unspecified Coding Level of Care Code Est Pt Level 4 (14915) Diagnoses Chronic heart failure with preserved ejection fraction (HFpEF) I50.32 Persistent atrial fibrillation I48.19 Pure hypercholesterolemia E78.00 MELANIE on CPAP G47.33; Z99.89 Vitamin D deficiency E55.9 Polyarthralgia M25.50 Neck pain M54.2 Right shoulder pain, unspecified chronicity M25.511 Chronicity: unspecified Chronic GERD K21.9 Chronic constipation K59.09 Abdominal pain, unspecified abdominal location R10.9 Abdominal location: unspecified location Restless leg syndrome G25.81 Obesity (BMI 30-39.9) E66.9
== END 2024-03-12 12:37 | disposition home or self-care (01) ==
PROVIDERS: PCP Internal Medicine; Visit Provider Internal Medicine
DX: I50.32 Chronic diastolic (congestive) heart failure (principal); I48.19 Other persistent atrial fibrillation; E66.9 Obesity, unspecified; Z68.33 Body mass index [BMI] 33.0-33.9, adult; E78.00 Pure hypercholesterolemia, unspecified; G47.33 Obstructive sleep apnea (adult) (pediatric); Z99.89 Dependence on other enabling machines and devices; E55.9 Vitamin D deficiency, unspecified; M25.50 Pain in unspecified joint; M54.2 Cervicalgia; M25.511 Pain in right shoulder; K21.9 Gastro-esophageal reflux disease without esophagitis

== ENCOUNTER 2024-03-17 10:46 | Outpatient (AMB) | payer OTHER, SELFPAY ==
--- NOTE | 2024-03-17 10:50 | MHC.OFFVISCO ---
Intake Intake Visit Reasons: Anticoagulation Allergies No Known Allergies [No Known Allergies*] Allergy (Verified 03/17/24 10:46) Medication List - Last Reconciled 03/17/24 by Angela Hernadez RN acetaminophen (Tylenol) 325 mg PO Q4H PRN CPAP As directed digoxin 125 mcg PO DAILY 90 days diltiazem HCl CD 360 mg PO DAILY docusate sodium 200 mg (2 x 100 mg) PO BEDTIME PRN furosemide 40 mg PO DAILY lidocaine 5% 1 patch topical DAILY PRN linaclotide (Linzess) 145 mcg PO DAILY lisinopril 40 mg PO DAILY 90 days metoprolol succinate ER 100 mg PO DAILY miscellaneous medical supply 1 ea miscellaneous DAILY pantoprazole 40 mg PO DAILY 90 days polyethylene glycol 3350 (Miralax) 17 grams PO DAILY pravastatin 20 mg PO BEDTIME 90 days ropinirole 2 mg PO BEDTIME 90 days [shoe lift Lt 1/2 inch heel lift] Shower Chair As directed tramadol 50 mg PO Q8H PRN 30 days warfarin 5 mg See Protocol PO DAILY Nursing Note INR: 2.8- in therapeutic range of 2-3 to acs acompanied by clinical documentation consultant Medications and supplements reviewed No changes in health, diet, medications, or supplements, Denies any signs and symptoms of bleeding or bruising or clotting. 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
[2024-03-17 10:51] LABS: Prothrombin Time Whole Bld POC 33.8 sec (11.1-13.5); ~PT, ~INR - Anti Coag Clinic 2.8 (0.9-1.1)
== END 2024-03-17 11:03 | disposition home or self-care (01) ==
LOC: HO.ACS 10:46
PROVIDERS: PCP Internal Medicine; Visit Provider Internal Medicine
DX: Z79.01 Long term (current) use of anticoagulants (principal)

== ENCOUNTER → 2024-03-17 10:46 | Outpatient (BNVA) | payer OTHER, SELFPAY | PROVIDERS: PCP Internal Medicine; Visit Provider Internal Medicine | DX: I48.20 Chronic atrial fibrillation, unspecified (principal); Z79.01 Long term (current) use of anticoagulants; Z51.81 Encounter for therapeutic drug level monitoring | CPT/HCPCS: 85610; 99211 ==

== ENCOUNTER → 2024-04-05 23:59 | Outpatient (BNV) | payer OTHER, SELFPAY ==
--- NOTE | 2024-04-07 19:03 | MHC.OFFVIS ---
Intake Visit Reasons: Remote device check- [place] Allergies No Known Allergies [No Known Allergies*] Allergy (Verified 04/07/24 10:40) [facility] Medical History Restless leg syndrome Chronic constipation Chronic GERD History of pacemaker Obesity (BMI 30-39.9) Vitamin D deficiency Pure hypercholesterolemia Leg length discrepancy Pacemaker Abnormal finding of foot Right shoulder pain MELANIE on CPAP Chest pain Trigger finger Bilateral sciatica Polyarthralgia Chronic heart failure with preserved ejection fraction (HFpEF) Persistent atrial fibrillation Obesity (BMI 30.0-34.9) Surgical History Hx of colonoscopy History of ear surgery History of cholecystectomy Family History Father Myocardial infarction CVD (cardiovascular disease) Mother No problems noted. Sister Stomach cancer Son No problems noted. Son No problems noted. Daughter No problems noted. Daughter No problems noted. Brother No problems noted. Brother No problems noted. Social History Household Members: Children Housing: House Alcohol intake: current Alcohol intake frequency: holidays/special occasions only Alcohol type: beer Patient Tobacco Use Status: Never used Tobacco e-Cigarette/Vaping Use: Never Used Second Hand Smoke Exposure: No service: No Current occupational status: disabled Cognitive needs: Yes (cane) Hearing needs: No Vision needs: Yes (glasses) Office Procedures Cardiac Device Check Cardiac Device Check Details: Date of service- 04/05/2024 ; Battery life >5 years; normal lead parameters; [employer]ENE[employer] STACKER 49%; AF RVR, but not prolonged. Overall normal device function. [id number] Cardiac Device Interrogation, pacemaker Procedure code (CPT) selection complete Assessment & Plan Assessment & Plan (1) Pacemaker: Code(s): Z95.0 - Presence of cardiac pacemaker Category: Medical (2) Persistent atrial fibrillation: Code(s): I48.19 - Other persistent atrial fibrillation Category: Medical Plan x Coding Level of Care Code Procedure Only Diagnoses Pacemaker Z95.0 Persistent atrial fibrillation I48.19 CPT Codes Cardiac Device Check - Cardiac Device 12: [id number] Cardiac Device Interrogation, pacemaker ([id number])
== END ==
PROVIDERS: PCP Internal Medicine; Visit Provider Internal Medicine
DX: I48.19 Other persistent atrial fibrillation (principal); Z95.0 Presence of cardiac pacemaker
CPT/HCPCS: 93294

== ENCOUNTER 2024-04-07 10:35 | Outpatient (AMB) | payer OTHER, SELFPAY ==
--- NOTE | 2024-04-07 10:44 | MHC.OFFVISCO ---
Intake Intake Visit Reasons: Anticoagulation Allergies No Known Allergies [No Known Allergies*] Allergy (Verified 04/07/24 10:40) Medication List - Last Reconciled 04/07/24 by Angela Hernadez RN acetaminophen (Tylenol) 325 mg PO Q4H PRN CPAP As directed digoxin 125 mcg PO DAILY 90 days diltiazem HCl CD 360 mg PO DAILY docusate sodium 200 mg (2 x 100 mg) PO BEDTIME PRN furosemide 40 mg PO DAILY lidocaine 5% 1 patch topical DAILY PRN linaclotide (Linzess) 145 mcg PO DAILY lisinopril 40 mg PO DAILY 90 days metoprolol succinate ER 100 mg PO DAILY miscellaneous medical supply 1 ea miscellaneous DAILY pantoprazole 40 mg PO DAILY 90 days polyethylene glycol 3350 (Miralax) 17 grams PO DAILY pravastatin 20 mg PO BEDTIME 90 days ropinirole 2 mg PO BEDTIME 90 days [shoe lift Lt 1/2 inch heel lift] Shower Chair As directed tramadol 50 mg PO Q8H PRN 30 days warfarin 5 mg See Protocol PO DAILY Nursing Note INR: 2.9- in therapeutic range of 2-3 Medications and supplements reviewed- no changes No changes in health, diet, medications, or supplements, Denies any signs and symptoms of bleeding or bruising or clotting. Bleeding, bruising, clotting discussed Nutritional guidance given Dose: 5mg x 3 , 2.5mg x 4 F/U INR: 3 weeks Patient verbalizes understanding of instructions given Anti-Coag Initial Assessment Social Hx Patient Tobacco Use Status: Never used Tobacco alcohol intake: current Alcohol intake frequency: holidays/special occasions only Coding Level of Care Code Est Patient Level 1 Diagnoses Current use of anticoagulant therapy Z79.01 Results AMB INR Fingerstick AMB INR Fingerstick 2.9 Last Edit by Angela Hernadez RN on 04/07/24 10:46 Assessment & Plan Assessment & Plan (1) Current use of anticoagulant therapy: Code(s): Z79.01 - custodial (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
[2024-04-07 10:54] LABS: ~PT, ~INR - Anti Coag Clinic 2.9 (0.9-1.1)
== END 2024-04-07 10:52 | disposition home or self-care (01) ==
LOC: HO.ACS 10:35
PROVIDERS: PCP Internal Medicine; Visit Provider Internal Medicine
DX: Z79.01 Long term (current) use of anticoagulants (principal)

== ENCOUNTER → 2024-04-07 10:35 | Outpatient (BNVA) | payer OTHER, SELFPAY | PROVIDERS: PCP Internal Medicine; Visit Provider Internal Medicine | DX: I48.20 Chronic atrial fibrillation, unspecified (principal); Z79.01 Long term (current) use of anticoagulants; Z51.81 Encounter for therapeutic drug level monitoring | CPT/HCPCS: 85610; 99211 ==

== ENCOUNTER 2024-04-09 09:41 | Outpatient (REF) | payer OTHER, SELFPAY ==
[2024-04-09 10:04] LABS: MANUAL DIFF FLAG NO
[2024-04-09 10:29] LABS: Basophils Absolute Auto 0.1 X10*3/uL (0.0-0.2); Basophils Percent Auto 0.6 % (0-2); Eosinophils Absolute Auto 0.4 X10*3/uL (0.0-0.4); Eosinophils Percent Auto 3.9 % (0-4); Hematocrit 43.7 % (42.0-52.0); Hemoglobin 14.7 g/dl (14.0-18.0); Imm Gran Abs Auto 0.03 X10*3/uL (0.00-0.03); Imm Gran Pct Auto 0.3 % (0.0-0.4); Lymphocytes Absolute Auto 3.6 X10*3/uL (1.2-4.9); Lymphocytes Percent Auto 36.4 % (20-40); Mean Corpuscular HGB Conc 33.6 g/dl (31.0-36.0); Mean Corpuscular Hemoglobin 29.2 pg (27.0-33.0); Mean Corpuscular Volume 86.7 fL (80.0-98.0); Mean Platelet Volume 10.6 fL (9.4-12.4); Monocytes Absolute Auto 0.7 X10*3/uL (0.1-1.2); Monocytes Percent Auto 7.3 % (2-11); Neutrophils Absolute Auto 5.1 x10*3/uL (2.0-8.3); Neutrophils Percent Auto 51.5 % (45-73); Platelet Count 281 X10*3/uL (160-400); Red Blood Count 5.04 X10*6/uL (4.60-5.80); Red Cell Distribution Width 12.5 % (11.0-16.0); White Blood Count 9.9 X10*3/uL (4.8-10.8)
[2024-04-09 10:50] LABS: Appearance Urine Clear; Color Urine Dark Yellow; Glucose Urine UA Negative (Negative); Leukocyte Esterase Urine Trace (Negative); Nitrite Urine Negative (Negative); PH 5.5 (5.0-9.0); UMIC TRIGGER UACC YES; Urine Blood Small (1+) (Negative); Urine Ketones Trace mg/dL (Negative); Urine Protein Trace mg/dL (Neg-Trace)
[2024-04-09 10:55] LABS: Bacteria Urine None Seen (None Seen); Hyaline Casts Urine 0-2 /LPF (0-2); Squamous Epithelial Cell Urine 0-2 /HPF (0-2); WBC Urine 0-5 /HPF (0-5)
[2024-04-09 11:05] LABS: B Type Natriuretic Peptide 128 pg/mL (<100)
[2024-04-09 11:06] LABS: Erythrocyte Sedimentation Rate 21 MM/HR (0-15)
[2024-04-09 11:21] LABS: Alanine Aminotransferase 30 U/L (0-40); Albumin Level 3.9 g/dL (3.5-5.0); Alkaline Phosphatase 94 U/L (39-117); Anion Gap 13 (12-20); Aspartate Amino Transferase 35 U/L (5-37); Bilirubin Total 1.3 mg/dL (0.0-1.0); Blood Urea Nitrogen 13 mg/dL (9-16); Calcium 9.2 mg/dL (8.4-10.2); Carbon Dioxide 29 mmol/L (22-29); Chloride 102 mmol/L (96-108); Cholesterol 191 mg/dL (<200); Digoxin 0.6 ng/mL (0.8-2.0); Estimated Glomerular Filt Rate > 60; Glucose Fasting 126 mg/dL (60-99); HDL Cholesterol 50 mg/dL (>40); LDL Cholesterol Calculated 114 mg/dL (<100); Potassium 4.1 mmol/L (3.3-5.1); Sodium 140 mmol/L (135-145); Total Protein 8.3 g/dL (6.5-8.0); Triglycerides 138 mg/dL (<150)
[2024-04-09 11:25] LABS: TSH reflex Free T4 2.35 uIU/mL (0.32-4.0); Vitamin D 25-OH Total 18.3 ng/mL (>30)
== END 2024-04-09 09:42 | disposition home or self-care (01) ==
LOC: HO.LAB 09:41
PROVIDERS: PCP Internal Medicine; Visit Provider Internal Medicine
DX: E78.00 Pure hypercholesterolemia, unspecified (principal); I50.9 Heart failure, unspecified; I50.20 Unspecified systolic (congestive) heart failure; E55.9 Vitamin D deficiency, unspecified; M25.50 Pain in unspecified joint; D64.9 Anemia, unspecified
CPT/HCPCS: 36415; 80053; 80061; 80162; 81001; 82306; 83880; 84443; 85025; 85652

== ENCOUNTER 2024-04-20 10:49 | Outpatient (AMB) | payer OTHER, SELFPAY ==
[2024-04-20 10:50] VITALS: BP 116/66; PULSE 74; O2SAT 98; BMI 33.7
--- NOTE | 2024-04-20 10:50 | A.OFFVIS_ITS ---
Vital Signs 04/20/24 10:50 Height 5 ft 3 in Weight 190 lb 7.67 oz BMI 33.7 BP 116/66 Blood Pressure Location Lt brachial Position Sitting Pulse 74 Pulse Source Pulse Oximeter Pulse Oximetry (%) 98 Oxygen Delivery Method Room Air Intake Visit Reasons: Follow up 6 months discuss colonoscopy Intake Note: Relevant Flags or Indicators ? Requires Ground Equipment Mechanic? Y Dwain presents in office today for a scheduled 6 mos FUV. CC; No recent labs, diagnostics, or med orders placed. ?Pt DIE CUTTER APPRENTICE reports that he has upcoming diagnostic @ [facility] for 04/28/24. Relevant GI Sx as reported per pt? Abdominal Pain o?? Upper B/L which radiates through the chest into the R shoulder. Pt states that this has been ongoing for ~ 1 mos. ? Hx of any recent surgeries? [place] w/ Dr. Ohara x6 mos ago. Ground Equipment Mechanic Required: Yes Ground Equipment Mechanic Services: Ground Equipment Mechanic Offered & Declined Ground Equipment Mechanic Name: DIE CUTTER APPRENTICE Information Interpreted: non-clinical & clinical Accompanied by: Other Relationship Allergies No Known Allergies [No Known Allergies*] Allergy (Verified 04/20/24 10:51) HPI HPI Follow up 6 months discuss colonoscopy: Details: LAST VISIT: Chronic GERD Chronic constipation Abdominal pain Plan Patient will continue taking Linzess daily. Patient was encouraged to increase fluid intake and activity to promote better bowel motility. Patient was encouraged to take pantoprazole every morning half an hour before breakfast. Avoid dietary triggers and late night snacking. Staying upright for minimum 3 hours after meals discussed with patient. Patient will return in 6 months to discuss going for colonoscopy and upper endoscopy. He is agreeable to this plan and verbalizes understanding of instructions. He was given the opportunity to ask questions and all questions answered. ? Thank you for allowing me to participate in his care Medications Refilled linaclotide (Linzess) 145 mcg PO DAILY 90 caps 2RF TODAY'S VISIT Patient is here today for follow-up. Patient is accompanied by his DIE CUTTER APPRENTICE. Patient reports that he has been doing well, however occasionally he will have abdominal bloating and right and left upper quadrant discomfort. Patient has abdominal ultrasound scheduled for next week. Patient denies any nausea or vomiting. Denies any dyspepsia, dysphagia or odynophagia. Patient reports that he is taking Linzess, however because it is making him go to the bathroom 4-5 times after taking it he does not take it every day. Patient denies melena, he matochezia, unintentional weight loss or ribbon like stools. Last colonoscopy in June of 2016. Patient had normal colonoscopy done except for diverticulosis and hemorrhoids. Patient denies any family history of CRC [facility] Medical History Restless leg syndrome Chronic constipation Chronic GERD History of pacemaker Obesity (BMI 30-39.9) Vitamin D deficiency Pure hypercholesterolemia Leg length discrepancy Pacemaker Abnormal finding of foot Right shoulder pain MELANIE on CPAP Chest pain Trigger finger Bilateral sciatica Polyarthralgia Chronic heart failure with preserved ejection fraction (HFpEF) Persistent atrial fibrillation Obesity (BMI 30.0-34.9) Surgical History Hx of colonoscopy History of ear surgery History of cholecystectomy Family History Father Myocardial infarction CVD (cardiovascular disease) Mother No problems noted. Sister Stomach cancer Son No problems noted. Son No problems noted. Daughter No problems noted. Daughter No problems noted. Brother No problems noted. Brother No problems noted. Social History Household Members: Children Housing: House Alcohol intake: current Alcohol intake frequency: holidays/special occasions only Alcohol type: beer Patient Tobacco Use Status: Never used Tobacco e-Cigarette/Vaping Use: Never Used Second Hand Smoke Exposure: No service: No Current occupational status: disabled Cognitive needs: Yes (cane) Hearing needs: No Vision needs: Yes (glasses) Review of Systems Const Denies weight gain and Denies weight loss ENT Reports no additional complaints, Denies dysphagia and Denies odynophagia Card Reports no additional complaints Resp Reports no additional complaints GI Reports abdominal pain (Bilaterally upper abdomen cramping), Denies belching, Denies melena, Denies bloating, Denies change in bowel habits, Reports constipation, Denies dysphagia, Denies excessive flatus, Denies dyspepsia, Denies heartburn, Denies diarrhea, Denies loose stools, Denies nausea, Denies odynophagia and Denies vomiting Reports no additional complaints Musc Reports no additional complaints Neuro Reports no additional complaints Psych Reports no additional complaints Endo Reports no additional complaints Physical Exam Vital Signs: Last Vital Signs Pulse 74 04/20/24 10:50 BP 116/66 04/20/24 10:50 Pulse Ox 98 04/20/24 10:50 Oxygen Delivery Method Room Air 04/20/24 10:50 BMI result Body Mass Index 33.7 Const General: healthy appearing and no acute distress Nutritional Appearance: obese Orientation/consciousness: patient oriented x3 Resp Effort & Inspection: normal respiratory effort, able to speak in complete sentences, no tracheal deviation and symmetric chest movement Auscultation: clear to auscultation bilaterally Cardio Rate: regular rate GI Inspection: Yes normal to inspection, No distended and Yes obesity Palpation (GI): Soft to palpation, not firm, nontender and No hepatosplenomegaly present Auscultation: normal bowel sounds General: Yes no CVA tenderness Back/Spine/Pelvis Back: no CVA tenderness Skin General skin exam: elasticity normal, turgor normal and dry skin Neuro General: patient oriented x3 Psych Appearance: grossly normal Mental Status: mental status grossly normal Assessment & Plan Assessment & Plan (1) Chronic GERD: Code(s): K21.9 - Gastro-esophageal reflux disease without esophagitis Category: Medical (2) Chronic constipation: Code(s): K59.09 - Other constipation Category: Medical (3) Abdominal pain: Code(s): R10.9 - Unspecified abdominal pain Category: Medical Qualifiers: Abdominal location: unspecified location Qualified Code(s): R10.9 - Unspecified abdominal pain Plan Continue pantoprazole daily. Avoid dietary triggers and late night snacking. Staying upright for minimum 3 hours after meals discussed with patient. Continue Linzess daily. Increase fiber intake. Patient was encouraged to increase fluid intake and activity to promote better bowel motility. Patient had colonoscopy in 2017 due to normal colonoscopy and no family history of CRC colonoscopy will be repeated in 2026, sooner if clinically necessary. Upper abdominal cramping occasionally depending on what he eats. Reports abdominal bloating. Abdominal ultrasound ordered by PCP patient has an appointment next week. Patient's pain not related to meals, most likely gas trapping pain. Discussed with patient low FODMAP diet. List of food recommended as well as list of food to avoid given to patient and his DIE CUTTER APPRENTICE both patient and his DIE CUTTER APPRENTICE are agreeable to plan of care and verbalizes understanding of instructions. They were doing opportunity to ask questions and all questions answered. Thank you for allowing me to participate in his care Medications: Refilled linaclotide (Linzess) 145 mcg PO DAILY 90 caps 2RF Coding Level of Care Code Est Pt Level 3 (93368) Diagnoses Chronic GERD K21.9 Chronic constipation K59.09 Abdominal pain, unspecified abdominal location R10.9 Abdominal location: unspecified location Time Spent (min) 25 Comment 15 minutes spent with patient and additional 10 minutes spent reviewing his records
== END 2024-04-20 11:54 | disposition home or self-care (01) ==
PROVIDERS: PCP Internal Medicine; Visit Provider Nurse Practitioner Family
DX: K21.9 Gastro-esophageal reflux disease without esophagitis (principal); K59.09 Other constipation; R10.9 Unspecified abdominal pain
CPT/HCPCS: 99213

== ENCOUNTER → 2024-04-20 10:49 | Outpatient (BNVA) | payer OTHER, SELFPAY | PROVIDERS: PCP Internal Medicine; Visit Provider Nurse Practitioner Family | DX: K21.9 Gastro-esophageal reflux disease without esophagitis (principal); K59.09 Other constipation; R10.9 Unspecified abdominal pain | CPT/HCPCS: 99212 ==

== ENCOUNTER 2024-04-28 09:35 | Outpatient (REF) | payer OTHER, SELFPAY ==
--- NOTE | ~2024-04-28 | US_ITS ---
EXAMINATION: US ABDOMEN COMPLETE CLINICAL INFORMATION: Unspecified abdominal pain. COMPARISON: CT abdomen and pelvis 01/29/2018. Limited abdominal ultrasound 08/21/2016. Ultrasound abdomen complete 06/05/2013. TECHNIQUE: Real-time imaging of the abdominal viscera. FINDINGS: PANCREAS: The visualized portion of the pancreas head and body are normal, portion of the pancreatic body and tail, not visualized are obscured by bowel gas. ABDOMINAL AORTA: Visualized portion of the aorta is normal. Arterial obscured. INFERIOR VENA CAVA: Visualized portions are normal. LIVER: The liver is normal in size. The liver contour is normal. Increased echogenicity of the liver parenchyma, this can be seen in the setting of hepatic steatosis or liver parenchymal disease. No focal hepatic lesion. There is no intrahepatic biliary duct dilatation seen. There are vascular calcifications. GALLBLADDER: Surgically absent. COMMON BILE DUCT: Normal in caliber measuring 0.6 cm in diameter. RIGHT KIDNEY: Normal. No hydronephrosis. No renal calculi or focal parenchymal lesions. The kidney measures 10.6 cm in maximum dimension. LEFT KIDNEY: No hydronephrosis or renal calculi. The kidney measures 9.8 cm in maximum dimension. Cyst in the middle pole 1.1 cm. SPLEEN: The spleen measures 7.2 cm in maximum dimension. FREE FLUID: None. US/US abdomen complete IMPRESSION: 1. Increased echogenicity of the liver parenchyma, this can be seen in the setting of hepatic steatosis or liver parenchymal disease. 2. Gallbladder has been removed. Electronically signed by: Josh James MD 05/03/2024 07:12 PM [facility]
== END 2024-04-28 09:36 | disposition home or self-care (01) ==
LOC: HO.US 09:35
PROVIDERS: PCP Internal Medicine; Visit Provider Internal Medicine
DX: R10.9 Unspecified abdominal pain (principal); I48.20 Chronic atrial fibrillation, unspecified; Z51.81 Encounter for therapeutic drug level monitoring; Z79.01 Long term (current) use of anticoagulants
CPT/HCPCS: 76700; 85610; 99211

== ENCOUNTER 2024-04-28 10:18 | Outpatient (AMB) | payer OTHER, SELFPAY ==
[2024-04-28 10:48] LABS: Prothrombin Time Whole Bld POC 32.3 sec (11.1-13.5); ~PT, ~INR - Anti Coag Clinic 2.7 (0.9-1.1)
--- NOTE | 2024-04-28 10:53 | MHC.OFFVISCO ---
Intake Intake Visit Reasons: Anticoagulation Allergies No Known Allergies [No Known Allergies*] Allergy (Verified 04/28/24 10:43) Medication List - Last Reconciled 04/28/24 by Nell Smith RN acetaminophen (Tylenol) 325 mg PO Q4H PRN CPAP As directed digoxin 125 mcg PO DAILY 90 days diltiazem HCl CD 360 mg PO DAILY docusate sodium 200 mg (2 x 100 mg) PO BEDTIME PRN furosemide 40 mg PO DAILY lidocaine 5% 1 patch topical DAILY PRN linaclotide (Linzess) 145 mcg PO DAILY lisinopril 40 mg PO DAILY 90 days metoprolol succinate ER 100 mg PO DAILY miscellaneous medical supply 1 ea miscellaneous DAILY pantoprazole 40 mg PO DAILY 90 days polyethylene glycol 3350 (Miralax) 17 grams PO DAILY pravastatin 20 mg PO BEDTIME 90 days ropinirole 2 mg PO BEDTIME 90 days [shoe lift Lt 1/2 inch heel lift] Shower Chair As directed tramadol 50 mg PO Q8H PRN 30 days warfarin 5 mg See Protocol PO DAILY Nursing Note INR: 2.7 in therapeutic range of 2-3 Medications and supplements reviewed No changes in health, diet, medications, or supplements, Denies any signs and symptoms of bleeding or bruising or clotting. Bleeding, bruising, clotting discussed Nutritional guidance given Dose: 2.5mg X 4 days and 5mg X 3 days F/U INR: 4 weeks Patient verbalizes understanding of instructions given Anti-Coag Initial Assessment Social Hx Patient Tobacco Use Status: Never used Tobacco alcohol intake: current Alcohol intake frequency: holidays/special occasions only Coding Level of Care Code Est Patient Level 1 Diagnoses Current use of anticoagulant therapy Z79.01 Results AMB INR Fingerstick AMB INR Fingerstick 2.7 Last Edit by Nell Smith RN on 04/28/24 10:48 interface delay Assessment & Plan Assessment & Plan (1) Current use of anticoagulant therapy: Code(s): Z79.01 - residential (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
== END 2024-04-28 10:56 | disposition home or self-care (01) ==
LOC: HO.ACS 10:18
PROVIDERS: PCP Internal Medicine; Visit Provider Internal Medicine
DX: Z79.01 Long term (current) use of anticoagulants (principal)

== ENCOUNTER 2024-05-09 17:30 | Emergency (ER) | payer OTHER, SELFPAY ==
--- NOTE | ~2024-05-09 | XR_ITS ---
EXAMINATION: XR ELBOW, RIGHT CLINICAL INFORMATION: Right elbow pain and swelling. COMPARISON: None available. TECHNIQUE: AP, lateral, and oblique views of the right elbow. FINDINGS: Focal cortical irregularity along the lateral aspect of the radial head, which could indicate a minimally displaced fracture versus a marginal osteophyte. Overall mild elbow joint space narrowing with small marginal osteophytes. No osseous erosion. Probable ossified loose body within the anterior coronoid fossa measuring up to 1.1 cm. No significant joint effusion. Small olecranon enthesophyte. XR/XR elbow RT min 3V IMPRESSION: 1. Focal cortical irregularity along the lateral aspect of the radial head which could indicate a minimally displaced fracture versus a marginal osteophyte. No significant effusion, which favors an osteophyte versus a fracture. 2. [id number] degenerative arthritis. Probable ossified loose body within the anterior coronoid fossa measuring up to 1.1 cm. 3. Small olecranon spur. Electronically signed by: Mario Jiménez MD 05/09/2024 08:37 PM [facility] [place], [place]
--- NOTE | ~2024-05-09 | US_ITS ---
EXAMINATION: US TRIPLEX UPPER EXTREMITY, RIGHT CLINICAL INFORMATION: Right upper extremity swelling. Evaluate for deep vein thrombosis. COMPARISON: None available. TECHNIQUE: Color-flow triplex imaging with spectral analysis and compression Doppler was performed on the right upper extremity. FINDINGS: The right internal jugular, subclavian, and axillary veins are patent and free of thrombus. The imaged segment of the right brachiocephalic vein is patent. Spectral doppler waveforms are normal. The brachial, basilic, cephalic, radial, and ulnar veins are patent and compressible. US/US venous duplex UE RT IMPRESSION: No evidence of deep venous thrombosis involving the right upper extremity. Electronically signed by: Mario Jiménez MD 05/09/2024 08:35 PM [facility] [place]
[2024-05-09 17:34] VITALS: BP 138/83; PULSE 76; RESP 18; TEMP 36.8; O2SAT 97; BMI 33.5
--- NOTE | 2024-05-09 17:34 | ED_ITS ---
HPI - Extremity Injury (Upper) General Chief Complaint: General Medical Stated Complaint: rgith arm swollen, painful Time Seen by Provider: 05/09/24 17:39 Source: patient, RN notes reviewed, old records reviewed and [employer] Mode of arrival: ambulatory Limitations: language barrier History of Present Illness ED Provider: Steven HPI narrative: 69-year-old male with past medical history significant for GERD, peripheral artery disease, heart failure with preserved ejection fraction, atrial fibrillation on Coumadin presents for evaluation of right elbow pain. Patient reports pain to the right elbow and forearm for the last week. He denies any trauma. He believes the area is swollen He denies any fevers, chills. His pain is 10/10. He reports he can not straighten the elbow completely and he can not flex the elbow completely Related Data Home Medications ?Medication ?Instructions ?Recorded ?Confirmed CPAP #1 ea 08/04/20 04/28/24 Previous Rx's ?Medication ?Instructions ?Recorded Shower Chair #1 ea 03/06/21 shoe lift #1 ea 03/30/22 miscellaneous medical supply 1 ea miscellaneous DAILY #1 ea 12/13/22 docusate sodium 100 mg capsule 200 mg (2 x 100 mg) PO BEDTIME PRN 06/12/23 constipation #60 caps polyethylene glycol 3350 17 17 g PO DAILY #510 grams 06/12/23 gram/dose oral powder (Miralax) acetaminophen 325 mg capsule 325 mg PO Q4H PRN pain #30 caps 06/18/23 (Tylenol) lidocaine 5 % topical patch 1 patch topical DAILY PRN pain #15 06/18/23 ea pantoprazole 40 mg tablet,delayed 40 mg PO DAILY 90 days #90 tabs 11/07/23 release furosemide 40 mg tablet 40 mg PO DAILY #90 tabs 11/22/23 lisinopril 40 mg tablet 40 mg PO DAILY 90 days #90 tabs 11/22/23 metoprolol succinate 100 mg 100 mg PO DAILY #90 tabs 11/29/23 tablet,extended release 24 hr pravastatin 20 mg tablet 20 mg PO BEDTIME 90 days #90 tabs 12/13/23 ropinirole 2 mg tablet 2 mg PO BEDTIME 90 days #90 tabs 12/13/23 diltiazem HCl 360 mg 360 mg PO DAILY #90 caps 08/10/24 capsule,extended release 24 hr tramadol 50 mg tablet 50 mg PO Q8H PRN pain 30 days #90 03/20/24 tabs digoxin 125 mcg (0.125 mg) tablet 125 mcg PO DAILY 90 days #90 tabs 04/09/24 warfarin 5 mg tablet 5 mg PO DAILY #90 tabs 04/15/24 linaclotide 145 mcg capsule 145 mcg PO DAILY #90 caps 04/20/24 (Linzess) tramadol 50 mg tablet 50 mg PO Q6H PRN severe pain 05/09/24 (scale score 7-10) #12 tabs Allergies Allergy/AdvReac Type Severity Reaction Status Date / Time No Known Allergies Allergy Verified 05/09/24 17:37 [No Known Allergies*] Review of Systems 2 Constitutional: Constitutional: Denies body ache(s), Denies chills, Denies fever(s) and Denies headache(s) Eyes: Eyes: Denies blurry vision ENT: Denies vertigo, Denies dizziness and Denies headache(s) Cardiovascular: Cardiovascular: Denies chest pain and Denies dyspnea Respiratory: Respiratory: Denies cough and Denies dyspnea Gastrointestinal: Gastrointestinal: Denies abdominal pain, Denies nausea and Denies vomiting Musculoskeletal: Musculoskeletal: Denies back pain, Reports arthralgias, Reports joint swelling and Reports limited range of motion Integumentary/Breasts: Skin/Breast: Denies erythema and Denies wounds Neurologic: Denies vertigo, Denies dizziness and Denies headache(s) [facility] Past Medical History Medical History Restless leg syndrome Chronic constipation Chronic GERD History of pacemaker Obesity (BMI 30-39.9) Vitamin D deficiency Pure hypercholesterolemia Leg length discrepancy Pacemaker Abnormal finding of foot Right shoulder pain MELANIE on CPAP Chest pain Trigger finger Bilateral sciatica Polyarthralgia Chronic heart failure with preserved ejection fraction (HFpEF) Persistent atrial fibrillation Obesity (BMI 30.0-34.9) Surgical History Hx of colonoscopy History of ear surgery History of cholecystectomy Family History Family History Father Myocardial infarction CVD (cardiovascular disease) Mother No problems noted. Sister Stomach cancer Son No problems noted. Son No problems noted. Daughter No problems noted. Daughter No problems noted. Brother No problems noted. Brother No problems noted. Social History Social History (Reviewed 04/20/24 @ 11:00 by Randolph Dominique [facility]) Household Members: Children Housing: House Alcohol intake: current Alcohol intake frequency: holidays/special occasions only Alcohol type: beer Patient Tobacco Use Status: Never used Tobacco Smoked in Last 30 Days: No e-Cigarette/Vaping Use: Never Used Second Hand Smoke Exposure: No Use of substances other than those prescribed or required for medical reasons: No Advance Directives: No Advance Directives Information Provided: No Do you have a plan to hurt others: No Plan service: No Current occupational status: disabled Cognitive needs: Yes (cane) Hearing needs: No Vision needs: Yes (glasses) Physical Exam 2 Vital Signs: Vital Signs: Last Vital Signs Temp 98.5 F 05/09/24 20:58 Pulse 84 05/09/24 20:58 Resp 18 05/09/24 20:58 BP 128/64 05/09/24 20:58 Pulse Ox 96 05/09/24 20:58 O2 Del Method Room Air 05/09/24 20:58 BMI result Body Mass Index 33.5 Const: General: healthy appearing, comfortable, no acute distress, alert and awake Nutritional Appearance: well nourished Orientation/consciousness: p atient oriented x3 HEENT: Head: Yes normocephalic and Yes atraumatic Eyes: Eyelids: Yes eyelids normal Conjunctivae: conjunctivae normal S clerae: sclerae normal Corneas: corneas normal Pupils: Equal, round and reactive pupils present EOM: EOMs intact bilaterally Neck: Neck: Yes full ROM Resp: Effort & Inspection: normal respiratory effort, able to speak in complete sentences and not labored Cardio: Rate: regular rate Rhythm: regular rhythm Skin: General skin exam: elasticity normal Neuro: General: patient oriented x3 Cranial nerves: Yes Equal, round and reactive pupils present and Yes Bilaterally intact EOM present Cognition (Neuro): normal cognition Extrem: Other: Patient has mild edema to the right medial elbow and forearm. He has tenderness to the medial aspect of the right elbow. He has reduced range of motion with extreme extension. He was able to get to about 160? on extension. The patient is able to flex his elbow to about 90?. There is no significant overlying erythema. There was no increased warmth. Radial pulse 2+ and right. Distal sensation is intact. He is able to flex and extend all fingers of the right hand Course Course Course Narrative: This is a Rapid Medical Exam performed in triage by Susan Dimas PA-C. Full HPI, ROS and PE to be performed by primary ED provider. 69-year-old male with a past medical history restless leg syndrome, GERD, pacemaker, HLD, MELANIE on CPAP, polyarthralgia, CHF, AFib, presenting to the ED c/o atraumatic painful RUE swelling & tingling x1 week. denies injury/fall. Admits to hx blood clots on Coumadin. PE: + RUE swelling & ttp > R elbow. NV intact distally. No erythema/warmth, no crepitus Plan: Labs, US venous duplex, XR Reevaluation(s) Reevaluation #1: Patient's x-ray shows concern for osteophyte versus fracture but less likely fracture as there is no joint effusion. The patient was placed in a sling, treated with tramadol for pain as he can not take NSAIDs with his Coumadin and he will be referred to Orthopedics. Time: 21:18 Medical Decision Making Medical Decision Making MDM Narrative: 61-year-old male past medical history as documented above presents for evaluation of right arm pain. There was no trauma, he does have some edema to the area. His tenderness is mostly over the medial epicondyle of the elbow. X- ray was ordered, ultrasound was ordered to evaluate for DVT as the patient has a history of this. He is on Coumadin in his INR is 2.4. He has a slight leukocytosis but no fever, no left shift, no significant erythema. I doubt septic arthritis. Differential Diagnosis Differential Diagnoses: The differential diagnosis associated with the presentation includes Arthritis Medial epicondylitis Cellulitis Substance joint Contusion Hematoma Lab Data MDM Lab Attestation statement: I reviewed the patient's lab results. See above, 05/09/24 17:46 05/09/24 17:46 Labs: Lab Results 05/09/24 Range/Units 17:46 WBC 11.8 H (4.8-10.8) X10*3/uL RBC 4.62 (4.60-5.80) X10*6/uL Hgb 13.6 L (14.0-18.0) g/dl Hct 40.0 L (42.0-52.0) % MCV 86.6 (80.0-98.0) fL MCH 29.4 (27.0-33.0) pg MCHC 34.0 (31.0-36.0) g/dl RDW 12.7 (11.0-16.0) % Plt Count 284 (160-400) X10*3/uL MPV 9.7 (9.4-12.4) fL Immature Gran % (Auto) 0.3 (0.0-0.4) % Neut % (Auto) 49.9 (45-73) % Lymph % (Auto) 37.6 (20-40) % Mcmullen % (Auto) 8.6 (2-11) % Eos % (Auto) 3.1 (0-4) % Baso % (Auto) 0.5 (0-2) % Lymph # (Auto) 4.4 (1.2-4.9) X10*3/uL Mcmullen # (Auto) 1.0 (0.1-1.2) X10*3/uL Eos # (Auto) 0.4 (0.0-0.4) X10*3/uL Baso # (Auto) 0.1 (0.0-0.2) X10*3/uL Abs Immat Gran (auto) 0.04 H (0.00-0.03) X10*3/uL Absolute Neuts (auto) 5.9 (2.0-8.3) x10*3/uL Absolute Nucleated RBC 0.000 (0.0-0.012) X10*3/uL Nucleated RBC % (auto) 0.0 (0.0-0.2) /100WBC PT 28.2 H (10.9-12.4) SEC INR 2.4 H (0.9-1.1) Sodium 139 (135-145) mmol/L Potassium 3.8 (3.3-5.1) mmol/L Chloride 104 (96-108) mmol/L Carbon Dioxide 28 (22-29) mmol/L Anion Gap 11 L (12-20) BUN 13 (9-16) mg/dL Creatinine 0.95 (0.5-1.4) mg/dL Estim Creat Clear Calc 72.0 Estimated GFR > 60 Random Glucose 79 (60-115) mg/dL Calcium 8.8 (8.4-10.2) mg/dL Total Bilirubin 1.5 H (0.0-1.0) mg/dL Direct Bilirubin 0.5 (0.0-0.5) mg/dL AST 34 (5-37) U/L ALT 26 (0-40) U/L Alkaline Phosphatase 94 (39-117) U/L Total Protein 8.0 (6.5-8.0) g/dL Albumin 3.9 (3.5-5.0) g/dL Discharge Plan Discharge Clinical Impression: Elbow pain, right Patient Disposition: Home, Self-Care Instructions: Arthralgia (ED) Additional Instructions: Your x-ray does not show any obvious fracture. You do have a osteophyte/bone spur which may be contributing to your pain. Take tramadol every 6 hours as needed for severe pain. This may make you drowsy, do not drink alcohol or drive after taking it Follow-up with orthopedics at the number provided Prescriptions: New tramadol 50 mg tablet 50 mg PO Q6H PRN (Reason: severe pain (scale score 7-10)) Qty: 12 0RF No Action (DME) Shower Chair Misc See Rx Instructions .Route Qty: 1 0RF Rx Instructions: As directed (DME) shoe lift See Rx Instructions .Route .MEDSUPPLY Qty: 1 0RF Rx Instructions: Lt 1/2 inch heel lift pantoprazole 40 mg tablet,delayed release (DR/EC) 40 mg PO DAILY 90 Days Qty: 90 1RF furosemide 40 mg tablet 40 mg PO DAILY Qty: 90 3RF lisinopril 40 mg tablet 40 mg PO DAILY 90 Days Qty: 90 1RF metoprolol succinate 100 mg tablet extended release 24 hr 100 mg PO DAILY Qty: 90 3RF ropinirole 2 mg tablet 2 mg PO BEDTIME 90 Days Qty: 90 1RF pravastatin 20 mg tablet 20 mg PO BEDTIME 90 Days Qty: 90 1RF diltiazem HCl 360 mg capsule,extended release 24hr 360 mg PO DAILY Qty: 90 3RF tramadol 50 mg tablet 50 mg PO Q8H PRN (Reason: pain) 30 Days Qty: 90 0RF digoxin 125 mcg (0.125 mg) tablet 125 mcg PO DAILY 90 Days Qty: 90 1RF warfarin 5 mg tablet 5 mg PO DAILY Qty: 90 2RF Protocol: Dose Management Condition: Saturday (Week One) Dose/Route: 2.5 mg Instruction: 0.5 x 5 mg tablets Condition: Saturday Dose/Route: 5 mg Instruction: 1 x 5 mg tablet Condition: Saturday Dose/Route: 2.5 mg Instruction: 0.5 x 5 mg tablets Condition: Saturday Dose/Route: 5 mg Instruction: 1 x 5 mg tablet Condition: Dose/Route: 2.5 mg Instruction: 0.5 x 5 mg tablets Condition: Saturday Dose/Route: 5 mg Instruction: 1 x 5 mg tablet Condition: Saturday Dose/Route: 2.5 mg Instruction: 0.5 x 5 mg tablets Condition: Saturday (Week Two) Dose/Route: 2.5 mg Instruction: 0.5 x 5 mg tablets Condition: Saturday Dose/Route: 5 mg Instruction: 1 x 5 mg tablet Condition: Saturday Dose/Route: 2.5 mg Instruction: 0.5 x 5 mg tablets Condition: Saturday Dose/Route: 5 mg Instruction: 1 x 5 mg tablet Condition: Dose/Route: 2.5 mg Instruction: 0.5 x 5 mg tablets Condition: Saturday Dose/Route: 5 mg Instruction: 1 x 5 mg tablet Condition: Saturday Dose/Route: 2.5 mg Instruction: 0.5 x 5 mg tablets Protocol Text: Adjustment Start Date: Saturday04/28/24 INR Value: 2.7 INR Date: 04/28/24 Recheck Date: 05/26/24 Rx Instructions: 5MG X 4, 2.5MG X3 acetaminophen [Tylenol] 325 mg capsule 325 mg PO Q4H PRN (Reason: pain) Qty: 30 0RF lidocaine 5 % adhesive patch,medicated 1 patch topical DAILY PRN (Reason: pain) Qty: 15 0RF Rx Instructions: leave on most painful area for up to 12 hrs (DME) CPAP Device See Rx Instructions .ROUTE .MEDSUPPLY Qty: 1 Rx Instructions: As directed polyethylene glycol 3350 [Miralax] 17 gram/dose powder 17 g PO DAILY Qty: 510 2RF docusate sodium 100 mg capsule 200 mg PO BEDTIME PRN (Reason: constipation) Qty: 60 5RF miscellaneous medical supply Misc 1 ea miscellaneous DAILY Qty: 1 0RF Rx Instructions: Raised Toilet seat Linzess 145 mcg capsule 145 mcg PO DAILY Qty: 90 2RF Referrals: Isrrael Carrillo MD [Physician] - (?fracture vs osteophyte) Print Language: Peruvian
[2024-05-09 17:50] LABS: MANUAL DIFF FLAG NO
[2024-05-09 17:57] LABS: Basophils Absolute Auto 0.1 X10*3/uL (0.0-0.2); Basophils Percent Auto 0.5 % (0-2); Eosinophils Absolute Auto 0.4 X10*3/uL (0.0-0.4); Eosinophils Percent Auto 3.1 % (0-4); Hemoglobin 13.6 g/dl (14.0-18.0); Imm Gran Abs Auto 0.04 X10*3/uL (0.00-0.03); Imm Gran Pct Auto 0.3 % (0.0-0.4); Lymphocytes Absolute Auto 4.4 X10*3/uL (1.2-4.9); Lymphocytes Percent Auto 37.6 % (20-40); Mean Corpuscular Hemoglobin 29.4 pg (27.0-33.0); Mean Corpuscular Volume 86.6 fL (80.0-98.0); Mean Platelet Volume 9.7 fL (9.4-12.4); Monocytes Percent Auto 8.6 % (2-11); Neutrophils Absolute Auto 5.9 x10*3/uL (2.0-8.3); Neutrophils Percent Auto 49.9 % (45-73); Platelet Count 284 X10*3/uL (160-400); Red Blood Count 4.62 X10*6/uL (4.60-5.80); Red Cell Distribution Width 12.7 % (11.0-16.0); White Blood Count 11.8 X10*3/uL (4.8-10.8)
[2024-05-09 18:03] LABS: INTERNATIONAL NORM RATIO 2.4 (0.9-1.1); Prothrombin Time 28.2 SEC (10.9-12.4)
[2024-05-09 18:05] LABS: Alanine Aminotransferase 26 U/L (0-40); Albumin Level 3.9 g/dL (3.5-5.0); Alkaline Phosphatase 94 U/L (39-117); Anion Gap 11 (12-20); Aspartate Amino Transferase 34 U/L (5-37); Bilirubin Direct 0.5 mg/dL (0.0-0.5); Bilirubin Total 1.5 mg/dL (0.0-1.0); Blood Urea Nitrogen 13 mg/dL (9-16); Calcium 8.8 mg/dL (8.4-10.2); Carbon Dioxide 28 mmol/L (22-29); Chloride 104 mmol/L (96-108); Estimated Glomerular Filt Rate > 60; Glucose Random 79 mg/dL (60-115); Potassium 3.8 mmol/L (3.3-5.1); Sodium 139 mmol/L (135-145)
--- NOTE | 2024-05-09 18:28 | PC.NURSE ---
pt to ED from home. reporting r forearm swelling and pain. r arm tender to touch, looks swollen compared to left.
--- NOTE | 2024-05-09 19:00 | PC.NURSE ---
report received from Ana Laura Perez RN, assume care of pt at this time
[2024-05-09 19:17] VITALS: BP 137/76; PULSE 61; RESP 18; TEMP 36.7; O2SAT 98
[2024-05-09 20:58] VITALS: BP 128/64; PULSE 84; RESP 18; TEMP 36.9; O2SAT 96
[2024-05-09 21:43] VITALS: BP 128/64; PULSE 84; RESP 16; TEMP 36.9; O2SAT 96
== END 2024-05-09 21:44 | disposition home or self-care (01) ==
PROVIDERS: Physician Assistant; Emergency Provider Internal Medicine
DX: M25.521 Pain in right elbow (principal); E78.00 Pure hypercholesterolemia, unspecified; I48.19 Other persistent atrial fibrillation; Z79.01 Long term (current) use of anticoagulants; Z79.02 Long term (current) use of antithrombotics/antiplatelets
CPT/HCPCS: 36415; 73080; 80048; 80076; 85025; 85610; 93971; 99284

== ENCOUNTER 2024-05-12 13:55 | Outpatient (AMB) | payer OTHER, SELFPAY ==
[2024-05-12 14:08] VITALS: BP 112/68; PULSE 57; O2SAT 98; BMI 33.1
--- NOTE | 2024-05-12 14:08 | MHC.OFFVIS ---
Vital Signs 05/12/24 14:08 Height 5 ft 3 in Weight 187 lb BMI 33.1 BP 112/68 Blood Pressure Location Lt brachial Position Sitting Pulse 57 Pulse Source Pulse Oximeter Pulse Oximetry (%) 98 Oxygen Delivery Method Room Air Intake Visit Reasons: COPD, MELANIE on CPAP Intake Note: pt is here for MELANIE/copd follow up and needs supplies for cpap, little short of breath at times. Allergies No Known Allergies [No Known Allergies*] Allergy (Verified 05/12/24 14:35) Medication List - Last Reconciled 05/12/24 by Kelley Swift MD acetaminophen (Tylenol) 325 mg PO Q4H PRN CPAP As directed digoxin 125 mcg PO DAILY 90 days diltiazem HCl CD 360 mg PO DAILY docusate sodium 200 mg (2 x 100 mg) PO BEDTIME PRN furosemide 40 mg PO DAILY lidocaine 5% 1 patch topical DAILY PRN linaclotide (Linzess) 145 mcg PO DAILY lisinopril 40 mg PO DAILY 90 days metoprolol succinate ER 100 mg PO DAILY miscellaneous medical supply 1 ea miscellaneous DAILY pantoprazole 40 mg PO DAILY 90 days polyethylene glycol 3350 (Miralax) 17 grams PO DAILY pravastatin 20 mg PO BEDTIME 90 days ropinirole 2 mg PO BEDTIME 90 days [shoe lift Lt 1/2 inch heel lift] Shower Chair As directed tramadol 50 mg PO Q6H PRN tramadol 50 mg PO Q8H PRN 30 days warfarin 5 mg See Protocol PO DAILY Do you need a note to return to daycare/school/sports/work: No HPI HPI COPD: Details: 69 YEARS OLD GENTLEMAN A CASE OF OBSTRUCTIVE SLEEP APNEA IN ADDITION TO OTHER COMORBIDITIES,, INCLUDING HYPERTENSION, CARDIAC DISEASE, HYPERLIPIDEMIA, PERIPHERAL VASCULAR DISEASE AND CHRONIC RENAL DISEASE. FOR HIS OBSTRUCTIVE SLEEP APNEA HE USES CPAP REGULARLY EVERY NIGHT AND SLEEPS WELL. LATELY HE IS HAVING SOME PRESSURE-LIKE FEELING ON THE NASAL BRIDGE AND CAN NOT TIGHTEN THE STRAP. AT THE SAME TIME HE DOES HAVE AIR LEAK AND IRRITATION OF THE EYES. HE WOULD LIKE TO TRY NASAL INTERFACE , WITH NASAL PILLOWS OR NASAL MASK. HIS USAGE OF CPAP HAS BEEN EXCELLENT, 100%. BREATHING HAS REMAINED STABLE HE DOES NOT NEED ANY BRONCHODILATORS. [facility] Medical History Restless leg syndrome Chronic constipation Chronic GERD History of pacemaker Obesity (BMI 30-39.9) Vitamin D deficiency Pure hypercholesterolemia Leg length discrepancy Pacemaker Abnormal finding of foot Right shoulder pain MELANIE on CPAP Chest pain Trigger finger Bilateral sciatica Polyarthralgia Chronic heart failure with preserved ejection fraction (HFpEF) Persistent atrial fibrillation Obesity (BMI 30.0-34.9) Surgical History Hx of colonoscopy History of ear surgery History of cholecystectomy Family History Father Myocardial infarction CVD (cardiovascular disease) Mother No problems noted. Sister Stomach cancer Son No problems noted. Son No problems noted. Daughter No problems noted. Daughter No problems noted. Brother No problems noted. Brother No problems noted. Social History Household Members: Children Housing: House Alcohol intake: current Alcohol intake frequency: holidays/special occasions only Alcohol type: beer Patient Tobacco Use Status: Never used Tobacco e-Cigarette/Vaping Use: Never Used Second Hand Smoke Exposure: No service: No Current occupational status: disabled Cognitive needs: Yes (cane) Hearing needs: No Vision needs: Yes (glasses) Review of Systems Const All systems reviewed & are unremarkable except as noted in HPI and below Reports snoring Eyes Reports no additional complaints ENT Reports no additional complaints Card Denies chest pain, Reports irregular heart rhythm (ATRIAL FIB) and Denies leg edema Resp Denies cough, Reports snoring, Denies wheezing and Reports other (Nonspecific discomfort/pain over right thoraco lumbar area.) GI Reports heartburn (GERD SYMPTOMS CONTROLLED WITH MEDICINE) Musc Reports back pain and Reports arthralgias Skin/Breast Reports system reviewed and no additional complaints, except as documented Neuro Reports no additional complaints Psych Reports no additional complaints Aller/Immun Denies wheezing Physical Exam Vital Signs: Last Vital Signs Pulse 57 05/12/24 14:08 BP 112/68 05/12/24 14:08 Pulse Ox 98 05/12/24 14:08 Oxygen Delivery Method Room Air 05/12/24 14:08 BMI result Body Mass Index 33.1 Const General: healthy appearing, comfortable, no acute distress, alert and awake Orientation/consciousness: patient oriented x3 HEENT Head: Yes normal to inspection General nose exam: No nasal polyps present and No nasal discharge present Face and sinus: Yes sinuses nontender Mouth: oropharynx normal Throat: Yes posterior oropharynx normal Eyes General: appearance normal, both eyes and all related structures Neck Neck: Yes normal visual inspection, Yes no lymphadenopathy, Yes trachea midline and Yes no JVD Thyroid: Thyroid normal Chest Chest palpation & inspection: normal inspection of the chest, normal palpation of entire chest wall and no tenderness Resp Other: PERCUSSION NOTE RESONANT, BREATH SOUNDS ARE EQUAL ON BOTH SIDES, NO WHEEZES RHONCHI OR CREPITATIONS ARE HEARD Cardio Palpation: normal PMI Rate: regular rate Rhythm: regular rhythm Heart sounds: no gallops and no murmurs GI Palpation (GI): Soft to palpation, nontender, No hepatosplenomegaly present and no masses Auscultation: normal bowel sounds Back/Spine/Pelvis Thoracic/Lumbar Spine: thoracic and lumbar spine normal to inspection and thoraco-lumbar ROM limited Skin General skin exam: no rashes or lesions noted Neuro General: patient oriented x3 and no focal motor deficits Cranial nerves: Yes CN's II-XII intact bilaterally Extrem Other: MODERATE SWELLING AND TENDERNESS OF THE RIGHT ELBOW General: Yes normal to inspection, Yes no clubbing, cyanosis or edema and Yes no calf tenderness Psych Appearance: grossly normal and well kempt Speech and movement: Normal speech and movement present Results Reviewed Results Reviewed: COMPLIANCE REPORT FOR THE LAST 30 NIGHTS IS REVIEWED HE HAS USED 30/30 NIGHTS., 100% AVERAGE USE IT PER NIGHT IS 8 HOURS 42 MINUTES. THERE IS SIGNIFICANT AIR LEAK. PRESSURE USED 14 CM. RESIDUAL AHI 1.8 Assessment & Plan Assessment & Plan (1) MELANIE on CPAP: Comment: THIS PATIENT HAS KNOWN DIAGNOSIS OF OBSTRUCTIVE SLEEP APNEA, BEING TREATED WITH CPAP AND HE REMAINS VERY COMPLIANT. COMPLAINS OF DISCOMFORT OVER THE NASAL BRIDGE, AND IRRITATION OF THE EYES DUE TO AIR LEAK. HE WOULD LIKE TO TRY NASAL INTERFACE. Code(s): G47.33 - Obstructive sleep apnea (adult) (pediatric); Z99.89 - Dependence on other enabling machines and devices Category: Medical Plan: ORDERED SENT FOR SUPPLIES, INCLUDING NASAL AIR OR NASAL PILLOWS . ADVISED TO CONTINUE USING THE CPAP REGULARLY. Coding Level of Care Code Est Pt Level 3 (26787) Diagnoses MELANIE on CPAP G47.33; Z99.89
== END 2024-05-12 14:33 | disposition home or self-care (01) ==
PROVIDERS: PCP Internal Medicine; Visit Provider Internal Medicine
DX: G47.33 Obstructive sleep apnea (adult) (pediatric) (principal); Z99.89 Dependence on other enabling machines and devices
CPT/HCPCS: 99213

== ENCOUNTER → 2024-05-12 13:55 | Outpatient (BNVA) | payer OTHER, SELFPAY | PROVIDERS: PCP Internal Medicine; Visit Provider Internal Medicine | DX: G47.33 Obstructive sleep apnea (adult) (pediatric) (principal); E66.9 Obesity, unspecified; Z68.33 Body mass index [BMI] 33.0-33.9, adult; Z99.89 Dependence on other enabling machines and devices | CPT/HCPCS: 99212 ==

== ENCOUNTER 2024-05-26 09:58 | Outpatient (AMB) | payer OTHER, SELFPAY ==
[2024-05-26 10:24] LABS: Prothrombin Time Whole Bld POC 26.5 sec (11.1-13.5); ~PT, ~INR - Anti Coag Clinic 2.2 (0.9-1.1)
--- NOTE | 2024-05-26 10:25 | MHC.OFFVISCO ---
Intake Intake Visit Reasons: Anticoagulation Allergies No Known Allergies [No Known Allergies*] Allergy (Verified 05/26/24 10:17) Medication List - Last Reconciled 05/26/24 by Nell Gill RN acetaminophen (Tylenol) 325 mg PO Q4H PRN CPAP As directed digoxin 125 mcg PO DAILY 90 days diltiazem HCl CD 360 mg PO DAILY docusate sodium 200 mg (2 x 100 mg) PO BEDTIME PRN furosemide 40 mg PO DAILY lidocaine 5% 1 patch topical DAILY PRN linaclotide (Linzess) 145 mcg PO DAILY lisinopril 40 mg PO DAILY 90 days metoprolol succinate ER 100 mg PO DAILY miscellaneous medical supply 1 ea miscellaneous DAILY pantoprazole 40 mg PO DAILY 90 days polyethylene glycol 3350 (Miralax) 17 grams PO DAILY pravastatin 20 mg PO BEDTIME 90 days ropinirole 2 mg PO BEDTIME 90 days [shoe lift Lt 1/2 inch heel lift] Shower Chair As directed tramadol 50 mg PO Q6H PRN tramadol 50 mg PO Q8H PRN 30 days warfarin 5 mg See Protocol PO DAILY Nursing Note Amb to ACS accomp by family membe Medications and supplements reviewed No changes in health, diet, medications, or supplements, Denies any signs and symptoms of bleeding, bruising, or clotting. Bleeding, bruising, clotting discussed INR: 2.2 in therapeutic range Dose: continue usual 5mg x 3 days and 2.5mg x 4 days balance greens and reds in diet, be consistent F/U INR: 4 weeks Patient and family member verbalizes understanding of instructions given Anti-Coag Initial Assessment Social Hx Patient Tobacco Use Status: Never used Tobacco alcohol intake: current Alcohol intake frequency: holidays/special occasions only Coding Level of Care Code Est Patient Level 1 Diagnoses Current use of anticoagulant therapy Z79.01 Time Spent (min) 15 Assessment & Plan Assessment & Plan (1) Current use of anticoagulant therapy: Code(s): Z79.01 - USP (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
== END 2024-05-26 10:31 | disposition home or self-care (01) ==
LOC: HO.ACS 09:58
PROVIDERS: PCP Internal Medicine; Visit Provider Internal Medicine
DX: Z79.01 Long term (current) use of anticoagulants (principal)

== ENCOUNTER → 2024-05-26 09:58 | Outpatient (BNVA) | payer OTHER, SELFPAY | PROVIDERS: PCP Internal Medicine; Visit Provider Internal Medicine | DX: I48.20 Chronic atrial fibrillation, unspecified (principal); Z79.01 Long term (current) use of anticoagulants; Z51.81 Encounter for therapeutic drug level monitoring | CPT/HCPCS: 85610; 99211 ==

== ENCOUNTER 2024-06-01 10:33 | Outpatient (AMB) | payer OTHER, SELFPAY ==
--- NOTE | 2024-06-01 11:06 | MHC.OFFVIS ---
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 Pt was seen in the ED on 05/09/24 for elbow pain for about a week. Patient states he couldn't straighten the elbow completely and he cannot flex the elbow completely. Hwoever today he is able to extend his elbow more.He mentions that his pain has gottena bit better when taking the tramodol. 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 The patient presented to the ED on 05/10/24 for right elbow pain and edema. X-rays of the right elbow and ultrasound of the right upper extremity were obtained in the ER. She was prescribed tramadol 50 mg PO Q6H PRN for pain relief. While in the office today, the patient reports experiencing right elbow pain. He was unable to straighten or flex his right elbow completely; however, he is able to extend his right elbow more. He has tried tramadol with mild relief. The patient has a significant medical history of peripheral artery disease, heart failure with preserved ejection fraction, and atrial fibrillation on Coumadin. The patient was accompanied by his daughter today. [facility] Medical History Restless leg syndrome Chronic constipation Chronic GERD History of pacemaker Obesity (BMI 30-39.9) Vitamin D deficiency Pure hypercholesterolemia Leg length discrepancy Pacemaker Abnormal finding of foot Right shoulder pain MELANIE on CPAP Chest pain Trigger finger Bilateral sciatica Polyarthralgia Chronic heart failure with preserved ejection fraction (HFpEF) Persistent atrial fibrillation Obesity (BMI 30.0-34.9) Surgical History Hx of colonoscopy History of ear surgery History of cholecystectomy Family History Father Myocardial infarction CVD (cardiovascular disease) Mother No problems noted. Sister Stomach cancer Son No problems noted. Son No problems noted. Daughter No problems noted. Daughter No problems noted. Brother No problems noted. Brother No problems noted. Social History Household Members: Children Housing: House Alcohol intake: current Alcohol intake frequency: holidays/special occasions only Alcohol type: beer Patient Tobacco Use Status: Never used Tobacco e-Cigarette/Vaping Use: Never Used Second Hand Smoke Exposure: No service: No Current occupational status: disabled Cognitive needs: Yes (cane) Hearing needs: No Vision needs: Yes (glasses) Review of Systems Const All systems reviewed & are unremarkable except as noted in HPI and below Physical Exam Vital Signs: BMI result Body Mass Index 33.1 Const General: cooperative and no acute distress Orientation/consciousness: patient oriented x3 Resp Effort & Inspection: normal respiratory effort and able to speak in complete sentences Cardio Peripheral pulses: Peripheral pulses 2+ throughout Skin General skin exam: no rashes or lesions noted Neuro General: patient oriented x3 Extrem Other: Right shoulder: Normal to inspection. No ecchymosis, erythema, or edema. Full shoulder ROM in all planes. Reports intermittent numbness and tingling in all digits. No tenderness to palpation over the radial head. Full elbow ROM. NVI. Assessment & Plan Assessment & Plan (1) Cervical radiculopathy: Code(s): M54.12 - Radiculopathy, cervical region Category: Medical Plan Mr. Limon is a 69-year-old male, who is Bahraini speaking, presents in the office today, as a new patient, for an evaluation of right elbow pain. The patient presented to the ED on 05/10/24 for right elbow pain and edema. X-rays of the right elbow and ultrasound of the right upper extremity were obtained in the ER. She was prescribed tramadol 50 mg PO Q6H PRN for pain relief. While in the office today, the patient reports experiencing right elbow pain. He was unable to straighten or flex his right elbow completely; however, he is able to extend his right elbow more. He has tried tramadol with mild relief. The patient has a significant medical history of peripheral artery disease, heart failure with preserved ejection fraction, atrial fibrillation on Coumadin. The patient was accompanied by his daughter, The patient was referred to Doctor Montemayor for further evaluation and treatment of the right upper extremity. I also placed an order for an EMG study of the right upper extremity and physical therapy for his C-spine. Follow-up will be with Dr. Montemayor, or sooner if needed. Patient Instructions: Scribed by Mildred Lopez biomedical engineering professor, for Patricia Mcfarland PA-C on 06/01/24 at 11:35 am EST. Coding Level of Care Code New Pt Level 4 (12372) Diagnoses Cervical radiculopathy M54.12
[2024-06-01 11:08] VITALS: BMI 33.1
== END 2024-06-01 11:25 | disposition home or self-care (01) ==
PROVIDERS: PCP Internal Medicine; Visit Provider Physician Assistant
DX: M54.12 Radiculopathy, cervical region (principal)
CPT/HCPCS: 99204

== ENCOUNTER → 2024-06-01 10:33 | Outpatient (BNVA) | payer OTHER, SELFPAY | PROVIDERS: PCP Internal Medicine; Visit Provider Physician Assistant | DX: M54.12 Radiculopathy, cervical region (principal); M25.521 Pain in right elbow; Z79.891 Long term (current) use of opiate analgesic | CPT/HCPCS: 99202 ==

== ENCOUNTER 2024-06-22 13:10 | Outpatient (AMB) | payer OTHER, SELFPAY ==
--- NOTE | 2024-06-22 13:39 | A.OFFVIS_ITS ---
Vital Signs 06/22/24 13:40 Height 5 ft 3 in Weight 187 lb BMI 33.1 BP 136/88 Blood Pressure Location Rt brachial Pulse 75 Intake Visit Reasons: 6m follow up w [facility] ck Relay Telegrapher Required: Yes Relay Telegrapher Services: Relay Telegrapher Offered & Declined Relay Telegrapher Name: Evi Sinclair Veterans Services Specialist: Veterans Services Specialist Present Accompanied by: PAPER BALER Allergies No Known Allergies [No Known Allergies*] Allergy (Verified 06/22/24 13:41) Medication List - Last Reconciled 06/22/24 by Homer Finch MD acetaminophen (Tylenol) 325 mg PO Q4H PRN CPAP As directed digoxin 125 mcg PO DAILY 90 days diltiazem HCl CD 360 mg PO DAILY docusate sodium 200 mg (2 x 100 mg) PO BEDTIME PRN furosemide 40 mg PO DAILY lidocaine 5% 1 patch topical DAILY PRN linaclotide (Linzess) 145 mcg PO DAILY lisinopril 40 mg PO DAILY 90 days metoprolol succinate ER 100 mg PO DAILY miscellaneous medical supply 1 ea miscellaneous DAILY pantoprazole 40 mg PO DAILY 90 days polyethylene glycol 3350 (Miralax) 17 grams PO DAILY pravastatin 20 mg PO BEDTIME 90 days ropinirole 2 mg PO BEDTIME 90 days [shoe lift Lt 1/2 inch heel lift] Shower Chair As directed tramadol 50 mg PO Q6H PRN tramadol 50 mg PO Q8H PRN 30 days warfarin 5 mg See Protocol PO DAILY HPI Comments Details: Dwain returns for follow-up regarding atrial fibrillation. Various antiarrhythmics have been tried different times including sotalol, Multaq, amiodarone. He was also sent to EP for possible ablation but that did not materialize either. Hence he is mainly controlled by rate control medications. For the most part, he states he is feeling fine. Rare episodes of palpitations but they are brief. No other complaints like angina or shortness of breath. O therwise getting along fine. He is here with his PAPER BALER who states he is doing okay. [facility] Medical History Restless leg syndrome Chronic constipation Chronic GERD History of pacemaker Obesity (BMI 30-39.9) Vitamin D deficiency Pure hypercholesterolemia Leg length discrepancy Pacemaker Abnormal finding of foot Right shoulder pain MELANIE on CPAP Chest pain Trigger finger Bilateral sciatica Polyarthralgia Chronic heart failure with preserved ejection fraction (HFpEF) Persistent atrial fibrillation Obesity (BMI 30.0-34.9) Surgical History Hx of colonoscopy History of ear surgery History of cholecystectomy Family History Father Myocardial infarction CVD (cardiovascular disease) Mother No problems noted. Sister Stomach cancer Son No problems noted. Son No problems noted. Daughter No problems noted. Daughter No problems noted. Brother No problems noted. Brother No problems noted. Social History Household Members: Children Housing: House Alcohol intake: current Alcohol intake frequency: holidays/special occasions only Alcohol type: beer Patient Tobacco Use Status: Never used Tobacco e-Cigarette/Vaping Use: Never Used Second Hand Smoke Exposure: No service: No Current occupational status: disabled Cognitive needs: Yes (cane) Hearing needs: No Vision needs: Yes (glasses) Review of Systems Const All systems reviewed & are unremarkable except as noted in HPI and below Reports as per HPI and Reports no additional complaints Eyes Reports as per HPI and Denies no additional complaints ENT Denies no additional complaints and Reports as per HPI Card Reports as per HPI, Reports no additional complaints, Denies acrocyanosis, Denies chest pain, Denies leg edema, Denies lightheadedness, Denies palpitations and Denies dyspnea Resp Reports as per HPI, Denies no additional complaints and Denies dyspnea GI Reports as per HPI and Denies no additional complaints Reports no additional complaints and Reports as per HPI Musc Reports no additional complaints and Reports as per HPI Skin/Breast Reports system reviewed and no additional complaints, except as documented Neuro Reports no additional complaints and Reports as per HPI Psych Reports no additional complaints and Reports as per HPI Endo Reports no additional complaints, Reports as per HPI and Denies palpitations Yash/Lymph Reports no additional complaints and Reports as per HPI Aller/Immun Reports no additional complaints and Reports as per HPI Physical Exam Vital Signs: Last Vital Signs Pulse 75 06/22/24 13:40 BP 136/88 06/22/24 13:40 BMI result Body Mass Index 33.1 Const General: comfortable and no acute distress Orientation/consciousness: patient oriented x3 HEENT Other: Unremarkable Head: Yes normal to inspection Neck Neck: Yes normal visual inspection Chest Chest palpation & inspection: normal inspection of the chest Resp Auscultation: clear to auscultation bilaterally Cardio Palpation: normal PMI Heart sounds: S1 normal heart sound present, S2 normal heart sound present, no gallops, no murmurs and no rubs GI Palpation (GI): Soft to palpation Back/Spine/Pelvis Other: unremarkable Skin General skin exam: no rashes or lesions noted Neuro General: patient oriented x3 Extrem General: Yes normal to inspection Psych Mental Status: mental status grossly normal Office Procedures Cardiac Device Check Cardiac Device Check Details: Pacemaker interrogated today. Programmed VVI at 60/Min. V pacing 47%. Battery status 5.6-5.9 years. Normal lead parameters. Brief episodes of high ventricular rates which could be from atrial fibrillation. Overall, normal device function. [id number] Cardiac Device Check, leadless/single lead pacemaker Procedure code (CPT) selection complete Assessment & Plan Assessment & Plan (1) Persistent atrial fibrillation: Code(s): I48.19 - Other persistent atrial fibrillation Category: Medical Plan: Continue current medications including metoprolol, diltiazem, digoxin. Continue anticoagulation. (2) Chronic heart failure with preserved ejection fraction (HFpEF): Code(s): I50.32 - Chronic diastolic (congestive) heart failure Category: Medical Plan: Stable. Continue diuretics. Echocardiogram-12/2023-LVEF 55-60%; no significant valvular issues. Mild increase in right atrial pressure. Myocardial perfusion imaging study from 2021 with normal perfusion. Gated LVEF 70%. (3) MELANIE on CPAP: Code(s): G47.33 - Obstructive sleep apnea (adult) (pediatric); Z99.89 - Dependence on other enabling machines and devices Category: Medical Plan: Continue CPAP. (4) Pacemaker: Code(s): Z95.0 - Presence of cardiac pacemaker Category: Medical Plan: Check today. Also being followed remotely. Normal function. Plan Discussed with HADLEY who also acted as the admitting counselor. Coding Level of Care Code Est Pt Level 4 (66924) Diagnoses Persistent atrial fibrillation I48.19 Chronic heart failure with preserved ejection fraction (HFpEF) I50.32 MELANIE on CPAP G47.33; Z99.89 Pacemaker Z95.0 CPT Codes Cardiac Device Check - Cardiac Device 1: [id number] Cardiac Device Check, leadless/single lead pacemaker ([id number])
[2024-06-22 13:40] VITALS: BP 136/88; PULSE 75; BMI 33.1
== END 2024-06-22 14:09 | disposition home or self-care (01) ==
LOC: HO.HCS 13:10
PROVIDERS: PCP Internal Medicine; Visit Provider Internal Medicine
DX: I48.19 Other persistent atrial fibrillation (principal); I50.32 Chronic diastolic (congestive) heart failure; G47.33 Obstructive sleep apnea (adult) (pediatric); Z99.89 Dependence on other enabling machines and devices; Z95.0 Presence of cardiac pacemaker
CPT/HCPCS: 93279; 99214

== ENCOUNTER → 2024-06-22 13:10 | Outpatient (BNVA) | payer OTHER, SELFPAY | PROVIDERS: PCP Internal Medicine; Visit Provider Internal Medicine | DX: Z45.018 Encounter for adjustment and management of other part of cardiac pacemaker (principal); I48.19 Other persistent atrial fibrillation; I50.32 Chronic diastolic (congestive) heart failure; G47.33 Obstructive sleep apnea (adult) (pediatric); Z99.89 Dependence on other enabling machines and devices | CPT/HCPCS: 99212 ==

== ENCOUNTER 2024-06-23 10:10 | Outpatient (AMB) | payer OTHER, SELFPAY ==
[2024-06-23 10:20] LABS: Prothrombin Time Whole Bld POC 33.4 sec (11.1-13.5); ~PT, ~INR - Anti Coag Clinic 2.8 (0.9-1.1)
--- NOTE | 2024-06-23 10:24 | MHC.OFFVISCO ---
Intake Intake Visit Reasons: Anticoagulation Allergies No Known Allergies [No Known Allergies*] Allergy (Verified 06/23/24 10:13) Medication List - Last Reconciled 06/23/24 by Nell Gill RN acetaminophen (Tylenol) 325 mg PO Q4H PRN CPAP As directed digoxin 125 mcg PO DAILY 90 days diltiazem HCl CD 360 mg PO DAILY docusate sodium 200 mg (2 x 100 mg) PO BEDTIME PRN furosemide 40 mg PO DAILY lidocaine 5% 1 patch topical DAILY PRN linaclotide (Linzess) 145 mcg PO DAILY lisinopril 40 mg PO DAILY 90 days metoprolol succinate ER 100 mg PO DAILY miscellaneous medical supply 1 ea miscellaneous DAILY pantoprazole 40 mg PO DAILY 90 days polyethylene glycol 3350 (Miralax) 17 grams PO DAILY pravastatin 20 mg PO BEDTIME 90 days ropinirole 2 mg PO BEDTIME 90 days [shoe lift Lt 1/2 inch heel lift] Shower Chair As directed tramadol 50 mg PO Q6H PRN tramadol 50 mg PO Q8H PRN 30 days warfarin 5 mg See Protocol PO DAILY Nursing Note Amb to [facility] feeling well, accomp by HOSPITAL LABORATORY TECHNICIAN Evi Medications and supplements reviewed No changes in health, diet, medications, or supplements, Denies any unusual signs and symptoms of bleeding, bruising or clotting. Bleeding, bruising, clotting discussed INR 2.8 in therapeutic range Dose: continue usual dosing 5mg x 3 days and 2.5mg x 4 days balance greens and reds in diet F/U INR: 4 weeks Patient and HOSPITAL LABORATORY TECHNICIAN verbalizes understanding of instructions given Anti-Coag Initial Assessment Social Hx Patient Tobacco Use Status: Never used Tobacco alcohol intake: current Alcohol intake frequency: holidays/special occasions only Coding Level of Care Code Est Patient Level 1 Diagnoses Current use of anticoagulant therapy Z79.01 Time Spent (min) 15 Assessment & Plan Assessment & Plan (1) Current use of anticoagulant therapy: Code(s): Z79.01 - terminal gauger (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
== END 2024-06-23 10:27 | disposition home or self-care (01) ==
LOC: HO.ACS 10:10
PROVIDERS: PCP Internal Medicine; Visit Provider Internal Medicine
DX: Z79.01 Long term (current) use of anticoagulants (principal)

== ENCOUNTER → 2024-06-23 10:10 | Outpatient (BNVA) | payer OTHER, SELFPAY | PROVIDERS: PCP Internal Medicine; Visit Provider Internal Medicine | DX: I48.20 Chronic atrial fibrillation, unspecified (principal); Z79.01 Long term (current) use of anticoagulants; Z51.81 Encounter for therapeutic drug level monitoring | CPT/HCPCS: 85610; 99211 ==

== ENCOUNTER → 2024-07-05 23:59 | Outpatient (BNV) | payer OTHER, SELFPAY ==
--- NOTE | 2024-07-09 16:00 | MHC.OFFVIS ---
Intake Visit Reasons: Remote device check- [facility] Allergies No Known Allergies [No Known Allergies*] Allergy (Verified 06/23/24 10:13) [facility] Medical History Restless leg syndrome Chronic constipation Chronic GERD History of pacemaker Obesity (BMI 30-39.9) Vitamin D deficiency Pure hypercholesterolemia Leg length discrepancy Pacemaker Abnormal finding of foot Right shoulder pain MELANIE on CPAP Chest pain Trigger finger Bilateral sciatica Polyarthralgia Chronic heart failure with preserved ejection fraction (HFpEF) Persistent atrial fibrillation Obesity (BMI 30.0-34.9) Surgical History Hx of colonoscopy History of ear surgery History of cholecystectomy Family History Father Myocardial infarction CVD (cardiovascular disease) Mother No problems noted. Sister Stomach cancer Son No problems noted. Son No problems noted. Daughter No problems noted. Daughter No problems noted. Brother No problems noted. Brother No problems noted. Social History Household Members: Children Housing: House Alcohol intake: current Alcohol intake frequency: holidays/special occasions only Alcohol type: beer Patient Tobacco Use Status: Never used Tobacco e-Cigarette/Vaping Use: Never Used Second Hand Smoke Exposure: No service: No Current occupational status: disabled Cognitive needs: Yes (cane) Hearing needs: No Vision needs: Yes (glasses) Office Procedures Cardiac Device Check Cardiac Device Check Details: Date of service- 07/05/2024 ; Battery life >5 years; normal lead parameters; FIELD SERVICE SPECIALIST 49%; no significant arrhythmias. Overall normal device function. [id number] Cardiac Device Interrogation, pacemaker Procedure code (CPT) selection complete Assessment & Plan Assessment & Plan (1) Pacemaker: Code(s): Z95.0 - Presence of cardiac pacemaker Category: Medical (2) Persistent atrial fibrillation: Code(s): I48.19 - Other persistent atrial fibrillation Category: Medical Plan x Coding Level of Care Code Procedure Only Diagnoses Pacemaker Z95.0 Persistent atrial fibrillation I48.19 CPT Codes Cardiac Device Check - Cardiac Device 12: [id number] Cardiac Device Interrogation, pacemaker ([id number])
== END ==
PROVIDERS: PCP Internal Medicine; Visit Provider Internal Medicine
DX: I48.19 Other persistent atrial fibrillation (principal); Z95.0 Presence of cardiac pacemaker
CPT/HCPCS: 93294

== ENCOUNTER 2024-07-14 13:23 | Outpatient (AMB) | payer OTHER, SELFPAY ==
[2024-07-14 13:39] VITALS: BP 110/70; PULSE 60; O2SAT 97; BMI 34.3
--- NOTE | 2024-07-14 13:39 | MHC.PC.OV ---
Vital Signs 07/14/24 13:39 Height 5 ft 3 in Weight 193 lb 8 oz BMI 34.3 BP 110/70 Blood Pressure Location Lt brachial Position Sitting Pulse 60 Pulse Source Pulse Oximeter Pulse Oximetry (%) 97 Oxygen Delivery Method Room Air Intake Visit Reasons: 4mth f/u Senior Director Required: No Accompanied by: Self / Same As Patient Allergies No Known Allergies [No Known Allergies*] Allergy (Verified 07/14/24 14:28) Medication List - Last Reconciled 07/14/24 by Reji Meyers MD acetaminophen (Tylenol) 325 mg PO Q4H PRN CPAP As directed digoxin 125 mcg PO DAILY 90 days diltiazem HCl CD 360 mg PO DAILY docusate sodium 200 mg (2 x 100 mg) PO BEDTIME PRN furosemide 40 mg PO DAILY lidocaine 5% 1 patch topical DAILY PRN linaclotide (Linzess) 145 mcg PO DAILY lisinopril 40 mg PO DAILY 90 days metoprolol succinate ER 100 mg PO DAILY miscellaneous medical supply 1 ea miscellaneous DAILY pantoprazole 40 mg PO DAILY 90 days polyethylene glycol 3350 (Miralax) 17 grams PO DAILY pravastatin 20 mg PO BEDTIME 90 days ropinirole 2 mg PO BEDTIME 90 days [shoe lift Lt 1/2 inch heel lift] Shower Chair As directed tramadol 50 mg PO Q6H PRN tramadol 50 mg PO Q8H PRN 30 days warfarin 5 mg See Protocol PO DAILY Tobacco use date assessed: 07/14/24 Fall risk assessment: No Falls in past year Last assessed Fall Risk: 07/14/24 Dental Screening Dental Screen Date: 07/14/24 Did you have a dental visit in the last 12 months?: Yes Did you have a dental problem in the last 6 months where you did not have access to dental care?: No Was dental information given to patient?: Patient has dentist HPI 4mth f/u HPI Details Patient comes in today for his follow up visit He again presents today with multiple complaints States that his stomach continues to bother him a lot Relates that his right leg often swells up and gets/feels very cold at night - is not really sure how else to describe it and does not know what triggers this but recalls (+) Hx of poliomyelitis when he was much younger that affected his right side predominantly Also states that he can barely walk much nowadays because he gets SOB very quickly, even with just minimal walking; thinks that his right leg swelling is contributing to this He denies any chest pains associated with activity or exertion, even when he is feeling SOB Echocardiogram done last December 2023 came out mostly normal - normal LV ejection fraction at 55-60%, mildly dilated left atrium, normal cardiac valvular doppler, normal RV systolic pressure with mildly elevated right atrial pressures and no gross pericardial effusion Abdominal US done in April 2024 revealed only findings of hepatic steatosis or liver parenchymal disease States that he has gained some more weight lately and he is attributing this to decreased physical activity brought about by his recent symptoms He denies any headaches or dizziness No nausea/vomiting, no abdominal pain No change in bowel habits noted He was not able to get his follow up labs done prior to his appointment today [facility] Medical History (Updated 07/20/24 @ 03:08 by Reji Meyers MD) Primary osteoarthritis, right shoulder Degenerative disc disease, cervical History of poliomyelitis Restless leg syndrome Chronic constipation Chronic GERD History of pacemaker Obesity (BMI 30-39.9) Vitamin D deficiency Pure hypercholesterolemia Leg length discrepancy Pacemaker Abnormal finding of foot Right shoulder pain MELANIE on CPAP Chest pain Trigger finger Bilateral sciatica Polyarthralgia Chronic heart failure with preserved ejection fraction (HFpEF) Persistent atrial fibrillation Obesity (BMI 30.0-34.9) Surgical History Hx of colonoscopy History of ear surgery History of cholecystectomy Family History Father Myocardial infarction CVD (cardiovascular disease) Mother No problems noted. Sister Stomach cancer Son No problems noted. Son No problems noted. Daughter No problems noted. Daughter No problems noted. Brother No problems noted. Brother No problems noted. Social History Household Members: Children Housing: House Alcohol intake: current Alcohol intake frequency: holidays/special occasions only Alcohol type: beer Patient Tobacco Use Status: Never used Tobacco e-Cigarette/Vaping Use: Never Used Second Hand Smoke Exposure: No service: No Current occupational status: disabled Cognitive needs: Yes (cane) Hearing needs: No Vision needs: Yes (glasses) Questionnaire PHQ-9 Over the last 2 weeks, how often have you been bothered by any of the following problems? 1. Little interest or pleasure in doing things: not at all 2. Feeling down, depressed, or hopeless: not at all 3. Trouble falling or staying asleep, or sleeping too much: not at all 4. Feeling tired or having little energy: not at all 5. Poor appetite or overeating: not at all 6. Feeling bad about yourself - or that you are a failure or have let yourself or your family down: not at all 7. Trouble concentrating on things, such as reading the newspaper or watching television: not at all 8. Moving or speaking so slowly that other people could have noticed. Or the opposite - being so fidgety or restless that you have been moving around a lot more than usual: not at all 9. Thoughts that you would be better off or of hurting yourself in some way: not at all Total score: 0 Depression Screening Interpretation: Negative Depression Screening Done: Yes 24571 - PHQ-9 Billing: Yes Source: Developed by Drs. Srinivasa Arauz, Sol Duron, Denis Hernandez and colleagues, with an educational lorenza from [employer]. Thrive Questionnaire Date Thrive assessed: 07/14/24 I am a: Patient What is your living situation today?: I have a steady place to live Within the past 12 months, did the food you bought not last and you didn't have the money to get more?: Never true Within the past 12 months, did you worry whether your food would run out before you got money to buy more?: Never true Do you have trouble paying for medicines?: No Do you have trouble getting transportation to medical appointments?: No Do you have trouble paying your heating and electricity bill?: No Do you have trouble taking care of your child, family member or friend?: No Do you have trouble with day-to-day activities such as bathing, preparing meals, shopping, managing finances, etc.?: No Are you currently unemployed and looking for a job?: No Are you interested in more education?: No Please select the resources that you would like help with: None Currently or been in a relationship where the following occur: No concerns reported THRIVE Score: 0 AUDIT C Alcohol Use Questionnaire (AUDIT-C) 1. How often do you have a drink containing alcohol?: Monthly or less 2. How many drinks containing alcohol do you have on a typical day when you are drinking?: 1 or 2 3. How often do you have six or more drinks on one occasion?: Never Total Score: 1 Score Reviewed/Action Taken: Yes THERESA-7 AMB Questionnaire THERESA-7 Date THERESA - 7 assessed: 07/14/24 Feeling nervous, anxious, or on edge: 0 = Not at all Not being able to stop or control worryin = Not at all Worrying too much about different things: 0 = Not at all Trouble relaxin = Not at all Being so restless that it is hard to sit still: 0 = Not at all Becoming easily annoyed or irritable: 0 = Not at all Feeling afraid as if something awful might happen: 0 = Not at all Total THERESA-7 score (0-4 normal; 5-9 mild; 10-14 moderate; 15-21 severe): 0 Source: Developed by Drs. Srinivasa Arauz, Sol Duron, Denis Hernandez and colleagues, with an educational lorenza from [employer]. Review of Systems Const Denies chills, Reports fatigue, Denies fever(s) and Denies headache(s) ENT Denies dysphagia, Denies dizziness, Denies otalgia, Denies headache(s), Reports neck pain, Denies odynophagia and Denies sore throat Card Denies chest pain, Denies palpitations and Reports dyspnea on exertion Resp Denies chest congestion, Denies cough and Reports dyspnea on exertion GI Denies abdominal pain, Reports constipation (better with Rx), Denies dysphagia, Denies heartburn, Denies diarrhea, Denies nausea, Denies odynophagia and Denies vomiting Denies dysuria, Denies nocturia and Denies urinary frequency Musc Reports as per HPI, Reports back pain (over the lower back), Reports arthralgias (involving multiple joints, especially in the right shoulder recently), Reports neck pain and Reports radiating pain into limb (into the right arm and hand at times) Skin/Breast Denies rash Neuro Denies dizziness and Denies headache(s) Endo Reports fatigue and Denies palpitations Physical exam (Primary Care) Vital Signs: Last Vital Signs Pulse 60 07/14/24 13:39 BP 110/70 07/14/24 13:39 Pulse Ox 97 07/14/24 13:39 Oxygen Delivery Method Room Air 07/14/24 13:39 BMI result Body Mass Index 34.3 Tobacco/Smoking Status: Tobacco use Status Tobacco use date assessed 07/14/24 07/14/24 13:46 Patient Tobacco Use Status Never used Tobacco 07/14/24 13:46 e-Cigarette/Vaping Use Never Used 07/14/24 13:46 PHQ-9: PHQ-9 Score PHQ-9: Total score 0 07/14/24 14:30 Depression Screening Interpretation: Negative Thrive Assessment: Date of Thrive Assessment Date Thrive assessed 07/14/24 07/14/24 13:46 Currently or been in a relationship where the following occur: No concerns reported Const General: no acute distress and alert HENMT Ears: TM's normal bilaterally and EAC's normal Throat: Yes posterior oropharynx normal and Yes tonsils normal (no TP congestion) Neck Neck: No lymphadenopathy and Yes tender Thyroid: Thyroid normal Resp Auscultation: clear to auscultation bilaterally, no rales and no wheezes Cardio Rate: regular rate Rhythm: abnormal rhythm irregularly irregular Heart sounds: no murmurs GI Palpation (GI): Soft to palpation and nontender Auscultation: normal bowel sounds General: Yes no CVA tenderness Back/Spine/Pelvis Back: no CVA tenderness Cervical Spine: Cervical spine tenderness (mild) Thoracic/Lumbar Spine: lumbar spinal tenderness (chronic) Skin Rashes: no rashes Extrem General: Yes no clubbing, cyanosis or edema Right upper extremity: shoulder/upper arm Details: tenderness Location: of the A-C joint and normal ROM; no swelling Coding Level of Care Code Est Pt Level 4 (08332) Diagnoses Pain and swelling of right lower extremity M79.604; M79.89 Exertional dyspnea R06.09 Chronic heart failure with preserved ejection fraction (HFpEF) I50.32 Persistent atrial fibrillation I48.19 Pure hypercholesterolemia E78.00 MELANIE on CPAP G47.33; Z99.89 Polyarthralgia M25.50 Vitamin D deficiency E55.9 Chronic GERD K21.9 Degenerative disc disease, cervical M50.30 Primary osteoarthritis, right shoulder M19.011 Chronic constipation K59.09 Restless leg syndrome G25.81 Obesity (BMI 30-39.9) E66.9 Additional Codes PHQ-9 - 26587 - PHQ-9 Billing: Yes ([id number]) Assessment & Plan Assessment & Plan (1) Pain and swelling of right lower extremity: Code(s): M79.604 - Pain in right leg; M79.89 - Other specified soft tissue disorders Category: Medical Plan: Will send patient for a venous Doppler of the right lower extremity to rule out DVT although I have discussed with patient that his recent right lower extremity symptoms are most likely a sequela of his bout with poliomyelitis years ago, which apparently affected predominantly his right side We can also consider sending him for EMG and NCV in the future for further evaluation of his current symptoms (2) Exertional dyspnea: Code(s): R06.09 - Other forms of dyspnea Category: Medical Plan: His echocardiogram done in December of last year (2023) was mostly borderline normal and does not help explain his current symptoms of exertional dyspnea Advised patient that this may be at least partly due to his recent weight gain Will send him for PFTs for further evaluation (3) Chronic heart failure with preserved ejection fraction (HFpEF): Code(s): I50.32 - Chronic diastolic (congestive) heart failure Category: Medical Plan: His most recent echoardiogram done in December 2023 revealed normal LV ejection fraction 55-60%, mildly dilated left atrium, normal cardiac valvular doppler, normal RV systolic pressure with mildly elevated right atrial pressures and no gross pericardial effusion Continue Furosemide 40 mg QD, Lisinopril 40 mg QD and Metoprolol ER 100 mg QD Follow up with cardiology as scheduled (4) Persistent atrial fibrillation: Code(s): I48.19 - Other persistent atrial fibrillation Category: Medical Plan: Continue Coumadin 5 mg daily for lifelong anticoagulation Patient has tried and failed several antiarrhythmics in the past, including Sotalol, Multaq and Amiodarone He has also been sent to EP consultation for possible ablation but for unclear reasons, nothing came out of this He has since been just maintained on rate control of his atrial fibrillation and he appears to be doing well on this regimen so far Continue Metoprolol ER 100 mg QD, Diltiazem 360 mg QD and Digoxin 0.125 mg QD Follow up with cardiology as scheduled (5) Pure hypercholesterolemia: Code(s): E78.00 - Pure hypercholesterolemia, unspecified Category: Medical Plan: Patient was not able to get his follow-up labs done prior to his appointment today - states that he will try to get these done DAYAN Reinforced low cholesterol diet Continue Pravastatin 20 mg QD Will recheck his labs and fasting lipids in 4 months for follow up (6) MELANIE on CPAP: Comment: THIS PATIENT HAS KNOWN DIAGNOSIS OF OBSTRUCTIVE SLEEP APNEA, BEING TREATED WITH CPAP AND HE REMAINS VERY COMPLIANT. COMPLAINS OF DISCOMFORT OVER THE NASAL BRIDGE, AND IRRITATION OF THE EYES DUE TO AIR LEAK. HE WOULD LIKE TO TRY NASAL INTERFACE. Code(s): G47.33 - Obstructive sleep apnea (adult) (pediatric); Z99.89 - Dependence on other enabling machines and devices Category: Medical Plan: Continue using his CPAP device when sleeping at night daily Follow up with Sleep Medicine as scheduled (7) Polyarthralgia: Code(s): M25.50 - Pain in unspecified joint Category: Medical Plan: Continue Tramadol 50 mg TID PRN for pain Follow up with rheumatology and orthopedics as scheduled (8) Vitamin D deficiency: Code(s): E55.9 - Vitamin D deficiency, unspecified Category: Medical Plan: Will recheck his Vitamin D level for follow up (9) Chronic GERD: Code(s): K21.9 - Gastro-esophageal reflux disease without esophagitis Category: Medical Plan: Dietary restrictions reinforced Continue Pantoprazole 40 mg QD (10) Degenerative disc disease, cervical: Code(s): M50.30 - Other cervical disc degeneration, unspecified cervical region Category: Medical Plan: Cervical spine x-rays done back in February 2024 revealed (+) moderate degenerative disc disease at C5-C6 and C6-C7, unchanged when compared to his cervical spine CT done in June 2023 (11) Primary osteoarthritis, right shoulder: Code(s): M19.011 - Primary osteoarthritis, right shoulder Category: Medical Plan: Right shoulder x-rays done in February 2024 revealed (+) mild acromioclavicular osteoarthritis Will consider referring patient to orthopedics for further management if his shoulder symptoms get worse (12) Chronic constipation: Code(s): K59.09 - Other constipation Category: Medical Plan: Reinforced increased oral fluids and dietary fiber States that his symptoms have improved a lot since he was started on Linzess 145 mcg QD by GI Continue Miralax 17 gm QD and Docusate 100 mg 2 tablets Q HS PRN Follow up with GI as scheduled (13) Restless leg syndrome: Code(s): G25.81 - Restless legs syndrome Category: Medical Plan: Continue Ropinirole 2 mg Q HS (14) Obesity (BMI 30-39.9): Comment: HE IS ONLY MODERATELY ,OBESE WEIGHT HAS REMAINED STABL.E Code(s): E66.9 - Obesity, unspecified Category: Medical Plan: Reinforced diet/exercise as tolerated/lose weight Plan Follow up in 4 months Orders: Orders Digoxin 4 Months I50.20 - Unspecified systolic (congestive) heart failure Complete Blood Count Auto Diff 4 Months D64.9 - Anemia, unspecified Lipid Panel 4 Months E78.00 - Pure hypercholesterolemia, unspecified TSH reflex Free T4 4 Months E78.00 - Pure hypercholesterolemia, unspecified US venous duplex LE RT 07/14/24 M79.661 - Pain in right lower leg, M79.89 - Other specified soft tissue disorders PFT pulmonary function test 07/14/24 J44.9 - Chronic obstructive pulmonary disease, unspecified Comprehensive [place]. Panel Fast 4 Months E78.00 - Pure hypercholesterolemia, unspecified B Type Natriuretic Peptide 4 Months I50.9 - Heart failure, unspecified
== END 2024-07-14 14:46 | disposition home or self-care (01) ==
LOC: HO.HMCH 13:24
PROVIDERS: PCP Internal Medicine; Visit Provider Internal Medicine
DX: M79.604 Pain in right leg (principal); I50.32 Chronic diastolic (congestive) heart failure; I48.19 Other persistent atrial fibrillation; M79.89 Other specified soft tissue disorders; R06.09 Other forms of dyspnea; E78.00 Pure hypercholesterolemia, unspecified; G47.33 Obstructive sleep apnea (adult) (pediatric); Z99.89 Dependence on other enabling machines and devices; M25.50 Pain in unspecified joint; E55.9 Vitamin D deficiency, unspecified; K21.9 Gastro-esophageal reflux disease without esophagitis; M50.30 Other cervical disc degeneration, unspecified cervical region

== ENCOUNTER → 2024-07-14 13:23 | Outpatient (BNVA) | payer OTHER, SELFPAY | PROVIDERS: PCP Internal Medicine; Visit Provider Internal Medicine | DX: M79.604 Pain in right leg (principal); M79.89 Other specified soft tissue disorders; R06.09 Other forms of dyspnea; I50.32 Chronic diastolic (congestive) heart failure; I48.19 Other persistent atrial fibrillation; E78.00 Pure hypercholesterolemia, unspecified; G47.33 Obstructive sleep apnea (adult) (pediatric); Z99.89 Dependence on other enabling machines and devices; M25.50 Pain in unspecified joint; E55.9 Vitamin D deficiency, unspecified; K21.9 Gastro-esophageal reflux disease without esophagitis; M50.30 Other cervical disc degeneration, unspecified cervical region; M19.011 Primary osteoarthritis, right shoulder; K59.09 Other constipation; G25.81 Restless legs syndrome; E66.9 Obesity, unspecified | CPT/HCPCS: 96127; 99212 ==

== ENCOUNTER 2024-07-15 10:06 | Outpatient (REF) | payer OTHER, SELFPAY ==
[2024-07-15 10:27] LABS: MANUAL DIFF FLAG NO
[2024-07-15 11:05] LABS: Basophils Percent Auto 0.5 % (0-2); Eosinophils Absolute Auto 0.2 X10*3/uL (0.0-0.4); Eosinophils Percent Auto 1.9 % (0-4); Hematocrit 43.7 % (42.0-52.0); Hemoglobin 14.2 g/dl (14.0-18.0); Imm Gran Abs Auto 0.04 X10*3/uL (0.00-0.03); Imm Gran Pct Auto 0.5 % (0.0-0.4); Lymphocytes Percent Auto 33.7 % (20-40); Mean Corpuscular HGB Conc 32.5 g/dl (31.0-36.0); Mean Corpuscular Hemoglobin 28.7 pg (27.0-33.0); Mean Corpuscular Volume 88.3 fL (80.0-98.0); Mean Platelet Volume 12.2 fL (9.4-12.4); Monocytes Absolute Auto 0.6 X10*3/uL (0.1-1.2); Monocytes Percent Auto 6.5 % (2-11); Neutrophils Percent Auto 56.9 % (45-73); Platelet Count 182 X10*3/uL (160-400); Red Blood Count 4.95 X10*6/uL (4.60-5.80); Red Cell Distribution Width 12.8 % (11.0-16.0); White Blood Count 8.8 X10*3/uL (4.8-10.8)
[2024-07-15 11:11] LABS: Appearance Urine Clear; Color Urine Yellow; Glucose Urine UA Negative (Negative); Leukocyte Esterase Urine Negative (Negative); Nitrite Urine Negative (Negative); PH 6.5 (5.0-9.0); UMIC TRIGGER UACC YES; Urine Blood Trace (Negative); Urine Ketones Negative (Negative); Urine Protein Negative (Neg-Trace)
[2024-07-15 11:14] LABS: Bacteria Urine None Seen (None Seen); Hyaline Casts Urine 0-2 /LPF (0-2); RBC Urine 0-2 /HPF (0-2); Squamous Epithelial Cell Urine 0-2 /HPF (0-2); WBC Urine 0-5 /HPF (0-5)
[2024-07-15 11:44] LABS: B Type Natriuretic Peptide 144 pg/mL (<100)
[2024-07-15 11:52] LABS: Digoxin 0.6 ng/mL (0.8-2.0)
[2024-07-15 11:53] LABS: Alanine Aminotransferase 23 U/L (0-40); Albumin Level 3.9 g/dL (3.5-5.0); Alkaline Phosphatase 106 U/L (39-117); Anion Gap 11 (12-20); Aspartate Amino Transferase 32 U/L (5-37); Bilirubin Total 1.3 mg/dL (0.0-1.0); Blood Urea Nitrogen 14 mg/dL (9-16); Calcium 8.6 mg/dL (8.4-10.2); Carbon Dioxide 27 mmol/L (22-29); Chloride 104 mmol/L (96-108); Cholesterol 186 mg/dL (<200); Estimated Glomerular Filt Rate > 60; Glucose Fasting 111 mg/dL (60-99); HDL Cholesterol 52 mg/dL (>40); LDL Cholesterol Calculated 114 mg/dL (<100); Potassium 4.1 mmol/L (3.3-5.1); Sodium 138 mmol/L (135-145); Total Protein 8.7 g/dL (6.5-8.0); Triglycerides 104 mg/dL (<150)
[2024-07-15 12:17] LABS: TSH reflex Free T4 1.61 uIU/mL (0.32-4.0); Vitamin D 25-OH Total 12.5 ng/mL (>30)
== END 2024-07-15 10:07 | disposition home or self-care (01) ==
LOC: HO.LAB 10:06
PROVIDERS: PCP Internal Medicine; Visit Provider Internal Medicine
DX: I11.0 Hypertensive heart disease with heart failure (principal); I50.20 Unspecified systolic (congestive) heart failure; E78.00 Pure hypercholesterolemia, unspecified; E55.9 Vitamin D deficiency, unspecified; D64.9 Anemia, unspecified
CPT/HCPCS: 36415; 80053; 80061; 80162; 81001; 81003; 82306; 83880; 84443; 85025

== ENCOUNTER 2024-08-11 10:36 | Outpatient (AMB) | payer OTHER, SELFPAY ==
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
== END 2024-08-11 14:29 | disposition home or self-care (01) ==
LOC: HO.HOS 10:37
PROVIDERS: PCP Internal Medicine; Visit Provider Physical Medicine & Rehabilitation
DX: M54.2 Cervicalgia (principal); M54.12 Radiculopathy, cervical region; Z86.12 Personal history of poliomyelitis
CPT/HCPCS: 99204; G2211

== ENCOUNTER → 2024-08-11 10:36 | Outpatient (BNVA) | payer OTHER, SELFPAY | PROVIDERS: PCP Internal Medicine; Visit Provider Physical Medicine & Rehabilitation | DX: M54.2 Cervicalgia (principal); M54.12 Radiculopathy, cervical region; Z86.12 Personal history of poliomyelitis | CPT/HCPCS: 99202 ==

== ENCOUNTER 2024-08-17 09:47 | Outpatient (AMB) | payer OTHER, SELFPAY ==
[2024-08-17 10:04] LABS: Prothrombin Time Whole Bld POC 33.8 sec (11.1-13.5); ~PT, ~INR - Anti Coag Clinic 2.8 (0.9-1.1)
--- NOTE | 2024-08-17 10:08 | MHC.OFFVISCO ---
Intake Intake Visit Reasons: Anticoagulation Allergies No Known Allergies [No Known Allergies*] Allergy (Verified 08/17/24 10:04) Medication List - Last Reconciled 08/17/24 by Nell Smith RN acetaminophen (Tylenol) 325 mg PO Q4H PRN CPAP As directed digoxin 125 mcg PO DAILY 90 days diltiazem HCl CD 360 mg PO DAILY docusate sodium 200 mg (2 x 100 mg) PO BEDTIME PRN furosemide 40 mg PO DAILY leg brace (Ankle Brace) shoe or AFO custom molded for foot drop, left lidocaine 5% 1 patch topical DAILY PRN linaclotide (Linzess) 145 mcg PO DAILY lisinopril 40 mg PO DAILY 90 days metoprolol succinate ER 100 mg PO DAILY miscellaneous medical supply 1 ea miscellaneous DAILY pantoprazole 40 mg PO DAILY 90 days polyethylene glycol 3350 (Miralax) 17 grams PO DAILY pravastatin 20 mg PO BEDTIME 90 days ropinirole 2 mg PO BEDTIME 90 days [shoe lift Lt 1/2 inch heel lift] Shower Chair As directed tramadol 50 mg PO Q6H PRN tramadol 50 mg PO Q8H PRN 30 days warfarin 5 mg See Protocol PO DAILY Nursing Note Pt to [facility] with no appointment. He was a no show for last appointment. He said his SAND SCREENER OPERATOR had a baby and she was the one who kept track of his appointments. He knew he was probably due for a test of his INR. [facility] [place] interpretter utilized. INR: 2.8 in therapeutic range of 2-3 Medications and supplements reviewed No changes in health, diet, medications, or supplements, Denies any signs and symptoms of bleeding or bruising or clotting. Bleeding, bruising, clotting discussed Nutritional guidance given Dose: keep same dose of 2.5mg X 4 days and 5mg X 3 days (Mon, Wed & Fri) F/U INR: 4 weeks Patient verbalizes understanding of instructions with read back given Anti-Coag Initial Assessment Social Hx Patient Tobacco Use Status: Never used Tobacco alcohol intake: current Alcohol intake frequency: holidays/special occasions only Questionnaires HAS-BLED Does the patient had uncontrolled Hypertension?: No Does the patient have renal disease?: No Does the patient have liver disease?: No Does the patient have a history of stroke?: No Has the patient had major bleeding or predisposition to bleeding?: No Does the patient have labile INRs?: No Is the patient over 65 years of age?: Yes Is the patient on medications that gives them a predisposition to bleeding?: Yes Does the patient use alcohol?: Yes HAS-BLED Score: 3 CHADSVASC Age: 66-74 Gender: Male Does the patient have a history of CHF?: Yes Does the patient have a history of Hypertension?: Yes Does the patient have a history of Stroke/TIA/Thromboembolism?: No Does the patient have a history of Vascular Disease (prior UT, PAD or aortic plaque)?: Yes Does the patient have a history of Diabetes?: No CHADS VACS Score: 4 Joan Prediction Score Rsk VTE Active Cancer: No Previous VTE, excluding superficial vein thrombosis: No Reduced mobility: No Already known Thrombophilic Condition: No With-in last month Trauma and/or Surgery: No Elderly 70 year or older: No Heart and/or Respiratory Failure: Yes Acute Myocardial infarction and/or Ischemic Stroke: No Acute Infection and/or Rheumatologic Disorder: No Obesity (BMI 30 or greater): Yes Ongoing Hormonal Treatment: No Score: 2 Joan Score less than 4; Low Risk of VTE Joan Score 4 or greater; High Risk of VTE Coding Level of Care Code Est Patient Level 1 Diagnoses Current use of anticoagulant therapy Z79.01 Assessment & Plan Assessment & Plan (1) Current use of anticoagulant therapy: Code(s): Z79.01 - 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
== END 2024-08-17 10:23 | disposition home or self-care (01) ==
LOC: HO.ACS 09:47
PROVIDERS: PCP Internal Medicine; Visit Provider Internal Medicine
DX: Z79.01 Long term (current) use of anticoagulants (principal)

== ENCOUNTER → 2024-08-17 09:47 | Outpatient (BNVA) | payer OTHER, SELFPAY | PROVIDERS: PCP Internal Medicine; Visit Provider Internal Medicine | DX: I48.20 Chronic atrial fibrillation, unspecified (principal); Z79.01 Long term (current) use of anticoagulants; Z51.81 Encounter for therapeutic drug level monitoring | CPT/HCPCS: 85610; 99211 ==

== ENCOUNTER 2024-09-14 10:10 | Outpatient (AMB) | payer OTHER, SELFPAY ==
[2024-09-14 10:27] LABS: Prothrombin Time Whole Bld POC 53.4 sec (11.1-13.5); ~PT, ~INR - Anti Coag Clinic 4.4 (0.9-1.1)
--- NOTE | 2024-09-14 10:34 | MHC.OFFVISCO ---
Intake Intake Visit Reasons: Anticoagulation Allergies No Known Allergies [No Known Allergies*] Allergy (Verified 09/14/24 10:17) Medication List - Last Reconciled 09/14/24 by Shanice Skaggs RN acetaminophen (Tylenol) 325 mg PO Q4H PRN CPAP As directed digoxin 125 mcg PO DAILY 90 days diltiazem HCl CD 360 mg PO DAILY docusate sodium 200 mg (2 x 100 mg) PO BEDTIME PRN furosemide 40 mg PO DAILY leg brace (Ankle Brace) shoe or AFO custom molded for foot drop, left lidocaine 5% 1 patch topical DAILY PRN linaclotide (Linzess) 145 mcg PO DAILY lisinopril 40 mg PO DAILY 90 days metoprolol succinate ER 100 mg PO DAILY miscellaneous medical supply 1 ea miscellaneous DAILY pantoprazole 40 mg PO DAILY 90 days polyethylene glycol 3350 (Miralax) 17 grams PO DAILY pravastatin 20 mg PO BEDTIME 90 days ropinirole 2 mg PO BEDTIME 90 days [shoe lift Lt 1/2 inch heel lift] Shower Chair As directed tramadol 50 mg PO Q6H PRN tramadol 50 mg PO Q8H PRN 30 days warfarin 5 mg See Protocol PO DAILY Nursing Note pt come with FRUIT GRADER who speaks Faroese INR 4.4 out of therapeutic range Medications and supplements reviewed Patient status: He has been having guava juice lately - may be raising his INR- has not had the few greens that he likes - greenbeans,oatmeal and blueberries Medications or supplements: no changes Diet: god Denies any signs and symptoms of bleeding or clotting or unusual bruising Bleeding, bruising, clotting discussed Nutritional guidance given: have some of the greens you like weekly Dose: already took today's dose , hold tomorrow then resume usual dose 5mg x 3 days/ 2.5mg x 4 days F/U INR Date : 2 weeks ?? 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
== END 2024-09-14 10:50 | disposition home or self-care (01) ==
LOC: HO.ACS 10:10
PROVIDERS: PCP Internal Medicine; Visit Provider Internal Medicine Medical Oncology
DX: Z79.01 Long term (current) use of anticoagulants (principal)

== ENCOUNTER → 2024-09-14 10:10 | Outpatient (BNVA) | payer OTHER, SELFPAY | PROVIDERS: PCP Internal Medicine; Visit Provider Internal Medicine Medical Oncology | DX: I48.20 Chronic atrial fibrillation, unspecified (principal); Z79.01 Long term (current) use of anticoagulants; Z51.81 Encounter for therapeutic drug level monitoring | CPT/HCPCS: 85610; 99211 ==

== ENCOUNTER 2024-09-28 09:57 | Outpatient (AMB) | payer OTHER, SELFPAY ==
[2024-09-28 10:05] LABS: Prothrombin Time Whole Bld POC 47.2 sec (11.1-13.5); ~PT, ~INR - Anti Coag Clinic 3.9 (0.9-1.1)
--- NOTE | 2024-09-28 10:16 | MHC.OFFVISCO ---
Intake Intake Visit Reasons: Anticoagulation Allergies No Known Allergies [No Known Allergies*] Allergy (Verified 09/28/24 09:59) Medication List - Last Reconciled 09/28/24 by Nell Smith RN acetaminophen (Tylenol) 325 mg PO Q4H PRN CPAP As directed digoxin 125 mcg PO DAILY 90 days diltiazem HCl CD 360 mg PO DAILY docusate sodium 200 mg (2 x 100 mg) PO BEDTIME PRN furosemide 40 mg PO DAILY leg brace (Ankle Brace) shoe or AFO custom molded for foot drop, left lidocaine 5% 1 patch topical DAILY PRN linaclotide (Linzess) 145 mcg PO DAILY lisinopril 40 mg PO DAILY 90 days metoprolol succinate ER 100 mg PO DAILY miscellaneous medical supply 1 ea miscellaneous DAILY pantoprazole 40 mg PO DAILY 90 days polyethylene glycol 3350 (Miralax) 17 grams PO DAILY pravastatin 20 mg PO BEDTIME 90 days ropinirole 2 mg PO BEDTIME 90 days [shoe lift Lt 1/2 inch heel lift] Shower Chair As directed tramadol 50 mg PO Q6H PRN tramadol 50 mg PO Q8H PRN 30 days warfarin 5 mg See Protocol PO DAILY Nursing Note Pt to [facility] accompanied by his PCP who translated from [place] to Nepalese for pt INR: 3.9 in therapeutic range of 2-3 Medications and supplements reviewed no changes unable to determine why INR high No changes in health, diet, medications, or supplements, Denies any signs and symptoms of bleeding or bruising or clotting. Bleeding, bruising, clotting discussed Nutritional guidance given to have a serving of greens today and tomorrow. Food list reviewed. Dose: pt took a 1/2 tab today. Will hold tomorrow's dose of 2.5mg then will resume usual dose of 2.5mg X 4 days and 5mg X 3 days (M/W/F) F/U INR: 2 weeks Patient verbalizes understanding of instructions given Anti-Coag Initial Assessment Social Hx Patient Tobacco Use Status: Never used Tobacco alcohol intake: current Alcohol intake frequency: holidays/special occasions only Coding Level of Care Code Est Patient Level 1 Diagnoses Current use of anticoagulant therapy Z79.01 Results AMB INR Fingerstick AMB INR Fingerstick 3.9 Last Edit by Nell Smith RN on 09/28/24 10:05 interface delay Assessment & Plan Assessment & Plan (1) Current use of anticoagulant therapy: Code(s): Z79.01 - oil heaterman (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
== END 2024-09-28 10:19 | disposition home or self-care (01) ==
LOC: HO.ACS 09:57
PROVIDERS: PCP Internal Medicine; Visit Provider Internal Medicine Medical Oncology
DX: Z79.01 Long term (current) use of anticoagulants (principal)

== ENCOUNTER → 2024-09-28 09:57 | Outpatient (BNVA) | payer OTHER, SELFPAY | PROVIDERS: PCP Internal Medicine; Visit Provider Internal Medicine Medical Oncology | DX: I48.20 Chronic atrial fibrillation, unspecified (principal); Z79.01 Long term (current) use of anticoagulants; Z51.81 Encounter for therapeutic drug level monitoring | CPT/HCPCS: 85610; 99211 ==

== ENCOUNTER 2024-10-01 11:58 | Outpatient (REF) | payer OTHER, SELFPAY ==
--- NOTE | ~2024-10-01 | XR_ITS ---
EXAMINATION: XR KNEE, RIGHT CLINICAL INFORMATION: M25.461 - Effusion, right knee COMPARISON: None available. TECHNIQUE: Three views of the right knee. FINDINGS: No fracture, dislocation, or suspicious bone lesion. Normal bone mineralization. Normal alignment. Minimal tricompartmental osteoarthritis. Normal patellar alignment. Mild spurring of the tibial spines. Small suprapatellar joint effusion. Soft tissues appear normal. XR/XR knee RT 3V IMPRESSION: 1. No acute bony abnormalities. 2. Mild tricompartmental osteoarthrosis. 3. Small suprapatellar joint effusion Electronically signed by: Hernandez Benitez MD 10/02/2024 08:13 AM EDT
== END 2024-10-01 11:59 | disposition home or self-care (01) ==
LOC: HO.HOSX 11:58
PROVIDERS: PCP Internal Medicine; Visit Provider Physical Medicine & Rehabilitation
DX: M25.461 Effusion, right knee (principal); G56.21 Lesion of ulnar nerve, right upper limb; M54.2 Cervicalgia; Z86.12 Personal history of poliomyelitis
CPT/HCPCS: 73562; 99212

== ENCOUNTER 2024-10-01 11:58 | Outpatient (AMB) | payer OTHER, SELFPAY ==
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
== END 2024-10-01 12:27 | disposition home or self-care (01) ==
LOC: HO.HOS 11:58
PROVIDERS: PCP Internal Medicine; Visit Provider Physical Medicine & Rehabilitation
DX: M25.461 Effusion, right knee (principal); G56.21 Lesion of ulnar nerve, right upper limb
CPT/HCPCS: 99214; G2211

== ENCOUNTER → 2024-10-01 12:22 | Outpatient (BNV) | payer OTHER, SELFPAY | PROVIDERS: PCP Internal Medicine; Visit Provider Radiology Diagnostic Radiology | DX: M25.461 Effusion, right knee (principal); M17.11 Unilateral primary osteoarthritis, right knee | CPT/HCPCS: 73562 ==

== ENCOUNTER → 2024-10-04 23:59 | Outpatient (BNV) | payer OTHER, SELFPAY ==
--- NOTE | 2024-10-11 15:16 | MHC.OFFVIS ---
Intake Visit Reasons: Remote device check- [place] Allergies No Known Allergies [No Known Allergies*] Allergy (Verified 10/01/24 12:03) [facility] Medical History (Updated 10/01/24 @ 12:16 by Tati Richardson MD) Primary osteoarthritis, right shoulder Degenerative disc disease, cervical History of poliomyelitis Restless leg syndrome Chronic constipation Chronic GERD History of pacemaker Obesity (BMI 30-39.9) Vitamin D deficiency Pure hypercholesterolemia Leg length discrepancy Pacemaker Abnormal finding of foot Right shoulder pain MELANIE on CPAP Chest pain Trigger finger Bilateral sciatica Polyarthralgia Chronic heart failure with preserved ejection fraction (HFpEF) Persistent atrial fibrillation Obesity (BMI 30.0-34.9) Surgical History Hx of colonoscopy History of ear surgery History of cholecystectomy Family History Father Myocardial infarction CVD (cardiovascular disease) Mother No problems noted. Sister Stomach cancer Son No problems noted. Son No problems noted. Daughter No problems noted. Daughter No problems noted. Brother No problems noted. Brother No problems noted. Social History Household Members: Children Housing: House Alcohol intake: current Alcohol intake frequency: holidays/special occasions only Alcohol type: beer Patient Tobacco Use Status: Never used Tobacco e-Cigarette/Vaping Use: Never Used Second Hand Smoke Exposure: No service: No Current occupational status: disabled Cognitive needs: Yes (cane) Hearing needs: No Vision needs: Yes (glasses) Office Procedures Cardiac Device Check Cardiac Device Check Details: Date of service- 10/04/2024 ; Battery life>5 years; normal lead parameters; [employer] 52%; some high ventricular rate episodes but only lasting minutes. Likely atrial fibrillation rapid rate. Overall normal device function. [id number] Cardiac Device Interrogation, pacemaker Procedure code (CPT) selection complete Assessment & Plan Assessment & Plan (1) Pacemaker: Code(s): Z95.0 - Presence of cardiac pacemaker Category: Medical (2) Chronic heart failure with preserved ejection fraction (HFpEF): Code(s): I50.32 - Chronic diastolic (congestive) heart failure Category: Medical (3) Persistent atrial fibrillation: Code(s): I48.19 - Other persistent atrial fibrillation Category: Medical Plan x Coding Level of Care Code Procedure Only Diagnoses Pacemaker Z95.0 Chronic heart failure with preserved ejection fraction (HFpEF) I50.32 Persistent atrial fibrillation I48.19 CPT Codes Cardiac Device Check - Cardiac Device 12: [id number] Cardiac Device Interrogation, pacemaker ([id number])
== END ==
PROVIDERS: PCP Internal Medicine; Visit Provider Internal Medicine
DX: I50.32 Chronic diastolic (congestive) heart failure (principal); Z95.0 Presence of cardiac pacemaker; I48.19 Other persistent atrial fibrillation
CPT/HCPCS: 93294

== ENCOUNTER 2024-10-12 10:04 | Outpatient (AMB) | payer OTHER, SELFPAY ==
[2024-10-12 10:28] LABS: Prothrombin Time Whole Bld POC 38.4 sec (11.1-13.5); ~PT, ~INR - Anti Coag Clinic 3.2 (0.9-1.1)
--- NOTE | 2024-10-12 10:28 | MHC.OFFVISCO ---
Intake Intake Visit Reasons: Anticoagulation Allergies No Known Allergies [No Known Allergies*] Allergy (Verified 10/12/24 10:15) Medication List - Last Reconciled 10/12/24 by Nell Smith RN acetaminophen (Tylenol) 325 mg PO Q4H PRN CPAP As directed digoxin 125 mcg PO DAILY 90 days diltiazem HCl CD 360 mg PO DAILY docusate sodium 200 mg (2 x 100 mg) PO BEDTIME PRN furosemide 40 mg PO DAILY leg brace (Ankle Brace) shoe or AFO custom molded for foot drop, left lidocaine 5% 1 patch topical DAILY PRN linaclotide (Linzess) 145 mcg PO DAILY lisinopril 40 mg PO DAILY 90 days metoprolol succinate ER 100 mg PO DAILY miscellaneous medical supply 1 ea miscellaneous DAILY pantoprazole 40 mg PO DAILY 90 days polyethylene glycol 3350 (Miralax) 17 grams PO DAILY pravastatin 20 mg PO BEDTIME 90 days ropinirole 2 mg PO BEDTIME 90 days [shoe lift Lt 1/2 inch heel lift] Shower Chair As directed tramadol 50 mg PO Q6H PRN tramadol 50 mg PO Q8H PRN 30 days warfarin 5 mg See Protocol PO DAILY Nursing Note Pt to [facility] accompanied by CHIEF RADIATION THERAPIST who translates for pt INR: 3.2 in therapeutic range of 2-3 Medications and supplements reviewed No changes in health, diet, medications, or supplements, Denies any signs and symptoms of bleeding or bruising or clotting. Bleeding, bruising, clotting discussed Nutritional guidance given to have a serving of greens today but pt does not like greens so he will have 1 ensure supplement which can lower the INR Dose: 1.5mg X 4 days and 5mg X 3 days F/U INR: 3 weeks Patient verbalizes understanding of instructions given Anti-Coag Initial Assessment Social Hx Patient Tobacco Use Status: Never used Tobacco alcohol intake: current Alcohol intake frequency: holidays/special occasions only Coding Level of Care Code Est Patient Level 1 Diagnoses Current use of anticoagulant therapy Z79.01 Results AMB INR Fingerstick AMB INR Fingerstick 3.2 Last Edit by Nell Smith RN on 10/12/24 10:25 interface delay Assessment & Plan Assessment & Plan (1) Current use of anticoagulant therapy: Code(s): Z79.01 - jail (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
== END 2024-10-12 10:31 | disposition home or self-care (01) ==
LOC: HO.ACS 10:04
PROVIDERS: PCP Internal Medicine; Visit Provider Internal Medicine Medical Oncology
DX: Z79.01 Long term (current) use of anticoagulants (principal)

== ENCOUNTER → 2024-10-12 10:04 | Outpatient (BNVA) | payer OTHER, SELFPAY | PROVIDERS: PCP Internal Medicine; Visit Provider Internal Medicine Medical Oncology | DX: I48.20 Chronic atrial fibrillation, unspecified (principal); Z79.01 Long term (current) use of anticoagulants; Z51.81 Encounter for therapeutic drug level monitoring | CPT/HCPCS: 85610; 99211 ==

== ENCOUNTER 2024-10-27 11:36 | Outpatient (AMB) | payer OTHER, SELFPAY ==
[2024-10-27 11:41] LABS: Prothrombin Time Whole Bld POC 33.3 sec (11.1-13.5); ~PT, ~INR - Anti Coag Clinic 2.8 (0.9-1.1)
--- NOTE | 2024-10-27 11:49 | MHC.OFFVISCO ---
Intake Intake Visit Reasons: Anticoagulation Allergies No Known Allergies [No Known Allergies*] Allergy (Verified 10/27/24 11:36) Medication List - Last Reconciled 10/27/24 by Nena Wu RN acetaminophen (Tylenol) 325 mg PO Q4H PRN CPAP As directed digoxin 125 mcg PO DAILY 90 days diltiazem HCl CD 360 mg PO DAILY docusate sodium 200 mg (2 x 100 mg) PO BEDTIME PRN furosemide 40 mg PO DAILY leg brace (Ankle Brace) shoe or AFO custom molded for foot drop, left lidocaine 5% 1 patch topical DAILY PRN linaclotide (Linzess) 145 mcg PO DAILY lisinopril 40 mg PO DAILY 90 days metoprolol succinate ER 100 mg PO DAILY miscellaneous medical supply 1 ea miscellaneous DAILY pantoprazole 40 mg PO DAILY 90 days polyethylene glycol 3350 (Miralax) 17 grams PO DAILY pravastatin 20 mg PO BEDTIME 90 days ropinirole 2 mg PO BEDTIME 90 days [shoe lift Lt 1/2 inch heel lift] Shower Chair As directed tramadol 50 mg PO Q6H PRN tramadol 50 mg PO Q8H PRN 30 days warfarin 5 mg See Protocol PO DAILY Nursing Note NO CP,SOB,DIET/MED CHANGES,FALLS OR SX OF BLEEDING. CONTINUE PRESENT DOSING AND FOLLOW-UP IN 4 WEEKS. GOOD UNDERSTANDING OF DOSING INSTR. Anti-Coag Initial Assessment Social Hx Patient Tobacco Use Status: Never used Tobacco alcohol intake: current Alcohol intake frequency: holidays/special occasions only Coding Level of Care Code Est Patient Level 1 Diagnoses Current use of anticoagulant therapy Z79.01 Results AMB INR Fingerstick AMB INR Fingerstick 2.8 Last Edit by Nena Wu RN on 10/27/24 11:45 Assessment & Plan Assessment & Plan (1) Current use of anticoagulant therapy: Code(s): Z79.01 - terminal makeup operator (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
== END 2024-10-27 13:27 | disposition home or self-care (01) ==
LOC: HO.ACS 11:36
PROVIDERS: PCP Internal Medicine; Visit Provider Internal Medicine Medical Oncology
DX: Z79.01 Long term (current) use of anticoagulants (principal)

== ENCOUNTER → 2024-10-27 11:36 | Outpatient (BNVA) | payer OTHER, SELFPAY | PROVIDERS: PCP Internal Medicine; Visit Provider Internal Medicine Medical Oncology | DX: I48.20 Chronic atrial fibrillation, unspecified (principal); Z79.01 Long term (current) use of anticoagulants; Z51.81 Encounter for therapeutic drug level monitoring | CPT/HCPCS: 85610; 99211 ==

== ENCOUNTER 2024-11-04 13:31 | Outpatient (AMB) | payer OTHER, SELFPAY ==
[2024-11-04 13:47] VITALS: BP 120/78; PULSE 60; O2SAT 98; BMI 33.6
--- NOTE | 2024-11-04 13:47 | A.OFFVIS_ITS ---
Vital Signs 11/04/24 13:47 Height 5 ft 3 in Weight 189 lb 9.561 oz BMI 33.6 BP 120/78 Blood Pressure Location Lt brachial Position Sitting Pulse 60 Pulse Oximetry (%) 98 Intake Visit Reasons: Shortness of breath follow-up ? pacer HS Intake Note: Follow-up sob with walking and has neck pressure Cardiology Consultants Required: Yes Cardiology Consultants Services: Cardiology Consultants Offered & Declined Intelligence Group Supervisor: Intelligence Group Supervisor Present Accompanied by: software sales representative Allergies No Known Allergies [No Known Allergies*] Allergy (Verified 10/27/24 11:36) Medication List - Last Reconciled 11/04/24 by Darian Roque NP acetaminophen (Tylenol) 325 mg PO Q4H PRN CPAP As directed digoxin 125 mcg PO DAILY 90 days diltiazem HCl CD 360 mg PO DAILY docusate sodium 200 mg (2 x 100 mg) PO BEDTIME PRN furosemide 40 mg PO DAILY leg brace (Ankle Brace) shoe or AFO custom molded for foot drop, left lidocaine 5% 1 patch topical DAILY PRN linaclotide (Linzess) 145 mcg PO DAILY lisinopril 40 mg PO DAILY 90 days metoprolol succinate ER 100 mg PO DAILY miscellaneous medical supply 1 ea miscellaneous DAILY pantoprazole 40 mg PO DAILY 90 days polyethylene glycol 3350 (Miralax) 17 grams PO DAILY pravastatin 20 mg PO BEDTIME 90 days ropinirole 2 mg PO BEDTIME 90 days [shoe lift Lt 1/2 inch heel lift] Shower Chair As directed tramadol 50 mg PO Q6H PRN tramadol 50 mg PO Q8H PRN 30 days warfarin 5 mg See Protocol PO DAILY HPI Comments Details: This is a 69-year-old male patient coming in for reports of shortness of breath with exertion. Patient with past medical history of persistent atrial fibrillation, chronic heart failure with preserved ejection fraction, pacemaker implantation, and sleep apnea. Patient is accompanied by his FLIGHT ATTENDANT/INFLIGHT MANAGER who interpreted throughout the visit. Patient today is reporting that he has been having shortness of breath chronically however has noticed that it has gotten worse over the last couple of days. The FLIGHT ATTENDANT/INFLIGHT MANAGER does note that patient has been sick lately with some respiratory viral illness. Patient is otherwise denying any exertional chest pain, palpitations, dizziness, orthopnea, PND, leg edema, presyncope, or syncope. Patient reports some neck pain for which he he is planning to contact his PCP. Patient reports compliance with all his medications. [facility] Medical History Primary osteoarthritis, right shoulder Degenerative disc disease, cervical History of poliomyelitis Restless leg syndrome Chronic constipation Chronic GERD History of pacemaker Obesity (BMI 30-39.9) Vitamin D deficiency Pure hypercholesterolemia Leg length discrepancy Pacemaker Abnormal finding of foot Right shoulder pain MELANIE on CPAP Chest pain Trigger finger Bilateral sciatica Polyarthralgia Chronic heart failure with preserved ejection fraction (HFpEF) Persistent atrial fibrillation Obesity (BMI 30.0-34.9) Surgical History Hx of colonoscopy History of ear surgery History of cholecystectomy Family History Father Myocardial infarction CVD (cardiovascular disease) Mother No problems noted. Sister Stomach cancer Son No problems noted. Son No problems noted. Daughter No problems noted. Daughter No problems noted. Brother No problems noted. Brother No problems noted. Social History Household Members: Children Housing: House Alcohol intake: current Alcohol intake frequency: holidays/special occasions only Alcohol type: beer Patient Tobacco Use Status: Never used Tobacco e-Cigarette/Vaping Use: Never Used Second Hand Smoke Exposure: No service: No Current occupational status: disabled Cognitive needs: Yes (cane) Hearing needs: No Vision needs: Yes (glasses) Review of Systems Const Denies chills, Denies fatigue, Denies fever(s), Denies frequent falls, Denies weakness, Denies weight gain and Denies weight loss ENT Denies dizziness Card Denies chest pain, Denies leg edema, Denies lightheadedness, Denies palpitations, Denies dyspnea, Denies dyspnea on exertion, Denies orthopnea and Denies other (loss of consciousness) Resp Denies cough, Denies dyspnea and Denies dyspnea on exertion GI Denies hematochezia and Denies change in stool character Musc Denies abnormal gait, Denies muscle weakness, Denies numbness, Denies radiating pain into limb and Denies tingling Neuro Denies abnormal gait, Denies dizziness, Denies frequent falls, Denies numbness, Denies tingling and Denies weakness Endo Denies fatigue and Denies palpitations Physical Exam Vital Signs: Last Vital Signs Pulse 60 11/04/24 13:47 BP 120/78 11/04/24 13:47 Pulse Ox 98 11/04/24 13:47 BMI result Body Mass Index 33.6 Const General: cooperative, healthy appearing, comfortable and no acute distress Orientation/consciousness: patient oriented x3 HEENT Head: Yes normal to inspection Neck Neck: Yes normal visual inspection, Yes trachea midline and Yes supple Chest Chest palpation & inspection: normal inspection of the chest Resp Effort & Inspection: normal respiratory effort Auscultation: clear to auscultation bilaterally, no crackles, no rales, no rhonchi and no wheezes Cardio Jugular venous distension: no JVD Palpation: normal PMI Rate: regular rate Rhythm: regular rhythm Heart sounds: S1 normal heart sound present, S2 normal heart sound present, no click, no gallops, no murmurs and no rubs Peripheral pulses: Peripheral pulses 2+ throughout GI Inspection: Yes normal to inspection Palpation (GI): Soft to palpation Auscultation: normal bowel sounds Skin General skin exam: no rashes or lesions noted Neuro General: patient oriented x3 Extrem General: Yes normal to inspection, No no pedal edema and No calf tenderness Psych Appearance: grossly normal Mental Status: mental status grossly normal Speech and movement: Normal speech and movement present Office Procedures Cardiac Device Check Cardiac Device Check Details: [employer] single lead pacemaker interrogated today- battery life of 5.4 years, V threshold 0.75 volts at 0.8 milliseconds, VV I mode, low rate 60, for high V rates, AFib RVR, BUILDING SUPERINTENDENT 51%. [id number] Cardiac Device Check, leadless/single lead pacemaker Procedure code (CPT) selection complete Assessment & Plan Assessment & Plan (1) Chronic heart failure with preserved ejection fraction (HFpEF): Code(s): I50.32 - Chronic diastolic (congestive) heart failure Category: Medical Plan: 01/01/2024-echo study then had showed normal LV systolic function with ejection fraction between 55-60%, mildly dilated left atrium, mildly elevated right atrial pressures. Clinically euvolemic. Patient does report the shortness of breath which is chronic however due to his recent worsening, we will repeat an echocardiogram to evaluate for LV systolic and diastolic dysfunction. Most likely his shortness of breath related to his current respiratory illness. Continue with the current regimen including Lasix, lisinopril, and metoprolol therapy. Discussed in de tail signs and symptoms to watch for with heart failure. Advised low-salt diet, daily weight monitoring, med compliance, and fluid restriction of 1.5-2 L daily. (2) Persistent atrial fibrillation: Code(s): I48.19 - Other persistent atrial fibrillation Category: Medical Plan: Chronic AFib. Continue warfarin for full anticoagulation therapy. Continue rate control approach with digoxin, diltiazem, and metoprolol. No reports of signs of bleeding or falls. We will monitor labs periodically. (3) Pacemaker: Code(s): Z95.0 - Presence of cardiac pacemaker Category: Medical Plan: [employer] single-chamber pacemaker. We will follow remotely. (4) Dyslipidemia: Code(s): E78.5 - Hyperlipidemia, unspecified Category: Medical Plan: Most recent LDL 114, not within goal. Continue pravastatin. Patient has upcoming lipid profile with PCP. Ideally, LDL goal less than 70. (5) MELANIE on CPAP: Code(s): G47.33 - Obstructive sleep apnea (adult) (pediatric); Z99.89 - Dependence on other enabling machines and devices Category: Medical Plan: Continue CPAP therapy. Advised heart healthy diet, regular exercise, med compliance, and management of vascular risk factors. Follow-up in the office following echo. In the interim, patient will call the office with any concerns or change in symptoms. Advised patient to seek ER care in case of persistent exertional chest pain not resolved with rest. This note was generated using voice recognition software. While every effort has been made to ensure accuracy and proper volunteer coordinator, there may be occasional errors that could affect the content or meaning of the described symptoms. Orders: Orders CA echo transthoracic complete Today R06.00 - Dyspnea, unspecified Coding Level of Care Code Est Pt Level 4 (16467) Complex EM visit Add On G2211 Diagnoses Chronic heart failure with preserved ejection fraction (HFpEF) I50.32 Persistent atrial fibrillation I48.19 Pacemaker Z95.0 Dyslipidemia E78.5 MELANIE on CPAP G47.33; Z99.89 CPT Codes Cardiac Device Check - Cardiac Device 1: [id number] Cardiac Device Check, leadless/single lead pacemaker ([id number]) Time Spent (min) 32 Comment Time spent in reviewing the chart, test results, assessment, counseling and documentation.
== END 2024-11-04 14:36 | disposition home or self-care (01) ==
LOC: HO.HCS 13:37
PROVIDERS: PCP Internal Medicine
DX: I50.32 Chronic diastolic (congestive) heart failure (principal); I48.19 Other persistent atrial fibrillation; Z95.0 Presence of cardiac pacemaker; E78.5 Hyperlipidemia, unspecified; G47.33 Obstructive sleep apnea (adult) (pediatric); Z99.89 Dependence on other enabling machines and devices
CPT/HCPCS: 93279; 99214; G2211

== ENCOUNTER → 2024-11-04 13:31 | Outpatient (BNVA) | payer OTHER, SELFPAY | PROVIDERS: PCP Internal Medicine | DX: Z45.018 Encounter for adjustment and management of other part of cardiac pacemaker (principal); I50.32 Chronic diastolic (congestive) heart failure; I48.19 Other persistent atrial fibrillation; E78.5 Hyperlipidemia, unspecified; G47.33 Obstructive sleep apnea (adult) (pediatric); Z99.89 Dependence on other enabling machines and devices | CPT/HCPCS: 99212 ==

== ENCOUNTER 2024-11-24 10:10 | Outpatient (AMB) | payer OTHER, SELFPAY ==
[2024-11-24 10:14] LABS: Prothrombin Time Whole Bld POC 43.9 sec (11.1-13.5); ~PT, ~INR - Anti Coag Clinic 3.7 (0.9-1.1)
--- NOTE | 2024-11-24 10:20 | MHC.OFFVISCO ---
Intake Intake Visit Reasons: Anticoagulation Allergies No Known Allergies [No Known Allergies*] Allergy (Verified 11/24/24 10:10) Medication List - Last Reconciled 11/24/24 by Nell Smith RN acetaminophen (Tylenol) 325 mg PO Q4H PRN CPAP As directed digoxin 125 mcg PO DAILY 90 days diltiazem HCl CD 360 mg PO DAILY docusate sodium 200 mg (2 x 100 mg) PO BEDTIME PRN furosemide 40 mg PO DAILY leg brace (Ankle Brace) shoe or AFO custom molded for foot drop, left lidocaine 5% 1 patch topical DAILY PRN linaclotide (Linzess) 145 mcg PO DAILY lisinopril 40 mg PO DAILY 90 days metoprolol succinate ER 100 mg PO DAILY miscellaneous medical supply 1 ea miscellaneous DAILY pantoprazole 40 mg PO DAILY 90 days polyethylene glycol 3350 (Miralax) 17 grams PO DAILY pravastatin 20 mg PO BEDTIME 90 days ropinirole 2 mg PO BEDTIME 90 days [shoe lift Lt 1/2 inch heel lift] Shower Chair As directed tramadol 50 mg PO Q6H PRN tramadol 50 mg PO Q8H PRN 30 days warfarin 5 mg See Protocol PO DAILY Nursing Note INR: 3.7 in therapeutic range 2-3 Medications and supplements reviewed No changes in health, diet, medications, or supplements, Denies any signs and symptoms of bleeding or bruising or clotting. Bleeding, bruising, clotting discussed Nutritional guidance given Dose: pt already took today's dose of 2.5mg, will hold tomorrow's dose of 5mg, then to resume 2.5mg X 4 days and 5mg X 3 days F/U INR: 2 weeks Patient verbalizes understanding of instructions given Anti-Coag Initial Assessment Social Hx Patient Tobacco Use Status: Never used Tobacco alcohol intake: current Alcohol intake frequency: holidays/special occasions only Coding Level of Care Code Est Patient Level 1 Diagnoses Current use of anticoagulant therapy Z79.01 Results AMB INR Fingerstick AMB INR Fingerstick 3.7 Last Edit by Nell Smith RN on 11/24/24 10:16 interface delay Assessment & Plan Assessment & Plan (1) Current use of anticoagulant therapy: Code(s): 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
== END 2024-11-24 10:22 | disposition home or self-care (01) ==
LOC: HO.ACS 10:10
PROVIDERS: PCP Internal Medicine; Visit Provider Internal Medicine Medical Oncology
DX: Z79.01 Long term (current) use of anticoagulants (principal)

== ENCOUNTER → 2024-11-24 10:10 | Outpatient (BNVA) | payer OTHER, SELFPAY | PROVIDERS: PCP Internal Medicine; Visit Provider Internal Medicine Medical Oncology | DX: I48.20 Chronic atrial fibrillation, unspecified (principal); Z79.01 Long term (current) use of anticoagulants; Z51.81 Encounter for therapeutic drug level monitoring | CPT/HCPCS: 85610; 99211 ==

== ENCOUNTER 2024-12-08 10:42 | Outpatient (AMB) | payer OTHER, SELFPAY ==
[2024-12-08 10:53] LABS: ~PT, ~INR - Anti Coag Clinic 3.6 (0.9-1.1)
--- NOTE | 2024-12-08 10:58 | MHC.OFFVISCO ---
Intake Intake Visit Reasons: Anticoagulation Allergies No Known Allergies (No Known Allergies*) Allergy (Verified 12/08/24 10:47) Medication List - Last Reconciled 12/08/24 by Nell Smith RN acetaminophen (Tylenol) 325 mg PO Q4H PRN CPAP As directed digoxin 125 mcg PO DAILY 90 days diltiazem HCl CD 360 mg PO DAILY docusate sodium 200 mg (2 x 100 mg) PO BEDTIME PRN furosemide 40 mg PO DAILY leg brace (Ankle Brace) shoe or AFO custom molded for foot drop, left lidocaine 5% 1 patch topical DAILY PRN linaclotide (Linzess) 145 mcg PO DAILY lisinopril 40 mg PO DAILY 90 days metoprolol succinate ER 100 mg PO DAILY miscellaneous medical supply 1 ea miscellaneous DAILY pantoprazole 40 mg PO DAILY 90 days polyethylene glycol 3350 (Miralax) 17 grams PO DAILY pravastatin 20 mg PO BEDTIME 90 days ropinirole 2 mg PO BEDTIME 90 days [shoe lift Lt 1/2 inch heel lift] Shower Chair As directed tramadol 50 mg PO Q6H PRN tramadol 50 mg PO Q8H PRN 30 days warfarin 5 mg See Protocol PO DAILY Nursing Note INR: 3.6 out of therapeutic range of 2-3 Medications and supplements reviewed Patient status: well Medications or supplements: no changes Diet: usual diet for pt Denies any signs and symptoms of bleeding or clotting or unusual bruising Bleeding, bruising, clotting discussed Nutritional guidance given: to have a serving of greens today Dose: pt already took today's dose so will decrease tomorrow's dose of 5mg to 2.5mg then2.5mg X 4 days and 5mg X 3 days (M/W/F) F/U INR Date: 2 week Patient verbalizing understanding of instructions given. 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
--- OUTSIDE RECORDS SUMMARY | 2024-12-08 11:59 | XMS_ITS | Patient Health Record ---
Author Organization [facility] Address [address] [place] [address] Care Team Providers Care Supervisor Carding Name Role Phone Gucci Leyva MD Primary Care Provider Srinivasa Ruby Unavailable [phone] Sanjay Page Unavailable Unavailable Reason For Referral No Information Medications Medication SIG (Take, Route, Frequency, Duration) Notes Start Date End Date Status Lisinopril 20 MG Orally Act suzi Furosemide 40 MG 1 tablet Orally Once a day Active Atenolol 50 MG 1 tablet Orally Once a day Active Metoprolol Succinate ER 25 MG 1 tablet Orally Once a day Active MiraLax 1 as directed Orally a s directed for 1 days 06/14/2016 Active Amiodarone HCl 200 MG 1 tablet Orally On ce a day Active Nitrostat 0.4 MG Sublingual Ac tive Warfarin Sodium 5 MG 1 tablet Orally Onc e a day Active Atorvastatin Calcium 40 MG 1 tablet Oral ly Once a day Active Dulcolax 5 MG as directed Orally a s directed for 30 day(s) 06/14/2016 Active Problems Problem Type SNOMED Code ICD Code Onset Dates Problem Status W/U Status Risk Notes Problem [id number] Abnormal CT scan, colon (R93.3) Active confirmed Plan Of Treatment Future Test Test Name Order Date COLONOSCOPY 06/05/2016 Insurance Providers Payer Name Payer Address Payer Phone Subscriber Number Group Number Insured Name Patient Relationship to Insured Coverage Start Date Coverage End Date [place] OF [place] [address] [place] [address] [id number] JUAN HUNG Self - patient is the insured MEDICAID OF [facility] [address] [place] [phone] [id number] JUAN HUNG Self - patient is the insured Medical (General) History Medical History History ICD Code Pacemaker--in [place] Hypertension Denies NE, DM,CVA,Lung disease Hyperlipidemia Atrial fibrillation Surgical History Surgery Date(Month/Year) Pacemaker
== END 2024-12-08 11:06 | disposition home or self-care (01) ==
LOC: HO.ACS 10:42
PROVIDERS: PCP Internal Medicine; Visit Provider Internal Medicine Medical Oncology
DX: Z79.01 Long term (current) use of anticoagulants (principal)

== ENCOUNTER → 2024-12-08 10:42 | Outpatient (BNVA) | payer OTHER, SELFPAY | PROVIDERS: PCP Internal Medicine; Visit Provider Internal Medicine Medical Oncology | DX: I48.20 Chronic atrial fibrillation, unspecified (principal); Z79.01 Long term (current) use of anticoagulants; Z51.81 Encounter for therapeutic drug level monitoring | CPT/HCPCS: 85610; 99211 ==

== ENCOUNTER 2024-12-21 15:19 | Outpatient (AMB) | payer OTHER, SELFPAY ==
[2024-12-21 15:22] VITALS: BP 126/80; PULSE 83; O2SAT 97; BMI 34.1
--- NOTE | 2024-12-21 15:22 | MHC.PC.OV ---
Vital Signs 12/21/24 15:22 Height 5 ft 3 in Weight 192 lb 8 oz BMI 34.1 BP 126/80 Blood Pressure Location Lt brachial Position Sitting Pulse 83 Pulse Source Pulse Oximeter Pulse Oximetry (%) 97 Oxygen Delivery Method Room Air Intake Visit Reasons: 4 month f/u Show Jumping Instructor Required: No Accompanied by: Self / Same As Patient Allergies No Known Allergies (No Known Allergies*) Allergy (Verified 12/21/24 16:19) Medication List - Last Reconciled 12/21/24 by Reji Meyers MD acetaminophen (Tylenol) 325 mg PO Q4H PRN CPAP As directed digoxin 125 mcg PO DAILY 90 days diltiazem HCl CD 360 mg PO DAILY docusate sodium 200 mg (2 x 100 mg) PO BEDTIME PRN furosemide 40 mg PO DAILY leg brace (Ankle Brace) shoe or AFO custom molded for foot drop, left lidocaine 5% 1 patch topical DAILY PRN linaclotide (Linzess) 145 mcg PO DAILY lisinopril 40 mg PO DAILY 90 days metoprolol succinate ER 100 mg PO DAILY miscellaneous medical supply 1 ea miscellaneous DAILY pantoprazole 40 mg PO DAILY 90 days polyethylene glycol 3350 (Miralax) 17 grams PO DAILY pravastatin 20 mg PO BEDTIME 90 days ropinirole 2 mg PO BEDTIME 90 days [shoe lift Lt 1/2 inch heel lift] Shower Chair As directed tramadol 50 mg PO Q6H PRN tramadol 50 mg PO Q8H PRN 30 days warfarin 5 mg See Protocol PO DAILY Tobacco use date assessed: 12/21/24 Fall risk assessment: No Falls in past year Last assessed Fall Risk: 12/21/24 Dental Screening Dental Screen Date: 12/21/24 Did you have a dental visit in the last 12 months?: No Did you have a dental problem in the last 6 months where you did not have access to dental care?: No Was dental information given to patient?: No HPI 4 month f/u HPI Details Patient comes in today for his follow up visit States that he feels okay He denies any headaches or dizziness Denies any chest pains, no shortness of breath No nausea/vomiting, no abdominal pain No change in bowel habits noted He has no follow up labs done recently [facility] Medical History Primary osteoarthritis, right shoulder Degenerative disc disease, cervical History of poliomyelitis Restless leg syndrome Chronic constipation Chronic GERD History of pacemaker Obesity (BMI 30-39.9) Vitamin D deficiency Pure hypercholesterolemia Leg length discrepancy Pacemaker Abnormal finding of foot Right shoulder pain MELANIE on CPAP Chest pain Trigger finger Bilateral sciatica Polyarthralgia Chronic heart failure with preserved ejection fraction (HFpEF) Persistent atrial fibrillation Obesity (BMI 30.0-34.9) Surgical History Hx of colonoscopy History of ear surgery History of cholecystectomy Family History Father Myocardial infarction CVD (cardiovascular disease) Mother No problems noted. Sister Stomach cancer Son No problems noted. Son No problems noted. Daughter No problems noted. Daughter No problems noted. Brother No problems noted. Brother No problems noted. Social History Household Members: Children Housing: House Alcohol intake: current Alcohol intake frequency: holidays/special occasions only Alcohol type: beer Patient Tobacco Use Status: Never used Tobacco e-Cigarette/Vaping Use: Never Used Second Hand Smoke Exposure: No service: No Current occupational status: disabled Cognitive needs: Yes (cane) Hearing needs: No Vision needs: Yes (glasses) Questionnaire PHQ-9 Over the last 2 weeks, how often have you been bothered by any of the following problems? 1. Little interest or pleasure in doing things: not at all 2. Feeling down, depressed, or hopeless: not at all 3. Trouble falling or staying asleep, or sleeping too much: not at all 4. Feeling tired or having little energy: not at all 5. Poor appetite or overeating: not at all 6. Feeling bad about yourself - or that you are a failure or have let yourself or your family down: not at all 7. Trouble concentrating on things, such as reading the newspaper or watching television: not at all 8. Moving or speaking so slowly that other people could have noticed. Or the opposite - being so fidgety or restless that you have been moving around a lot more than usual: not at all 9. Thoughts that you would be better off or of hurting yourself in some way: not at all Total score: 0 Depression Screening Interpretation: Negative Depression Screening Done: Yes 62894 - PHQ-9 Billing: Yes Source: Developed by Drs. Srinivasa Arauz, Sol Duron, Denis Hernandez and colleagues, with an educational lorenza from [employer]. Thrive Questionnaire Date Thrive assessed: 12/21/24 I am a: Patient What is your living situation today?: I have a steady place to live Within the past 12 months, did the food you bought not last and you didn't have the money to get more?: Never true Within the past 12 months, did you worry whether your food would run out before you got money to buy more?: Never true Do you have trouble paying for medicines?: No Do you have trouble getting transportation to medical appointments?: No Do you have trouble paying your heating and electricity bill?: No Do you have trouble taking care of your child, family member or friend?: No Do you have trouble with day-to-day activities such as bathing, preparing meals, shopping, managing finances, etc.?: No Are you currently unemployed and looking for a job?: No Are you interested in more education?: No Please select the resources that you would like help with: None Currently or been in a relationship where the following occur: No concerns reported THRIVE Score: 0 AUDIT C Alcohol Use Questionnaire (AUDIT-C) 1. How often do you have a drink containing alcohol?: Monthly or less 2. How many drinks containing alcohol do you have on a typical day when you are drinking?: 1 or 2 3. How often do you have six or more drinks on one occasion?: Never Total Score: 1 Score Reviewed/Action Taken: Yes THERESA-7 AMB Questionnaire THERESA-7 Date THERESA - 7 assessed: 12/21/24 Feeling nervous, anxious, or on edge: 0 = Not at all Not being able to stop or control worryin = Not at all Worrying too much about different things: 0 = Not at all Trouble relaxin = Not at all Being so restless that it is hard to sit still: 0 = Not at all Becoming easily annoyed or irritable: 0 = Not at all Feeling afraid as if something awful might happen: 0 = Not at all Total THERESA-7 score (0-4 normal; 5-9 mild; 10-14 moderate; 15-21 severe): 0 Source: Developed by Drs. Srinivasa Arauz, Sol Duron, Denis Hernandez and colleagues, with an educational lorenza from [employer]. Review of Systems Const Denies chills, Reports fatigue, Denies fever(s) and Denies headache(s) ENT Denies dysphagia, Denies dizziness, Denies otalgia, Denies headache(s), Reports neck pain, Denies odynophagia and Denies sore throat Card Denies chest pain, Denies palpitations and Reports dyspnea on exertion Resp Denies chest congestion, Denies cough and Reports dyspnea on exertion GI Denies abdominal pain, Reports constipation (better with Rx), Denies dysphagia, Denies heartburn, Denies diarrhea, Denies nausea, Denies odynophagia and Denies vomiting Denies difficulty urinating, Denies dysuria, Denies nocturia and Denies urinary frequency Musc Reports back pain (over the lower back), Reports arthralgias (involving multiple joints, especially in the right shoulder recently), Reports neck pain and Reports radiating pain into limb (into the right arm and hand at times) Skin/Breast Denies rash Neuro Denies dizziness and Denies headache(s) Endo Reports fatigue and Denies palpitations Physical exam (Primary Care) Vital Signs: Last Vital Signs Pulse 83 12/21/24 15:22 BP 126/80 12/21/24 15:22 Pulse Ox 97 12/21/24 15:22 Oxygen Delivery Method Room Air 12/21/24 15:22 BMI result Body Mass Index 34.1 Tobacco/Smoking Status: Tobacco use Status Tobacco use date assessed 12/21/24 12/21/24 15:24 Patient Tobacco Use Status Never used Tobacco 12/21/24 15:24 e-Cigarette/Vaping Use Never Used 12/21/24 15:24 PHQ-9: PHQ-9 Score PHQ-9: Total score 0 12/21/24 16:27 Depression Screening Interpretation: Negative Thrive Assessment: Date of Thrive Assessment Date Thrive assessed 12/21/24 12/21/24 15:33 Currently or been in a relationship where the following occur: No concerns reported Const General: no acute distress and alert HENMT Ears: TM's normal bilaterally and EAC's normal Throat: Yes posterior oropharynx normal and Yes tonsils normal (no TP congestion) Neck Neck: No lymphadenopathy and Yes tender Thyroid: Thyroid normal Resp Auscultation: clear to auscultation bilaterally, no rales and no wheezes Cardio Rate: regular rate Rhythm: abnormal rhythm irregularly irregular Heart sounds: no murmurs GI Palpation (GI): Soft to palpation and nontender Auscultation: normal bowel sounds General: Yes no CVA tenderness Back/Spine/Pelvis Back: no CVA tenderness Cervical Spine: Cervical spine tenderness (mild) Thoracic/Lumbar Spine: lumbar spinal tenderness (chronic) Skin Rashes: no rashes Extrem General: Yes no clubbing, cyanosis or edema Right upper extremity: shoulder/upper arm Details: tenderness Location: of the A-C joint and normal ROM; no swelling Coding Level of Care Code Est Pt Level 4 (02787) Diagnoses Exertional dyspnea R06.09 Chronic heart failure with preserved ejection fraction (HFpEF) I50.32 Persistent atrial fibrillation I48.19 Pure hypercholesterolemia E78.00 MELANIE on CPAP G47.33; Z99.89 Polyarthralgia M25.50 Vitamin D deficiency E55.9 Chronic GERD K21.9 Degenerative disc disease, cervical M50.30 Primary osteoarthritis, right shoulder M19.011 Chronic constipation K59.09 Restless leg syndrome G25.81 Obesity (BMI 30-39.9) E66.9 Additional Codes PHQ-9 - 74744 - PHQ-9 Billing: Yes ([id number]) Assessment & Plan Assessment & Plan (1) Exertional dyspnea: Code(s): R06.09 - Other forms of dyspnea Category: Medical Plan: His echocardiogram done in December of last year (2023) was mostly borderline normal and does not help explain his current symptoms of exertional dyspnea This may be at least partly due to his weight and may also be due to physical decompensation He was previously sent for PFTs for further evaluation but he has not yet had this done (2) Chronic heart failure with preserved ejection fraction (HFpEF): Code(s): I50.32 - Chronic diastolic (congestive) heart failure Category: Medical Plan: His most recent echoardiogram done in December 2023 revealed normal LV ejection fraction 55-60%, mildly dilated left atrium, normal cardiac valvular doppler, normal RV systolic pressure with mildly elevated right atrial pressures and no gross pericardial effusion Continue Furosemide 40 mg QD, Lisinopril 40 mg QD and Metoprolol ER 100 mg QD Follow up with cardiology as scheduled (3) Persistent atrial fibrillation: Code(s): I48.19 - Other persistent atrial fibrillation Category: Medical Plan: Continue Coumadin 5 mg daily for lifelong anticoagulation Patient has tried and failed several antiarrhythmics in the past, including Sotalol, Multaq and Amiodarone He has also been sent to EP consultation for possible ablation but for unclear reasons, nothing came out of this He has since been just maintained on rate control of his atrial fibrillation and he appears to be doing well on this regimen so far Continue Metoprolol ER 100 mg QD, Diltiazem 360 mg QD and Digoxin 0.125 mg QD Follow up with cardiology as scheduled (4) Pure hypercholesterolemia: Code(s): E78.00 - Pure hypercholesterolemia, unspecified Category: Medical Plan: Patient has no follow up labs done recently Reinforced low cholesterol diet Continue Pravastatin 20 mg QD Will recheck his labs and fasting lipids in 4 months for follow up - will just have patient use his current orders (updated) for his next lab draw (5) MELANIE on CPAP: Code(s): G47.33 - Obstructive sleep apnea (adult) (pediatric); Z99.89 - Dependence on other enabling machines and devices Category: Medical Plan: Continue using his CPAP device when sleeping at night daily Follow up with Sleep Medicine as scheduled (6) Polyarthralgia: Code(s): M25.50 - Pain in unspecified joint Category: Medical Plan: Continue Tramadol 50 mg TID PRN for pain Follow up with rheumatology and orthopedics as scheduled (7) Vitamin D deficiency: Code(s): E55.9 - Vitamin D deficiency, unspecified Category: Medical Plan: His Vitamin D level was still low when last checked in June 2024 Will start him on Vitamin D3 2000 units QD (8) Chronic GERD: Code(s): K21.9 - Gastro-esophageal reflux disease without esophagitis Category: Medical Plan: Dietary restrictions reinforced Continue Pantoprazole 40 mg QD (9) Degenerative disc disease, cervical: Code(s): M50.30 - Other cervical disc degeneration, unspecified cervical region Category: Medical Plan: Cervical spine x-rays done back in February 2024 revealed (+) moderate degenerative disc disease at C5-C6 and C6-C7, unchanged when compared to his cervical spine CT done in June 2023 (10) Primary osteoarthritis, right shoulder: Code(s): M19.011 - Primary osteoarthritis, right shoulder Category: Medical Plan: Right shoulder x-rays done in February 2024 revealed (+) mild acromioclavicular osteoarthritis Will consider referring patient to orthopedics for further management if his shoulder symptoms get worse (11) Chronic constipation: Code(s): K59.09 - Other constipation Category: Medical Plan: Reinforced increased oral fluids and dietary fiber States that his symptoms have improved a lot since he was started on Linzess 145 mcg QD by GI Continue Miralax 17 gm QD and Docusate 100 mg 2 tablets Q HS PRN Follow up with GI as scheduled (12) Restless leg syndrome: Code(s): G25.81 - Restless legs syndrome Category: Medical Plan: Continue Ropinirole 2 mg Q HS (13) Obesity (BMI 30-39.9): Comment: HE IS ONLY MODERATELY ,OBESE WEIGHT HAS REMAINED STABL.E Code(s): E66.9 - Obesity, unspecified Category: Medical Plan: Reinforced diet/exercise as tolerated/lose weight Plan Follow up in 4 months Medications: New hydrocortisone 1% 1 appl topical TID PRN 60 grams 0RF skin irritation/itching
--- OUTSIDE RECORDS SUMMARY | 2024-12-21 15:37 | XMS_ITS | Patient Health Record ---
Author Organization [facility] Address [address] [place] [address] Care Team Providers Care Molder Foam Rubber Name Role Phone Gucci Leyva MD Primary Care Provider Srinivasa Ruby Unavailable [phone] Sanjay Page Unavailable Unavailable Reason For Referral [...] Problem Status W/U Status Risk Notes Problem [id number] Abnormal CT scan, colon (R93.3) Active confirmed Plan Of Treatment Future Test Test Name Order Date COLONOSCOPY 06/05/2016 Insurance Providers Payer Name Payer Address Payer Phone Subscriber Number Group Number Insured Name Patient Relationship to Insured Coverage Start Date Coverage End Date MEDICARE OF [place] [address] [place] [address] [id number] JUAN HUNG Self - patient is the insured MEDICAID OF [facility] [address] [place] [address] [id number] JUAN HUNG Self - patient is the insured Medical (General) History Medical History History ICD Code Pacemaker--in [place] Hypertension Denies [place], DM,CVA,Lung disease Hyperlipidemia Atrial fibrillation Surgical History Surgery Date(Month/Year) Pacemaker
== END 2024-12-21 16:31 | disposition home or self-care (01) ==
LOC: HO.HMCH 15:19
PROVIDERS: PCP Internal Medicine; Visit Provider Internal Medicine
DX: R06.09 Other forms of dyspnea (principal); I50.32 Chronic diastolic (congestive) heart failure; I48.19 Other persistent atrial fibrillation; E78.00 Pure hypercholesterolemia, unspecified; G47.33 Obstructive sleep apnea (adult) (pediatric); Z99.89 Dependence on other enabling machines and devices; M25.50 Pain in unspecified joint; E55.9 Vitamin D deficiency, unspecified; K21.9 Gastro-esophageal reflux disease without esophagitis; M19.011 Primary osteoarthritis, right shoulder; K59.09 Other constipation; G25.81 Restless legs syndrome

== ENCOUNTER → 2024-12-21 15:19 | Outpatient (BNVA) | payer OTHER, SELFPAY | PROVIDERS: PCP Internal Medicine; Visit Provider Internal Medicine | DX: I50.32 Chronic diastolic (congestive) heart failure (principal); R06.09 Other forms of dyspnea; I48.19 Other persistent atrial fibrillation; E78.00 Pure hypercholesterolemia, unspecified; G47.33 Obstructive sleep apnea (adult) (pediatric); M25.50 Pain in unspecified joint; E55.9 Vitamin D deficiency, unspecified; K21.9 Gastro-esophageal reflux disease without esophagitis; M50.30 Other cervical disc degeneration, unspecified cervical region; M19.011 Primary osteoarthritis, right shoulder; K59.09 Other constipation; G25.81 Restless legs syndrome; E66.9 Obesity, unspecified; Z99.89 Dependence on other enabling machines and devices; Z68.34 Body mass index [BMI] 34.0-34.9, adult | CPT/HCPCS: 96127; 99212 ==

== ENCOUNTER 2024-12-22 10:28 | Outpatient (AMB) | payer OTHER, SELFPAY ==
[2024-12-22 10:38] LABS: Prothrombin Time Whole Bld POC 56.0 sec (11.1-13.5); ~PT, ~INR - Anti Coag Clinic 4.7 (0.9-1.1)
--- NOTE | 2024-12-22 10:52 | MHC.OFFVISCO ---
Intake Intake Visit Reasons: Anticoagulation Allergies No Known Allergies (No Known Allergies*) Allergy (Verified 12/21/24 16:19) Medication List - Last Reconciled 12/22/24 by Shanice Skaggs RN acetaminophen (Tylenol) 325 mg PO Q4H PRN CPAP As directed digoxin 125 mcg PO DAILY 90 days diltiazem HCl CD 360 mg PO DAILY docusate sodium 200 mg (2 x 100 mg) PO BEDTIME PRN furosemide 40 mg PO DAILY hydrocortisone 1% 1 appl topical TID PRN leg brace (Ankle Brace) shoe or AFO custom molded for foot drop, left lidocaine 5% 1 patch topical DAILY PRN linaclotide (Linzess) 145 mcg PO DAILY lisinopril 40 mg PO DAILY 90 days metoprolol succinate ER 100 mg PO DAILY miscellaneous medical supply 1 ea miscellaneous DAILY pantoprazole 40 mg PO DAILY 90 days polyethylene glycol 3350 (Miralax) 17 grams PO DAILY pravastatin 20 mg PO BEDTIME 90 days ropinirole 2 mg PO BEDTIME 90 days [shoe lift Lt 1/2 inch heel lift] Shower Chair As directed tramadol 50 mg PO Q6H PRN tramadol 50 mg PO Q8H PRN 30 days warfarin 5 mg See Protocol PO DAILY Nursing Note INR 4.7 out of therapeutic range- already took today's warfarin dose Medications and supplements reviewed Patient status: Drinking more beer recently over 18 december weekend, enc to decrease amt over all due to risk of bleeding Medications or supplements: no changes Diet: enc to eat some kind of greens Denies any signs and symptoms of bleeding or clotting or unusual bruising Bleeding, bruising, clotting discussed Nutritional guidance given: eat greens today of some kind Dose: hold today and decrease weekly dose 5mg x 2 days/ 2.5mg x 5 days as INR s have been trending higher during warmer months eating more fruit and beer F/U INR Date: 1 week ?? Patient verbalizing understanding of instructions given. Anti-Coag Initial Assessment Social Hx Patient Tobacco Use Status: Never used Tobacco alcohol intake: current Alcohol intake frequency: holidays/special occasions only Coding Level of Care Code Est Patient Level 1 Diagnoses Current use of anticoagulant therapy Z79.01 Assessment & Plan Assessment & Plan (1) Current use of anticoagulant therapy: Code(s): Z79.01 - shelter (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
--- OUTSIDE RECORDS SUMMARY | 2024-12-22 11:21 | XMS_ITS | Patient Health Record ---
Author Organization [facility] Address [address] [place] [address] Care Team Providers Care Javascript Ui Developer Name Role Phone Gucci Leyva MD Primary Care Provider Srinivasa Ruby Unavailable [phone] Sanjay Page Unavailable Unavailable Reason For Referral [...] Problem Status W/U Status Risk Notes Problem [id number] Abnormal CT scan, colon (R93.3) Active confirmed Plan Of Treatment Future Test Test Name Order Date COLONOSCOPY 06/05/2016 Insurance Providers Payer Name Payer Address Payer Phone Subscriber Number Group Number Insured Name Patient Relationship to Insured Coverage Start Date Coverage End Date MEDICARE OF [place] [address] [place] [address] [id number] JUAN HUNG Self - patient is the insured MEDICAID OF [facility] [address] [place] [address] [phone] [id number] JUAN HUNG Self - patient is the insured Medical (General) History Medical History History ICD Code Pacemaker--in [place] Hypertension Denies [place], DM,CVA,Lung disease Hyperlipidemia Atrial fibrillation Surgical History Surgery Date(Month/Year) Pacemaker
== END 2024-12-22 10:59 | disposition home or self-care (01) ==
LOC: HO.ACS 10:28
PROVIDERS: PCP Internal Medicine; Visit Provider Internal Medicine Medical Oncology
DX: Z79.01 Long term (current) use of anticoagulants (principal)

== ENCOUNTER → 2024-12-22 10:28 | Outpatient (BNVA) | payer OTHER, SELFPAY | PROVIDERS: PCP Internal Medicine; Visit Provider Internal Medicine Medical Oncology | DX: I48.20 Chronic atrial fibrillation, unspecified (principal); Z51.81 Encounter for therapeutic drug level monitoring; Z79.01 Long term (current) use of anticoagulants | CPT/HCPCS: 85610; 99211 ==

== ENCOUNTER 2024-12-29 10:33 | Outpatient (AMB) | payer OTHER, SELFPAY ==
[2024-12-29 10:43] LABS: Prothrombin Time Whole Bld POC 38.8 sec (11.1-13.5); ~PT, ~INR - Anti Coag Clinic 3.2 (0.9-1.1)
--- NOTE | 2024-12-29 10:53 | MHC.OFFVISCO ---
Intake Intake Visit Reasons: Anticoagulation Allergies No Known Allergies (No Known Allergies*) Allergy (Verified 12/29/24 10:37) Medication List - Last Reconciled 12/29/24 by Shanice Skaggs RN acetaminophen (Tylenol) 325 mg PO Q4H PRN CPAP As directed digoxin 125 mcg PO DAILY 90 days diltiazem HCl CD 360 mg PO DAILY docusate sodium 200 mg (2 x 100 mg) PO BEDTIME PRN furosemide 40 mg PO DAILY hydrocortisone 1% 1 appl topical TID PRN leg brace (Ankle Brace) shoe or AFO custom molded for foot drop, left lidocaine 5% 1 patch topical DAILY PRN linaclotide (Linzess) 145 mcg PO DAILY lisinopril 40 mg PO DAILY 90 days metoprolol succinate ER 100 mg PO DAILY miscellaneous medical supply 1 ea miscellaneous DAILY pantoprazole 40 mg PO DAILY 90 days polyethylene glycol 3350 (Miralax) 17 grams PO DAILY pravastatin 20 mg PO BEDTIME 90 days ropinirole 2 mg PO BEDTIME 90 days [shoe lift Lt 1/2 inch heel lift] Shower Chair As directed tramadol 50 mg PO Q6H PRN tramadol 50 mg PO Q8H PRN 30 days warfarin 5 mg See Protocol PO DAILY Nursing Note INR 3.2 out of therapeutic range Medications and supplements reviewed Patient status: During the summer he likes to drink 1 ETOH beverage/ almost daily - risk of bleeding and elevated INR discussed with pt understanding Medications or supplements: no changes Diet: same Denies any signs and symptoms of bleeding or clotting or unusual bruising Bleeding, bruising, clotting discussed Nutritional guidance given: eat the greens you like kiwii, bluberries, greenbeans during the summer when having you summer drinks Dose: decrease to 5mg x 2 days/ 2.5mg x 5 days F/U INR Date : 2 weeks ?? Patient verbalizing understanding of instructions given. 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
--- OUTSIDE RECORDS SUMMARY | 2024-12-29 11:49 | XMS_ITS | Patient Health Record ---
Author Organization [facility] Address [address] [place] [address] Care Team Providers Care Electrical Prospecting Supervisor Name Role Phone Autumn (RETIRED) Gucci RASMUSSEN Primary Care Provide r Unavailable Srinivasa Douglas Unavailable [phone] Sanjay Page Unavailable Unavailable Reason For Referral [...] Problem Status W/U Status Risk Notes Problem [id number] Abnormal CT scan, colon (R93.3) Active confirmed Plan Of Treatment Future Test Test Name Order Date COLONOSCOPY 06/05/2016 Insurance Providers Payer Name Payer Address Payer Phone Subscriber Number Group Number Insured Name Patient Relationship to Insured Coverage Start Date Coverage End Date MEDICARE OF [place] [address] [place] [address] [phone] [id number] JUAN HUNG Self - patient is the insured MEDICAID OF [facility] [address] [place] [address] [id number] WATKINS Self - patient is the insured Medical (General) History Medical History History ICD Code Pacemaker--in [place] Hypertension Denies [place], DM,CVA,Lung disease Hyperlipidemia Atrial fibrillation Surgical History Surgery Date(Month/Year) Pacemaker
== END 2024-12-29 10:58 | disposition home or self-care (01) ==
LOC: HO.ACS 10:33
PROVIDERS: PCP Internal Medicine; Visit Provider Internal Medicine Medical Oncology
DX: Z79.01 Long term (current) use of anticoagulants (principal)

== ENCOUNTER → 2024-12-29 10:33 | Outpatient (BNVA) | payer OTHER, SELFPAY | PROVIDERS: PCP Internal Medicine; Visit Provider Internal Medicine Medical Oncology | DX: I48.20 Chronic atrial fibrillation, unspecified (principal); Z79.01 Long term (current) use of anticoagulants; Z51.81 Encounter for therapeutic drug level monitoring | CPT/HCPCS: 85610; 99211 ==

== ENCOUNTER 2024-12-30 14:52 | Outpatient (REF) | payer OTHER, SELFPAY ==
[2024-12-30 14:34] LABS: MANUAL DIFF FLAG NO
[2024-12-30 14:45] LABS: Hematocrit 38.7 % (42.0-52.0); Hemoglobin 13.2 g/dl (14.0-18.0); Imm Gran Abs Auto 0.03 X10*3/uL (0.00-0.03); Imm Gran Pct Auto 0.3 % (0.0-0.4); Lymphocytes Absolute Auto 4.6 X10*3/uL (1.2-4.9); Mean Corpuscular HGB Conc 34.1 g/dl (31.0-36.0); Mean Corpuscular Hemoglobin 29.3 pg (27.0-33.0); Mean Corpuscular Volume 85.8 fL (80.0-98.0); NRBC Abs Auto 0.000 X10*3/uL (0.0-0.012); NRBC Pct Auto 0.0 /100WBC (0.0-0.2); Platelet Count 277 X10*3/uL (160-400); Red Blood Count 4.51 X10*6/uL (4.60-5.80); White Blood Count 11.2 X10*3/uL (4.8-10.8)
--- NOTE | 2024-12-30 14:55 | CA_ITS ---
Transthoracic Echocardiogram Patient (Last, First, Middle): Dwain Limon, Gender: Male Date of : 1955 Age: 69 Procedure Date: 12/30/2024 Procedure Type: Transthoracic Echocardiogram Location: OP Height: 160.02 cm Weight: 84.37 kg BSA: 1.88 m2 Heart Rate: bpm BP: 120 / 72 mmHg Commercial Construction Superintendent: KARENA Referring MD: Darian Roque NP Symptoms: R06.00 - Dyspnea, unspecified Study Quality: Fair/Adequate ECG Rhythm: Ventriculary paced rhythm Conclusions: - The left ventricular systolic function is normal. The calculated ejection fraction is 58% by biplane method. - No obvious valvular pathology seen on this study. Findings Left Ventricle Normal left ventricular cavity size. There is mildly increased left ventricular wall thickness. The left ventricular systolic function is normal. The calculated ejection fraction is 58% by biplane method. There is no evidence of regional wall motion abnormalities. Diastolic function is indeterminate on the basis of available data. Right Ventricle Normal right ventricular cavity size and systolic function. There is a pacemaker wire seen in the right ventricle. Atria Both atria are normal in size. Aortic Valve There is a normal trileaflet aortic valve. There is no aortic valve stenosis. There is no aortic valve regurgitation. Mitral Valve The mitral valve appears normal. There is trace mitral valve regurgitation. There is no mitral valve stenosis. Pulmonic Valve The pulmonic valve is likely normal. Tricuspid Valve There is mild tricuspid valve regurgitation. There is no evidence of pulmonary hypertension. Great Vessels The asc aorta is normal in size. Venous The inferior vena cava is mildly dilated and collapses less than 50% with inspiration. Pericardium/Pleural There is no evidence of pericardial effusion. Prior Study Comparison No significant change compared to prior study dated: 01/01/2024. Recommendations, Care & Conclusions No obvious valvular pathology seen on this study. Measurements 2D Linear Measurements RVIDd: 2.12 RVIDd Index: 1.13 IVSd: 1.10 0.6-0.9/0.6-1.0 cm LVIDd: 3.41 3.9-5.3/4.2-5.9 cm LVIDd Index: 1.81 2.4-3.2/2.2-3.1 cm/m2 LVIDs: 2.50 2.0-3.6 cm LVPWd: 1.18 0.7-1.1 cm Ao Root: 3.10 2.1-3.5 cm LV Mass: 150.35 67-162/88-224 g LV Mass Index: 79.97 43-95/49-115 g/m2 LVOT Diam: 2.10 3.0+(-)1.3 cm 2D Systolic Function EF 4C: 60.00 >55% EF 2C: 58.70 >55% EF BiP: 58.20 >55% Mitral Valve MV Pk E: 0.93 MV PK A: 0.22 MV Decel Time: 139.00 E/A: 4.20 E'Lateral: 8.92 E'Medial: 7.72 E/E' Med: 12.10 E/E' Lat: 10.50 PHT: 41.00 MVA PHT: 5.37 Decel Bledsoe: 6.74 Aortic Valve AoV Pk Berny: 1.05 AoV Mn Berny: 0.81 AoV VTI: 0.24 AoV Pk Grad: 4.00 Aov Mn Grad: 3.00 KINGA Cont.VTI: 2.93 LVOT LVOT Pk Berny: 0.96 LVOT Mn Berny: 0.64 LVOT VTI: 0.20 LVOT Pk Grad: 4.00 LVOT Mn Grad: 2.00 LVOT Diam: 2.10 LVOT Area: 3.46 Diastolic Function MV Pk E: 0.93 MV Pk A: 0.22 E/A: 4.20 E'Medial: 7.72 E/E' Med: 12.10 E' Laterial: 8.92 E/E' Lat: 10.50 Right Ventricle TAPSE (mm): 24.00 TVS' Berny: 12.00 Tricuspid Valve TR Pk Berny: 2.39 TR Pk Grad: 23.00 RA Press: 3.00 RVSP: 26.00 Great Vessels Aorta Ao Root-2D: 3.10 2.0-3.7 cm Updated in Other Vendor System with Status of Final Homer Finch MD electronically signed on 01/01/2025 11:23:59 AM with status of Final
--- NOTE | 2024-12-30 14:57 | EMG_ITS ---
Chief complaint: Since last time I saw him, right elbow pain has resolved. Still reports paresthesias in right hand occasionally. Reason for referral: Evaluate for ulnar neuropathy Procedure done: Right upper extremity NCS/EMG Precautions and/or limitations: None Thai speaking, seen with interpreter translator. The limb temperature was monitored continuously and remained between 32-36 degrees C during the performance of the NCS. Nerve Conduction Studies Anti Sensory Summary Table ?Stim Site NR Onset (ms) Norm Onset (ms) Peak (ms) Norm Peak (ms) O-P Amp (?V) Norm O-P Amp Site1 Site2 Delta-0 (ms) Dist (cm) Berny (m/s) Norm Berny (m/s) Right Median Anti Sensory (2nd Digit) Wrist ? 2.8 3.6 <3.6 25.6 >10 Wrist 2nd Digit 2.8 14.0 50 Right Radial Anti Sensory (Thumb) Forearm ? 1.6 2.2 <3.1 24.3 Forearm Thumb 1.6 0.0 Right Ulnar Anti Sensory (5th Digit) Wrist ? 2.3 3.1 <3.7 9.7 >15.0 Wrist 5th Digit 2.3 14.0 61 Motor Summary Table ?Stim Site NR Onset (ms) Norm Onset (ms) O-P Amp (mV) Norm O-P Amp iAmp (mV) Amp (1st) (%) Site1 Site2 Delta-0 (ms) Dist (cm) Berny (m/s) Norm Berny (m/s) Right Median Motor (Abd Poll Brev) Wrist ? 3.8 <3.9 10.5 >4.5 12.2 100.0 Elbow Wrist 3.8 21.5 57 >45 Elbow ? 7.6 9.8 11.3 93.3 Right Ulnar Motor (Abd Dig Minimi) Wrist ? 2.9 <3.0 9.6 >5 12.3 100.0 B Elbow Wrist 3.7 22.0 59 >45 B Elbow ? 6.6 9.5 12.3 99.0 A Elbow B Elbow 1.8 10.0 56 >45 A Elbow ? 8.4 9.8 12.8 102.1 EMG ?Side Muscle Nerve Root Ins Act Fibs Psw Amp Dur Poly Recrt Int Pat Comment Right 1stDorInt Ulnar C8-T1 Nml Nml Nml Nml Nml 0 Nml Complete Right FlexCarRad Median C6-7 Nml Nml Nml Nml Nml 0 Nml Complete Right Biceps Musculocut C5-6 Nml Nml Nml Nml Nml 0 Nml Complete Right Triceps Radial C6-7-8 Nml Nml Nml Nml Nml 0 Nml Complete Right Deltoid Axillary C5-6 Nml Nml Nml Nml Nml 0 Nml Complete FINDINGS: All motor and sensory nerves tested showed normal latencies, amplitudes and conduction velocities. Concentric needle EMG was performed in selected muscles of the right upper extremity. Study did not reveal signs of electric abnormalities as shown in the table above. IMPRESSION: 1. This is a normal study. 2. There is no electrodiagnostic evidence for median neuropathy, ulnar neuropathy, brachial plexopathy, or cervical radiculopathy. Thank you for your kind referral. Tati Richardson MD, JESE Board Certified, [place] Board of Physical Medicine and Rehabilitation (ABPMR) Board Certified, [place] Board of Electrodiagnostic Medicine (ABEM) [place] [id number] [facility]
[2024-12-30 15:13] LABS: B Type Natriuretic Peptide 255 pg/mL (<100)
[2024-12-30 15:14] LABS: Appearance Urine Clear; Glucose Urine UA Negative (Negative); PH 6.0 (5.0-9.0); Specific Gravity - Urine 1.020 (1.005-1.025); UMIC TRIGGER UACC YES
--- OUTSIDE RECORDS SUMMARY | 2024-12-30 15:23 | XMS_ITS | Patient Health Record ---
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 Name Role Phone Autumn (RETIRED) Gucci RASMUSSEN Primary Care Provide r Unavailable Srinivasa Douglas Unavailable [phone] Sanjay Page Unavailable Unavailable Reason For Referral [...] Problem Status W/U Status Risk Notes Problem [id number] Abnormal CT scan, colon (R93.3) Active confirmed Plan Of Treatment Future Test Test Name Order Date COLONOSCOPY 06/05/2016 Insurance Providers Payer Name Payer Address Payer Phone Subscriber Number Group Number Insured Name Patient Relationship to Insured Coverage Start Date Coverage End Date MEDICARE OF [place] [address] [place] [address] [phone] [id number] JUAN HUNG Self - patient is the insured MEDICAID OF [facility] [address] [place] [address] [phone] [id number] WATKINS Self - patient is the insured Medical (General) History Medical History History ICD Code Pacemaker--in [place] Hypertension Denies [place], DM,CVA,Lung disease Hyperlipidemia Atrial fibrillation Surgical History Surgery Date(Month/Year) Pacemaker
[2024-12-30 15:24] LABS: Digoxin 0.5 ng/mL (0.8-2.0)
[2024-12-30 15:32] LABS: Alanine Aminotransferase 28 U/L (0-40); Albumin Level 3.9 g/dL (3.5-5.0); Alkaline Phosphatase 91 U/L (39-117); Anion Gap 10 (12-20); Aspartate Amino Transferase 42 U/L (5-37); Blood Urea Nitrogen 12 mg/dL (9-16); Calcium 8.5 mg/dL (8.4-10.2); Carbon Dioxide 28 mmol/L (22-29); Chloride 106 mmol/L (96-108); Cholesterol 170 mg/dL (<200); Estimated Glomerular Filt Rate > 60; HDL Cholesterol 47 mg/dL (>40); Potassium 3.2 mmol/L (3.3-5.1); Sodium 141 mmol/L (135-145); Total Protein 7.8 g/dL (6.5-8.0); Triglycerides 110 mg/dL (<150)
== END 2024-12-30 14:53 | disposition home or self-care (01) ==
LOC: HO.NEURO 14:52
PROVIDERS: PCP Internal Medicine
DX: I50.20 Unspecified systolic (congestive) heart failure (principal); D64.9 Anemia, unspecified; E78.00 Pure hypercholesterolemia, unspecified; I50.9 Heart failure, unspecified; R06.00 Dyspnea, unspecified; G56.21 Lesion of ulnar nerve, right upper limb
CPT/HCPCS: 36415; 80053; 80061; 80162; 81001; 81003; 83880; 84443; 85025; 93306; 95886; 95909

== ENCOUNTER → 2024-12-30 14:55 | Outpatient (BNV) | payer OTHER, SELFPAY | PROVIDERS: PCP Internal Medicine; Visit Provider Internal Medicine | DX: I51.7 Cardiomegaly (principal); I36.1 Nonrheumatic tricuspid (valve) insufficiency | CPT/HCPCS: 93306 ==

== ENCOUNTER → 2024-12-30 14:57 | Outpatient (BNV) | payer OTHER, SELFPAY | PROVIDERS: PCP Internal Medicine; Visit Provider Physical Medicine & Rehabilitation | DX: R20.2 Paresthesia of skin (principal) | CPT/HCPCS: 95886; 95909 ==

== ENCOUNTER → 2025-01-03 23:59 | Outpatient (BNV) | payer OTHER, SELFPAY ==
--- NOTE | 2025-01-07 10:01 | MHC.OFFVIS ---
Intake Visit Reasons: Remote device check- [facility] Allergies No Known Allergies (No Known Allergies*) Allergy (Verified 12/29/24 10:37) [facility] Medical History Primary osteoarthritis, right shoulder Degenerative disc disease, cervical History of poliomyelitis Restless leg syndrome Chronic constipation Chronic GERD History of pacemaker Obesity (BMI 30-39.9) Vitamin D deficiency Pure hypercholesterolemia Leg length discrepancy Pacemaker Abnormal finding of foot Right shoulder pain MELANIE on CPAP Chest pain Trigger finger Bilateral sciatica Polyarthralgia Chronic heart failure with preserved ejection fraction (HFpEF) Persistent atrial fibrillation Obesity (BMI 30.0-34.9) Surgical History Hx of colonoscopy History of ear surgery History of cholecystectomy Family History Father Myocardial infarction CVD (cardiovascular disease) Mother No problems noted. Sister Stomach cancer Son No problems noted. Son No problems noted. Daughter No problems noted. Daughter No problems noted. Brother No problems noted. Brother No problems noted. Social History Household Members: Children Housing: House Alcohol intake: current Alcohol intake frequency: holidays/special occasions only Alcohol type: beer Patient Tobacco Use Status: Never used Tobacco e-Cigarette/Vaping Use: Never Used Second Hand Smoke Exposure: No service: No Current occupational status: disabled Cognitive needs: Yes (cane) Hearing needs: No Vision needs: Yes (glasses) Office Procedures Cardiac Device Check Cardiac Device Check Details: Date of service- 01/03/2025 ; Battery life 2.5-3.5years; normal lead parameters; [employer] 37%; brief high ventricular rates, probably from atrial fibrillation but otherwise no significant arrhythmias. Overall normal device function. [id number] Cardiac Device Interrogation, pacemaker Procedure code (CPT) selection complete Assessment & Plan Assessment & Plan (1) Pacemaker: Code(s): Z95.0 - Presence of cardiac pacemaker Category: Medical (2) Persistent atrial fibrillation: Code(s): I48.19 - Other persistent atrial fibrillation Category: Medical Plan x Coding Level of Care Code Procedure Only Diagnoses Pacemaker Z95.0 Persistent atrial fibrillation I48.19 CPT Codes Cardiac Device Check - Cardiac Device 12: [id number] Cardiac Device Interrogation, pacemaker ([id number])
== END ==
PROVIDERS: PCP Internal Medicine; Visit Provider Internal Medicine Cardiovascular Disease
DX: I48.19 Other persistent atrial fibrillation (principal); Z95.0 Presence of cardiac pacemaker
CPT/HCPCS: 93294

== ENCOUNTER 2025-01-09 04:17 | Emergency (ER) | payer OTHER, SELFPAY ==
--- NOTE | 2025-01-09 | ECG_ITS ---
Test Reason : chest pain Blood Pressure : */* mmHG Vent. Rate : 71 BPM Atrial Rate : * BPM P-R Int : * ms QRS Dur : 86 ms QT Int : 424 ms P-R-T Axes : * 5 27 degrees QTcB Int : 460 ms Atrial fibrillation with occasional V paced beats Nonspecific T wave abnormality Prolonged QT Abnormal ECG When compared with ECG of 08-Oct-2022 15:58, No significant changes seen Referred By: Generic ED Physician Electronically Signed By: Portillo Slater
--- NOTE | ~2025-01-09 | XR_ITS ---
CLINICAL HISTORY: chest pain 1 view chest x-ray Comparison: CR/AL/SR - XR CHEST 2 VIEWS - 06/18/23 17:38 EST Findings: Left-sided pacemaker with right atrial and right ventricular pacer leads is unchanged in position. Cardiac silhouette is within normal limits. Mild streaky density in the right cardiophrenic angle. Lungs are otherwise clear. No pleural effusion or pneumothorax IMPRESSION: Streaky density in the right cardiophrenic angle may be related to pneumonitis or atelectasis. This document has been electronically signed by: Albert Ortega MD on 01/09/2025 07:40:23
[2025-01-09 04:20] VITALS: BP 155/69; PULSE 69; RESP 18; TEMP 36.7; O2SAT 99; BMI 34.0
[2025-01-09 04:47] LABS: MANUAL DIFF FLAG NO
[2025-01-09 04:48] LABS: Hematocrit 40.9 % (42.0-52.0); Hemoglobin 14.1 g/dl (14.0-18.0); Imm Gran Abs Auto 0.03 X10*3/uL (0.00-0.03); Imm Gran Pct Auto 0.3 % (0.0-0.4); Lymphocytes Absolute Auto 4.0 X10*3/uL (1.2-4.9); Mean Corpuscular HGB Conc 34.5 g/dl (31.0-36.0); Mean Corpuscular Hemoglobin 29.6 pg (27.0-33.0); Mean Corpuscular Volume 85.9 fL (80.0-98.0); NRBC Abs Auto 0.000 X10*3/uL (0.0-0.012); NRBC Pct Auto 0.0 /100WBC (0.0-0.2); Platelet Count 275 X10*3/uL (160-400); Red Blood Count 4.76 X10*6/uL (4.60-5.80); White Blood Count 9.7 X10*3/uL (4.8-10.8)
--- NOTE | 2025-01-09 04:48 | ED.CHESTPAIN ---
HPI - Chest Pain General Chief Complaint: Chest Pain Stated Complaint: CP, PT has Pacemaker Time Seen by Provider: 01/09/25 04:46 History of Present Illness ED Provider: Allen Anna MD HPI narrative: 69-year-old male with left-sided chest pain right arm numbness prior to arrival. He has a pacemaker HFpEF on Coumadin for AFib. Patient tells me he was sleeping but awoke at about 03:00 feeling short of breath with some mild left-sided chest discomfort most of the symptoms have resolved and he feels well now. He felt what he describes as a muscle ache in the right arm without swelling or right arm or neck pain. Related Data Home Medications ?Medication ?Instructions ?Recorded ?Confirmed CPAP #1 ea 08/04/20 12/29/24 Previous Rx's ?Medication ?Instructions ?Recorded Shower Chair #1 ea 03/06/21 shoe lift #1 ea 03/30/22 miscellaneous medical supply 1 ea miscellaneous DAILY #1 ea 12/13/22 docusate sodium 100 mg capsule 200 mg (2 x 100 mg) PO BEDTIME PRN 06/12/23 constipation #60 caps polyethylene glycol 3350 17 17 g PO DAILY #510 grams 06/12/23 gram/dose oral powder (Miralax) acetaminophen 325 mg capsule 325 mg PO Q4H PRN pain #30 caps 06/18/23 (Tylenol) lidocaine 5 % topical patch 1 patch topical DAILY PRN pain #15 06/18/23 ea pravastatin 20 mg tablet 20 mg PO BEDTIME 90 days #90 tabs 12/13/23 ropinirole 2 mg tablet 2 mg PO BEDTIME 90 days #90 tabs 12/13/23 diltiazem HCl 360 mg 360 mg PO DAILY #90 caps 01/25/24 capsule,extended release 24 hr warfarin 5 mg tablet 5 mg PO DAILY #90 tabs 04/15/24 linaclotide 145 mcg capsule 145 mcg PO DAILY #90 caps 04/20/24 (Linzess) tramadol 50 mg tablet 50 mg PO Q6H PRN severe pain 05/09/24 (scale score 7-10) #12 tabs leg brace (Ankle Brace) #1 ea 08/11/24 digoxin 125 mcg (0.125 mg) tablet 125 mcg PO DAILY 90 days #90 tabs 05/09/25 furosemide 40 mg tablet 40 mg PO DAILY #90 tabs 11/20/24 lisinopril 40 mg tablet 40 mg PO DAILY 90 days #90 tabs 11/20/24 metoprolol succinate 100 mg 100 mg PO DAILY #90 tabs 11/20/24 tablet,extended release 24 hr pantoprazole 40 mg tablet,delayed 40 mg PO DAILY 90 days #90 tabs 11/20/24 release hydrocortisone 1 % topical cream 1 appl topical TID PRN skin 12/21/24 irritation/itching #60 grams potassium chloride 10 mEq 20 meq (2 x 10 mEq) PO DAILY #10 12/30/24 tablet,extended release (Klor-Con) tabs tramadol 50 mg tablet 50 mg PO Q8H PRN pain 30 days #90 01/06/25 tabs Allergies Allergy/AdvReac Type Severity Reaction Status Date / Time No Known Allergies (No Known Allergy Verified 01/09/25 04:25 Allergies*) [facility] Past Medical History Medical History Primary osteoarthritis, right shoulder Degenerative disc disease, cervical History of poliomyelitis Restless leg syndrome Chronic constipation Chronic GERD History of pacemaker Obesity (BMI 30-39.9) Vitamin D deficiency Pure hypercholesterolemia Leg length discrepancy Pacemaker Abnormal finding of foot Right shoulder pain MELANIE on CPAP Chest pain Trigger finger Bilateral sciatica Polyarthralgia Chronic heart failure with preserved ejection fraction (HFpEF) Persistent atrial fibrillation Obesity (BMI 30.0-34.9) Surgical History Hx of colonoscopy History of ear surgery History of cholecystectomy Family History Family History Father Myocardial infarction CVD (cardiovascular disease) Mother No problems noted. Sister Stomach cancer Son No problems noted. Son No problems noted. Daughter No problems noted. Daughter No problems noted. Brother No problems noted. Brother No problems noted. Social History Social History Household Members: Children Housing: House Alcohol intake: never Patient Tobacco Use Status: Never used Tobacco e-Cigarette/Vaping Use: Never Used Second Hand Smoke Exposure: No service: No Current occupational status: disabled Cognitive needs: Yes (cane) Hearing needs: No Vision needs: Yes (glasses) Physical Exam Exam: Exam: EXAM: Gen: Alert, awake, well appearing, well hydrated. Head: Atraumatic Eyes: Anicteric, Normal conjunctiva. ENT: Moist mucosa, no pallor. ? Neck: Supple. Skin: ?No observable rash or bruising on exposed or examined skin Respiratory: Breathing comfortably, No distress.Clear to auscultation bilaterally, symmetric chest expansion, No wheeze, rales, ronchi. Cardiovascular: Regular rate and rhythm. No murmurs or rub. Well perfused periphery, warm extremities. No edema. ?Nontender chest wall pacemaker site unremarkable Abdominal: No focal tenderness. Soft, no objective distension. No palpable masses or obvious organomegaly. ?No guarding, no rebound tenderness or other peritoneal findings. : No flank tenderness. Neuro: Alert. Gross movement of all extremities intact. ? Psych: Calm. Cooperative. MSK: No grossly visible deformity. Vital signs: See flowsheet Vital Signs: Vital Signs: Last Vital Signs Temp 97.6 F 01/09/25 08:08 Pulse 74 01/09/25 08:08 Resp 16 01/09/25 08:08 BP 152/77 H 01/09/25 08:08 Pulse Ox 97 01/09/25 08:08 O2 Del Method Room Air 01/09/25 08:08 BMI result Body Mass Index 34.0 Medical Decision Making Medical Decision Making MDM Narrative: Medical Decision Makin-year-old male with history of pacemaker AFib on Coumadin, sleep apnea who awoke with chest discomfort and shortness of breath he feels mostly resolved. To me describes the right arm symptom not as numbness but as muscle ache that also has resolved no swelling. Abdomen is soft nontender chest wall is nontender. His ECG is AFib without ischemic changes. He is not actively paced. Preliminary Favored Differential Diagnosis: Sleep apnea, pleural effusion and flash pulmonary edema, CHF, sleep apnea, COPD or asthma, ACS among additional considered etiologies Testing Interpreted Independently: ECG AFib rate 71 QTC 460 no acute ischemic changes. Chest x-ray: Pacemaker and wires grossly unremarkable. No pneumothorax. No infiltrate. No pleural effusion. Normal non widened mediastinum Radiology or Lab testing Results Reviewed: Not Applicable Consults: Not Applicable Independent Historians/External Chart Reviews: Not Applicable Social Determinants of Health Impacting MDM/Planning: Not Applicable Lab Data MDM Lab Attestation statement: I reviewed the patient's lab results. trop flat x 2 01/09/25 04:42 01/09/25 04:42 Labs: Lab Results 01/09/25 01/09/25 Range/Units 04:42 06:36 WBC 9.7 (4.8-10.8) X10*3/uL RBC 4.76 (4.60-5.80) X10*6/uL Hgb 14.1 (14.0-18.0) g/dl Hct 40.9 L (42.0-52.0) % MCV 85.9 (80.0-98.0) fL MCH 29.6 (27.0-33.0) pg MCHC 34.5 (31.0-36.0) g/dl RDW 13.0 (11.0-16.0) % Plt Count 275 (160-400) X10*3/uL MPV 9.7 (9.4-12.4) fL Immature Gran % (Auto) 0.3 (0.0-0.4) % Neut % (Auto) 47.0 (45-73) % Lymph % (Auto) 41.8 H (20-40) % [place] % (Auto) 6.9 (2-11) % Eos % (Auto) 3.4 (0-4) % Baso % (Auto) 0.6 (0-2) % Lymph # (Auto) 4.0 (1.2-4.9) X10*3/uL [place] # (Auto) 0.7 (0.1-1.2) X10*3/uL Eos # (Auto) 0.3 (0.0-0.4) X10*3/uL Baso # (Auto) 0.1 (0.0-0.2) X10*3/uL Abs Immat Gran (auto) 0.03 (0.00-0.03) X10*3/uL Absolute Neuts (auto) 4.5 (2.0-8.3) x10*3/uL Absolute Nucleated RBC 0.000 (0.0-0.012) X10*3/uL Nucleated RBC % (auto) 0.0 (0.0-0.2) /100WBC Sodium 140 (135-145) mmol/L Potassium 3.6 (3.3-5.1) mmol/L Chloride 106 (96-108) mmol/L Carbon Dioxide 25 (22-29) mmol/L Anion Gap 13 (12-20) BUN 12 (9-16) mg/dL Creatinine 0.99 (0.5-1.4) mg/dL Estim Creat Clear Calc 69.6 Estimated GFR > 60 Random Glucose 130 H (60-115) mg/dL Calcium 8.4 (8.4-10.2) mg/dL Total Bilirubin 0.9 (0.0-1.0) mg/dL AST 30 (5-37) U/L ALT 24 (0-40) U/L Alkaline Phosphatase 122 H (39-117) U/L Troponin I High Sens 2.9 < 2.7 (<3.5-35.0) ng/L Total Protein 7.8 (6.5-8.0) g/dL Albumin 3.9 (3.5-5.0) g/dL Discharge Plan Discharge Clinical Impression: Chest pain Patient Disposition: Home, Self-Care Instructions: Chest Pain (DC) Additional Instructions: DISCHARGE DIAGNOSES: Chest pain shortness of breath resolved unclear cause HISTORY OF PRESENTATION: ?Chest pain or shortness of breath upon waking EMERGENCY DEPARTMENT COURSE,TESTS, TREATMENTS: While in the ED today you had reassuring x-ray lab work heart attack enzyme tests EKG DISCHARGE MEDICATIONS: ?[We have made no changes to your regular medication regimen] FOLLOW-UP: ?Call your primary or general physician soon as possible to discuss your symptoms, your ED visit and to discuss follow up plans Call your primary doctor and special delivery carrier for close follow up within 2-3 days INSTRUCTIONS ?& RETURN PRECAUTIONS: If any symptoms change first call your primary physician, if it is after-hours your primary doctors office should have a provider absorption and adsorption engineer you can speak with. If the symptoms are severe or very concerning to you then call 911 or return to the ED. Allen Anna MD Emergency Physician [facility] Prescriptions: No Action (DME) Shower Chair Misc See Rx Instructions .Route Qty: 1 0RF Rx Instructions: As directed (DME) shoe lift See Rx Instructions .Route .MEDSUPPLY Qty: 1 0RF Rx Instructions: Lt 1/2 inch heel lift ropinirole 2 mg tablet 2 mg PO BEDTIME 90 Days Qty: 90 1RF pravastatin 20 mg tablet 20 mg PO BEDTIME 90 Days Qty: 90 1RF diltiazem HCl 360 mg capsule,extended release 24hr 360 mg PO DAILY Qty: 90 3RF warfarin 5 mg tablet 5 mg PO DAILY Qty: 90 2RF Protocol: Dose Management Condition: Saturday (Week One) Dose/Route: 2.5 mg Instruction: 0.5 x 5 mg tablets Condition: Saturday Dose/Route: 5 mg Instruction: 1 x 5 mg tablet Condition: Saturday Dose/Route: 2.5 mg Instruction: 0.5 x 5 mg tablets Condition: Saturday Dose/Route: 2.5 mg Instruction: 0.5 x 5 mg tablets Condition: Dose/Route: 5 mg Instruction: 1 x 5 mg tablet Condition: Saturday Dose/Route: 2.5 mg Instruction: 0.5 x 5 mg tablets Condition: Saturday Dose/Route: 2.5 mg Instruction: 0.5 x 5 mg tablets Condition: Saturday (Week Two) Dose/Route: 2.5 mg Instruction: 0.5 x 5 mg tablets Condition: Saturday Dose/Route: 5 mg Instruction: 1 x 5 mg tablet Condition: Saturday Dose/Route: 2.5 mg Instruction: 0.5 x 5 mg tablets Condition: Saturday Dose/Route: 2.5 mg Instruction: 0.5 x 5 mg tablets Condition: Dose/Route: 5 mg Instruction: 1 x 5 mg tablet Condition: Saturday Dose/Route: 2.5 mg Instruction: 0.5 x 5 mg tablets Condition: Saturday Dose/Route: 2.5 mg Instruction: 0.5 x 5 mg tablets Protocol Text: Adjustment Start Date: Saturday12/29/24 INR Value: 3.2 INR Date: 12/29/24 Recheck Date: 01/12/25 Additional Instructions: COMER BLUEBERRIES OR GREEN BEANS OR KIWWII Rx Instructions: 5MG X 4, 2.5MG X3 digoxin 125 mcg (0.125 mg) tablet 125 mcg PO DAILY 90 Days Qty: 90 1RF furosemide 40 mg tablet 40 mg PO DAILY Qty: 90 3RF pantoprazole 40 mg tablet,delayed release (DR/EC) 40 mg PO DAILY 90 Days Qty: 90 1RF lisinopril 40 mg tablet 40 mg PO DAILY 90 Days Qty: 90 1RF metoprolol succinate 100 mg tablet extended release 24 hr 100 mg PO DAILY Qty: 90 3RF potassium chloride [Klor-Con 10] 10 mEq tablet extended release 20 meq PO DAILY Qty: 10 0RF tramadol 50 mg tablet 50 mg PO Q8H PRN (Reason: pain) 30 Days Qty: 90 0RF acetaminophen [Tylenol] 325 mg capsule 325 mg PO Q4H PRN (Reason: pain) Qty: 30 0RF lidocaine 5 % adhesive patch,medicated 1 patch topical DAILY PRN (Reason: pain) Qty: 15 0RF Rx Instructions: leave on most painful area for up to 12 hrs tramadol 50 mg tablet 50 mg PO Q6H PRN (Reason: severe pain (scale score 7-10)) Qty: 12 0RF (DME) CPAP Device See Rx Instructions .ROUTE .MEDSUPPLY Qty: 1 Rx Instructions: As directed polyethylene glycol 3350 [Miralax] 17 gram/dose powder 17 g PO DAILY Qty: 510 2RF docusate sodium 100 mg capsule 200 mg PO BEDTIME PRN (Reason: constipation) Qty: 60 5RF miscellaneous medical supply Misc 1 ea miscellaneous DAILY Qty: 1 0RF Rx Instructions: Raised Toilet seat hydrocortisone 1 % cream 1 appl topical TID PRN (Reason: skin irritation/itching) Qty: 60 0RF Linzess 145 mcg capsule 145 mcg PO DAILY Qty: 90 2RF (DME) Ankle Brace Misc See Rx Instructions .ROUTE .MEDSUPPLY Qty: 1 0RF Rx Instructions: shoe or AFO custom molded for foot drop, left Interventions: ED Discharge Assessment Last Done: 01/09/25 08:08 Discharge Date/Time: 01/09/25 08:10 Print Language: Telugu
[2025-01-09 05:12] LABS: Troponin-I High Sensitivity 2.9 ng/L (<3.5-35.0)
[2025-01-09 05:17] LABS: Alanine Aminotransferase 24 U/L (0-40); Albumin Level 3.9 g/dL (3.5-5.0); Alkaline Phosphatase 122 U/L (39-117); Anion Gap 13 (12-20); Aspartate Amino Transferase 30 U/L (5-37); Blood Urea Nitrogen 12 mg/dL (9-16); Calcium 8.4 mg/dL (8.4-10.2); Carbon Dioxide 25 mmol/L (22-29); Chloride 106 mmol/L (96-108); Creatinine Clr Calc Pharmacy 69.6; Estimated Glomerular Filt Rate > 60; Potassium 3.6 mmol/L (3.3-5.1); Sodium 140 mmol/L (135-145); Total Protein 7.8 g/dL (6.5-8.0)
--- OUTSIDE RECORDS SUMMARY | 2025-01-09 05:25 | XMS_ITS | Patient Health Record ---
Author Organization [facility] Address [address] [place] [address] Care Team Providers Care Timekeeper Name Role Phone Autumn (RETIRED) Gucci RASMUSSEN Primary Care Provide r Unavailable Srinivasa Douglas Unavailable [phone] Sanjay Page Unavailable Unavailable Reason For Referral [...] Problem Status W/U Status Risk Notes Problem [id number] Abnormal CT scan, colon (R93.3) Active confirmed Plan Of Treatment Future Test Test Name Order Date COLONOSCOPY 06/05/2016 Insurance Providers Payer Name Payer Address Payer Phone Subscriber Number Group Number Insured Name Patient Relationship to Insured Coverage Start Date Coverage End Date MEDICARE OF [place] [address] [place] [address] [phone] [id number] JUAN HUNG Self - patient is the insured MEDICAID OF [facility] [address] [place] [address] [id number] WATKINS Self - patient is the insured Medical (General) History Medical History History ICD Code Pacemaker--in [place] Hypertension Denies [place], DM,CVA,Lung disease Hyperlipidemia Atrial fibrillation Surgical History Surgery Date(Month/Year) Pacemaker
[2025-01-09 06:10] VITALS: BP 151/75; PULSE 72; RESP 16; TEMP 36.4; O2SAT 97
[2025-01-09 07:09] VITALS: PULSE 72
--- NOTE | 2025-01-09 07:09 | PC.NURSE ---
report taken from Shanti, pt was sleeping, woke to verbal stimulus, rr equal/non labored- lungs clear, radiation monitor intact- afib on monitor, vss, pt states he has a small amount of chest discomfort, awaiting 2nd troponin to result, call bee within reach, plan of care ongoing
[2025-01-09 07:23] LABS: Troponin-I High Sensitivity < 2.7 ng/L (<3.5-35.0)
[2025-01-09 08:08] VITALS: BP 152/77; PULSE 74; RESP 16; TEMP 36.4; O2SAT 97
== END 2025-01-09 08:10 | disposition home or self-care (01) ==
PROVIDERS: Emergency Provider Emergency Medicine
DX: R07.9 Chest pain, unspecified (principal); I48.91 Unspecified atrial fibrillation; Z95.0 Presence of cardiac pacemaker; Z79.01 Long term (current) use of anticoagulants
CPT/HCPCS: 36415; 71045; 80053; 84484; 85025; 93005; 99283; 99285

== ENCOUNTER → 2025-01-09 04:21 | Outpatient (BNV) | payer OTHER, SELFPAY | PROVIDERS: Emergency Provider Emergency Medicine; Visit Provider Internal Medicine Cardiovascular Disease | DX: I48.91 Unspecified atrial fibrillation (principal) | CPT/HCPCS: 93010 ==

== ENCOUNTER → 2025-01-09 05:25 | Outpatient (BNV) | payer OTHER, SELFPAY | PROVIDERS: Emergency Provider Emergency Medicine; Visit Provider Radiology Diagnostic Radiology | DX: R07.9 Chest pain, unspecified (principal) | CPT/HCPCS: 71045 ==

== ENCOUNTER 2025-01-14 14:22 | Outpatient (AMB) | payer OTHER, SELFPAY ==
--- OUTSIDE RECORDS SUMMARY | 2025-01-14 14:33 | XMS_ITS | Clinical Summary ---
Author Organization [facility] Address [address] [facility] [address] [place] [phone] Phone Care Team Providers Care Plastic Process Technician Name Role Phone Unavailable Primary Care Provider Unavailabl e Social History Tobacco Use Types Packs/Day Years Used Date Smoking Tobacco: Never Assessed Education Answer Date Recorded Are you interested in more education? Not on verito e 10/12/2022 Are you concerned about learning? Not on file 10/12/2022 No 10/12/2022 No 10/12/2022 Digital Access Answer Date Recorded No 11/13/2022 No 11/13/2022 Reliable internet access at home? Not on file 11/13/2022 Device with a working camera? Not on file Sex and Gender Information Value Date Recorded Sex Assigned at Not on file Legal Sex Male 8:50 AM EDT Gender Identity Not on file Sexual Orientation Not on file Plan of Treatment Health Maintenance Due Date Last Done Comments LIPID PANEL 1956 DEPRESSION SCREENING 1968 HEPATITIS C SCREENING 1974 ZOSTER VACCINES (1 of 2) 2006 PNEUMOCOCCAL VACCINES (50+ years) (2 of 2 - PCV) 07/19/2018 07/19/2017, 08/21/2016 COVID-19 VACCINE (3 - 2023-2 5 season) 2024 06/30/2021, 06/08/2021 Adult Td,Tdap Booster 02/13/2029 02/13/2019 , 07/19/2017 RSV VACCINE (1 - 1-dose 75+ series) 2031 COLORECTAL CANCER SCREENING Completed HEPATITIS A VACCINES Aged Out No long er eligible based on patient's age to complete this topic HIB VACCINES Aged Out No longer eligi ble based on patient's age to complete this topic MENINGOCOCCAL VACCINES (ACWY) Aged Out No longer eligible based on patient's age to complete this topic MENINGOCOCCAL VACCINES (B) Aged Out N o longer eligible based on patient's age to complete this topic Medical Devices Not on file Insurance MEDICARE PART A & B [facility] MEDIC[facility] PART A & B [facility] MEDICARE PART A & B [place] [facility] MEDICARE PART A & B [facility] MEDICARE PART A & B [facility] MEDICARE PART [place] & [place] & B Member Subscriber Plan / Payer (Ef fective 1998-Present) Name:Dwain Limon Member ID:[id number] Relation to Subscriber:Self Name:Dwain Limon Subscriber ID:[id number] Payer ID:[id number] Group ID:Not on file Type:Medicare Address: [facility] [employer] [facility] [address] [place] [id number] [facility] Additional Source Comments The information contained in this document represents components of the legal health record. It is not the complete legal health record.[facility]
[2025-01-14 14:55] VITALS: BP 120/70; PULSE 60; BMI 34.4
--- NOTE | 2025-01-14 14:55 | A.OFFVIS_ITS ---
Vital Signs 01/14/25 14:55 Height 5 ft 3 in Weight 194 lb 0.108 oz BMI 34.4 BP 120/70 Blood Pressure Location Lt brachial Position Sitting Pulse 60 Intake Visit Reasons: f/up echo Intake Note: Follow-up after echo c/o palpitations and inceased sob Direct Care Staffer Required: Yes Direct Care Staffer Services: Direct Care Staffer Offered & Declined Customer Service Rep: Customer Service Rep Present Accompanied by: Daughter Allergies No Known Allergies (No Known Allergies*) Allergy (Verified 01/09/25 04:25) Medication List - Last Reconciled 01/14/25 by Darian Roque NP acetaminophen (Tylenol) 325 mg PO Q4H PRN CPAP As directed digoxin 125 mcg PO DAILY 90 days diltiazem HCl CD 360 mg PO DAILY docusate sodium 200 mg (2 x 100 mg) PO BEDTIME PRN furosemide 40 mg PO DAILY hydrocortisone 1% 1 appl topical TID PRN leg brace (Ankle Brace) shoe or AFO custom molded for foot drop, left lidocaine 5% 1 patch topical DAILY PRN linaclotide (Linzess) 145 mcg PO DAILY lisinopril 40 mg PO DAILY 90 days metoprolol succinate ER 100 mg PO DAILY miscellaneous medical supply 1 ea miscellaneous DAILY pantoprazole 40 mg PO DAILY 90 days polyethylene glycol 3350 (Miralax) 17 grams PO DAILY potassium chloride ER (Klor-Con) 20 mEq (2 x 10 mEq) PO DAILY pravastatin 20 mg PO BEDTIME 90 days ropinirole 2 mg PO BEDTIME 90 days [shoe lift Lt 1/2 inch heel lift] Shower Chair As directed tramadol 50 mg PO Q6H PRN tramadol 50 mg PO Q8H PRN 30 days warfarin 5 mg See Protocol PO DAILY HPI Comments Details: This is a 69-year-old male patient coming in for a follow-up visit, accompanied by his HEALTH TECHNICIAN who munitions handler throughout the visit. Patient with medical history of persistent AFib, chronic heart failure with preserved ejection fraction, pacemaker implantation, and sleep apnea. Patient was recently in the emergency room for chest pain and was ruled out for ACS. Today the patient reports that he intermittently gets chest discomfort across the chest with numbness and tingling down his right arm. Patient states these are happening at rest mostly in sleep. Patient is denying any associated symptoms of shortness of breath, palpitations, dizziness, orthopnea, PND, leg edema, presyncope or syncope. Patient in the past was reporting some shortness of breath however he reports resolution of this. Patient states that he stopped taking his pravastatin because of it made him tired. [facility] Medical History Primary osteoarthritis, right shoulder Degenerative disc disease, cervical History of poliomyelitis Restless leg syndrome Chronic constipation Chronic GERD History of pacemaker Obesity (BMI 30-39.9) Vitamin D deficiency Pure hypercholesterolemia Leg length discrepancy Pacemaker Abnormal finding of foot Right shoulder pain MELANIE on CPAP Chest pain Trigger finger Bilateral sciatica Polyarthralgia Chronic heart failure with preserved ejection fraction (HFpEF) Persistent atrial fibrillation Obesity (BMI 30.0-34.9) Surgical History Hx of colonoscopy History of ear surgery History of cholecystectomy Family History Father Myocardial infarction CVD (cardiovascular disease) Mother No problems noted. Sister Stomach cancer Son No problems noted. Son No problems noted. Daughter No problems noted. Daughter No problems noted. Brother No problems noted. Brother No problems noted. Social History Household Members: Children Housing: House Alcohol intake: never Patient Tobacco Use Status: Never used Tobacco e-Cigarette/Vaping Use: Never Used Second Hand Smoke Exposure: No service: No Current occupational status: disabled Cognitive needs: Yes (cane) Hearing needs: No Vision needs: Yes (glasses) Review of Systems Const Denies chills, Denies fatigue, Denies fever(s), Denies frequent falls, Denies weakness, Denies weight gain and Denies weight loss ENT Denies dizziness Card Denies chest pain, Denies leg edema, Denies lightheadedness, Denies palpitations, Denies dyspnea, Denies dyspnea on exertion, Denies orthopnea and Denies other (loss of consciousness) Resp Denies cough, Denies dyspnea and Denies dyspnea on exertion GI Denies hematochezia and Denies change in stool character Musc Denies abnormal gait, Denies muscle weakness, Denies numbness, Denies radiating pain into limb and Denies tingling Neuro Denies abnormal gait, Denies dizziness, Denies frequent falls, Denies numbness, Denies tingling and Denies weakness Endo Denies fatigue and Denies palpitations Physical Exam Vital Signs: Last Vital Signs Pulse 60 01/14/25 14:55 BP 120/70 01/14/25 14:55 BMI result Body Mass Index 34.4 Const General: cooperative, healthy appearing, comfortable and no acute distress Orientation/consciousness: patient oriented x3 HEENT Head: Yes normal to inspection Neck Neck: Yes normal visual inspection, Yes trachea midline and Yes supple Chest Chest palpation & inspection: normal inspection of the chest Resp Effort & Inspection: normal respiratory effort Auscultation: clear to auscultation bilaterally, no crackles, no rales, no rhonchi and no wheezes Cardio Jugular venous distension: no JVD Palpation: normal PMI Rate: regular rate Rhythm: regular rhythm Heart sounds: S1 normal heart sound present, S2 normal heart sound present, no click, no gallops, no murmurs and no rubs Peripheral pulses: Peripheral pulses 2+ throughout GI Inspection: Yes normal to inspection Palpation (GI): Soft to palpation Auscultation: normal bowel sounds Skin General skin exam: no rashes or lesions noted Neuro General: patient oriented x3 Extrem General: Yes normal to inspection, No no pedal edema and No calf tenderness Psych Appearance: grossly normal Mental Status: mental status grossly normal Speech and movement: Normal speech and movement present Assessment & Plan Assessment & Plan (1) Chest pain: Code(s): R07.9 - Chest pain, unspecified Category: Medical Plan: Recently in the emergency room for chest pain that was ruled out for ACS. Patient continues to report ongoing intermittent chest discomfort sometimes on the left sometimes on the right and mostly across the chest with numbness tingling down his right arm. Given his multiple risk factors, we will proceed with a myocardial perfusion study to look for any ischemic changes. Patient states he would like to try walking but if unable to we can switch to Lexiscan. (2) Chronic heart failure with preserved ejection fraction (HFpEF): Code(s): I50.32 - Chronic diastolic (congestive) heart failure Category: Medical Plan: 12/30/2024-echo study showed a normal LV systolic function with an ejection fraction at 58%, with no wall motion abnormalities or valvular pathology. Clinically stable and euvolemic. Continue current regimen including Lasix, lisinopril, and metoprolol therapy. Discussed in detail signs and symptoms to watch for with heart failure. Advised low-salt diet, daily weight monitoring, med compliance, and fluid restriction of 1.5-2 L daily. (3) Persistent atrial fibrillation: Code(s): I48.19 - Other persistent atrial fibrillation Category: Medical Plan: Chronic AFib. Continue warfarin for full anticoagulation therapy. Continue rate control approach with digoxin, diltiazem, and metoprolol. No reports of signs of bleeding or falls. We will monitor labs periodically. (4) Pacemaker: Code(s): Z95.0 - Presence of cardiac pacemaker Category: Medical Plan: [employer] single-chamber pacemaker. Recent device transmission showed a battery life of 2.5-3.5 years, brief high V rates. We will follow remotely. (5) Dyslipidemia: Code(s): E78.5 - Hyperlipidemia, unspecified Category: Medical Plan: Most recent LDL 101. Patient was previously on pravastatin but states that he is no longer taking it for a couple of months as he states it made him weak. We will try a different statin. We will repeat lipid profile in 3 months with a goal of LDL less than 70. (6) MELANIE on CPAP: Code(s): G47.33 - Obstructive sleep apnea (adult) (pediatric); Z99.89 - Dependence on other enabling machines and devices Category: Medical Plan: Continue CPAP therapy. Advised heart healthy diet, regular exercise, med compliance, and management of vascular risk factors. Follow-up in the office following stress test. In the interim, patient will call the office with any concerns or change in symptoms. Advised patient to seek ER care in case of persistent exertional chest pain not resolved with rest. This note was generated using voice recognition software. While every effort has been made to ensure accuracy and proper belt maker helper, there may be occasional errors that could affect the content or meaning of the described symptoms. Orders: Orders Lipid Panel 3 Months E78.5 - Hyperlipidemia, unspecified CA stress test Today R07.9 - Chest pain, unspecified NM cardiolite stress test Today R07.9 - Chest pain, unspecified Medications: New rosuvastatin 10 mg PO DAILY 60 tabs 3RF Discontinued pravastatin Discontinued Reason: Patient no longer taking 20 mg PO BEDTIME 90 days 90 tabs 1RF Coding Level of Care Code Est Pt Level 4 (93085) Complex EM visit Add On G2211 Diagnoses Chest pain R07.9 Chronic heart failure with preserved ejection fraction (HFpEF) I50.32 Persistent atrial fibrillation I48.19 Pacemaker Z95.0 Dyslipidemia E78.5 MELANIE on CPAP G47.33; Z99.89 Time Spent (min) 34 Comment Time spent in reviewing the chart, test results, assessment, counseling and documentation.
== END 2025-01-14 15:33 | disposition home or self-care (01) ==
LOC: HO.HCS 14:23
PROVIDERS: PCP Internal Medicine
DX: R07.9 Chest pain, unspecified (principal); I50.32 Chronic diastolic (congestive) heart failure; I48.19 Other persistent atrial fibrillation; Z95.0 Presence of cardiac pacemaker; E78.5 Hyperlipidemia, unspecified; G47.33 Obstructive sleep apnea (adult) (pediatric); Z99.89 Dependence on other enabling machines and devices
CPT/HCPCS: 99214; G2211

== ENCOUNTER → 2025-01-14 14:22 | Outpatient (BNVA) | payer OTHER, SELFPAY | PROVIDERS: PCP Internal Medicine | DX: R07.9 Chest pain, unspecified (principal); I11.0 Hypertensive heart disease with heart failure; I50.32 Chronic diastolic (congestive) heart failure; I48.19 Other persistent atrial fibrillation; E78.5 Hyperlipidemia, unspecified; G47.33 Obstructive sleep apnea (adult) (pediatric); Z95.0 Presence of cardiac pacemaker; Z99.89 Dependence on other enabling machines and devices | CPT/HCPCS: 99212 ==

== ENCOUNTER 2025-01-20 10:31 | Outpatient (AMB) | payer OTHER, SELFPAY ==
[2025-01-20 10:36] LABS: Prothrombin Time Whole Bld POC 35.1 sec (11.1-13.5); ~PT, ~INR - Anti Coag Clinic 2.9 (0.9-1.1)
--- NOTE | 2025-01-20 10:39 | MHC.OFFVISCO ---
Intake Intake Visit Reasons: Anticoagulation Allergies No Known Allergies (No Known Allergies*) Allergy (Verified 01/20/25 10:31) Medication List - Last Reconciled 01/20/25 by Nena Wu RN acetaminophen (Tylenol) 325 mg PO Q4H PRN CPAP As directed digoxin 125 mcg PO DAILY 90 days diltiazem HCl CD 360 mg PO DAILY docusate sodium 200 mg (2 x 100 mg) PO BEDTIME PRN furosemide 40 mg PO DAILY hydrocortisone 1% 1 appl topical TID PRN leg brace (Ankle Brace) shoe or AFO custom molded for foot drop, left lidocaine 5% 1 patch topical DAILY PRN linaclotide (Linzess) 145 mcg PO DAILY lisinopril 40 mg PO DAILY 90 days metoprolol succinate ER 100 mg PO DAILY miscellaneous medical supply 1 ea miscellaneous DAILY pantoprazole 40 mg PO DAILY 90 days polyethylene glycol 3350 (Miralax) 17 grams PO DAILY potassium chloride ER (Klor-Con) 20 mEq (2 x 10 mEq) PO DAILY ropinirole 2 mg PO BEDTIME 90 days rosuvastatin 10 mg PO DAILY [shoe lift Lt 1/2 inch heel lift] Shower Chair As directed tramadol 50 mg PO Q6H PRN tramadol 50 mg PO Q8H PRN 30 days warfarin 5 mg See Protocol PO DAILY Nursing Note NO CP,SOB,DIET/MED CHANGES,FALLS OR SX OF BLEEDING. CONTINUE PRESENT DOSE AND FOLLOW-UP IN 3 WEEKS GOOD UNDERSTANDING OF DOSING INSTR. 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
== END 2025-01-20 10:41 | disposition home or self-care (01) ==
LOC: HO.ACS 10:31
PROVIDERS: PCP Internal Medicine; Visit Provider Internal Medicine Medical Oncology
DX: Z79.01 Long term (current) use of anticoagulants (principal)

== ENCOUNTER → 2025-01-20 10:31 | Outpatient (BNVA) | payer OTHER, SELFPAY | PROVIDERS: PCP Internal Medicine; Visit Provider Internal Medicine Medical Oncology | DX: I48.20 Chronic atrial fibrillation, unspecified (principal); Z51.81 Encounter for therapeutic drug level monitoring; Z79.01 Long term (current) use of anticoagulants | CPT/HCPCS: 85610; 99211 ==

== ENCOUNTER 2025-02-10 10:06 | Outpatient (AMB) | payer OTHER, SELFPAY ==
--- NOTE | 2025-02-10 10:17 | MHC.OFFVISCO ---
Intake Intake Visit Reasons: Anticoagulation Allergies No Known Allergies (No Known Allergies*) Allergy (Verified 02/10/25 10:12) Nursing Note INR 4.3-?? out of therapeutic range of 2-3 Medications and supplements reviewed Patient status: no c.o Medications or supplements: new med rosuvastatin started 01/14/25- will raise inr per micromedex Diet: same Denies any signs and symptoms of bleeding or clotting or unusual bruising Bleeding, bruising, clotting discussed Nutritional guidance given: eat greens to lower, no reds for 2 days Dose: no warfarin today then reduce weekly dosing due to rosuvastatin- 5mg x 1. 2.5mg x 6 F/U INR Date : 1 week?? Patient verbalizing understanding of instructions given. 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
--- OUTSIDE RECORDS SUMMARY | 2025-02-10 10:54 | XMS_ITS | Encounter Summary ---
Author Organization [facility] Address [address] [place] [address] Phone Care Team Providers Care Poultry Grader Name Role Phone Unavailable Primary Care Provider Unavailabl e Encounter Details Date Type Department Care Team (Latest Contact Info) Description 08/26/2019 Ancillary Orders [facility] [address] [place] [address] Wojciech Mccallum MD [address] [address] Atrial fibrillation, unspecified type Social History Tobacco Use Types Packs/Day Years Used Date Smoking Tobacco: Never Assessed Sex and Gender Information Value Date Recorded Sex Assigned at Not on file Legal Sex Male 8:50 AM EDT Gender Identity Not on file Sexual Orientation Not on file documented as of this encounter Plan of Treatment Not on file documented as of this encounter Results * Holter Monitor 24 Hours (08/26/2019 8:41 AM EDT) Anatomical Region Laterality Modality Heart Other Narrative 08/26/2019 1:01 PM EDT 24-hour monitor: The baseline rhythm is atrial fibrillation. The minimum heart rate is 58, maximum 149, average 72 bpm. There are no long pauses present. There are occasional wide QRS complex beats present which may represent PVCs, atrial fibrillation conducted aberrantly or ventricular paced beats. There is no diary submitted. There are no patient event markers. Impression: Abnormal 24-hour monitor due to continuous atrial fibrillation, details above. Paced beats present. No diary submitted. No patient event markers. Procedure Note Jean Welch MD - 08/26/2019 24-hour monitor: The baseline rhythm is atrial fibrillation. The minimumheart rate is 58, maximum 149, average 72 bpm. There are no long pausespresent. There are occasional wide QRS complex beats present which mayrepresent PVCs, atrial fibrillation conducted aberrantly or ventricularpaced beats. There is no diary submitted. There are no patient eventmarkers. Impression: Abnormal 24-hour monitor due to continuous atrialfibrillation, details above. Paced beats present. No diary submitted.No patient event markers. us Wojciech Mccallum MD [facility] ORDERABLE S Final Result documented in this encounter Visit Diagnoses Diagnosis Atrial fibrillation, unspecified type Atrial fibrillation, unspecified type documented in this encounter Additional Source Comments The information contained in this document represents components of the legal health record. It is not the complete legal health record.[facility]
--- OUTSIDE RECORDS SUMMARY | 2025-02-10 10:54 | XMS_ITS | Patient Health Record ---
Author Organization [facility] Address [address] [place] [address] Care Team Providers Care Carpet Jack Name Role Phone Autumn (RETIRED) Gucci RASMUSSEN Primary Care Provide r Unavailable Srinivasa Douglas Unavailable [phone] Sanjay Page Unavailable Unavailable Reason For Referral [...] Problem Status W/U Status Risk Notes Problem [id number] Abnormal CT scan, colon (R93.3) Active confirmed Plan Of Treatment Future Test Test Name Order Date COLONOSCOPY 06/05/2016 Insurance Providers Payer Name Payer Address Payer Phone Subscriber Number Group Number Insured Name Patient Relationship to Insured Coverage Start Date Coverage End Date MEDICARE OF [place] [address] [place] [address] [phone] [id number] JUAN HUNG Self - patient is the insured MEDICAID OF [facility] [address] [place] [address] [id number] WATKINS Self - patient is the insured Medical (General) History Medical History History ICD Code Pacemaker--in [place] Hypertension Denies [place], DM,CVA,Lung disease Hyperlipidemia Atrial fibrillation Surgical History Surgery Date(Month/Year) Pacemaker
--- OUTSIDE RECORDS SUMMARY | 2025-02-10 10:54 | XMS_ITS | Clinical Summary ---
Author Organization [facility] Address [address] [facility] [address] [place] [address] Phone Care Team Providers Care Aircraft Life Support Fitter Name Role Phone Unavailable Primary Care Provider [...] file Insurance [facility] [place] [facility] & [facility] [place] [place] A & B [facility] Additional Source Comments The information contained in this document represents components of the legal health record. It is not the complete legal health record.[facility]
[2025-02-11 08:07] LABS: Prothrombin Time Whole Bld POC 52.0 sec (11.1-13.5); ~PT, ~INR - Anti Coag Clinic 4.3 (0.9-1.1)
== END 2025-02-10 10:28 | disposition home or self-care (01) ==
LOC: HO.ACS 10:06
PROVIDERS: PCP Internal Medicine; Visit Provider Internal Medicine Medical Oncology
DX: Z79.01 Long term (current) use of anticoagulants (principal)

== ENCOUNTER → 2025-02-10 10:06 | Outpatient (BNVA) | payer OTHER, SELFPAY | PROVIDERS: PCP Internal Medicine; Visit Provider Internal Medicine Medical Oncology | DX: I48.20 Chronic atrial fibrillation, unspecified (principal); Z79.01 Long term (current) use of anticoagulants; Z51.81 Encounter for therapeutic drug level monitoring | CPT/HCPCS: 85610; 99211 ==

== ENCOUNTER 2025-02-17 10:35 | Outpatient (AMB) | payer OTHER, SELFPAY ==
[2025-02-17 10:44] LABS: Prothrombin Time Whole Bld POC 34.8 sec (11.1-13.5); ~PT, ~INR - Anti Coag Clinic 2.9 (0.9-1.1)
--- NOTE | 2025-02-17 10:47 | MHC.OFFVISCO ---
Intake Intake Visit Reasons: Anticoagulation Allergies No Known Allergies (No Known Allergies*) Allergy (Verified 02/17/25 10:39) Medication List - Last Reconciled 02/17/25 by Nena Wu RN acetaminophen (Tylenol) 325 mg PO Q4H PRN CPAP As directed digoxin 125 mcg PO DAILY 90 days diltiazem HCl CD 360 mg PO DAILY docusate sodium 200 mg (2 x 100 mg) PO BEDTIME PRN furosemide 40 mg PO DAILY hydrocortisone 1% 1 appl topical TID PRN leg brace (Ankle Brace) shoe or AFO custom molded for foot drop, left lidocaine 5% 1 patch topical DAILY PRN linaclotide (Linzess) 145 mcg PO DAILY lisinopril 40 mg PO DAILY 90 days metoprolol succinate ER 100 mg PO DAILY miscellaneous medical supply 1 ea miscellaneous DAILY pantoprazole 40 mg PO DAILY 90 days polyethylene glycol 3350 (Miralax) 17 grams PO DAILY potassium chloride ER (Klor-Con) 20 mEq (2 x 10 mEq) PO DAILY ropinirole 2 mg PO BEDTIME 90 days rosuvastatin 10 mg PO DAILY [shoe lift Lt 1/2 inch heel lift] Shower Chair As directed tramadol 50 mg PO Q8H PRN 30 days warfarin 5 mg See Protocol PO DAILY Nursing Note NO CP,SOB,DIET/MED CHANGES,FALLS OR SX OF BLEEDING. CONTINUE PRESENT DOSING AND FOLLOW-UP IN 2 WEEKS GOOD UNDERSTANDING OF DOSING INSTR. Anti-Coag Initial Assessment Social Hx Patient Tobacco Use Status: Never used Tobacco alcohol intake: never Alcohol intake frequency: holidays/special occasions only Coding Level of Care Code Est Patient Level 1 Diagnoses Current use of anticoagulant therapy Z79.01 Results AMB INR Fingerstick AMB INR Fingerstick 2.9 Last Edit by Nena Wu RN on 02/17/25 10:44 Assessment & Plan Assessment & Plan (1) Current use of anticoagulant therapy: Code(s): Z79.01 - [facility] (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
--- OUTSIDE RECORDS SUMMARY | 2025-02-17 12:20 | XMS_ITS | Encounter Summary ---
Author Organization [facility] Address [address] [place] [address] Phone Care Team Providers Care Real Estate Firm Manager Name Role Phone Unavailable Primary Care Provider Unavailabl e Encounter Details Date Type Department Care Team (Latest Contact Info) Description 08/26/2019 Ancillary Orders [facility] [address] [place] [address] Wojciech Mccallum MD [address] [address] Atrial fibrillation, unspecified type Social History Tobacco [...] It is not the complete legal health record.[facility]
--- OUTSIDE RECORDS SUMMARY | 2025-02-17 12:20 | XMS_ITS | Clinical Summary ---
Author Organization [facility] Address [address] [facility] [address] [place] [id number] Phone Care Team Providers Care Machine Plate Stacker Name Role Phone Unavailable Primary Care Provider [...] file Insurance [facility] [place] [facility] [place] A & B [facility] Additional Source Comments The information contained in this document represents components of the legal health record. It is not the complete legal health record.[facility]
== END 2025-02-17 10:49 | disposition home or self-care (01) ==
LOC: HO.ACS 10:35
PROVIDERS: PCP Internal Medicine; Visit Provider Internal Medicine Medical Oncology
DX: Z79.01 Long term (current) use of anticoagulants (principal)

== ENCOUNTER → 2025-02-17 10:35 | Outpatient (BNVA) | payer OTHER, SELFPAY | PROVIDERS: PCP Internal Medicine; Visit Provider Internal Medicine Medical Oncology | DX: Z79.01 Long term (current) use of anticoagulants (principal) | CPT/HCPCS: 85610; 99211 ==

== ENCOUNTER 2025-03-21 12:42 | Emergency (ER) | payer OTHER, SELFPAY ==
--- NOTE | ~2025-03-21 | XR_ITS ---
CLINICAL HISTORY: low back pain 3 views lumbar spine Comparison: CR/FL/SR - XR LUMBAR SPINE 2-3 VIEWS - 06/18/23 17:35 EST Findings: No fractures or spondylolisthesis. Stable degenerative facet arthropathy L4-L5. Bridging anterior vertebral body osteophytes at this level. Disc spaces are maintained. Pedicles and transverse processes intact. Lordotic curvature is preserved. Normal bone mineralization. Mild calcified atherosclerotic disease. Sacroiliac joints unremarkable. Impression: 1. No compression fractures or spondylolisthesis. Stable degenerative spondylosis. This document has been electronically signed by: Sean Bro MD on 03/21/2025 16:29:02
--- NOTE | ~2025-03-21 | US_ITS ---
CLINICAL HISTORY: R leg larger than left, pain in calf Venous duplex ultrasound right lower extremity Comparison: None provided Findings: The visualized deep veins are fully compressible with normal Doppler color flow and spectral tracings. No popliteal cyst. IMPRESSION: 1. Negative for right lower extremity deep vein thrombosis. This document has been electronically signed by: Mario Briseno MD on 03/21/2025 18:12:24
--- NOTE | ~2025-03-21 | XR_ITS ---
CLINICAL HISTORY: leg pain 2 views right tibia-fibula Comparison: None Findings: No fractures or malalignment. No periostitis or bony destruction. Normal bone mineralization and soft tissues. No significant bony arthritic changes. No radiopaque foreign body. Impression: 1. Normal right tibia-fibula. This document has been electronically signed by: Sean Bro MD on 03/21/2025 16:31:32
[2025-03-21 13:06] VITALS: BP 128/66; PULSE 62; RESP 16; TEMP 36.7; O2SAT 98; BMI 33.9
--- NOTE | 2025-03-21 13:14 | ED.GENADULT ---
HPI - General Adult General Chief complaint: Extremity Injury, Lower Stated complaint: lower back pain and pain on right leg Time Seen by Provider: 03/21/25 16:24 Source: patient Mode of arrival: ambulatory Limitations: no limitations History of Present Illness ED Provider: ALTHEA MANZANARES PA-C HPI narrative: 69 year old male with pmhx significant for atrial fibrillation on warfarin, CHF, status post pacemaker presents to the ED today for evaluation of right calf pain radiating to his right knee and right lower back x2 months. No injury/trauma. He has follow up with his PCP for this and diagnosed with arthritis. States he has been on tramadol for years. When asked what he was prescribed tramadol for, he states I guess for pain . States tramadol somewhat relieves his back/leg pain. He states he is on a medication that thins his blood - does not recall the name of this medication. When asked why he is prescribed a blood thinner he states I have clots some where . Patient is overall poor historian regarding his health history. Denies or bladder incontinence or retention, urinary symptoms, numbness/tingling/weakness of the lower extremities, saddle anesthesia. Related Data Home Medications ?Medication ?Instructions ?Recorded ?Confirmed CPAP #1 ea 08/04/20 01/14/25 Previous Rx's ?Medication ?Instructions ?Recorded Shower Chair #1 ea 03/06/21 shoe lift #1 ea 03/30/22 miscellaneous medical supply 1 ea miscellaneous DAILY #1 ea 12/13/22 docusate sodium 100 mg capsule 200 mg (2 x 100 mg) PO BEDTIME PRN 06/12/23 constipation #60 caps polyethylene glycol 3350 17 17 g PO DAILY #510 grams 06/12/23 gram/dose oral powder (Miralax) acetaminophen 325 mg capsule 325 mg PO Q4H PRN pain #30 caps 06/18/23 (Tylenol) lidocaine 5 % topical patch 1 patch topical DAILY PRN pain #15 06/18/23 ea ropinirole 2 mg tablet 2 mg PO BEDTIME 90 days #90 tabs 12/13/23 linaclotide 145 mcg capsule 145 mcg PO DAILY #90 caps 04/20/24 (Linzess) leg brace (Ankle Brace) #1 ea 08/11/24 digoxin 125 mcg (0.125 mg) tablet 125 mcg PO DAILY 90 days #90 tabs 10/23/24 furosemide 40 mg tablet 40 mg PO DAILY #90 tabs 11/20/24 lisinopril 40 mg tablet 40 mg PO DAILY 90 days #90 tabs 11/20/24 metoprolol succinate 100 mg 100 mg PO DAILY #90 tabs 11/20/24 tablet,extended release 24 hr pantoprazole 40 mg tablet,delayed 40 mg PO DAILY 90 days #90 tabs 11/20/24 release potassium chloride 10 mEq 20 meq (2 x 10 mEq) PO DAILY #10 12/30/24 tablet,extended release (Klor-Con) tabs rosuvastatin 10 mg tablet 10 mg PO DAILY #60 tabs 01/14/25 warfarin 5 mg tablet 5 mg PO DAILY #90 tabs 01/14/25 diltiazem HCl 360 mg 360 mg PO DAILY #90 caps 01/20/25 capsule,extended release 24 hr hydrocortisone 1 % topical cream 1 appl topical TID PRN skin 02/08/25 irritation/itching #60 grams tramadol 50 mg tablet 50 mg PO Q8H PRN pain 30 days #90 02/22/25 tabs Allergies Allergy/AdvReac Type Severity Reaction Status Date / Time No Known Allergies (No Known Allergy Verified 03/21/25 13:14 Allergies*) Review of Systems Review of Systems: Yes all other systems are reviewed and are negative [facility] Past Medical History Attestation statement: The following information was validated with the patient. Source: old records reviewed and nursing notes reviewed Medical History Primary osteoarthritis, right shoulder Degenerative disc disease, cervical History of poliomyelitis Restless leg syndrome Chronic constipation Chronic GERD History of pacemaker Obesity (BMI 30-39.9) Vitamin D deficiency Pure hypercholesterolemia Leg length discrepancy Pacemaker Abnormal finding of foot Right shoulder pain MELANIE on CPAP Chest pain Trigger finger Bilateral sciatica Polyarthralgia Chronic heart failure with preserved ejection fraction (HFpEF) Persistent atrial fibrillation Obesity (BMI 30.0-34.9) Surgical History Hx of colonoscopy History of ear surgery History of cholecystectomy Family History Family History Father Myocardial infarction CVD (cardiovascular disease) Mother No problems noted. Sister Stomach cancer Son No problems noted. Son No problems noted. Daughter No problems noted. Daughter No problems noted. Brother No problems noted. Brother No problems noted. Social History Social History Household Members: Children Housing: House Alcohol intake: never Patient Tobacco Use Status: Never used Tobacco e-Cigarette/Vaping Use: Never Used Second Hand Smoke Exposure: No Advance Directives: No Advance Directives Information Provided: No Do you have a plan to hurt others: No Plan service: No Current occupational status: disabled Cognitive needs: Yes (cane) Hearing needs: No Vision needs: Yes (glasses) Physical Exam ED Vital Signs: Vital Signs - 24 hr 03/21/25 13:06 03/21/25 18:59 03/21/25 19:09 Temperature 98.0 F 0 F L Pulse Rate 62 60 60 Respiratory Rate 16 16 16 Blood Pressure 128/66 155/76 H 155/76 H Pulse Oximetry 98 99 99 Oxygen Delivery Method Room Air Room Air Room Air BMI result Body Mass Index 33.9 vital signs stable General: Well appearing, in no acute distress. Skin: Warm, dry, intact. No rashes or lesions. Head: Normocephalic, atraumatic. EENT: Hearing is intact b/l. Conjunctiva clear. Sclera is anicteric. PERRLA. EOM intact. Moist mucous membranes.? Cardiac: Chest wall symmetric. RRR Lungs: Normal respiratory effort without accessory muscle use. CTA bilaterally Back: No midline spinous or paraspinal tenderness. No step off deformity. Ext: +no deformities, no swelling. FROM intact. no calf tenderness/ erythema/swelling. SILT. 2+pt pulses. ambulating w/ steady gait. Neuro: AOx3. Normal speech. Course Course Course Narrative: RME: 69 year male presents to ED for low back pain radiating down right leg for 2 months states pain unbearable came to the ED to be evaluated. Patient denies any urinary/bowel incontinence. Normal gait. X-ray ordered Reevaluation(s) Reevaluation #1: Patient's symptoms seem to be chronic in nature. On chart review, he has been evaluated for this in the past with unremarkable workups. x-ray lumbar spine and tib/fib without fracture. Venous duplex without DVT. Advised Tylenol and PCP follow up. Patient has remained stable throughout ED visit today. Discussed worrisome signs and symptoms and when to return to the ED. All questions answered at this time. Patient is agreeable with disposition and stable for discharge. Medications Administered Discontinued Medications Generic Name Dose Route Start Last Admin Trade Name Shekhar PRN Reason Stop Dose Admin Acetaminophen 975 mg 03/21/25 17:33 03/21/25 17:46 Acetaminophen 325 Mg Tablet PO 03/21/25 17:34 975 mg ONCE ONE Administration Medical Decision Making Medical Decision Making MDM Narrative: 69 year old male with pmhx significant for atrial fibrillation on warfarin, CHF, status post pacemaker presents to the ED today for evaluation of right calf pain radiating to his right knee and right lower back x2 months. vital signs stable. afebrile. he is well appearing, lying comfortably on the exam table. on exam of LEs, no deformities, no swelling. FROM intact. no calf tenderness/ erythema/swelling. SILT. 2+ pt pulses. ambulating w/ steady gait. No midline spinous tenderness or step-off deformities. Differential diagnosis includes lumbar radiculopathy, MSK sprain/strain, like sciatica, arthritis, bursitis, tendonitis, DVT. Less likely gout x pseudogout. Unlikely cauda equina, epidural abscess, cord compression, Guillain-Buffalo. Presentation not consistent colic, nephrolithiasis, pyelonephritis. Plan for imaging, pain control and re-evaluation. Differential Diagnosis Differential Diagnoses: The differential diagnosis associated with the presentation includes as above. Admission/Observation not indicated. Independent Interpretation I performed an independent interpretation of an: Plain X-Ray and Ultrasound Interpretation: X-ray lumbar spine without fracture X-ray right tib-fib without fracture Venous duplex without DVT Radiology Impression Discussion of test interpretation with radiology: I have reviewed the radiologist's reading. Radiologist Impression: Procedure(s): US venous duplex LE RT Accession Number(s): [id number] cc: Reji Meyers MD; Althea Manzanares~ Reason for Exam: R leg larger than left, pain in calf CLINICAL HISTORY: R leg larger than left, pain in calf Venous duplex ultrasound right lower extremity Comparison: None provided Findings: The visualized deep veins are fully compressible with normal Doppler color flow and spectral tracings. No popliteal cyst. IMPRESSION: 1. Negative for right lower extremity deep vein thrombosis. This document has been electronically signed by: Mario Briseno MD on 03/21/2025 18:12:24 Procedure(s): XR tibia fibula RT 2V Accession Number(s): [id number] cc: Reji Meyers MD; Flynn Small~ Reason for Exam: leg pain CLINICAL HISTORY: leg pain 2 views right tibia-fibula Comparison: None Findings: No fractures or malalignment. No periostitis or bony destruction. Normal bone mineralization and soft tissues. No significant bony arthritic changes. No radiopaque foreign body. Impression: 1. Normal right tibia-fibula. This document has been electronically signed by: Sean Bro MD on 03/21/2025 16:31:32 Procedure(s): XR lumbar spine 2-3V Accession Number(s): [id number] cc: Reji Meyers MD; Flynn Small~ Reason for Exam: low back pain CLINICAL HISTORY: low back pain 3 views lumbar spine Comparison: CR/NH/SR - XR LUMBAR SPINE 2-3 VIEWS - 06/18/23 17:35 EST Findings: No fractures or spondylolisthesis. Stable degenerative facet arthropathy L4-L5. Bridging anterior vertebral body osteophytes at this level. Disc spaces are maintained. Pedicles and transverse processes intact. Lordotic curvature is preserved. Normal bone mineralization. Mild calcified atherosclerotic disease. Sacroiliac joints unremarkable. Impression: 1. No compression fractures or spondylolisthesis. Stable degenerative spondylosis. This document has been electronically signed by: Sean Bro MD on 03/21/2025 16:29:02 External Record Review External record reviewed: Inpatient record Prescription Management I considered prescription management with: Pain Medication Social Determinants Patient?s care significantly limited by Social Determinants of Health including: Other Social Determinant of Health Critical Care Time Critical Care Time Critical Care Time: No Discharge Plan Discharge Clinical Impression: Pain in right leg Patient Disposition: Home, Self-Care Instructions: Leg Pain (ED) Additional Instructions: The xrays of your back and lower leg do not demonstrate any fracture. The ultrasound of your right leg does not demonstrate clot or cyst behind your knee. You may continue taking Tylenol and tramadol at home as needed for pain/discomfort. Follow up with outpatient providers as needed. Return with any new or worsening symptoms. In the case of an emergency call 911. Prescriptions: No Action (DME) Shower Chair Misc See Rx Instructions .Route Qty: 1 0RF Rx Instructions: As directed (DME) shoe lift See Rx Instructions .Route .MEDSUPPLY Qty: 1 0RF Rx Instructions: Lt 1/2 inch heel lift ropinirole 2 mg tablet 2 mg PO BEDTIME 90 Days Qty: 90 1RF digoxin 125 mcg (0.125 mg) tablet 125 mcg PO DAILY 90 Days Qty: 90 1RF furosemide 40 mg tablet 40 mg PO DAILY Qty: 90 3RF pantoprazole 40 mg tablet,delayed release (DR/EC) 40 mg PO DAILY 90 Days Qty: 90 1RF lisinopril 40 mg tablet 40 mg PO DAILY 90 Days Qty: 90 1RF metoprolol succinate 100 mg tablet extended release 24 hr 100 mg PO DAILY Qty: 90 3RF potassium chloride [Klor-Con 10] 10 mEq tablet extended release 20 meq PO DAILY Qty: 10 0RF warfarin 5 mg tablet 5 mg PO DAILY Qty: 90 2RF Protocol: Dose Management Condition: Saturday (Week One) Dose/Route: 2.5 mg Instruction: 0.5 x 5 mg tablets Condition: Saturday Dose/Route: 5 mg Instruction: 1 x 5 mg tablet Condition: Saturday Dose/Route: 2.5 mg Instruction: 0.5 x 5 mg tablets Condition: Saturday Dose/Route: 2.5 mg Instruction: 0.5 x 5 mg tablets Condition: Dose/Route: 2.5 mg Instruction: 0.5 x 5 mg tablets Condition: Saturday Dose/Route: 2.5 mg Instruction: 0.5 x 5 mg tablets Condition: Saturday Dose/Route: 2.5 mg Instruction: 0.5 x 5 mg tablets Condition: Saturday (Week Two) Dose/Route: 2.5 mg Instruction: 0.5 x 5 mg tablets Condition: Saturday Dose/Route: 5 mg Instruction: 1 x 5 mg tablet Condition: Saturday Dose/Route: 2.5 mg Instruction: 0.5 x 5 mg tablets Condition: Saturday Dose/Route: 2.5 mg Instruction: 0.5 x 5 mg tablets Condition: Dose/Route: 2.5 mg Instruction: 0.5 x 5 mg tablets Condition: Saturday Dose/Route: 2.5 mg Instruction: 0.5 x 5 mg tablets Condition: Saturday Dose/Route: 2.5 mg Instruction: 0.5 x 5 mg tablets Protocol Text: Adjustment Start Date: Saturday02/17/25 INR Value: 2.9 INR Date: 02/17/25 Recheck Date: 03/03/25 Rx Instructions: 5MG X 4, 2.5MG X3 diltiazem HCl 360 mg capsule,extended release 24hr 360 mg PO DAILY Qty: 90 3RF hydrocortisone 1 % cream 1 appl topical TID PRN (Reason: skin irritation/itching) Qty: 60 0RF tramadol 50 mg tablet 50 mg PO Q8H PRN (Reason: pain) 30 Days Qty: 90 0RF acetaminophen [Tylenol] 325 mg capsule 325 mg PO Q4H PRN (Reason: pain) Qty: 30 0RF lidocaine 5 % adhesive patch,medicated 1 patch topical DAILY PRN (Reason: pain) Qty: 15 0RF Rx Instructions: leave on most painful area for up to 12 hrs (DME) CPAP Device See Rx Instructions .ROUTE .MEDSUPPLY Qty: 1 Rx Instructions: As directed polyethylene glycol 3350 [Miralax] 17 gram/dose powder 17 g PO DAILY Qty: 510 2RF docusate sodium 100 mg capsule 200 mg PO BEDTIME PRN (Reason: constipation) Qty: 60 5RF miscellaneous medical supply Misc 1 ea miscellaneous DAILY Qty: 1 0RF Rx Instructions: Raised Toilet seat Linzess 145 mcg capsule 145 mcg PO DAILY Qty: 90 2RF (DME) Ankle Brace Misc See Rx Instructions .ROUTE .MEDSUPPLY Qty: 1 0RF Rx Instructions: shoe or AFO custom molded for foot drop, left rosuvastatin 10 mg tablet 10 mg PO DAILY Qty: 60 3RF Referrals: Reji Meyers MD [Primary Care Provider, Internal Medicine] Interventions: ED Discharge Assessment Last Done: 03/21/25 19:09 Discharge Date/Time: 03/21/25 19:10 Print Language: Congolese
--- OUTSIDE RECORDS SUMMARY | 2025-03-21 16:17 | XMS_ITS | Patient Health Record ---
Author Organization [facility] Address [address] [place] [address] Care Team Providers Care Greenhouse Specialist Name Role Phone Autumn (RETIRED) Gucci RASMUSSEN Primary Care Provide r Unavailable Srinivasa Douglas Unavailable [phone] Sanjay Page Unavailable Unavailable Reason For Referral [...] Problem Status W/U Status Risk Notes Problem [id number] Abnormal CT scan, colon (R93.3) Active confirmed Plan Of Treatment Future Test Test Name Order Date COLONOSCOPY 06/05/2016 Insurance Providers Payer Name Payer Address Payer Phone Subscriber Number Group Number Insured Name Patient Relationship to Insured Coverage Start Date Coverage End Date MED[place]ARE OF [place] [address] [place] [address] [id number] JUAN HUNG Self - patient is the insured MEDICAID OF [facility] [address] [place] [address] [id number] WATKINS Self - patient is the insured Medical (General) History Medical History History ICD Code Pacemaker--in [place] Hypertension Denies [place], DM,CVA,Lung disease Hyperlipidemia Atrial fibrillation Surgical History Surgery Date(Month/Year) Pacemaker
--- OUTSIDE RECORDS SUMMARY | 2025-03-21 16:17 | XMS_ITS | Encounter Summary ---
Author Organization [facility] Address [address] [place] [address] Phone Care Team Providers Care Night Coordinator Name Role Phone Unavailable Primary Care Provider Unavailabl e Encounter Details Date Type Department Care Team (Latest Contact Info) Description 08/26/2019 Ancillary Orders [facility] [address] [place] [address] Wojciech Mccallum MD [address] [address] Atrial fibrillation, unspecified type Social History Tobacco [...] It is not the complete legal health record.[facility]
--- OUTSIDE RECORDS SUMMARY | 2025-03-21 16:17 | XMS_ITS | Clinical Summary ---
Author Organization [facility] Address [address] [facility] [address] [place] [phone] Phone Care Team Providers Care Asphalt Patcher Name Role Phone Unavailable Primary Care Provider [...] of 2 - PCV) 07/19/2018 07/19/2017, 08/21/2016 INFLUENZA VACCINE (#1) 2025 08/21/2016 COVID-19 VACCINE (3 - 2024-2 6 season) 2025 06/30/2021, 06/08/2021 Adult Td,Tdap Booster 02/13/2029 02/13/2019 [...] file Insurance [place] [facility] [place] [facility] [place] [facility] [place] MED[place] PART A & B [facility] MEDIC[facility] PART [facility] & B [facility] MEDIC[facility] PART A & B [facility] Additional Source Comments The information contained in this document represents components of the legal health record. It is not the complete legal health record.[facility]
[2025-03-21 18:59] VITALS: BP 155/76; PULSE 60; RESP 16; O2SAT 99
[2025-03-21 19:09] VITALS: BP 155/76; PULSE 60; RESP 16; TEMP -17.7; TEMP 0; O2SAT 99
== END 2025-03-21 19:10 | disposition home or self-care (01) ==
PROVIDERS: Emergency Provider Emergency Medicine; PCP Internal Medicine
DX: M79.661 Pain in right lower leg (principal); M19.90 Unspecified osteoarthritis, unspecified site; I50.32 Chronic diastolic (congestive) heart failure; I48.19 Other persistent atrial fibrillation; Z95.0 Presence of cardiac pacemaker; Z79.899 Other long term (current) drug therapy
CPT/HCPCS: 72100; 73590; 93971; 99284

== ENCOUNTER → 2025-03-21 13:13 | Outpatient (BNV) | payer OTHER, SELFPAY | PROVIDERS: PCP Internal Medicine; Visit Provider Radiology Diagnostic Radiology | DX: M79.661 Pain in right lower leg (principal); M47.816 Spondylosis without myelopathy or radiculopathy, lumbar region | CPT/HCPCS: 72100; 73590; 93971 ==

== ENCOUNTER → 2025-04-04 23:59 | Outpatient (BNV) | payer OTHER, SELFPAY ==
--- NOTE | 2025-04-06 15:58 | A.OFFVIS_ITS ---
Intake Visit Reasons: Remote device check- [place] Allergies No Known Allergies (No Known Allergies*) Allergy (Verified 03/21/25 13:14) [facility] Medical History Primary osteoarthritis, right shoulder Degenerative disc disease, cervical History of poliomyelitis Restless leg syndrome Chronic constipation Chronic GERD History of pacemaker Obesity (BMI 30-39.9) Vitamin D deficiency Pure hypercholesterolemia Leg length discrepancy Pacemaker Abnormal finding of foot Right shoulder pain MELANIE on CPAP Chest pain Trigger finger Bilateral sciatica Polyarthralgia Chronic heart failure with preserved ejection fraction (HFpEF) Persistent atrial fibrillation Obesity (BMI 30.0-34.9) Surgical History Hx of colonoscopy History of ear surgery History of cholecystectomy Family History Father Myocardial infarction CVD (cardiovascular disease) Mother No problems noted. Sister Stomach cancer Son No problems noted. Son No problems noted. Daughter No problems noted. Daughter No problems noted. Brother No problems noted. Brother No problems noted. Social History Household Members: Children Housing: House Alcohol intake: never Patient Tobacco Use Status: Never used Tobacco e-Cigarette/Vaping Use: Never Used Second Hand Smoke Exposure: No service: No Current occupational status: disabled Cognitive needs: Yes (cane) Hearing needs: No Vision needs: Yes (glasses) Office Procedures Cardiac Device Check Cardiac Device Check Details: Date of service- 04/04/2025 ; Battery life >5 years; normal lead parameters; GLASS BLOCK BENDER 48%; no significant arrhythmias. Overall normal device function. [id number]-[id number] Cardiac Device Interrogation, pacemaker Procedure code (CPT) selection complete Assessment & Plan Assessment & Plan (1) Pacemaker: Code(s): Z95.0 - Presence of cardiac pacemaker Category: Medical (2) Persistent atrial fibrillation: Code(s): I48.19 - Other persistent atrial fibrillation Category: Medical Plan x Coding Level of Care Code Procedure Only Diagnoses Pacemaker Z95.0 Persistent atrial fibrillation I48.19 CPT Codes Cardiac Device Check - Cardiac Device 12: 85075-Nilhcc Cardiac Device Interrogation, pacemaker ([id number])
== END ==
PROVIDERS: PCP Internal Medicine; Visit Provider Internal Medicine
DX: I48.19 Other persistent atrial fibrillation (principal); Z95.0 Presence of cardiac pacemaker
CPT/HCPCS: 93294

== ENCOUNTER 2025-04-07 10:25 | Outpatient (AMB) | payer OTHER, SELFPAY ==
[2025-04-07 10:42] LABS: Prothrombin Time Whole Bld POC 21.4 sec (11.1-13.5); ~PT, ~INR - Anti Coag Clinic 1.8 (0.9-1.1)
--- NOTE | 2025-04-07 10:46 | MHC.OFFVISCO ---
Intake Intake Visit Reasons: Anticoagulation Allergies No Known Allergies (No Known Allergies*) Allergy (Verified 04/07/25 10:36) Medication List - Last Reconciled 04/07/25 by Nena Wu RN acetaminophen (Tylenol) 325 mg PO Q4H PRN CPAP As directed digoxin 125 mcg PO DAILY 90 days diltiazem HCl CD 360 mg PO DAILY docusate sodium 200 mg (2 x 100 mg) PO BEDTIME PRN furosemide 40 mg PO DAILY hydrocortisone 1% 1 appl topical TID PRN leg brace (Ankle Brace) shoe or AFO custom molded for foot drop, left lidocaine 5% 1 patch topical DAILY PRN linaclotide (Linzess) 145 mcg PO DAILY lisinopril 40 mg PO DAILY 90 days metoprolol succinate ER 100 mg PO DAILY miscellaneous medical supply 1 ea miscellaneous DAILY pantoprazole 40 mg PO DAILY 90 days polyethylene glycol 3350 (Miralax) 17 grams PO DAILY potassium chloride ER (Klor-Con) 20 mEq (2 x 10 mEq) PO DAILY ropinirole 2 mg PO BEDTIME 90 days rosuvastatin 10 mg PO DAILY [shoe lift Lt 1/2 inch heel lift] Shower Chair As directed tramadol 50 mg PO Q8H PRN 30 days warfarin 5 mg See Protocol PO DAILY Nursing Note NO MISSED DOSES,CP,SOB,DIET/MED CHANGES,FALLS OR SX OF BLEEDING. BOOST QWARFARIN TODAY THEN RESUME USUAL DOSING AND FOLLOW-UP IN 2 WEEKS GOOD UNDERSTANDING OF DOSING INSTR. Anti-Coag Initial Assessment Social Hx Patient Tobacco Use Status: Never used Tobacco alcohol intake: never Alcohol intake frequency: holidays/special occasions only Coding Level of Care Code Est Patient Level 1 Diagnoses Current use of anticoagulant therapy Z79.01 Assessment & Plan Assessment & Plan (1) Current use of anticoagulant therapy: Code(s): Z79.01 - prison (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
--- OUTSIDE RECORDS SUMMARY | 2025-04-07 12:58 | XMS_ITS | Encounter Summary ---
Author Organization [facility] Address [address] [place] [address] Phone Care Team Providers Care Director Manufacturing Engineering Name Role Phone Unavailable Primary Care Provider Unavailabl e Encounter Details Date Type Department Care Team (Latest Contact Info) Description 08/26/2019 Ancillary Orders [facility] [address] [place] [address] Wojciech Mccallum MD [address] [address] Atrial fibrillation, unspecified type Social History Tobacco [...] It is not the complete legal health record.[facility]
--- OUTSIDE RECORDS SUMMARY | 2025-04-07 12:58 | XMS_ITS | Patient Health Record ---
Author Organization [facility] Address [address] [place] [address] Care Team Providers Care Wine Steward Name Role Phone Autumn (RETIRED) Gucci RASMUSSEN Primary Care Provide r Unavailable Srinivasa Douglas Unavailable [phone] Sanjay Page Unavailable Unavailable Reason For Referral [...] MiraLax 1 as directed Orally a s directed; Duration: 1 days 06/14/2016 Active Amiodarone HCl 200 MG 1 tablet Orally On ce a day Active Nitrostat 0.4 MG Sublingual Ac tive Warfarin Sodium 5 MG 1 tablet Orally Onc e a day Active Atorvastatin Calcium 40 MG 1 tablet Oral ly Once a day Active Dulcolax 5 MG as directed Orally a s directed; Duration: 30 day(s) 06/14/2016 Active Problems Problem Type SNOMED Code ICD Code Onset Dates Problem Status W/U Status Risk Notes Problem Computed tomography result abnormal (654950609) Abnormal CT scan, colon (R93.3) Active confirmed Plan Of Treatment Future Test Test Name Order Date COLONOSCOPY 06/05/2016 Insurance Providers Payer Name Payer Address Payer Phone Subscriber Number Group Number Insured Name Patient Relationship to Insured Coverage Start Date Coverage End Date MEDICARE OF [place] [address] [place] [id number] HUNG JUAN Self - patient is the insured MEDICAID OF [facility] [address] [place] [address] [id number] JUAN HUNG Self - patient is the insured Medical (General) History Medical History History ICD Code Pacemaker--in [place] Hypertension Denies [place], DM,CVA,Lung disease Hyperlipidemia Atrial fibrillation Surgical History Surgery Date(Month/Year) Pacemaker
--- OUTSIDE RECORDS SUMMARY | 2025-04-07 12:58 | XMS_ITS | Clinical Summary ---
Author Organization [facility] Address [address] [facility] [place] [address] Phone Care Team Providers Care Boom Master Name Role Phone Unavailable Primary Care Provider [...] B [place] & [facility] [place] [facility] & [place] [facility] MED[facility] PART A & B [facility] MEDICARE PART A & B [facility] Additional Source Comments The information contained in this document represents components of the legal health record. It is not the complete legal health record.[facility]
== END 2025-04-07 11:04 | disposition home or self-care (01) ==
LOC: HO.ACS 10:25
PROVIDERS: PCP Internal Medicine; Visit Provider Internal Medicine Medical Oncology
DX: Z79.01 Long term (current) use of anticoagulants (principal)

== ENCOUNTER → 2025-04-07 10:25 | Outpatient (BNVA) | payer OTHER, SELFPAY | PROVIDERS: PCP Internal Medicine; Visit Provider Internal Medicine Medical Oncology | DX: I48.20 Chronic atrial fibrillation, unspecified (principal); Z51.81 Encounter for therapeutic drug level monitoring; Z79.01 Long term (current) use of anticoagulants | CPT/HCPCS: 85610; 99211 ==

== ENCOUNTER 2025-04-21 10:32 | Outpatient (AMB) | payer OTHER, SELFPAY ==
[2025-04-21 10:47] LABS: Prothrombin Time Whole Bld POC 29.8 sec (11.1-13.5); ~PT, ~INR - Anti Coag Clinic 2.5 (0.9-1.1)
--- NOTE | 2025-04-21 10:47 | MHC.OFFVISCO ---
Intake Intake Visit Reasons: Anticoagulation Allergies No Known Allergies (No Known Allergies*) Allergy (Verified 04/21/25 10:43) Medication List - Last Reconciled 04/21/25 by Angela Hernadez RN acetaminophen (Tylenol) 325 mg PO Q4H PRN CPAP As directed digoxin 125 mcg PO DAILY 90 days diltiazem HCl CD 360 mg PO DAILY docusate sodium 200 mg (2 x 100 mg) PO BEDTIME PRN furosemide 40 mg PO DAILY hydrocortisone 1% 1 appl topical TID PRN leg brace (Ankle Brace) shoe or AFO custom molded for foot drop, left lidocaine 5% 1 patch topical DAILY PRN linaclotide (Linzess) 145 mcg PO DAILY lisinopril 40 mg PO DAILY 90 days metoprolol succinate ER 100 mg PO DAILY miscellaneous medical supply 1 ea miscellaneous DAILY pantoprazole 40 mg PO DAILY 90 days polyethylene glycol 3350 (Miralax) 17 grams PO DAILY potassium chloride ER (Klor-Con) 20 mEq (2 x 10 mEq) PO DAILY ropinirole 2 mg PO BEDTIME 90 days rosuvastatin 10 mg PO DAILY [shoe lift Lt 1/2 inch heel lift] Shower Chair As directed tramadol 50 mg PO Q8H PRN 30 days warfarin 5 mg See Protocol PO DAILY Nursing Note INR: 2.5- in therapeutic range 2-3 Medications and supplements reviewed- no changes No changes in health, diet, medications, or supplements, Denies any signs and symptoms of bleeding or bruising or clotting. Bleeding, bruising, clotting discussed Nutritional guidance given Dose: cont reg 5mg x 1. 2.5mg x 6 F/U INR: 2 weeks Patient verbalizes understanding of instructions given Anti-Coag Initial Assessment Social Hx Patient Tobacco Use Status: Never used Tobacco alcohol intake: never Alcohol intake frequency: holidays/special occasions only Coding Level of Care Code Est Patient Level 1 Diagnoses Current use of anticoagulant therapy Z79.01 Assessment & Plan Assessment & Plan (1) Current use of anticoagulant therapy: Code(s): Z79.01 - intermediate frame tender (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
--- OUTSIDE RECORDS SUMMARY | 2025-04-21 12:15 | XMS_ITS | Encounter Summary ---
Author Organization [facility] Address [address] [place] [address] Phone Care Team Providers Care Business Leader Name Role Phone Unavailable Primary Care Provider Unavailabl e Encounter Details Date Type Department Care Team (Latest Contact Info) Description 08/26/2019 Ancillary Orders [facility] [address] [place] [address] Wojciech Mccallum MD [address] [address] Atrial fibrillation, unspecified type Social History Tobacco [...] It is not the complete legal health record.[facility]
--- OUTSIDE RECORDS SUMMARY | 2025-04-21 12:15 | XMS_ITS | Clinical Summary ---
Author Organization [facility] Address [address] [facility] [address] [place] [address] Phone Care Team Providers Care Account Receivable Clerk Name Role Phone Unavailable Primary Care Provider [...] B [place] & [facility] & [place] & [facility] & [place] & B [facility] MEDIC[facility] PART [facility] & B [facility] & B [facility] Additional Source Comments The information contained in this document represents components of the legal health record. It is not the complete legal health record.[facility]
--- OUTSIDE RECORDS SUMMARY | 2025-04-21 12:15 | XMS_ITS | Patient Health Record ---
Author Organization [facility] Address [address] [place] [address] Care Team Providers Care Sas Clinical Programmer Name Role Phone Autumn (RETIRED) Gucci RASMUSSEN Primary Care Provide r Unavailable Srinivasa Douglas Unavailable [phone] Sanjay Page Unavailable Unavailable Reason For Referral [...] Risk Notes Problem Computed tomography result abnormal ([id number]) Abnormal CT scan, colon (R93.3) Active confirmed Plan Of Treatment Future Test Test Name Order Date COLONOSCOPY 06/05/2016 Insurance Providers Payer Name Payer Address Payer Phone Subscriber Number Group Number Insured Name Patient Relationship to Insured Coverage Start Date Coverage End Date [place] OF [place] [address] [place] [id number] ABHILASH JUAN Self - patient is the insured MEDICAID OF [facility] [address] [place] [address] [id number] JUAN HUNG Self - patient is the insured Medical (General) History Medical History History ICD Code Pacemaker--in [place] Hypertension Denies [place], DM,CVA,Lung disease Hyperlipidemia Atrial fibrillation Surgical History Surgery Date(Month/Year) Pacemaker
== END 2025-04-21 11:14 | disposition home or self-care (01) ==
LOC: HO.ACS 10:32
PROVIDERS: PCP Internal Medicine; Visit Provider Internal Medicine Medical Oncology
DX: Z79.01 Long term (current) use of anticoagulants (principal)

== ENCOUNTER → 2025-04-21 10:32 | Outpatient (BNVA) | payer OTHER, SELFPAY | PROVIDERS: PCP Internal Medicine; Visit Provider Internal Medicine Medical Oncology | DX: Z79.01 Long term (current) use of anticoagulants (principal) | CPT/HCPCS: 85610; 99211 ==

== ENCOUNTER 2025-05-03 10:18 | Outpatient (REF) | payer OTHER, SELFPAY ==
[2025-05-03 11:33] LABS: Cholesterol 139 mg/dL (<200); HDL Cholesterol 50 mg/dL (>40); Potassium 3.8 mmol/L (3.3-5.1); Triglycerides 107 mg/dL (<150)
== END 2025-05-03 10:19 | disposition home or self-care (01) ==
LOC: HO.LAB 10:18
PROVIDERS: PCP Internal Medicine; Visit Provider Internal Medicine
DX: I50.32 Chronic diastolic (congestive) heart failure (principal); E78.5 Hyperlipidemia, unspecified
CPT/HCPCS: 36415; 80061; 84132

== ENCOUNTER 2025-05-05 10:28 | Outpatient (AMB) | payer OTHER, SELFPAY ==
[2025-05-05 10:41] LABS: Prothrombin Time Whole Bld POC 34.4 sec (11.1-13.5); ~PT, ~INR - Anti Coag Clinic 2.9 (0.9-1.1)
--- NOTE | 2025-05-05 10:46 | MHC.OFFVISCO ---
Intake Intake Visit Reasons: Anticoagulation Allergies No Known Allergies (No Known Allergies*) Allergy (Verified 05/05/25 10:36) Medication List - Last Reconciled 05/05/25 by Nena Wu RN acetaminophen (Tylenol) 325 mg PO Q4H PRN CPAP As directed digoxin 125 mcg PO DAILY 90 days diltiazem HCl CD 360 mg PO DAILY docusate sodium 200 mg (2 x 100 mg) PO BEDTIME PRN furosemide 40 mg PO DAILY hydrocortisone 1% 1 appl topical TID PRN leg brace (Ankle Brace) shoe or AFO custom molded for foot drop, left lidocaine 5% 1 patch topical DAILY PRN linaclotide (Linzess) 145 mcg PO DAILY lisinopril 40 mg PO DAILY 90 days metoprolol succinate ER 100 mg PO DAILY miscellaneous medical supply 1 ea miscellaneous DAILY pantoprazole 40 mg PO DAILY 90 days polyethylene glycol 3350 (Miralax) 17 grams PO DAILY potassium chloride ER 20 mEq PO DAILY ropinirole 2 mg PO BEDTIME 90 days rosuvastatin 10 mg PO DAILY [shoe lift Lt 1/2 inch heel lift] Shower Chair As directed tramadol 50 mg PO Q8H PRN 30 days warfarin 5 mg See Protocol PO DAILY Nursing Note NO CP,SOB,DIET/MED CHANGES,FALLS OR SX OF BLEEDING. CONTINUE PRESENT DOSE AQND FOLLOW-UP IN 2 WEEKS GOOD UNDERSTANDING OF DOSING INSTR. 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
--- OUTSIDE RECORDS SUMMARY | 2025-05-05 20:13 | XMS_ITS | Clinical Summary ---
Author Organization [facility] Address [address] [place] [address] Phone Care Team Providers Care Sports Development Officer Name Role Phone Unavailable Primary Care Provider [...] [place] & B [facility] & [place] & [facility] & [place] PART A & B [facility] MEDICARE PART A & B [facility] MEDIC[facility] PART A & B [facility] Additional Source Comments The information contained in this document represents components of the legal health record. It is not the complete legal health record.[facility]
--- OUTSIDE RECORDS SUMMARY | 2025-05-05 20:14 | XMS_ITS | Patient Health Record ---
Author Organization [facility] Address [address] [place] [address] Care Team Providers Care Principal Technical Specialist Name Role Phone Autumn (RETIRED) uGcci RASMUSSEN Primary Care Provide r Unavailable Srinivasa Douglas Unavailable [phone] Sanjay Page Unavailable Unavailable Reason For Referral No Information Medications Medication SIG (Take, Route, Frequency, Duration) Notes Start Date End Date Status Lisinopril 20 MG Tablet Orally Active Furosemide 40 MG Tablet 1 tablet Orally Once a day Active Atenolol 50 MG Tablet 1 tablet Orally On ce a day Active Metoprolol Succinate ER 25 MG Tablet Extended Release 24 Hour 1 tablet Orally Once a day Active MiraLax 1 Powder as directed Orally a s directed; Duration: 1 days 06/14/2016 Active Amiodarone HCl 200 MG Tablet 1 tablet Orally Once a day Active Nitrostat 0.4 MG Tablet Sublingual Sublingual Active Warfarin Sodium 5 MG Tablet 1 tablet Ora lly Once a day Active Atorvastatin Calcium 40 MG Tablet 1 tablet Orally Once a day Active Dulcolax 5 MG Tablet Delayed Release as directed Orally as directed; Duration: 30 day(s) 06/14/2016 Active Social History Social History Additional Details Category Social Info Options Details Miscellaneous: Marital status: single Occupation: disabled Children: He takes care of his disabled son Section Notes: Nonsmoker; he describes brent pineda some beers and having 3 drinks on Fridays and Saturdays Problems Problem Type SNOMED Code ICD Code Onset Dates Problem Status W/U Status Risk Notes Problem Computed tomography result abnormal ([id number]) Abnormal CT scan, colon (R93.3) Active confirmed Plan Of Treatment Future Test Test Name Order Date COLONOSCOPY 06/05/2016 Insurance Providers Payer Name Payer Address Payer Phone Subscriber Number Group Number Insured Name Patient Relationship to Insured Coverage Start Date Coverage End Date MEDICARE OF [place] [address] [place] [address] [phone] [id number] JUAN HUNG Self - patient is the insured MEDICAID OF [facility] [address] [place] [phone] [id number] JUAN HUNG Self - patient is the insured Medical (General) History Medical History History ICD Code Pacemaker--in [place] Hypertension Denies [place], DM,CVA,Lung disease Hyperlipidemia Atrial fibrillation Surgical History Surgery Date(Month/Year) Pacemaker
--- OUTSIDE RECORDS SUMMARY | 2025-05-05 20:14 | XMS_ITS | Encounter Summary ---
Author Organization [facility] Address [address] [place] [address] Phone Care Team Providers Care Stone Layer Name Role Phone Unavailable Primary Care Provider Unavailabl e Encounter Details Date Type Department Care Team (Latest Contact Info) Description 08/26/2019 Ancillary Orders [facility] [address] [place] [address] Wojciech Mccallum MD [address] [address] Atrial fibrillation, unspecified type Social History Tobacco [...] It is not the complete legal health record.[facility]
== END 2025-05-05 10:47 | disposition home or self-care (01) ==
LOC: HO.ACS 10:28
PROVIDERS: PCP Internal Medicine; Visit Provider Internal Medicine Medical Oncology
DX: Z79.01 Long term (current) use of anticoagulants (principal)

== ENCOUNTER → 2025-05-05 10:28 | Outpatient (BNVA) | payer OTHER, SELFPAY | PROVIDERS: PCP Internal Medicine; Visit Provider Internal Medicine Medical Oncology | DX: I48.20 Chronic atrial fibrillation, unspecified (principal); Z51.81 Encounter for therapeutic drug level monitoring; Z79.01 Long term (current) use of anticoagulants | CPT/HCPCS: 85610; 99211 ==

== ENCOUNTER 2025-05-17 13:26 | Outpatient (AMB) | payer OTHER, SELFPAY ==
--- NOTE | 2025-05-17 13:28 | A.OFFVIS_ITS ---
Vital Signs 05/17/25 13:52 Height 5 ft 3 in Weight 189 lb 9.561 oz BMI 33.6 BP 120/72 Blood Pressure Location Lt brachial Position Sitting Pulse 77 Intake Visit Reasons: Follow up/ labs Intake Note: Follow-up with [facility] check feeling good Linux System Admin Required: Yes Linux System Admin Services: Linux System Admin Present Linux System Admin Name: joann Beck Allergies No Known Allergies (No Known Allergies*) Allergy (Verified 05/05/25 10:36) Medication List - Last Reconciled 05/17/25 by Darian Roque NP acetaminophen (Tylenol) 325 mg PO Q4H PRN CPAP As directed digoxin 125 mcg PO DAILY 90 days diltiazem HCl CD 360 mg PO DAILY docusate sodium 200 mg (2 x 100 mg) PO BEDTIME PRN furosemide 40 mg PO DAILY hydrocortisone 1% 1 appl topical TID PRN leg brace (Ankle Brace) shoe or AFO custom molded for foot drop, left lidocaine 5% 1 patch topical DAILY PRN linaclotide (Linzess) 145 mcg PO DAILY lisinopril 40 mg PO DAILY 90 days metoprolol succinate ER 100 mg PO DAILY miscellaneous medical supply 1 ea miscellaneous DAILY pantoprazole 40 mg PO DAILY 90 days polyethylene glycol 3350 (Miralax) 17 grams PO DAILY potassium chloride ER 20 mEq PO DAILY ropinirole 2 mg PO BEDTIME 90 days rosuvastatin 10 mg PO DAILY [shoe lift Lt 1/2 inch heel lift] Shower Chair As directed tramadol 50 mg PO Q8H PRN 30 days warfarin 5 mg See Protocol PO DAILY HPI Comments Details: This is a 70-year-old male patient coming in for a follow-up visit. A lang interpreter was used throughout the visit. Patient with a history of AFib, chronic heart failure with preserved ejection fraction, pacemaker implantation, and sleep apnea who has been reporting some chest discomfort at his last visit. Patient had also gone to the emergency room at that time and was ruled out for ACS. Given his reports of ongoing chest discomfort with numbness and tingling down his arm, we had planned for a myocardial perfusion study which has not been completed for unclear reasons. Today, patient is continuing to report the same symptoms of chest discomfort and tingling down his right arm. Patient denies any change in his symptoms. Patient is reporting compliance with all his medications and is denying any associated symptoms of shortness of breath, pal pitations, dizziness, orthopnea, PND, leg edema, presyncope or syncope. Patient does report some right-sided leg pain for which patient underwent duplex ultrasound that was negative for DVT. [facility] Medical History Primary osteoarthritis, right shoulder Degenerative disc disease, cervical History of poliomyelitis Restless leg syndrome Chronic constipation Chronic GERD History of pacemaker Obesity (BMI 30-39.9) Vitamin D deficiency Pure hypercholesterolemia Leg length discrepancy Pacemaker Abnormal finding of foot Right shoulder pain MELANIE on CPAP Chest pain Trigger finger Bilateral sciatica Polyarthralgia Chronic heart failure with preserved ejection fraction (HFpEF) Persistent atrial fibrillation Obesity (BMI 30.0-34.9) Surgical History Hx of colonoscopy History of ear surgery History of cholecystectomy Family History Father Myocardial infarction CVD (cardiovascular disease) Mother No problems noted. Sister Stomach cancer Son No problems noted. Son No problems noted. Daughter No problems noted. Daughter No problems noted. Brother No problems noted. Brother No problems noted. Social History Household Members: Children Housing: House Alcohol intake: never Patient Tobacco Use Status: Never used Tobacco e-Cigarette/Vaping Use: Never Used Second Hand Smoke Exposure: No service: No Current occupational status: disabled Cognitive needs: Yes (cane) Hearing needs: No Vision needs: Yes (glasses) Review of Systems Const Denies chills, Denies fatigue, Denies fever(s), Denies frequent falls, Denies weakness, Denies weight gain and Denies weight loss ENT Denies dizziness Card Denies chest pain, Denies leg edema, Denies lightheadedness, Denies palpitations, Denies dyspnea, Denies dyspnea on exertion, Denies orthopnea and Denies other (loss of consciousness) Resp Denies cough, Denies dyspnea and Denies dyspnea on exertion GI Denies hematochezia and Denies change in stool character Musc Denies abnormal gait, Denies muscle weakness, Denies numbness, Denies radiating pain into limb and Denies tingling Neuro Denies abnormal gait, Denies dizziness, Denies frequent falls, Denies numbness, Denies tingling and Denies weakness Endo Denies fatigue and Denies palpitations Physical Exam Vital Signs: Last Vital Signs Pulse 77 05/17/25 13:52 BP 120/72 05/17/25 13:52 BMI result Body Mass Index 33.6 Office Procedures Cardiac Device Check Cardiac Device Check Details: [employer] single lead pacemaker interrogated today-battery life of 4.9 years, the threshold 0.75 volts at 0.8 milliseconds, VVI mode with a low rate of 60 beats per minute, 6 episodes of high V rates- likely AFib with RVR, V paced 49%. 75566-[id number] Cardiac Device Check, leadless/single lead pacemaker Procedure code (CPT) selection complete Assessment & Plan Assessment & Plan (1) Chest pain: Code(s): R07.9 - Chest pain, unspecified Category: Medical Plan: Previously in the emergency room for chest pain back in December for which patient was ruled out for ACS. Patient was plan for repeat myocardial perfusion study however patient did not complete this. We will plan to accompanied this again. Patient agreeable to the plan. (2) Chronic heart failure with preserved ejection fraction (HFpEF): Code(s): I50.32 - Chronic diastolic (congestive) heart failure Category: Medical Plan: 12/30/2024-echo study showed a normal LV systolic function with an ejection fraction at 58%, with no wall motion abnormalities or valvular pathology. Clinically stable and euvolemic. Continue current regimen including Lasix, lisinopril, and metoprolol therapy. Discussed in detail signs and symptoms to watch for with heart failure. Advised low-salt diet, daily weight monitoring, med compliance, and fluid restriction of 1.5-2 L daily. (3) Persistent atrial fibrillation: Code(s): I48.19 - Other persistent atrial fibrillation Category: Medical Plan: Chronic AFib. Continue warfarin for full anticoagulation therapy. Continue rate control approach with digoxin, diltiazem, and metoprolol. No reports of signs of bleeding or falls. We will monitor labs periodically. (4) Pacemaker: Code(s): Z95.0 - Presence of cardiac pacemaker Category: Medical Plan: [employer] single-chamber pacemaker. Interrogated today as above. We will follow remotely. (5) Dyslipidemia: Code(s): E78.5 - Hyperlipidemia, unspecified Category: Medical Plan: Most recent LDL at 68. Continue rosuvastatin therapy with an LDL goal less than 70. (6) MELANIE on CPAP: Code(s): G47.33 - Obstructive sleep apnea (adult) (pediatric); Z99.89 - Dependence on other enabling machines and devices Category: Medical Plan: Continue CPAP therapy. Advised heart healthy diet, regular exercise, med compliance, and management of vascular risk factors. Follow-up in the office following stress test. In the interim, patient will call the office with any concerns or change in symptoms. This note was generated using voice recognition software. While every effort has been made to ensure accuracy and proper boiler shop supervisor, there may be occasional errors that could affect the content or meaning of the described symptoms. Coding Level of Care Code Est Pt Level 4 (35529) Complex visit Add On G2211 Diagnoses Chest pain R07.9 Chronic heart failure with preserved ejection fraction (HFpEF) I50.32 Persistent atrial fibrillation I48.19 Pacemaker Z95.0 Dyslipidemia E78.5 MELANIE on CPAP G47.33; Z99.89 CPT Codes Cardiac Device Check - Cardiac Device 1: 88913-TR Cardiac Device Check, leadless/single lead pacemaker ([id number]) Time Spent (min) 34 Comment Time spent in reviewing the chart, test results, assessment, counseling and documentation.
[2025-05-17 13:52] VITALS: BP 120/72; PULSE 77; BMI 33.6
--- OUTSIDE RECORDS SUMMARY | 2025-05-17 17:01 | XMS_ITS | Encounter Summary ---
Author Organization [facility] Address [address] [place] [address] Phone Care Team Providers Care Assurance Senior Manager Name Role Phone Unavailable Primary Care Provider Unavailabl e Encounter Details Date Type Department Care Team (Latest Contact Info) Description 08/26/2019 Ancillary Orders [facility] [address] [place] [address] Wojciech Mccallum MD [address] [address] Atrial fibrillation, unspecified type Social History Tobacco [...]
--- OUTSIDE RECORDS SUMMARY | 2025-05-17 17:01 | XMS_ITS | Clinical Summary ---
Author Organization [facility] Address [address] [facility] [address] [place] [address] Phone Care Team Providers Care Heater Furnace Name Role Phone Unavailable Primary Care Provider [...] B [place] MEDIC[place] PART A & B [facility] PART [facility] & [place] MED[place] PART [place] & B [facility] & [place] PART A & B [facility] MEDICARE PART A & B [facility] MEDICARE PART A & B [facility] Additional Source Comments The information contained in this document represents components of the legal health record. It is not the complete legal health record.[facility]
== END 2025-05-17 14:32 | disposition home or self-care (01) ==
PROVIDERS: PCP Internal Medicine
DX: R07.9 Chest pain, unspecified (principal); I50.32 Chronic diastolic (congestive) heart failure; I48.19 Other persistent atrial fibrillation; Z95.0 Presence of cardiac pacemaker; E78.5 Hyperlipidemia, unspecified; G47.33 Obstructive sleep apnea (adult) (pediatric); Z99.89 Dependence on other enabling machines and devices
CPT/HCPCS: 93279; 99214; G2211

== ENCOUNTER → 2025-05-17 13:26 | Outpatient (BNVA) | payer OTHER, SELFPAY | PROVIDERS: PCP Internal Medicine | DX: Z45.018 Encounter for adjustment and management of other part of cardiac pacemaker (principal); R07.9 Chest pain, unspecified; I50.32 Chronic diastolic (congestive) heart failure; I48.20 Chronic atrial fibrillation, unspecified; E78.5 Hyperlipidemia, unspecified; G47.33 Obstructive sleep apnea (adult) (pediatric); Z79.01 Long term (current) use of anticoagulants; Z99.89 Dependence on other enabling machines and devices | CPT/HCPCS: 93279; 99212 ==

== ENCOUNTER 2025-06-03 10:36 | Outpatient (AMB) | payer OTHER, SELFPAY ==
[2025-06-03 10:56] LABS: Prothrombin Time Whole Bld POC 20.3 sec (11.1-13.5); ~PT, ~INR - Anti Coag Clinic 1.7 (0.9-1.1)
--- NOTE | 2025-06-03 11:02 | MHC.OFFVISCO ---
Intake Intake Visit Reasons: Anticoagulation Allergies No Known Allergies (No Known Allergies*) Allergy (Verified 06/03/25 10:47) Medication List - Last Reconciled 06/03/25 by Shanice Skaggs RN acetaminophen (Tylenol) 325 mg PO Q4H PRN CPAP As directed digoxin 125 mcg PO DAILY 90 days diltiazem HCl CD 360 mg PO DAILY docusate sodium 200 mg (2 x 100 mg) PO BEDTIME PRN furosemide 40 mg PO DAILY hydrocortisone 1% 1 appl topical TID PRN leg brace (Ankle Brace) shoe or AFO custom molded for foot drop, left lidocaine 5% 1 patch topical DAILY PRN linaclotide (Linzess) 145 mcg PO DAILY lisinopril 40 mg PO DAILY 90 days metoprolol succinate ER 100 mg PO DAILY miscellaneous medical supply 1 ea miscellaneous DAILY pantoprazole 40 mg PO DAILY 90 days polyethylene glycol 3350 (Miralax) 17 grams PO DAILY potassium chloride ER 20 mEq PO DAILY ropinirole 2 mg PO BEDTIME 90 days rosuvastatin 10 mg PO DAILY [shoe lift Lt 1/2 inch heel lift] Shower Chair As directed tramadol 50 mg PO Q8H PRN 30 days warfarin 5 mg See Protocol PO DAILY Nursing Note [facility] telephone [facility] #[id number] INR 1.7 out of therapeutic range Medications and supplements reviewed Patient status: pt reports he was taking an antidepressant and he ran out for about 2-3 weeks now - he does not remember the name and has not been able to get a refill, it was explained that a msg will be sent to PCP but he will need to f/u call to MD office and his pharmacy He reports he was supposed to have a med box set up to help him remember his meds but it never came Medications or supplements: has not been taking antidepressant which could be why the INR is lower today Diet: same Denies any signs and symptoms of bleeding or clotting or unusual bruising Bleeding, bruising, clotting discussed Nutritional guidance given: Review food list - no greens today because INR is low today Dose: give a booster dose today 5mg then resyme 5mg mondays/ 2.5mg x 6 days /wk F/U INR Date: 2 weeks Bring name of antidepressant to [facility] so interaction can be checked F/u call with MD regarding your meds ?? Patient verbalizing understanding of instructions given. 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
--- OUTSIDE RECORDS SUMMARY | 2025-06-03 13:20 | XMS_ITS | Clinical Summary ---
Author Organization [facility] Address [address] [place] [id number] Phone Care Team Providers Care Supervisor Payroll Name Role Phone Unavailable Primary Care Provider [...] [place] & B [facility] MED[facility] PART A & [place] & B [facility] & [place] & B [facility] MED[facility] PART A & B [facility] MED[facility] PART A & B [facility] Additional Source Comments The information contained in this document represents components of the legal health record. It is not the complete legal health record.[facility]
--- OUTSIDE RECORDS SUMMARY | 2025-06-03 13:21 | XMS_ITS | Patient Health Record ---
Author Organization [facility] Address [address] [place] [address] Care Team Providers Care Pressfitter Name Role Phone Autumn (RETIRED) Gucci RASMUSSEN Primary Care Provide r Unavailable Srinivasa Douglas Unavailable [phone] Sanjay Page Unavailable Unavailable Reason For Referral [...] Risk Notes Problem Computed tomography result abnormal ([id number]) Abnormal CT scan, colon (R93.3) Active confirmed Plan Of Treatment Future Test Test Name Order Date COLONOSCOPY 06/05/2016 Insurance Providers Payer Name Payer Address Payer Phone Subscriber Number Group Number Insured Name Patient Relationship to Insured Coverage Start Date Coverage End Date MEDICARE OF [place] [address] [place] [id number] [phone] [id number] JUAN HUNG Self - patient is the insured MEDICAID OF [facility] [address] [place] [phone] [id number] JUAN HUNG Self - patient is the insured Medical (General) History Medical History History ICD Code Pacemaker--in [place] Hypertension Denies [place], DM,CVA,Lung disease Hyperlipidemia Atrial fibrillation Surgical History Surgery Date(Month/Year) Pacemaker
--- OUTSIDE RECORDS SUMMARY | 2025-06-03 13:21 | XMS_ITS | Encounter Summary ---
Author Organization [facility] Address [address] [place] [address] Phone Care Team Providers Care Breastfeeding Program Coordinator Name Role Phone Unavailable Primary Care Provider Unavailabl e Encounter Details Date Type Department Care Team (Latest Contact Info) Description 08/26/2019 Ancillary Orders [facility] [address] [place] [address] Wojciech Mccallum MD [address] [id number] Atrial fibrillation, unspecified type Social History Tobacco [...] It is not the complete legal health record.[facility]
== END 2025-06-03 11:18 | disposition home or self-care (01) ==
LOC: HO.ACS 10:36
PROVIDERS: PCP Internal Medicine; Visit Provider Internal Medicine Medical Oncology
DX: Z79.01 Long term (current) use of anticoagulants (principal)

== ENCOUNTER → 2025-06-03 10:36 | Outpatient (BNVA) | payer OTHER, SELFPAY | PROVIDERS: PCP Internal Medicine; Visit Provider Internal Medicine Medical Oncology | DX: I48.20 Chronic atrial fibrillation, unspecified (principal); Z79.01 Long term (current) use of anticoagulants; Z51.81 Encounter for therapeutic drug level monitoring | CPT/HCPCS: 85610; 99211 ==